=== PATIENT | male | born 1985 | race Caucasian/White ===

== ENCOUNTER 2023-04-04 14:48 | Outpatient (REF) | payer MEDICAID, SELFPAY ==
[2023-04-04 17:34] LABS: MANUAL DIFF FLAG NO
[2023-04-04 17:40] LABS: Basophils Percent Auto 0.6 % (0-2); Eosinophils Absolute Auto 0.1 X10*3/uL (0.0-0.4); Eosinophils Percent Auto 1.7 % (0-4); Hemoglobin 15.6 g/dl (14.0-18.0); Imm Gran Abs Auto 0.02 X10*3/uL (0.00-0.03); Imm Gran Pct Auto 0.4 % (0.0-0.4); Lymphocytes Absolute Auto 1.8 X10*3/uL (1.2-4.9); Lymphocytes Percent Auto 36.7 % (20-40); Mean Corpuscular HGB Conc 32.5 g/dl (31.0-36.0); Mean Corpuscular Hemoglobin 29.3 pg (27.0-33.0); Mean Corpuscular Volume 90.1 fL (80.0-98.0); Mean Platelet Volume 12.4 fL (9.4-12.4); Monocytes Absolute Auto 0.3 X10*3/uL (0.1-1.2); Neutrophils Absolute Auto 2.6 x10*3/uL (2.0-8.3); Neutrophils Percent Auto 54.6 % (45-73); Platelet Count 159 X10*3/uL (160-400); Red Blood Count 5.33 X10*6/uL (4.60-5.80); Red Cell Distribution Width 13.1 % (11.0-16.0); White Blood Count 4.8 X10*3/uL (4.8-10.8)
[2023-04-04 17:54] LABS: Estimated Average Glucose 111 mg/dL; Hemoglobin A1c % 5.5 % (<6.0)
[2023-04-04 18:09] LABS: Alanine Aminotransferase 18 U/L (0-40); Albumin Level 4.7 g/dL (3.5-5.0); Alkaline Phosphatase 51 U/L (39-117); Anion Gap 15 (12-20); Aspartate Amino Transferase 23 U/L (5-37); Bilirubin Total 0.6 mg/dL (0.0-1.0); Blood Urea Nitrogen 10 mg/dL (9-16); Calcium 10.1 mg/dL (8.4-10.2); Carbon Dioxide 26 mmol/L (22-29); Chloride 104 mmol/L (96-108); Cholesterol 281 mg/dL (<200); Estimated Glomerular Filt Rate > 60; Glucose Random 89 mg/dL (60-115); HDL Cholesterol 49 mg/dL (>40); LDL Cholesterol Calculated 173 mg/dL (<100); Potassium 4.3 mmol/L (3.3-5.1); Sodium 141 mmol/L (135-145); Total Protein 8.1 g/dL (6.5-8.0); Triglycerides 296 mg/dL (<150)
[2023-04-04 18:16] LABS: TSH reflex Free T4 75.42 uIU/mL (0.32-4.0)
[2023-04-04 18:39] LABS: Creatinine Urine 277.43 mg/dL; Microalbum/Creatinine Ratio Ur 34.2 ug/mg cr (<30)
[2023-04-04 19:03] LABS: Free T4 (Free Thyroxine) < 0.42 ng/dL (0.71-1.85)
[2023-04-05 03:33] LABS: CT PCR NOT DETECTED (Not Detect.); NG PCR NOT DETECTED (Not Detect.)
[2023-04-05 03:46] LABS: HIV AB/AG Nonreactive (Nonreactive); HIV Num 1 0.05 S/CO (0.00-0.99)
[2023-04-08 14:03] LABS: RPR Rapid Plasma Reagin NON-REACTIVE (NON-REACTIVE)
[2023-04-09 17:43] LABS: HCV Log PCR <1.18 NOT DETECTED Log IU/mL (NOT DETECTED); HepC Viral Load <15 NOT DETECTED IU/mL (NOT DETECTED)
== END 2023-04-04 14:49 | disposition home or self-care (01) ==
LOC: HO.CHCLDS 14:48
PROVIDERS: Visit Provider Registered Nurse
DX: Z00.00 Encounter for general adult medical examination without abnormal findings (principal); Z11.4 Encounter for screening for human immunodeficiency virus [HIV]; Z11.3 Encounter for screening for infections with a predominantly sexual mode of transmission
CPT/HCPCS: 0353U; 80053; 80061; 82043; 82570; 83036; 84439; 84443; 85025; 86592; 87389; 87522

== ENCOUNTER 2023-06-06 15:14 | Outpatient (AMB) | payer MEDICAID, SELFPAY ==
--- NOTE | 2023-06-06 15:22 | A.OFFVIS_ITS ---
Intake Intake Visit Reasons: kidney stones Intake Note: NEW Patient presents today to established treatment for KIDNEY STONES: Meds- None Allergies to Antibiotic- No Known Allergies Blood Thinner- None Fleet Coordinator Required: No Accompanied by: Self / Same As Patient Allergies No Known Allergies Allergy (Verified 06/06/23 15:23) HPI HPI Comments History of Present Illness Details Dewey is a 38-year-old male who presents today to the office to establish as a new patient for an evaluation of kidney stones. 06/06/2023-- He presents today for an evaluation of kidney stones. He was seen in ED for abdominal pain. He has had CAT scan done on 05/08/2023 revealed bilateral nephrolithiasis with 6 mm mid right ureteral calculus. His PCP has been prescribing pain medication He requests refills of oxycodone at this time. 06/06/2023: Plan: I will send Vitamin B6 to the Pharmacy. Renewed oxycodone 5 mg #8 for the pain. Consent obtained for uretrescopy with laser litihotripsy on the right wtih stent insertion. Risks discussed included but not limited to, possible need to repeat procedure if stone is not completely fragmented, Irritative voiding symptoms, bladder spasms, urgency, blood in urine. [facility] Medical History (Updated 06/08/23 @ 12:10 by Danny Johnson MD) Vitamin D deficiency Hypothyroid Allergic rhinitis Anxiety GERD (gastroesophageal reflux disease) Diabetes Elevated cholesterol HTN (hypertension) Surgical History (Updated 04/26/23 @ 06:57 by Kenya Mills RN) History of esophagogastroduodenoscopy (EGD) Hx of appendectomy Family History (Updated 04/06/20 @ 11:47 by JUVENTINO Browning) Father Diabetes Past heart attack HTN (hypertension) CVD (cardiovascular disease) Mother Diabetes HTN (hypertension) Daughter Asthma Maternal Grandmother Thyroid disease Cancer Paternal Uncle Prostate CA Colon cancer Liver cancer Brother No problems noted. Review of Systems Const All systems reviewed & are unremarkable except as noted in HPI and below Reports no additional complaints Eyes Reports no additional complaints ENT Reports no additional complaints Card Denies dyspnea Resp Denies cough and Denies dyspnea GI Reports no additional complaints Musc Reports no additional complaints Skin/Breast Denies rash and Denies unusual bruising Neuro Reports no additional complaints Psych Reports no additional complaints Endo Reports no additional complaints Bryn/Lymph Reports no additional complaints Aller/Immun Reports no additional complaints Physical Exam Const General: healthy appearing, no acute distress and well developed Orientation/consciousness: patient oriented x3 HEENT Head: Yes normocephalic and Yes atraumatic Eyes Conjunctivae: conjunctivae normal Neck Neck: Yes normal visual inspection Chest Chest palpation & inspection: normal inspection of the chest Resp Effort & Inspection: normal respiratory effort Cardio Rate: regular rate GI Inspection: Yes normal to inspection Skin General skin exam: no rashes or lesions noted Neuro General: patient oriented x3 Extrem General: No pedal edema Psych Appearance: grossly normal Affect: normal affect Assessment & Plan Assessment & Plan (1) Bilateral kidney stones: Code(s): N20.0 - Calculus of kidney (2) Ureteral stone: Code(s): N20.1 - Calculus of ureter Plan I will send Vitamin B6 to the Pharmacy. Renewed oxycodone 5 mg #8 for the pain. Consent obtained for uretrescopy with laser litihotripsy on the right wtih stent insertion. Risks discussed included but not limited to, possible need to repeat procedure if stone is not completely fragmented, Irritative voiding symptoms, bladder spasms, urgency, blood in urine. Medications: New oxycodone Partial Fill upon patient request. 5 mg PO Q8-12H PRN 8 caps 0RF pain acetaminophen 500 - 1,000 mg (1 - 2 x 500 mg) PO Q6-8H PRN 20 tabs 0RF Pain pyridoxine (vitamin B6) 100 mg PO DAILY 90 tabs 3RF Patient Instructions: The patient had an opportunity to ask questions regarding treatment plan. All questions were answered. Imaging, Laboratory studies and physical exam results were discussed and reviewed in detail. No major barriers to understanding were identified. The patient expressed understanding and agreement with the above treatment plan. The patient is aware they should contact our office by phone for worsening of their current condition or the appearance of new symptoms. Compliance is encouraged with any medications and followup testing that is ordered. It is a privilege to be allowed the opportunity to participate in the urologic care of your patient. If you have any questions or concerns regarding treatment for the above conditions please do not hesitate to contact me. The office telephone contact is [phone]. This note is constructed in part using voice recognition software. While every effort has been made to ensure accuracy court specialist errors may have been included. Yours sincerely, Danny Johnson MD Coding Level of Care Code Tele New Pt Level 4 (56685) Diagnoses Bilateral kidney stones N20.0 Ureteral stone N20.1
== END 2023-06-06 16:09 | disposition home or self-care (01) ==
PROVIDERS: PCP Registered Nurse; Visit Provider Urology
DX: N20.0 Calculus of kidney (principal); N20.1 Calculus of ureter
CPT/HCPCS: 99204

== ENCOUNTER → 2023-06-06 15:14 | Outpatient (BNVA) | payer MEDICAID, SELFPAY | PROVIDERS: PCP Registered Nurse; Visit Provider Urology | DX: N20.2 Calculus of kidney with calculus of ureter (principal) | CPT/HCPCS: 99202 ==

== ENCOUNTER 2023-06-18 06:06 | Day surgery (SDC) | payer MEDICAID, SELFPAY ==
[2023-06-14 13:07] VITALS: BMI 29.3
--- NOTE | 2023-06-17 10:38 | HO.ANESPROP2 ---
Documented by User: Gunjan Horta NP 06/17/23 10:38 HPI - Anesthesia Eval Consult details Narrative: 38yo M for Cystoscopy, Ureteroroscopy, Retro, Laser,with poss stent PMFSH Active Problems Active Problems: All Active Problems (Updated 06/08/23 @ 12:10 by Danny Johnson MD) Ureteral stone (Acute) Bilateral kidney stones (Acute) Past Medical History Medical History Vitamin D deficiency Hypothyroid Allergic rhinitis Anxiety GERD (gastroesophageal reflux disease) Diabetes Elevated cholesterol HTN (hypertension) Family History Family History (Updated 04/06/20 @ 11:47 by JUVENTINO Browning) Father Diabetes Past heart attack HTN (hypertension) CVD (cardiovascular disease) Mother Diabetes HTN (hypertension) Daughter Asthma Maternal Grandmother Thyroid disease Cancer Paternal Uncle Prostate CA Colon cancer Liver cancer Brother No problems noted. Surgical History Surgical History History of esophagogastroduodenoscopy (EGD) Hx of appendectomy Social History Social History Patient Tobacco Use Status: Former Tobacco user Quit Date: 1 YR AGO Have you been hit, kicked, punched, or otherwise hurt by someone within the past year? If so, by whom?: No Are you DNR?: No Advance Directives: No Advance Directives Information Provided: Yes Recently lost weight without trying: No Nutrition Risks: No Nutritional Risk Poor oral hygiene: No Meds Allergies Allergy/AdvReac Type Severity Reaction Status Date / Time No Known Allergies Allergy Verified 06/06/23 15:23 Home Medications Medication Instructions Recorded Confirmed Last Taken Type lisinopril 10 mg tablet 10 mg PO DAILY 04/06/20 06/18/23 History omeprazole 20 mg capsule,delayed 20 mg PO BID 04/06/20 06/18/23 History release prazosin 2 mg capsule 2 mg PO BEDTIME 04/06/20 Unknown History atorvastatin 20 mg tablet 20 mg PO QPM CHOLESTEROL 04/26/23 04/26/23 06/18/23 History cholecalciferol (vitamin D3) 25 25 mcg PO DAILY 04/26/23 04/26/23 Unknown History mcg (1,000 unit) capsule (Vitamin D3) levothyroxine 100 mcg tablet 100 mcg PO QAM 04/26/23 04/26/23 06/18/23 History quetiapine 400 mg tablet 400 mg PO BEDTIME 04/26/23 04/26/23 Unknown History risperidone 1 mg tablet 1 mg PO QAM 04/26/23 04/26/23 Unknown History loratadine 10 mg tablet 10 mg PO DAILY PRN allergic 06/06/23 Unknown History symptoms venlafaxine 150 mg 150 mg PO DAILY PRN 06/06/23 Unknown History capsule,extended release 24 hr clonazepam 0.5 mg tablet 0.5 mg PO BID PRN anxiety 06/14/23 06/14/23 Unknown History metformin 1,000 mg tablet 1,000 mg PO QPM 06/17/23 06/17/23 Unknown History Exam Height,Weight and Vital Signs: Height 5 ft 5.12 in Weight 80.286 kg Assessment and Plan Assessment Anesthesia Assessment: Chart Reviewed Documented by User: Kwesi Gonzalez MD 06/18/23 07:58 [facility] Past Medical History Medical History Vitamin D deficiency Hypothyroid Allergic rhinitis Anxiety GERD (gastroesophageal reflux disease) Diabetes Elevated cholesterol HTN (hypertension) Family History Family History (Updated 04/06/20 @ 11:47 by JUVENTINO Browning) Father Diabetes Past heart attack HTN (hypertension) CVD (cardiovascular disease) Mother Diabetes HTN (hypertension) Daughter Asthma Maternal Grandmother Thyroid disease Cancer Paternal Uncle Prostate CA Colon cancer Liver cancer Brother No problems noted. Family history of problems with anesthesia: No Surgical History Surgical History History of esophagogastroduodenoscopy (EGD) Hx of appendectomy History of Problems with Anesthesia: No Social History Social History Patient Tobacco Use Status: Former Tobacco user Quit Date: 1 YR AGO Have you been hit, kicked, punched, or otherwise hurt by someone within the past year? If so, by whom?: No Are you DNR?: No Advance Directives: No Advance Directives Information Provided: Yes Recently lost weight without trying: No Nutrition Risks: No Nutritional Risk Poor oral hygiene: No Meds Allergies Allergy/AdvReac Type Severity Reaction Status Date / Time No Known Allergies Allergy Verified 06/06/23 15:23 Home Medications Medication Instructions Recorded Confirmed Last Taken Type lisinopril 10 mg tablet 10 mg PO DAILY 04/06/20 06/18/23 History omeprazole 20 mg capsule,delayed 20 mg PO BID 04/06/20 06/18/23 History release prazosin 2 mg capsule 2 mg PO BEDTIME 04/06/20 Unknown History atorvastatin 20 mg tablet 20 mg PO QPM CHOLESTEROL 04/26/23 04/26/23 06/18/23 History cholecalciferol (vitamin D3) 25 25 mcg PO DAILY 04/26/23 04/26/23 Unknown History mcg (1,000 unit) capsule (Vitamin D3) levothyroxine 100 mcg tablet 100 mcg PO QAM 04/26/23 04/26/23 06/18/23 History quetiapine 400 mg tablet 400 mg PO BEDTIME 04/26/23 04/26/23 Unknown History risperidone 1 mg tablet 1 mg PO QAM 04/26/23 04/26/23 Unknown History loratadine 10 mg tablet 10 mg PO DAILY PRN allergic 06/06/23 Unknown History symptoms venlafaxine 150 mg 150 mg PO DAILY PRN 06/06/23 Unknown History capsule,extended release 24 hr clonazepam 0.5 mg tablet 0.5 mg PO BID PRN anxiety 06/14/23 06/14/23 Unknown History metformin 1,000 mg tablet 1,000 mg PO QPM 06/17/23 06/17/23 Unknown History Exam Airway Mallampati Class: I TM Dist: >3cm Neck ROM: Full Heart: ok Lungs: ok Assessment and Plan Assessment Anesthesia Assessment: Anesthesia Plan Discussed Final Anesthetic Review Family History of Problems with Anesthesia: No History of Problems with Anesthesia: No NPO: Yes ASA Class: II Final Preanesthetic Review: No Changes in Pt Med Stat, Meds/Allgs Chart Reviewed, Consent Obtained/Reviewed and Anes Risks/Benef Reviewed Patient Risk: Low Procedure Risk: Low Anesthetic Plan Anesthetic Plan: GA and Agree w/ Assess. and Plan Disposition: Standard PACU
[2023-06-18] VITALS (11 sets, daily range): BP systolic 101–143; BP diastolic 55–94; PULSE 47–80; RESP 16–19; TEMP 36.2–36.7; O2SAT 95–98; BMI 29.3
--- NOTE | ~2023-06-18 | FL_ITS ---
EXAMINATION: XR FLUOROSCOPY WITH IMAGES CLINICAL INFORMATION: Right stone. COMPARISON: None available. TECHNIQUE: Fluoroscopy Supervised By: Dr. Johnson. Fluoroscopy Time: 4.9 seconds. Cumulative Dose: 1.32 mGy. DAP: None available. Images: 3. FINDINGS: Image demonstrates wire projecting over the right renal collecting system and proximal ureter. FL/FL guidance in OR IMPRESSION: Fluoroscopy guidance for right retrograde exam.
[2023-06-18 06:42] LABS: Glucose, Whole Blood 96 mg/dL (60-115)
--- NOTE | 2023-06-18 07:30 | MHC.SHP ---
Pre-Procedural Eval Section A Date of Service: 06/18/23 The patient is an INPATIENT: No The History & Physical has been completed within 30 days and I have reviewed it.: Yes Section B Chief Complaint: Calculus of kidney Allergies: Allergies Allergy/AdvReac Type Severity Reaction Status Date / Time No Known Allergies Allergy Verified 06/06/23 15:23 Plan Diagnosis/Plan: Unchanged I have reviewed the history and physical and performed a pertinent physical examination on my patient. No changes have occurred unless specified. Plan for Cystoscopy, Right ureteroscopy, possible laser lithotripsy, possible ureteral stent. Risks discussed included but not limited to, possible need to repeat procedure if stone is not completely fragmented, Irritative voiding symptoms, bladder spasms, urgency, blood in urine. Time Spent With Patient Time: Total time managing care of this patient today ____ minutes.
--- NOTE | 2023-06-18 08:34 | P.OP_ITS ---
Operative Note Operative Note Date of Service: 06/18/23 Narrative: PreOperative Diagnosis:?? Right ureteral stone Post Operative Diagnosis:?? Right ureteral stone Procedure: - cystoscopy, right ureteroscopy, laser lithotripsy, stone extraction Surgeon:?Dr Danny Johnson Anesthesia:? General Procedure: After informed consent was verified the patient was brought to the operating room placed on the OR table in supine position.? General Anesthesia was administered per protocol.? The patient was placed in lithotomy position, prepped and draped in the usual sterile fashion.? Safety pause time-out and side of surgery confirmed.? Antibiotics confirmed. 2% lidocaine jelly 10 mL was passed transurethrally. Attempts to place a 22 [place] cystoscope met with resistance at the meatus, the Tricia sounds were used in the urethral meatus was dilated from a 16 [place] to a 26 [place]. A 22 [place] cystoscope was inserted transurethrally, the bulbous urethra was within normal limits. The prostatic urethra was nonobstructive. The bladder was visualized.? The right ureteral stone was noted extruding out of the urethral meatus. The 365 laser was passed through an open-ended ureteral catheter and the visible stone was fragmented. The cystoscope was removed and a semi-rigid ureteroscope was then passed transurethrally into the right ureteral orifice a guidewire was passed into the kidney. The laser fiber was then used to fragment the remaining distal ureteral stone. A basket was then used to remove the fragments. The cystoscope was passed into the bladder and there was good efflux of urine noted from the right ureteral orifice. A ureteral stent was not placed. The bladder was emptied.? The rigid cystoscope was removed. ? 2% lidocaine jelly was passed transurethrally. The patient tolerated the procedure well and was brought to the recovery room in stable condition. Complications: None Drains: None
[2023-06-18] MEDS: fentaNYL citrate/PF 100 MCG/2 ML VIAL 50 MCG IVPUSH ×2 (08:43→08:54)
[2023-06-18] MEDS: ondansetron HCL 4 MG/2 ML VIAL IVPUSH (08:55)
[2023-06-18] MEDS: Phenazopyridine HCL 200 MG TABLET PO (08:57)
[2023-06-18] MEDS: oxyCODONE HCl Immed Release 5 MG TABLET 10 MG PO (09:15)
[2023-06-18] MEDS: Acetaminophen 325 MG TABLET 650 MG PO (09:15)
[2023-06-25 19:30] LABS: Stone Source KIDNEY STONE
== END 2023-06-18 10:18 | disposition home or self-care (01) ==
PROVIDERS: PCP Registered Nurse; Visit Provider Urology
PROC: (CPT 52353; principal; 2023-06-18 07:30)
DX: N20.2 Calculus of kidney with calculus of ureter (principal); E11.9 Type 2 diabetes mellitus without complications; I10 Essential (primary) hypertension; E78.5 Hyperlipidemia, unspecified; K21.9 Gastro-esophageal reflux disease without esophagitis; E03.9 Hypothyroidism, unspecified; E55.9 Vitamin D deficiency, unspecified; Z79.84 Long term (current) use of oral hypoglycemic drugs; Z79.02 Long term (current) use of antithrombotics/antiplatelets; Z79.899 Other long term (current) drug therapy
CPT/HCPCS: 52353; 82365; 82947; 88300; C1769; J0690; J2250; J2405; J2704; J3010; Q9967

== ENCOUNTER → 2023-06-18 06:06 | Outpatient (BNV) | payer MEDICAID, SELFPAY | PROVIDERS: PCP Registered Nurse; Visit Provider Urology | DX: N20.1 Calculus of ureter (principal) | CPT/HCPCS: 52353 ==

== ENCOUNTER 2023-06-26 12:24 | Outpatient (REF) | payer MEDICAID, SELFPAY ==
--- NOTE | ~2023-06-26 | XR_ITS ---
EXAMINATION: XR ABDOMEN KUB CLINICAL INDICATION: Ureteral calculus COMPARISON: KUB 12/25/2018 TECHNIQUE: AP view of the abdomen. FINDINGS: 3 small ossification are seen overlying the left renal fossa measuring from 1.5 to 3 mm in size. No calcifications are seen overlying the course of the ureters. The bowel gas pattern is normal with no evidence of ileus or obstruction. No additional unusual soft tissue calcifications are noted. The bones are unremarkable. A metallic presumed foreign body overlies the region inferior to the pubic symphysis. Please correlate with physical exam. XR/XR KUB IMPRESSION: 3 small calcification are seen overlying the left renal fossa.
== END 2023-06-26 12:25 | disposition home or self-care (01) ==
LOC: HO.XRAY 12:24
PROVIDERS: PCP Registered Nurse; Visit Provider Nurse Practitioner Family
DX: N20.1 Calculus of ureter (principal); N20.0 Calculus of kidney
CPT/HCPCS: 74018

== ENCOUNTER 2023-06-27 14:13 | Outpatient (AMB) | payer MEDICAID, SELFPAY ==
--- NOTE | 2023-06-27 14:16 | MHC.OFFVIS ---
Intake Intake Visit Reasons: S/P Cysto special Post-op- Stent removal Intake Note: Patient presents today to follow up Kidney Stone Treatment/KUB Urology Medications: None Allergies to Antibiotic: No Known Allergies Blood Thinner: None Meat Stock Clerk Required: No Accompanied by: Self / Same As Patient Allergies No Known Allergies Allergy (Verified 06/27/23 15:11) Medication List - Last Reconciled 06/27/23 by FUAD Munoz-JOSE D acetaminophen 500 - 1,000 mg (1 - 2 x 500 mg) PO Q6-8H PRN atorvastatin 20 mg PO QPM cholecalciferol (vitamin D3) (Vitamin D3) 25 mcg PO DAILY clonazepam 0.5 mg PO BID PRN levothyroxine 100 mcg PO QAM lisinopril 10 mg PO DAILY loratadine 10 mg PO DAILY PRN metformin 1,000 mg PO QPM omeprazole 20 mg PO BID oxycodone-acetaminophen 5-325 mg (Percocet) 1 tab PO Q8-12H PRN prazosin 2 mg PO BEDTIME pyridoxine (vitamin B6) 100 mg PO DAILY quetiapine 400 mg PO BEDTIME risperidone 1 mg PO QAM venlafaxine ER 150 mg PO DAILY PRN HPI HPI Comments History of Present Illness Details Dewey is a 38-year-old male patient of Dr. Reagan who presents to the office today for follow-up of his nephrolithiasis. He has a past medical history of vitamin-D deficiency, hypothyroidism, allergic rhinitis, anxiety, diabetes, hypercholesteremia, and hypertension. Of note, patient underwent right-sided ureteroscopy with Dr. Tello on 06/18 for right ureteral stone. He presents to the office today for cystoscopy right-sided ureteral stent removal however no stent was placed during surgical procedure. Therefore procedure was not performed. KUB results were reviewed with the patient today. 3 small ossification are seen overlying the left renal fossa measuring from 1.5 to 3 mm in size. No calcifications are seen overlying the course of the ureters. The bowel gas pattern is normal with no evidence of ileus or obstruction. No additional unusual soft tissue calcifications are noted. The bones are unremarkable. A metallic presumed foreign body overlies the region inferior to the pubic symphysis. Please correlate with physical exam. In discussion with the patient today he continues to report bilateral flank pain radiating to lower abdominal area. Discussed obtaining CT KUB for further assessment evaluation. He otherwise denies any bothersome urinary issues. He denies urinary urgency, urinary frequency, incontinence, nocturia, hematuria, dysuria, foul smelling urine, changes to urinary stream, flank pain, fever, and or chills. He is happy with his current voiding parameters. In office urinalysis results reviewed with the patient today. [facility] Medical History Vitamin D deficiency Hypothyroid Allergic rhinitis Anxiety GERD (gastroesophageal reflux disease) Diabetes Elevated cholesterol HTN (hypertension) Surgical History History of esophagogastroduodenoscopy (EGD) Hx of appendectomy Family History Father Diabetes Past heart attack HTN (hypertension) CVD (cardiovascular disease) Mother Diabetes HTN (hypertension) Daughter Asthma Maternal Grandmother Thyroid disease Cancer Paternal Uncle Prostate CA Colon cancer Liver cancer Brother No problems noted. Social History Patient Tobacco Use Status: Former Tobacco user Quit Date: 1 YR AGO Review of Systems Eyes Reports no additional complaints ENT Reports no additional complaints Card Reports as per HPI Resp Reports no additional complaints GI Reports as per HPI Reports as per HPI Neuro Reports no additional complaints Psych Reports as per HPI Endo Reports as per HPI Physical Exam Const General: cooperative, healthy appearing, comfortable, no acute distress, well developed, alert and awake Orientation/consciousness: patient oriented x3 Limitations: no limitations HEENT Head: Yes normal to inspection, Yes normocephalic and Yes atraumatic Ears: hearing grossly normal bilaterally Eyes General: appearance normal, both eyes and all related structures Neck Neck: Yes normal visual inspection and Yes trachea midline Chest Chest palpation & inspection: normal inspection of the chest Resp Effort & Inspection: normal respiratory effort and able to speak in complete sentences Cardio Rate: regular rate GI Inspection: Yes normal to inspection General: Yes no CVA tenderness Back/Spine/Pelvis Back: no CVA tenderness Skin General skin exam: no rashes or lesions noted Neuro General: patient oriented x3 Extrem General: Yes normal to inspection Psych Appearance: grossly normal and well kempt Mental Status: mental status grossly normal Speech and movement: Normal speech and movement present and Clear speech present Affect: normal affect Attitude: cooperative Thought process: Normal thought process present Thought content: Normal thought content present Insight: Fair insight present (Psych) Judgement: Fair judgement present (Psych) Results AMB Urinalysis, Automated UA Leukoctes 0 Tracey/uL Last Edit by [employer] on 06/27/23 14:46 UA Nitrite Negative Last Edit by [employer] on 06/27/23 14:46 UA Urobilinogen 0.2 mg/dL Last Edit by [employer] on 06/27/23 14:46 UA Protein 15 mg/dL Last Edit by [employer] on 06/27/23 14:46 UA pH 6.0 Last Edit by [employer] on 06/27/23 14:46 UA Blood 25 Pedro/uL Last Edit by [employer] on 06/27/23 14:46 UA Specific Echo 1.020 Last Edit by [employer] on 06/27/23 14:46 UA Ketone Negative Last Edit by [employer] on 06/27/23 14:46 UA Bilirubin 0 mg/dL Last Edit by [employer] on 06/27/23 14:46 UA Glucose 0 mg/dL Last Edit by [employer] on 06/27/23 14:46 Results Reviewed Results Reviewed: Laboratory Last Values Urine pH (Auto) 6.0 06/27/23 14:19 Specific Echo (Auto) 1.020 06/27/23 14:19 Urine Protein (Auto) 15 mg/dL 06/27/23 14:19 Glucose (UA)(Auto) 0 mg/dL 06/27/23 14:19 Urine Ketones (Auto) Negative 06/27/23 14:19 Urine Blood (Auto) 25 Pedro/uL 06/27/23 14:19 Urine Nitrite (Auto) Negative 06/27/23 14:19 Urine Bilirubin (Auto) 0 mg/dL 06/27/23 14:19 Urine Urobilinogen (Auto) 0.2 mg/dL 06/27/23 14:19 Leukocyte Esterase (Auto) 0 Tracey/uL 06/27/23 14:19 Date of Service: 06/26/23 EXAMINATION: XR ABDOMEN KUB FINDINGS: 3 small ossification are seen overlying the left renal fossa measuring from 1.5 to 3 mm in size. No calcifications are seen overlying the course of the ureters. The bowel gas pattern is normal with no evidence of ileus or obstruction. No additional unusual soft tissue calcifications are noted. The bones are unremarkable. A metallic presumed foreign body overlies the region inferior to the pubic symphysis. Please correlate with physical exam. IMPRESSION: 3 small calcification are seen overlying the left renal fossa. Assessment & Plan Assessment & Plan (1) Microscopic hematuria: Code(s): R31.29 - Other microscopic hematuria (2) Flank pain: Code(s): R10.9 - Unspecified abdominal pain (3) Nephrolithiasis: Code(s): N20.0 - Calculus of kidney Plan In office urinalysis results reviewed with the patient today; as noted above. Recent KUB results reviewed with the patient today; as noted above. Discussed obtaining CT urogram for further assessment evaluation as patient reporting ongoing bilateral flank pain. Discussed, educated, encouraged on the importance of drinking plenty of water daily. Discussed seeking emergency room care for worsening symptoms Discussed adding 1 oz of lemon juice to water daily. Discussed near future metabolic workup with 24 hour urine and labs. Follow-up in 1 month with imaging to be completed prior; or sooner with any issues, concerns, and or questions Orders: Orders XR KUB 06/26/23 N20.0 - Calculus of kidney, N20.1 - Calculus of ureter AMB Urinalysis Automated Today Z13.9 - Encounter for screening, unspecified CT kidney stone Today R10.9 - Unspecified abdominal pain, R31.29 - Other microscopic hematuria Patient Instructions: The patient had an opportunity to ask questions regarding the treatment plan. All questions were answered. Physical exam, labs, and imaging were discussed and reviewed in detail. As well as risks, benefits, and discussion of treatment choices. No major barriers to understanding were identified. The patient expressed understanding and agreement with the above treatment plan. The patient was made aware they should contact our office by phone for worsening of their current condition, the appearance of new symptoms, or with any questions or concerns. Compliance is encouraged with any medications and follow up testing that is ordered. It is a privilege to be allowed the opportunity to participate in? your urological care.? Again, if you have any questions or concerns If you have any questions or concerns please do not hesitate to contact me. The office is [phone]. This note is constructed using voice recognition software. While every effort has been made to ensure accuracy excel specialist errors may have been included. Yours sincerely, FUAD Munoz-JOSE D Coding Level of Care Code Est Pt Level 3 (14551) Diagnoses Microscopic hematuria R31.29 Flank pain R10.9 Nephrolithiasis N20.0
== END 2023-06-27 15:11 | disposition home or self-care (01) ==
PROVIDERS: PCP Registered Nurse; Visit Provider Nurse Practitioner Family
DX: R31.29 Other microscopic hematuria (principal); R10.9 Unspecified abdominal pain; N20.0 Calculus of kidney; Z13.9 Encounter for screening, unspecified
CPT/HCPCS: 99213

== ENCOUNTER → 2023-06-27 14:13 | Outpatient (BNVA) | payer MEDICAID, SELFPAY | PROVIDERS: PCP Registered Nurse; Visit Provider Nurse Practitioner Family | DX: N20.0 Calculus of kidney (principal); R31.29 Other microscopic hematuria | CPT/HCPCS: 81003; 99212 ==

== ENCOUNTER 2024-02-21 15:01 | Outpatient (REF) | payer MEDICAID, SELFPAY ==
--- NOTE | ~2024-02-21 | XR_ITS ---
EXAMINATION: XR CHEST CLINICAL INFORMATION: Abnormal chest radiograph. Vaping. COMPARISON: Chest radiograph dated 08/02/2014. TECHNIQUE: 2 views of the chest were obtained. FINDINGS: The lungs are clear. The cardiomediastinal silhouette is normal in size. There is no pleural effusion or pneumothorax. No acute osseous abnormality. XR/XR chest 2V IMPRESSION: No acute cardiopulmonary findings. Electronically signed by: Steve Calderon MD 03/18/2024 09:22 PM EDT
[2024-02-21 15:24] LABS: MANUAL DIFF FLAG NO
[2024-02-21 16:16] LABS: Basophils Percent Auto 0.7 % (0-2); Eosinophils Absolute Auto 0.1 X10*3/uL (0.0-0.4); Eosinophils Percent Auto 0.9 % (0-4); Hematocrit 47.3 % (42.0-52.0); Hemoglobin 15.8 g/dl (14.0-18.0); Imm Gran Abs Auto 0.02 X10*3/uL (0.00-0.03); Imm Gran Pct Auto 0.4 % (0.0-0.4); Lymphocytes Absolute Auto 1.9 X10*3/uL (1.2-4.9); Lymphocytes Percent Auto 34.7 % (20-40); Mean Corpuscular HGB Conc 33.4 g/dl (31.0-36.0); Mean Corpuscular Hemoglobin 29.2 pg (27.0-33.0); Mean Corpuscular Volume 87.4 fL (80.0-98.0); Mean Platelet Volume 12.2 fL (9.4-12.4); Monocytes Absolute Auto 0.5 X10*3/uL (0.1-1.2); Monocytes Percent Auto 8.2 % (2-11); Neutrophils Percent Auto 55.1 % (45-73); Platelet Count 170 X10*3/uL (160-400); Red Blood Count 5.41 X10*6/uL (4.60-5.80); Red Cell Distribution Width 13.1 % (11.0-16.0); White Blood Count 5.5 X10*3/uL (4.8-10.8)
[2024-02-21 16:53] LABS: Alanine Aminotransferase 31 U/L (0-40); Albumin Level 4.5 g/dL (3.5-5.0); Alkaline Phosphatase 56 U/L (39-117); Anion Gap 14 (12-20); Aspartate Amino Transferase 26 U/L (5-37); Bilirubin Total 0.8 mg/dL (0.0-1.0); Blood Urea Nitrogen 16 mg/dL (9-16); Calcium 9.3 mg/dL (8.4-10.2); Carbon Dioxide 25 mmol/L (22-29); Chloride 105 mmol/L (96-108); Estimated Glomerular Filt Rate > 60; Glucose Random 91 mg/dL (60-115); Potassium 4.1 mmol/L (3.3-5.1); Sodium 140 mmol/L (135-145); Total Protein 7.8 g/dL (6.5-8.0)
[2024-02-21 17:02] LABS: TSH reflex Free T4 43.11 uIU/mL (0.32-4.0)
[2024-02-21 17:32] LABS: Free T4 (Free Thyroxine) 0.48 ng/dL (0.71-1.85)
[2024-02-22 04:15] LABS: HIV AB/AG Nonreactive (Nonreactive); HIV Num 1 0.05 S/CO (0.00-0.99)
[2024-02-22 13:29] LABS: HCV Log PCR <1.18 NOT DETECTED Log IU/mL (NOT DETECTED); HepC Viral Load <15 NOT DETECTED IU/mL (NOT DETECTED)
[2024-02-24 09:23] LABS: RPR Rapid Plasma Reagin NON-REACTIVE (NON-REACTIVE)
== END 2024-02-21 15:02 | disposition home or self-care (01) ==
LOC: HO.LAB 15:01
PROVIDERS: PCP Registered Nurse; Visit Provider Registered Nurse
DX: Z00.00 Encounter for general adult medical examination without abnormal findings (principal); E03.9 Hypothyroidism, unspecified; E11.9 Type 2 diabetes mellitus without complications; R93.89 Abnormal findings on diagnostic imaging of other specified body structures
CPT/HCPCS: 36415; 71046; 80053; 84439; 84443; 85025; 86592; 87389; 87522

== ENCOUNTER 2024-05-25 17:22 | Outpatient (REF) | payer MEDICAID, SELFPAY ==
[2024-05-25 17:29] LABS: Appearance Urine Clear; Color Urine Yellow; Glucose Urine UA Negative (Negative); Leukocyte Esterase Urine Negative (Negative); Nitrite Urine Negative (Negative); Specific Gravity - Urine 1.015 (1.005-1.025); Urine Blood Negative (Negative); Urine Ketones Negative (Negative); Urine Protein Negative (Neg-Trace)
[2024-05-25 17:31] LABS: Bacteria Urine None Seen (None Seen); Hyaline Casts Urine 0-2 /LPF (0-2); RBC Urine 0-2 /HPF (0-2); Squamous Epithelial Cell Urine 0-2 /HPF (0-2); WBC Urine 0-5 /HPF (0-5)
== END 2024-05-25 17:23 | disposition home or self-care (01) ==
LOC: HO.LNP 17:22
PROVIDERS: Visit Provider Registered Nurse
DX: N20.0 Calculus of kidney (principal)
CPT/HCPCS: 81001

== ENCOUNTER 2024-06-24 10:06 | Outpatient (REF) | payer MEDICAID, SELFPAY ==
[2024-06-24 14:30] LABS: Alanine Aminotransferase 46 U/L (0-40); Albumin Level 4.2 g/dL (3.5-5.0); Alkaline Phosphatase 59 U/L (39-117); Anion Gap 10 (12-20); Aspartate Amino Transferase 36 U/L (5-37); Bilirubin Total 0.6 mg/dL (0.0-1.0); Blood Urea Nitrogen 12 mg/dL (9-16); Calcium 8.6 mg/dL (8.4-10.2); Carbon Dioxide 29 mmol/L (22-29); Chloride 104 mmol/L (96-108); Cholesterol 182 mg/dL (<200); Estimated Glomerular Filt Rate > 60; Glucose Random 104 mg/dL (60-115); HDL Cholesterol 43 mg/dL (>40); LDL Cholesterol Calculated 104 mg/dL (<100); Potassium 3.9 mmol/L (3.3-5.1); Sodium 139 mmol/L (135-145); Total Protein 7.6 g/dL (6.5-8.0); Triglycerides 179 mg/dL (<150)
[2024-06-24 14:44] LABS: Creatinine Urine 146.41 mg/dL; Microalbum/Creatinine Ratio Ur 4.7 ug/mg cr (<30)
[2024-06-24 14:49] LABS: TSH reflex Free T4 19.68 uIU/mL (0.32-4.0)
[2024-06-24 15:32] LABS: Free T4 (Free Thyroxine) 0.86 ng/dL (0.71-1.85)
== END 2024-06-24 10:07 | disposition home or self-care (01) ==
LOC: HO.CHCLDS 10:06
PROVIDERS: Visit Provider Registered Nurse
DX: I10 Essential (primary) hypertension (principal); E03.9 Hypothyroidism, unspecified; E11.9 Type 2 diabetes mellitus without complications
CPT/HCPCS: 36415; 80053; 80061; 82043; 82570; 84439; 84443

== ENCOUNTER 2024-07-28 10:44 | Outpatient (REF) | payer MEDICAID, SELFPAY ==
--- OUTSIDE RECORDS SUMMARY | 2024-07-28 12:14 | XMS_ITS | Clinical Summary ---
Author Organization [facility] Address [address] [place] [address] Care Team Providers Care Electrical Foreman Name Role Phone Provider, Unknown Primary Care Provider [phone] Allergies No known active allergies Social History Tobacco Use Types Packs/Day Years Used Date Smoking Tobacco: Never Assessed Sex and Gender Information Value Date Recorded Sex Assigned at Not on file Gender Identity Not on file Sexual Orientation Not on file Last Filed Vital Signs Vital Sign Reading Time Taken Comments Blood Pressure 121/78 03/14/2016 10:57 AM EDT Pulse 56 03/14/2016 10:57 AM EDT Temperature 36.6 ??C (97.9 ??F) 03/14/2016 10:57 AM E DT Respiratory Rate 16 03/14/2016 10:57 AM EDT Oxygen Saturation 100% 03/14/2016 10:57 AM EDT Inhaled Oxygen Concentration - - Weight 95.3 kg (210 lb) 03/14/2016 8:27 AM EDT Height 167.6 cm (5' 6 ) 03/14/2016 8:27 AM EDT Body Mass Index 33.89 03/14/2016 8:27 AM EDT Plan of Treatment Health Maintenance Due Date Last Done Comments Hepatitis C Virus Screening 1983 HIV Screening 02/08/1996 DTaP/Tdap/Td Vaccines (1 - Tdap) 2002 Hepatitis B Vaccines (1 of 3 - 19+ 3-dose series) 2002 Influenza Vaccine 02/06/2024 COVID-19 Vaccine ( - 2023-2 5 season) 2024 HPV Vaccines Aged Out No longer eligi ble based on patient's age to complete this topic Pneumococcal Vaccine: Pediat monet (0-5 Years) and At-Risk Patients (6 to 49 Years) Aged Out No longer eligible b ased on patient's age to complete this topic Care Teams Electrical Foreman Relationship Specialty Start Date End Date Provider, Unknown 1 DO NOT USE THIS RECORD PCP - General 03/14/16
--- OUTSIDE RECORDS SUMMARY | 2024-07-28 12:14 | XMS_ITS ---
Author Organization [facility] Address [address] [place] [address] Care Team Providers Care Log Raft Worker Name Role Phone CARMELO BABB MD Primary Care Provider Berto Rojas [phone] REASON FOR VISIT Colon N/S--needs to R/S letter mailed Encounters Encounter Location Date Provider Diagnosis [facility] [address] [place] [address] 08/25/2023 Berto Muñoz PLAN OF TREATMENT No Information
--- OUTSIDE RECORDS SUMMARY | 2024-07-28 12:14 | XMS_ITS ---
Author Organization [facility] Address [address] [place] [address] Care Team Providers Care Certified Indoor Environmentalist Name Role Phone CARMELO BABB MD Primary Care Provider Berto Rojas [phone] REASON FOR VISIT CX PROCEDURE ON 04-29-23 Encounters Encounter Location Date Provider Diagnosis [facility] [address] [place] [address] 05/06/2023 Berto Muñoz PLAN OF TREATMENT No Information
--- OUTSIDE RECORDS SUMMARY | 2024-07-28 12:14 | XMS_ITS | Encounter Summary ---
Author Organization [facility] Address [address] [place] [address] Care Team Providers Care Senior Manufacturing Test Engineer Name Role Phone Provider, Unknown Primary Care Provider [phone] Encounter Details Date Type Department Care Team (Late st Contact Info) Description 07/16/2017 Scanned Document [facility] Emergency Department [address] [place] [address] Provider, Generic Social History Tobacco Use Types Packs/Day Years Used Date Smoking Tobacco: Never Assessed Sex and Gender Information Value Date Recorded Sex Assigned at Not on file Gender Identity Not on file Sexual Orientation Not on file documented as of this encounter Plan of Treatment Not on file documented as of this encounter Visit Diagnoses Not on filedocumented in this encounter Care Teams Senior Manufacturing Test Engineer Relationship Specialty Start Date End Date Provider, Unknown 1 DO NOT USE THIS RECORD PCP - General 03/14/16 documented as of this encounter
--- OUTSIDE RECORDS SUMMARY | 2024-07-28 12:14 | XMS_ITS ---
Author Organization [facility] Address [address] [place] [address] Care Team Providers Care Furnace Repairer Name Role Phone CARMELO BABB MD Primary Care Provider Berto Rojas [phone] REASON FOR VISIT screening,gerd Encounters Encounter Location Date Provider Diagnosis [facility] [address] [place], [place] [id number] 07/29/2023 Berto Muñoz PLAN OF TREATMENT No Information
--- OUTSIDE RECORDS SUMMARY | 2024-07-28 12:14 | XMS_ITS | Patient Health Record ---
Author Organization [facility] Address [address] [place] [address] Care Team Providers Care Backpackers Manager Name Role Phone CARMELO BABB MD Primary Care Provider Berto Rojas [phone] ALLERGIES No Known Allergies REASON FOR REFERRAL No Information MEDICATIONS Medication SIG (Take, Route, Frequency, Duration) Notes Start Date End Date Status D3-1000 25 MCG (1000 UT) TAKE 1 CAPSULE BY MOUTH EVERY DAY Oral for 90 Active Prazosin HCl 2 MG TAKE 1 TO 2 CAPSULES BY MOUTH EVERY DAY AT BEDTIME Oral for 90 Active Venlafaxine HCl ER 150 MG TAKE 1 CAPSULE BY MOUTH EVERY DAY Oral for 90 Active QUEtiapine Fumarate 400 MG TAKE 1 TABLET BY MOUTH EVERYDAY AT BEDTIME Oral for 30 Active clonazePAM 0.5 MG TAKE 1 TABLET (0.5 M G) BY MOUTH IN THE MORNING & AT NOON & AT BEDTIME NEEDED FOR ANXIETY Oral for 30 Active Atorvastatin Calcium 20 MG TAKE 1 TABLET BY MOUTH EVERY DAY IN THE EVENING Oral for 90 Active Omeprazole 20 MG TAKE 1 CAPSULE BY MO UTH TWICE A DAY BEFORE MEALS (BREAKFAST AND DINNER) Oral Active Lisinopril 10 MG TAKE 1 TABLET BY JUANA TH EVERY DAY Oral for 90 Active Levothyroxine Sodium 100 MCG TAKE 1 TABL ET (100 MCG) BY MOUTH IN THE MORNING Oral for 90 Active metFORMIN HCl 1000 MG TAKE 1 TABLET BY M OUTH EVERY EVENING WITH DINNER Oral for 90 Active Acetaminophen Extra Strength 500 MG TAKE 1-2 TABLETS BY MOUTH EVERY 6 TO 8 HOURS NEEDED NO MORE THAN 6 TABS/24 HOURS Oral for 20 Active Loratadine 10 MG TAKE 1 TABLET BY JUANA TH EVERY DAY NEEDED FOR ALLERGIES Oral for 90 Active risperiDONE 1 MG TAKE 1 TABLET BY JUANA TH IN THE MORNING Oral for 90 Active IMMUNIZATIONS Vaccine Route Administration Date Status Comme nts Influenza Unknown 01/30/2023 Refused SOCIAL HISTORY Tobacco Use: Social History Observation Description Date Details (start date - stop date) Never Smoker NA - NA Sex Assigned At : Social History Observation Description Sex Assigned At Unknown Tobacco Use/Smoking Question Answer Notes Patient is a nonsmoker Alcohol Screen Question Answer Notes Did you have a drink containing alcohol in the p ast year? No Points 0 Interpretation Negative PROBLEMS Problem Type ICD Code Onset Dates Problem Status W/U Status Risk SNOMED Code Notes Problem Family history of colon cancer (Z80.0) Active confirmed 648754402 Problem Colon cancer screening (Z12.11) Active confirmed 936406654 Problem Gastroesophageal reflux disease, unspecified whether esophagitis present (K21.9) Active confirmed [id number] Encounters Encounter Location Date Provider Diagnosis [facility] Outpatient [address] [place], [place] [id number] 07/29/2023 Berto Muñoz [facility] [address] [facility] [address] [place] [address] 08/25/2023 Berto Muñoz PLAN OF TREATMENT Future Test Test Name Order Date UPPER GI ENDOSCOPY 01/30/2023 COLONOSCOPY 01/30/2023 Insurance Providers Payer Name Payer Address Payer Phone Subscriber Number Group Number Insured Name Patient Relationship to Insured Coverage Start Date Coverage End Date MEDICA[employer] OF [employer] [address] [place] [address] [id number] ALIX FRANCIS Self - patient is the insured MEDICAL (GENERAL) HISTORY Medical History History ICD Code Anxiety GERD Hypertension Allergic rhinitis Hypothyroidism NIDDM Elevated cholesterol Vitamin D deficiency Denies NC,CVA,Lung disease,renal disease Surgical History Surgery Date(Month/Year)
--- OUTSIDE RECORDS SUMMARY | 2024-07-28 12:15 | XMS_ITS | Encounter Summary ---
Author Organization [employer] Address [address] [place] [address] [address] [place] [address] Care Team Providers Care Wincher Name Role Phone Trudi Reagan Primary Care Provider [phone] Joshua Anderson Unavailable Unavailable Reason for Visit * Reason Comments Med Refill Encounter Details Date Type Department Care Team (Late st Contact Info) Description 02/21/2023 Refill [facility] MEDICINE [address] [place] [address] Joshua Anderson FNP Social History Tobacco Use Types Packs/Day Years Used Date Smoking Tobacco: Never Assessed Sex and Gender Information Value Date Recorded Sex Assigned at Male 05/07/2022 10:15 AM EDT Legal Sex Male 10:15 AM EDT Gender Identity Male 05/07/2022 10:15 AM EDT Sexual Orientation Straight 05/07/2022 10 :15 AM EDT documented as of this encounter Plan of Treatment Upcoming Encounters Date Type Department Care Team (Late st Contact Info) Description 08/06/2024 2:00 PM EST Clinical Support [facility] CHC MED & PEDS [address] [place] [address] Antonella Moon, AARON [address] [place] [address] documented as of this encounter Visit Diagnoses Not on filedocumented in this encounter Additional Health Concerns Assessment Noted Time PHQ-9 Depression Total Score: 13 023 2:50 PM EDT documented as of this encounter Care Teams Wincher Relationship Specialty Start Date End Date Trudi Reagan FNP [address] [place] [address] PCP - General Family Medicine 03/04/22 Joshua Anderson FNP [address] [place] [address] Nurse Practitioner Family Medicine 06/03/23 documented as of this encounter
--- OUTSIDE RECORDS SUMMARY | 2024-07-28 12:15 | XMS_ITS | Encounter Summary ---
Author Organization [employer] [facility] Address [address] [place] [address] Care Team Providers Care Teasel Gig Operator Name Role Phone Trudi Reagan Primary Care Provider [phone] Joshua Anderson Unavailable Unavailable Encounter Details Date Type Department Care Team ([facility] Contact Info) Description 07/07/2024 Orders Only [facility] CHC MED & PEDS [address] [place], [place] [phone] Trudi Reagan FNP [address] [place], [place] [phone] Acquired hypothyroidism (Primary Dx) Social History Tobacco Use Types Packs/Day Years Used Date Smoking Tobacco: Former Cigarettes Q uit: 03/30/2021 Smokeless Tobacco: Never Depression Answer Date Recorded Patient Health Questionnaire-9 Score 8 01/21/2024 Patient Health Questionnaire-9 Score 8 01/21/2024 Last PHQ-9: Questionnaire Data Not on file 0 01/21/2024 Housing Stability Answer Date Recorded What is your housing situation today? I have johan jo 06/28/[address] you li ve. Do you have problems with any of the following? None of the above 06/28/2023 Food Insecurity Answer Date Recorded Within the past 12 months, y ou worried that your food would run out before you got money to buy more: Never True 06/28/2023 Within the past 12 months,th e food you bought just didn't last and you didn't have enough money to get more: Never True Transportation Answer Date Recorded In the past 12 months, has l ack of transportation kept you from medical appts, meetings, work or from getting things needed for daily living? No 06/28/2023 Utilities Answer Date Recorded In the past 12 months, has t he electric, gas, oil or water company threatened to shut off services in your home? Yes 06/28/2023 Depression Answer Date Recorded Patient Health Questionnaire-2 Score 3 01/21/2024 Sex and Gender Information Value Date Recorded Sex Assigned at Male 05/07/2022 10:15 AM EDT Legal Sex Male 10:15 AM EDT Gender Identity Male 05/07/2022 10:15 AM EDT Sexual Orientation Straight 05/07/2022 10 :15 AM EDT documented as of this encounter Plan of Treatment Upcoming Encounters Date Type Department Care Team (Late st Contact Info) Description 08/06/2024 2:00 PM EST Clinical Support [facility] MED & PEDS [address] [place] [address] Antonella Moon RN [address] [place] [address] Scheduled Orders Name Type Priority Associated Diagnoses Orde r Schedule TSH W/Reflex to FT4 Lab Routine Acquired hypothyroidism Expected: 07/07/2024 (Approximate), Expires: 07/07/2025 documented as of this encounter Visit Diagnoses Diagnosis Acquired hypothyroidism- Primary Unspecified hypothyroidism documented in this encounter Additional Health Concerns Assessment Noted Time PHQ-9 Depression Total Score: 8 01/21/20 24 11:16 AM EDT documented as of this encounter Care Teams Teasel Gig Operator Relationship Specialty Start Date End Date Trudi Reagan FNP [address] [place] [address] PCP - General Family Medicine 03/04/22 Joshua Anderson FNP [address] [place] [address] Nurse Practitioner Family Medicine 06/03/23 documented as of this encounter
--- OUTSIDE RECORDS SUMMARY | 2024-07-28 12:15 | XMS_ITS | Encounter Summary ---
Author Organization [facility] Address [address] [place] [address] 7t [place] [address] Care Team Providers Care Lip Of Shank Cutter Name Role Phone Trudi Reagan Primary Care Provider [phone] Joshua Anderson Unavailable Unavailable Reason for Visit * Reason Comments Med Refill Encounter Details Date Type Department Care Team (Late st Contact Info) Description 01/18/2023 Refill [facility] MED & PEDS [address] [place] [address] Joshua Anderson FNP Social History Tobacco Use [...] Encounters Date Type Department Care Team (Late Contact Info) Description 08/06/2024 2:00 PM EST Clinical Support [facility] MED & PEDS [address] [place] [address] Antonella Moon, RN [address] [place] [address] documented as of this encounter Visit Diagnoses Not on filedocumented in this encounter Additional Health Concerns Assessment Noted Time PHQ-9 Depression Total Score: 11 023 2:18 PM EDT documented as of this encounter Care Teams Lip Of Shank Cutter Relationship Specialty Start Date End Date Trudi Reagan FNP [address] [place] [address] PCP - General Family Medicine 03/04/22 Joshua Anderson FNP [address] [place] [address] Nurse Practitioner Family Medicine 06/03/23 documented as of this encounter
--- OUTSIDE RECORDS SUMMARY | 2024-07-28 12:15 | XMS_ITS | Encounter Summary ---
Author Organization [employer] [facility] Address [address] [facility] 7t [place] [address] Care Team Providers Care Stencil Inspector Name Role Phone Trudi Reagan Primary Care Provider [phone] Joshua Anderson Unavailable Unavailable Reason for Visit * Reason Onset Date Comments ER Follow-up 07/28/2024 Encounter Details Date Type Department Care Team ([facility] Contact Info) Description 07/28/2024 Telephone [facility] MED & PEDS [address] [place] [address] Trudi Reagan FNP [address] [place] [address] ER Follow-up Social History Tobacco Use Types Packs/Day Years [...] AM EDT documented as of this encounter Miscellaneous Notes * Telephone Encounter - Sharyn Solis RN - 07/28/2024 10:44 AM EST Pt presented to the front desk administrator at [facility] with a request for a refill on the prescribed Clonazepam prescription. Pt is followed by Antonella for [employer] nurse visits but was unable to attend the scheduled appton 07/02/24. The appt was moved a month back to 08/06/2024. Pt states that he was recently treated at a health center in [facility] for anxiety. Pt current affect was normal and pt was agreeable to scheduling an appt with nurse practitioner Darrin Melendez for continued management of his behavioralhealth. An appt was scheduled today for September 02 at 2 pm over the phone with the provider. Pt also advised that a urine sample will need to be done and processed one to two week prior to this telehealth appt. Pt informed that PCP Trudi Reagan sent in a refill of the requested Clonazepam to holdthe pt over until speaking with this new phychiatric provider. * Telephone Encounter - FUAD Hobson - 07/28/2024 10:25 AM EST Spoke with AARON Coles and Karla. Clonazepam refill sent to preferred pharmacy-[facility] on [address] Mr. Francisco is pending establishing with psych nurse practitioner-Xavier Melendez for continued evaluation and management. Encouraged to schedule initial consult if possible while in the office today. * Telephone Encounter - Mark Park - 07/28/2024 9:41 AM EST Pt walked in requesting a ed f/[place] [address] for anxiety. Pt states he has no meds and would like to speak with director or nurse. Pt mentions he will not leave until he is seen by someone. documented in this encounter Plan of Treatment Upcoming Encounters Date Type Department Care Team ([facility] st Contact Info) Description 08/06/2024 2:00 PM EST Clinical Support [facility] MED & PEDS [address] [place] [address] Antonella Mono, RN [address] [place] [address] documented as of this encounter Visit Diagnoses Diagnosis Major depressive disorder with psychotic features (CMS/HCC) documented in this encounter Additional Health Concerns Assessment Noted Time PHQ-9 Depression Total Score: 8 01/21/20 24 11:16 AM EDT documented as of this encounter Care Teams Stencil Inspector Relationship Specialty Start Date End Date Trudi Reagan FNP [address] [place] [address] PCP - General Family Medicine 03/04/22 Joshua Anderson FNP [address] [place] [address] Nurse Practitioner Family Medicine 06/03/23 documented as of this encounter
--- OUTSIDE RECORDS SUMMARY | 2024-07-28 12:15 | XMS_ITS | Encounter Summary ---
Author Organization [employer] Address [address] [place] [address], [place] [address] Care Team Providers Care 3Rd Grade Reading Teacher Name Role Phone Trudi Reagan Primary Care Provider [phone] Joshua Anderson Unavailable Unavailable Encounter Details Date Type Department Care Team (Late st Contact Info) Description 03/29/2023 [facility] Information Management [address] [place], [place] [phone] Trudi Reagan FNP [address] [place] [address] Social History Tobacco Use Types Packs/Day Years Used Date Smoking Tobacco: Former Cigarettes Q uit: 03/30/2021 Smokeless Tobacco: Never Depression Answer Date Recorded Patient Health Questionnaire-9 Score 16 04/02/2023 Depression Answer Date Recorded Patient Health Questionnaire-2 Score 6 04/02/2023 Sex and Gender Information Value Date Recorded Sex Assigned at Male 05/07/2022 10:15 AM EDT Legal Sex Male 10:15 AM EDT Gender Identity Male 05/07/2022 10:15 AM EDT Sexual Orientation Straight 05/07/2022 10 :15 AM EDT documented as of this encounter Plan of Treatment Upcoming Encounters Date Type Department Care Team (Late st Contact Info) Description 08/06/2024 2:00 PM EST Clinical Support [facility] MED & PEDS [address] [place], [place] [address] Antonella Moon, RN [address] [place], [place] [phone] documented as of this encounter Visit Diagnoses Not on filedocumented in this encounter Additional Health Concerns Assessment Noted Time PHQ-9 Depression Total Score: 13 023 2:50 PM EDT documented as of this encounter Care Teams 3Rd Grade Reading Teacher Relationship Specialty Start Date End Date Trudi Reagan FNP [address] [place] [address] PCP - General Family Medicine 03/04/22 Joshua Anderson FNP [address] [place] [address] Nurse Practitioner Family Medicine 06/03/23 documented as of this encounter
--- OUTSIDE RECORDS SUMMARY | 2024-07-28 12:15 | XMS_ITS | Encounter Summary ---
Author Organization [employer] Address [address] [facility] [address]t [place] [address] Care Team Providers Care Manager Utility Name Role Phone Trudi Reagan Primary Care Provider [phone] Joshua Anderson Unavailable Unavailable Reason for Visit * Reason Comments Med Refill Encounter Details Date Type Department Care Team ([facility] st Contact Info) Description 07/28/2024 Refill [facility] CHC MED & PEDS [address] [place], [place] [phone] Trudi Reagan FNP [address] [place] [address] Major depressive disorder with psychotic features (CMS/HCC) Social History Tobacco Use Types Packs/Day Years [...] Upcoming Encounters Date Type Department Care Team ([facility] st Contact Info) Description 08/06/2024 2:00 PM EST Clinical Support [facility] MED & PEDS [address] [place] [address] Antonella Moon, RN [address] [place] [address] documented as of this encounter Visit Diagnoses Diagnosis Major depressive disorder with psychotic features (CMS/HCC) documented in this encounter Additional Health Concerns Assessment Noted Time PHQ-9 Depression Total Score: 8 01/21/20 24 11:16 AM EDT documented as of this encounter Care Teams Manager Utility Relationship Specialty Start Date End Date Trudi Reagan FNP [address] [place] [address] PCP - General Family Medicine 03/04/22 Joshua Anderson FNP [address] [place] [address] Nurse Practitioner Family Medicine 06/03/23 documented as of this encounter
--- OUTSIDE RECORDS SUMMARY | 2024-07-28 12:15 | XMS_ITS | Encounter Summary ---
Author Organization [employer] Address [address] [place] [address] Care Team Providers Care Sql Report Developer Name Role Phone Trudi Reagan Primary Care Provider [phone] Joshua Anderson Unavailable Unavailable Reason for Visit * Reason Onset Date Comments Referral 04/05/2023 Encounter Details Date Type Department Care Team ([facility] st Contact Info) Description 04/05/2023 Telephone [facility] MEDICINE [address] [place] [address] Trudi Reagan FNP [address] [place] [address] Referral Social History Tobacco Use Types Packs/Day Years [...] encounter Miscellaneous Notes * Telephone Encounter - Sara Gilliam - 04/19/2023 3:37 PM EDT All required information was faxed to office. Office will contact patient when appointment is available. * Telephone Encounter - Flaquita Mantilla - 04/18/2023 4:25 PM EDT Tc from pt requesting a call in regards to message above. * Telephone Encounter - Flaquita Mantilla - 04/05/2023 3:18 PM EDT Tc from pt requesting for a nurse to contact office of urology referral to set up an appointment. States he has been trying to get in contact with them since 04/04. documented in this encounter Plan of Treatment Upcoming Encounters Date Type Department Care Team (Late st Contact Info) Description 08/06/2024 2:00 PM EST Clinical Support [facility] MED & PEDS [address] [place] [address] Antonella Moon, RN [address] [place] [address] documented as of this encounter Visit Diagnoses Not on filedocumented in this encounter Additional Health Concerns Assessment Noted Time PHQ-9 Depression Total Score: 16 023 2:37 PM EDT documented as of this encounter Care Teams Sql Report Developer Relationship Specialty Start Date End Date Trudi Reagan FNP [address] [place] [address] PCP - General Family Medicine 03/04/22 Joshua Anderson FNP [address] [place] [address] Nurse Practitioner Family Medicine 06/03/23 documented as of this encounter
--- OUTSIDE RECORDS SUMMARY | 2024-07-28 12:15 | XMS_ITS | Encounter Summary ---
Author Organization [employer] Address [address] [place] [address] Care Team Providers Care Enamel Dipper Name Role Phone Trudi Reagan Primary Care Provider [phone] Joshua Anderson Unavailable Unavailable Reason for Visit * Reason Comments Med Refill Encounter Details Date Type Department Care Team ([facility] st Contact Info) Description 12/07/2023 Refill [facility] [address] [place] [address] Joshua Andreson FNP Major depressive disorder with psychotic features (CMS/HCC) Social History Tobacco Use Types Packs/Day Years Used Date Smoking Tobacco: Former Cigarettes Q uit: 03/30/2021 Smokeless Tobacco: Never Depression Answer Date Recorded Patient Health Questionnaire-9 Score 12 10/31/2023 Patient Health Questionnaire-9 Score 12 10/31/2023 Last PHQ-9: Questionnaire Data Not on file 0 10/31/2023 Housing Stability Answer Date Recorded What is [...] Date Recorded Patient Health Questionnaire-2 Score 6 10/31/2023 Sex and Gender Information Value Date Recorded Sex Assigned at Male 05/07/2022 10:15 AM EDT Legal Sex Male 10:15 AM EDT Gender Identity Male 05/07/2022 10:15 AM EDT Sexual Orientation Straight 05/07/2022 10 :15 AM EDT documented as of this encounter Miscellaneous Notes * Telephone Encounter - Antonella Moon RN - 12/09/2023 3:30 PM EDT TC to pt. RN TELEPHONIC initial NV scheduled for 12/10/23 @ 11am. * Telephone Encounter - Flaquita Mantilla - 12/09/2023 3:22 PM EDT Tc from pt requesting a call to schedule RN TELEPHONIC appointment. Please contact pt at [phone] documented in this encounter Plan of Treatment Upcoming Encounters Date Type Department Care Team ([facility] st Contact Info) Description 08/06/2024 2:00 PM EST Clinical Support [facility]ED[facility] [address] [place] [address] Antonella Moon RN [address] [place] [address] documented as of this encounter Visit Diagnoses Diagnosis Major depressive disorder with psychotic features (CMS/HCC) documented in this encounter Additional Health Concerns Assessment Noted Time PHQ-9 Depression Total Score: 12 024 2:28 PM EDT documented as of this encounter Care Teams Enamel Dipper Relationship Specialty Start Date End Date Trudi Reagan FNP [address] [place] [address] PCP - General Family Medicine 03/04/22 Joshua Anderson FNP [address] [place] [address] Nurse Practitioner Family Medicine 06/03/23 documented as of this encounter
--- OUTSIDE RECORDS SUMMARY | 2024-07-28 12:15 | XMS_ITS | Encounter Summary ---
Author Organization [employer] Address [address] [facility] [address] [place] [address] Care Team Providers Care Coal Hauler Operator Name Role Phone Trudi Reagan Primary Care Provider [phone] Joshua Anderson Unavailable Unavailable Encounter Details Date Type Department Care Team (Late st Contact Info) Description 03/22/2023 Abstract [facility] [address] [place] [address] Trudi Reagan FNP [address] [place] [address] Social History Tobacco Use Types Packs/Day Years [...] Description 08/06/2024 2:00 PM EST Clinical Support [facility] [address] [place] [address] Antonella Moon, RN [address] [place], [place] [phone] documented as of this encounter Visit Diagnoses Not on filedocumented in this encounter Additional Health Concerns Assessment Noted Time PHQ-9 Depression Total Score: 13 023 2:50 PM EDT documented as of this encounter Care Teams Coal Hauler Operator Relationship Specialty Start Date End Date Trudi Reagan FNP [address] [place] [address] PCP - General Family Medicine 03/04/22 Joshua Anderson FNP [address] [place] [address] Nurse Practitioner Family Medicine 06/03/23 documented as of this encounter
--- OUTSIDE RECORDS SUMMARY | 2024-07-28 12:15 | XMS_ITS | Encounter Summary ---
Author Organization [employer] Address [address] [facility] [address] [place] [address] Care Team Providers Care Auricular Therapist Name Role Phone Trudi Reagan Primary Care Provider [phone] Joshua Anderson Unavailable Unavailable Reason for Visit * Reason Onset Date Comments Results 07/09/2024 Med Refill 07/09/2024 Encounter Details Date Type Department Care Team ([facility] st Contact Info) Description 07/09/2024 Refill [facility] MED [facility] PED[facility] [address] [place] [address] Trudi Reagan FNP [address] [place] [address] Acquired hypothyroidism Social History Tobacco Use Types Packs/Day Years Used Date Smoking Tobacco: Former Cigarettes Q uit: 03/30/2021 Smokeless Tobacco: Never Depression Answer Date Recorded Patient Health Questionnaire-9 Score 8 01/21/2024 Patient Health Questionnaire-9 Score 8 01/21/2024 Last PHQ-9: Questionnaire Data Not on file 0 01/21/2024 Housing Stability Answer Date Recorded What is your housing situation today? I have johanjessica jo 06/28/[address] you [...] encounter Miscellaneous Notes * Telephone Encounter - Kassandra Kumar RN - 07/09/2024 2:13 PM EST ----- Message from Trudi Reagan sent at 07/07/2024 8:32 AM EST ----- Please call Mr. Francisco to review lab results: - cholesterol levels have improved compared to when checked last year. Recommend continue with current therapy - Thyroid testing shows us that he is in need of slightly higher levels of thyroid hormone in the body. Please ask if he has been consistent with levo 112 mcg daily. If he has been taking 6-7 days per week, then please queue increased dose 125mcg daily. If has not been taking consistently, then I advise med adherence and repeating labs in 6 weeks. Thank you! TC to pt and advised above message. Pt advised on healthy foods to incorporate in his diet. Pt states he takes his current 112mcg levo daily in the am before breakfast. New 125mcg dose queued to provider as requested. documented in this encounter Plan of Treatment Upcoming Encounters Date Type Department Care Team (Late st Contact Info) Description 08/06/2024 2:00 PM EST Clinical Support [facility] [address] [place] [address] Antonella Moon, AARON [address] [place] [address] documented as of this encounter Visit Diagnoses Diagnosis Acquired hypothyroidism Unspecified hypothyroidism documented in this encounter Additional Health Concerns Assessment Noted Time PHQ-9 Depression Total Score: 8 01/21/20 24 11:16 AM EDT documented as of this encounter Care Teams Auricular Therapist Relationship Specialty Start Date End Date Trudi Reagan FNP [address] [place] [id number] PCP - General Family Medicine 03/04/22 Joshua Anderson FNP [address] [place] [address] Nurse Practitioner Family Medicine 06/03/23 documented as of this encounter
--- OUTSIDE RECORDS SUMMARY | 2024-07-28 12:15 | XMS_ITS | Clinical Summary ---
Author Organization [employer] Address [address] [facility] [facility] [address] [place] [address] Care Team Providers Care Help Desk Agent Name Role Phone Trudi Reagan Primary Care Provider [phone] Joshua Anderson Unavailable Unavailable Allergies No known active allergies Medications * This document contains information received from the source organization and may not represent a complete record from that organization. clotrimazole (Lotrimin) 1 % cream apply by topical route 2 times every day to the affected and surrounding areas of skin in the morning and evening x 4 weeks 022 Active glucose blood (FREESTYLE LITE) test strip CHeck BS BID 020 Active Acetaminophen Extra Strength 500 MG tabletIndications: Pain TAKE 1-2 TABLET BY ORAL ROUTE EVERY6 -8 HOURS NEEDED NOT TO EXCEED 6 TABLETS PER 24HRS 120 tablet 023 Active ondansetron ODT (Zofran-ODT) 4 MG disintegrating tablet Take 1 tablet (4 mg) by mouth every 8 (eight) hours if needed for nausea or vomiting. 21 tablet 023 Active senna (Senokot) 8.6 MG tablet Take 1-2 tablets by mouth daily if needed for constipation 180 tablet 1 023 Active fluticasone (Flonase) 50 MCG/ACT nasal sprayIndications:E nvironmental allergies SPRAY 1 - 2 SPRAY BY INTRANASAL ROUTE EVERY DAY IN EACH NOSTRIL NEEDED 48 mL 1 023 Active pyridoxine (Vitamin B-6) 100 MG tablet Take 1 tablet (100 mg) by mouth in the morning. 90 tablet 1 023 Active hydrOXYzine HCl (Atarax) 25 MG tabletIndications: Major depressive disorder with psychotic features (CMS/HCC) Take 1 tablet (25 mg) by mouth every 6 (six) hours if needed for anxiety. Take at first sign of panic attack. 50 tablet 5 024 Active prazosin (Minipress) 2 MG capsuleIndications :Major depressive disorder with psychotic features (CMS/HCC) Take 2 capsules (4 mg) by mouth at bedtime. Take every night without skipping doses 180 capsule 2 024 Active risperiDONE (RisperDAL) 1 MG tablet Take 1 tablet (1 mg) by mouth at bedtime. 90 tablet 2 024 Active venlafaxine XR (Effexor XR) 150 MG 24 hr capsuleIndications :Major depressive disorder with psychotic features (CMS/HCC) Take 1 capsule (150 mg) by mouth Once daily. Do not crush or chew. 90 capsule 2 024 Active loratadine (Claritin) 10 MG tabletIndications: Allergic rhinitis, unspecified seasonality, unspecified trigger Take 1 tablet (10 mg) by mouth Once per day. 90 tablet 3 024 Active atorvastatin (Lipitor) 20 MG tabletIndications: Hypercholesterolem ia Take 1 Tablet by Oral route every evening (cholesterol) 90 tablet 3 024 Active cholecalciferol (D3-1000) 25 MCG (1000 UT) capsule Take 1 capsule (25 mcg) by mouth Once per day. 90 capsule 3 024 Active lisinopril 10 MG tabletIndications: Essential hypertension Take 1 tablet (10 mg) by mouth Once per day. 90 tablet 3 024 Active omeprazole (PriLOSEC) [address] capsule TAKE 1 TABLET BY ORAL ROUTE 2 TIMES EVERY DAY BEFORE MEALS (BREAKFAST & DINNER) 180 capsule 1 024 Active tamsulosin (Flomax) 0.4 MG 24 hr capsuleIndications :Bilateral nephrolithiasis Take 1 capsule (0.4 mg) by mouth Once per day. (Use to help pass kidney stones) 30 capsule 024 Active levothyroxine (Synthroid) 125 MCG tabletIndications: Acquired hypothyroidism Take 1 tablet (125 mcg) by mouth before breakfast. 90 tablet 1 025 2025 Active clonazePAM (KlonoPIN) 0.5 MG tabletIndications: Major depressive disorder with psychotic features (CMS/HCC) Take 1 tablet (0.5 mg) by mouth every 12 (twelve) hours if needed for anxiety. 60 tablet 025 Active levothyroxine (Synthroid) 112 MCG tabletIndications: Acquired hypothyroidism Take 1 tablet (112 mcg) by mouth before breakfast. Please recheck labs in 6 weeks after starting new dose of medication. 90 tablet 1 024 2024 Discontinued(D ose adjustment) clonazePAM (KlonoPIN) 0.5 MG tabletIndications: Major depressive disorder with psychotic features (CMS/HCC) Take 1 tablet (0.5 mg) by mouth every 12 (twelve) hours if needed for anxiety. Do not start before June 26, 2024. 60 tablet 024 2024 Discontinued(R eorder (will not trigger notification to Pharmacy)) Active Problems Problem Noted Date Diagnosed Date Bilateral nephrolithiasis 04/01/2023 Overview (05/31/2024): Diagnosed 03/19/23, CT revealed bilateral nephrolithiasis with 5-6 mm mid right ureteral calculus resulting in mild right sided hydroureteronephrosis Following with [facility] 06/18/23: ureteroscopy with laser lithotripsy on the right 06/26/23: KUB demonstrated 3 small calcifications overlying left renal fossa May 2024: reports ED eval [id number] identified bilat kidney stones Assessment & Plan (05/31/2024 9:10 PM EST): - Discussed ED eval NOW vs outpatient management. Pt declines ED eval, will proceed with OP eval at this time with strict ED precautions - Plan: CT abd/pelvis w/o contrast ordered STAT Dewey to call [facility] for appt Hydration Flomax x 30 days Strict ED precautions Assessment & Plan (06/29/2023 10:33 AM EST): -Cont pyridoxine 100mg daily through Urology -Pain management through [facility] PRN -Repeat KUB ordered for further eval possible metalic foreign body -Reviewed ED precautions Assessment & Plan (04/01/2023 8:57 AM EDT): -Diagnosed 03/19/23, CT revealed bilateral nephrolithiasis with 5-6 mm mid right ureteral calculus resulting in mild right sided hydroureteronephrosis -Has been presenting in and out of ED for pain control -Discussed ED precautions, and importance of further urology eval Plan: -Urology STAT. Referral was placed on 03/22/23. Provider called office with pt in office, their office reports did not receive referral. Will be refaxed for STAT scheduling and eval. -Re-start Flomax -Switch from morphine to Percocet for pain control, safer SE profile. -Start miralax and senna PRN for opioid-induced constipation Major depressive disorder with psychotic feature s 06/18/2022 Assessment & Plan (01/21/2024 1:43 PM EDT): Presented with tearfulness, auditory hallucinations, flashbacks and intrusive thoughts. Consider alternate diagnosis of PTSD. Despite careful review of his medications at last appointment, it appears he is still not taking as directed. Once again reviewed that he should not take Quetiapine. Has med bottles with incorrect instructions, and was apparently told erroneously by his [facility] pharmacy that he had no refills available on Clonazepam. Again urged to switch pharmacy, but he does not want to consider that now. He will continue Risperidone 1 mg at bedtime, Venlafaxine XR 150 mg once daily, Prazosin 2 mg 2 at bedtime, Clonazepam 0.5 mg every 12 hours, and Hydroxyzine 25 mg every 6 hours if needed for anxiety. Since this provider will be retiring, patient is now referred back to PCP for further medication management. Any issues or concerns contact the health center. All his questions were answered and I have wished him well. He agrees with the plan. Assessment & Plan (10/31/2023 3:25 PM EDT): Presented with tearfulness, auditory hallucinations, flashbacks and intrusive thoughts. Consider alternate diagnosis of PTSD. After multiple attempts, we were finally able today to review the medications he had on hand and clarify which ones he was supposed to be taking and instructions. He will now take Risperidone 1 mg at bedtime, Venlafaxine XR 150 mg once daily, Prazosin 2 mg 2 at bedtime, Clonazepam 0.5 mg every 12 hours, and Hydroxyzine 25 mg every 6 hours if needed for anxiety. He also has numerous other pill bottles for his other diagnoses which we did not review today. Once again I encouraged him to switch to [facility] pharmacy where his medications could be packaged for him in Medboxes, but he is not interested. On 06/17/2023 provider informed pt that I would be retiring, so it would be extremely important to stabilize his treatment before that time. F/U with me in 6 weeks. He agrees with the plan. Assessment & Plan (08/15/2023 4:02 PM EST): Presented with tearfulness, auditory hallucinations, flashbacks and intrusive thoughts. Consider alternate diagnosis of PTSD. It is concerning that he does not seem to retain information, consider cognitive impairment vs. Intentional misdirection vs. ADAIR or other factors. Once again today we are unable to review his medications. Pt claims he did not know he needed to have them with him for the appointment. Therefore did not discuss his psychiatric symptoms, medications, or revise regimen. At his last appointment, we again reviewed that if he did not adhere to the treatment plan, we would not continue prescribing Clonazepam alone, and dosing was decreased from Clonazepam 0.5 mg TID to Clonazepam 0.5 mg BID. New Rx's were also sent to [facility] pharmacy for medboxes, for Risperidone 1 mg daily, Venlafaxine 150 mg daily, Prazosin 2 mg 2 at bedtime, and Hydroxyzine 25 mg q 6 h prn. Patient evidently has not yet started Medboxes, but says he has an appointment to bring in all his pills. He missed [employer] visit as well, but that has also been rescheduled and provider reminded pt of the date for that. On 06/17/2023 provider informed pt that I would be retiring, so it would be extremely important to stabilize his treatment before that time. Meanwhile, F/u with me in approx 1 month at a time when he can have his medications with him. For other concerns, including pain and kidney stones, he will F/U with PCP and specialist.. He agrees with the plan. Assessment & Plan (06/17/2023 4:29 PM EST): Presented with tearfulness, auditory hallucinations, flashbacks and intrusive thoughts. Consider alternate diagnosis of PTSD. It is concerning that he does not seem to retain information, consider cognitive impairment vs. Intentional misdirection vs. ADAIR or other factors. Once again today we are unable to review his medications, and it is evident that he is not taking as directed. Provider had previously explained that if he did not adhere to the treatment plan, we would not continue prescribing Clonazepam alone. At this time will decrease from Clonazepam 0.5 mg TID, and will now have Clonazepam 0.5 mg BID. New Rx's also sent to [facility] pharmacy for medboxes, for Risperidone 1 mg daily, Venlafaxine 150 mg daily, Prazosin 2 mg 2 at bedtime, and Hydroxyzine 25 mg q 6 h prn. Today 06/17/2023 provider informed pt that I would be retiring in approx 6 months, so it would be extremely important to stabilize his treatment before that time. F/u with me in approx 1 month. He agrees with the plan. Assessment & Plan (04/02/2023 3:36 PM EDT): Presented with tearfulness, auditory hallucinations, flashbacks and intrusive thoughts. Consider alternate diagnosis of PTSD. It is concerning that he does not seem to retain information, consider cognitive impairment vs. Other factors. Once again today we are unable to review his medications, and it is evident that he is not taking as directed. We will set up a F/U first available at a time when he will be sure to have access to his medications. Meanwhile, he will go personally to the pharmacy and request intake for medboxes. He should have refills available on all except the Clonazepam, and I did send new Rx for 1 month supply with no refills. If we are unable to monitor his medication adherence will need to discuss tapering down and discontinuing. Reminded to not take Clonazepam while also taking opioid pain medications r/t risk of overdose and stopping breathing. Assessment & Plan (04/01/2023 8:49 AM EDT): -Established with [facility] Psychopharm clinic - Joshua Anderson APRN. -Continue with med management through psych team Assessment & Plan (02/19/2023 3:54 PM EDT): Presented with tearfulness, auditory hallucinations, flashbacks and intrusive thoughts. Consider alternate diagnosis of PTSD. It is concerning that he does not seem to retain information, consider cognitive impairment vs. Other factors. Once again today it is unclear which medications he is actually taking, unable to review since he Left the bag in the car yesterday after picking up refills at [facility]. Later in the conversation asks me if [facility] will know which medications are available for refill. Rather than belaboring his symptom report and medication instructions again, we will defer that until next appointment, when I have explained that he will need to have the medication bottles available for review. Again suggested switching to [facility] or [facility] pharmacy for Medboxes and home delivery, but again he says he will consider it. F/U with me in 6 weeks. He agrees with the plan. Assessment & Plan (12/18/2022 3:12 PM EDT): Presented with tearfulness, auditory hallucinations, flashbacks and intrusive thoughts. Consider alternate diagnosis of PTSD. It is concerning that he does not seem to retain information, consider cognitive impairment vs. Other factors. Despite reviewing med instructions at every visit, he persists in taking all his medications as needed. Again explained that the only meds to take prn are the Clonazepam and Hydroxyzine for anxiety. Others need to be taken daily in order to be effective, and will prevent many of his symptoms if taken as directed. Strongly urged to utilize the [facility] Pharmacy with Medboxes and home delivery to better manage his psychiatric medications as well as meds for other chronic conditions. He says he will consider this. No changes at this time: Continue Risperidone 1 mg at bedtime, Prazosin 2 mg 2 capsules every night for nightmares, Venlafaxine XR 150 mg daily, Hydroxyzine 25 mg q 6 h prn anxiety, and Clonazepam 0.5 mg TID prn anxiety. Did not discuss counseling today. 6-8 weeks. He agrees with the plan. Assessment & Plan (11/06/2022 3:51 PM EDT): Presented with tearfulness, auditory hallucinations, flashbacks and intrusive thoughts. Consider alternate diagnosis of PTSD. Has gained weight, increased appetite at night. Likely r/t Quetiapine 400 mg. Will stop the Quetiapine, will instead start Risperidone 1 mg at bedtime. Continue Prazosin 2 mg 2 capsules every night for nightmares, Venlafaxine XR 150 mg daily, Hydroxyzine 25 mg q 6 h prn anxiety, and Clonazepam 0.5 mg TID prn anxiety. He will F/U with [facility] in [place] for counseling intake. F/U 4-6 weeks. He agrees with the plan. Assessment & Plan (09/25/2022 3:52 PM EDT): Presented with tearfulness, auditory hallucinations, flashbacks and intrusive thoughts. Consider alternate diagnosis of PTSD. Seems to be doing a little better. Continue medicaitons without skipping doses. Recommend going in person to [facility] in [place]. F/U 4-6 weeks. He agrees with the plan. Assessment & Plan (08/28/2022 4:27 PM EST): Presented with tearfulness, auditory hallucinations, flashbacks and intrusive thoughts. Consider alternate diagnosis of PTSD. Still not doing well with panic attacks despite reportedly taking medications consistently as directed. Will add Hydroxyzine 25 mg to take at first sign of beginning panic attack. Continue other medicaitons without skipping doses. Given information about [facility] in [place] and urged to go in person or call to connect with counseling. F/U 3-4 weeks. He agrees with the plan. Assessment & Plan (07/31/2022 3:35 PM EST): Presented with tearfulness, auditory hallucinations, flashbacks and intrusive thoughts. Consider alternate diagnosis of PTSD. Again not doing well. Not taking medications consistently, and has been out of his Clonazepam. Once again reviewed the importance of taking medicaitons without skipping doses and not as needed. F/U 3-4 weeks. He agrees with the plan. Assessment & Plan (06/18/2022 3:37 PM EST): Presented with tearfulness, auditory hallucinations, flashbacks and intrusive thoughts. Consider alternate diagnosis of PTSD. Doing a little better, hallucinations controlled. Improved sleep. Pt would benefit from counseling and will refer again. Continue current medications. F/U 6 weeks. He agrees with the plan. Hypercholesterolemia 06/08/2022 Assessment & Plan (04/01/2023 8:50 AM EDT): -Check fasting lipids -Refill of atorvastatin sent to pharmacy Type 2 diabetes mellitus without complication Overview (02/17/2024): Lab Results Component Value Date HGBA1C 5.8 02/17/2024 Education provided re: therapeutic lifestyle changes. Encouraged patient to exercise/walk as much as possible, avoid soda/sugary beverages, drink water, eat high fiber/whole grains, fresh or frozen fruits and veg, try to avoid greasy and/or sugary foods. A1c: well controlled Microalbumin/Cr:Alb: 34.2 Mar 2023 Lipids: LDL 173, HDL 49, TG 296, TC 281 Mar 2023 Eye exam: referral to [facility] Dental: encouraged to establish dental home Foot exam/peripheral pulses: f/u [facility]: yes Statin: yes (unclear med adherence) Assessment & Plan (05/31/2024 9:08 PM EST): -No longer on medications -Venous A1c ordered Assessment & Plan (06/29/2023 10:29 AM EST): -No longer on medications -Venous A1c ordered Assessment & Plan (05/05/2023 4:42 PM EDT): -Plan to DC metformin as diabetes well controlled and pt believes med contributing to GI upset -Cont lifestyle interventions -Unclear med adherence, pt interested in starting med boxes with [facility] pharmacy - referral sent. Vitamin D deficiency 06/08/2022 Acquired hypothyroidism 05/26/2015 Assessment & Plan (05/31/2024 8:52 PM EST): - Inconsistent med adherence - Currently prescribed levothyroxine 112 mcg daily - Re-check TSH Lab Results Component Value Date TSH 43.11 (H) 02/21/2024 Assessment & Plan (02/17/2024 8:59 PM EDT): - Unclear med adherence at home - Currently prescribed levothyroxine 100 mcg daily - Re-check TSH Lab Results Component Value Date TSH 75.42 (H) 04/04/2023 Assessment & Plan (06/28/2023 6:49 AM EST): - Has been out of medication x 1 month. Discussed signs/symptoms of myxedema coma - Restart levothyroxine 100 mcg daily - Check TSH Lab Results Component Value Date TSH 75.42 (H) 04/04/2023 Assessment & Plan (04/01/2023 8:53 AM EDT): - Has been out of medication x 1 month. Discussed signs/symptoms of myxedema coma - Restart levothyroxine 100 mcg daily - Check TSH Allergic rhinitis 05/26/2015 Essential hypertension 05/26/2015 Overview (04/01/2023): ?? Medication: lisinopril 10mg daily ?? Encourage lifestyle interventions including low salt diet, routine physical activity, low fat diet rich in fruits and vegetables Assessment & Plan (05/31/2024 9:11 PM EST): - Well controlled Assessment & Plan (02/17/2024 12:06 PM EDT): - Well controlled Assessment & Plan (04/01/2023 8:45 AM EDT): - Refill of lisinopril sent to pharmacy - Suspect elevation in office r/t acute pain/stress, as well as lack of med availability over the past month. - Reviewed med safety and SE. - Check CMP, will plan to repeat 2-4 weeks after med initiation - ED precautions reviewed Gastroesophageal reflux disease without esophagi tis 05/26/2015 Assessment & Plan (05/31/2024 8:54 PM EST): - History of GERD and gastric ulcer - Referred to GI for further eval (NS to EGD Jul 2023) - Continues with PPI BID Assessment & Plan (04/01/2023 8:51 AM EDT): - History of GERD and gastric ulcer - Referred to GI for further eval, reports he has upcoming appt - Continues with PPI BID Obesity 05/26/2015 Resolved Problems Problem Noted Date Diagnosed Date Resolved Date Mixed anxiety and depressive disorder 10/01/2021 04/01/2023 Anxiety 05/26/2015 04/01/2023 Encounters * This document contains information received from the source organization and may not represent a complete record from that organization. Date Type Department Care Team Description 07/28/2024 Telephone [facility] [address] [place] [address] Trudi Reagan FNP ER Follow-up 07/28/2024 Refill [facility] [address] [place] [address] Trudi Reagan FNP Major depressive disorder with psychotic features (CMS/HCC) 07/09/2024 Refill [facility] [address] [place] [address] Trudi Reagan FNP Acquired hypothyroidism 07/07/2024 Orders Only [facility] [address] [place] [address] Trudi Reagan FNP Acquired hypothyroidism (Primary Dx) 06/24/2024 Orders Only [facility] [address] [place] [address] Trudi Reagan FNP Major depressive disorder with psychotic features (CMS/HCC) (Primary Dx) 06/24/2024 Orders Only [facility] [address] [place] [address] Trudi Reagan FNP 06/24/2024 Refill [facility] [address] [place] [address] Antonella Moon, RN Major depressive disorder with psychotic features (CMS/HCC) 06/24/2024 Travel 05/31/2024 Refill [facility] [address] [place] [address] Trudi Reagan, SERVICE DESK DIRECTOR Bilateral nephrolithiasis 05/25/2024 3:30 PM EST Office Visit [facility] [address] [place] [address] Trudi Reagan, FUAD Bilateral nephrolithiasis (Primary Dx); Essential hypertension; Acquired hypothyroidism; Type 2 diabetes mellitus without complication, without long-term current use of insulin ([facility]); Encounter for immunization; Skin tag; Gastroesophageal reflux disease without esophagitis; Alopecia 05/25/2024 Travel 05/21/2024 Telephone [facility] [address] [place] [address] Jeison Hall [place] Chart Prep from Last 3 Months Immunizations Name Administration Dates Next Due DTaP 03/14/1988, 6,1983,1983,1983 Hep B, Adolescent or Pediatric 11/12/2002,2000,03/23/1998 IPV 10/07/1985, 4,1983,1982 Influenza injectable quadriv alent IIV4 with preservative 05/26/2015 Influenza injectable quadriv alent preservative free 03/29/2023,04/24/2022,04/11/2021,2018 Influenza, IIV3, injectable 04/05/2014, 0 Influenza, Split (incl. damon fied surface antigen) 03/24/2013,05/14/2012 Influenza, seasonal, injecta ble, preservative free 05/25/2024 MMR 03/21/1995,05/14/1984 Pfizer Covid-19 Vaccine 12+ 05/25/2024,,04/11/2021 Pfizer Covid-19 Vaccine 12+ Bivalent 04/24/2022 Pneumococcal Conjugate PCV 20 06/28/2023 TD (adult), 2 Lf tetanus tox oid, preservative free, adsorbed 02/05/2008,03/23/1998 Tdap 06/28/2023,05/14/2012 Social History Tobacco Use Types Packs/Day Years Used Date Smoking Tobacco: Former Cigarettes Q uit: 03/30/2021 Smokeless Tobacco: Never Tobacco Cessation:Counseling Given: Not Answered Depression Answer Date Recorded Patient Health Questionnaire-9 [...] Orientation Straight 05/07/2022 10 :15 AM EDT Last Filed Vital Signs Vital Sign Reading Time Taken Comments Blood Pressure 119/86 05/25/2024 3:12 PM EST Pulse 69 05/25/2024 3:12 PM EST Temperature 36.3 ??C (97.3 ??F) 05/25/2024 3:12 PM ES T Respiratory Rate 14 05/25/2024 3:12 PM EST Oxygen Saturation 98% 05/25/2024 3:12 PM EST Inhaled Oxygen Concentration - - Weight 84.8 kg (187 lb) 05/25/2024 3:12 PM EST Height 165.1 cm (5' 5 ) 05/25/2024 3:12 PM EST Body Mass Index 31.12 05/25/2024 3:12 PM EST Plan of Treatment Upcoming Encounters Date Type Department Care Team (Late st Contact Info) Description 08/06/2024 2:00 PM EST Clinical Support [facility] [address] [place] [address] Antonella Moon, RN [address] [place] [address] Health Maintenance Due Date Last Done Comments Diabetes: Foot Exam 1993 Eye Exam 1993 Alcohol/Substance Use Screening 1995 Family Planning (PISQ) 1998 SDOH Screening 06/28/2024 06/28/2023 Diabetes: Hemoglobin A1C 11/22/2024 024, 02/17/2024, 04/04/2023, Additional history exists Depression Screening 01/20/2025 01/21/2024, 01/21/20 24 Tobacco Screening 02/16/2025 02/17/2024 Diabetes: Urine Protein Screening 06/24/2025 06/24/2024, 04/04/2023, 11/28/2020 Lipid Panel 06/24/2025 06/24/2024, 04/04/2023 Zoster Vaccines (1 of 2) 2033 DTaP/Tdap/Td Vaccines (8 - Td or Tdap) 06/28/2033 06/28/2023, 05/14/2012, 02/05/2008, Additional history exists RSV Patients and Patients Aged 60 years or older (1 - 1-dose 75+ series) 2058 IPV Vaccines Completed 10/07/1985, 11/06, 1983, Additional history exists Hepatitis B Vaccines Completed 11/12/2002, 10/17/2000, 03/23/1998 Pneumococcal Vaccine: Pediatrics (0 to 5 Years) and At-Risk Patients (6 to 64 Years) Completed 06/28/2023 HIV Screening Completed 02/21/2024, 03/09, 11/28/2020 Hepatitis C Screening Completed 02/21/2024 , 04/04/2023, 11/28/2020 COVID-19 Vaccine Completed 05/25/2024, , 05/02/2021, Additional history exists Influenza Vaccine Completed 05/25/2024, , 04/24/2022, Additional history exists HIB Vaccines Aged Out No longer eligi ble based on patient's age to complete this topic HPV Vaccines Aged Out No longer eligi ble based on patient's age to complete this topic Hepatitis A Vaccines Aged Out No long er eligible based on patient's age to complete this topic Meningococcal Vaccine Aged Out No herminia jonathan eligible based on patient's age to complete this topic RSV under 20 months Aged Out No longe r eligible based on patient's age to complete this topic Rotavirus Vaccines Aged Out No longer eligible based on patient's age to complete this topic Procedures Procedure Name Priority Date/Time Associated Diagnosis Comments ALBUMIN, RANDOM URINE W/CREATININE Routine 06/24/2024 10:09 AM EST Essential hypertension Type 2 diabetes mellitus without complication, without long-term current use of insulin (CMS/HCC) T4, FREE Routine 06/24/2024 10:07 AM EST COMPREHENSIVE METABOLIC PANEL Routine 06/24/2024 10:07 AM EST Essential hypertension Type 2 diabetes mellitus without complication, without long-term current use of insulin (CMS/HCC) TSH W/REFLEX TO FT4 Routine 06/24/2024 1 0:07 AM EST Acquired hypothyroidism LIPID PANEL, STANDARD Routine 06/24/2024 10:07 AM EST Essential hypertension Type 2 diabetes mellitus without complication, without long-term current use of insulin (CMS/HCC) POCT URINALYSIS DIPSTICK Routine 05/25/2024 4:38 PM EST Bilateral nephrolithiasis URINALYSIS, COMPLETE, WITH REFLEX TO CULTURE Routine 05/25/2024 4:32 PM EST Bilateral nephrolithiasis POCT GLUCOSE Routine 05/25/2024 3:17 PM EST Type 2 diabetes mellitus without complication, without long-term current use of insulin (CMS/HCC) POCT GLYCATED HEMOGLOBIN, TOTAL Routine 05/25/2024 3:17 PM EST Type 2 diabetes mellitus without complication, without long-term current use of insulin (CMS/HCC) HEPATITIS C VIRAL RNA, QUANTITATIVE, REAL-TIME PCR Routine 02/21/2024 3:21 PM EDT Healthcare maintenance HIV 1/2 ANTIGEN/ANTIBODY, FOURTH GENERATION W/RFL Routine 02/21/2024 3:21 PM EDT Healthcare maintenance from Last 3 Months or Most Recently Relevant to Health Maintenance Results * Albumin, Random Urine W/Creatinine (06/24/2024 10:09 AM EST) Creatinine, Urine 146.41 mg/dL [facility] Microalbumin Urine 7.0 mg/L [facility] Microalbum Creatinine Ratio Ur 4.7 <30 ug/mg cr [facility] Comment:Albumin/Creatinine R atio Reference Ranges: Normal: < 30 ug/mg creatinine Microalbuminuria: 30 - 300 ug/mg creatinineClinical Albuminuria: > 300 ug/mg creatinine Urine 06/24/2024 10:0 9 AM EST 06/24/2024 2:06 PM EST us Trudi Reagan [facility] URINE ORDERABLES Final Res ult Performing Organization Address [facility]/ZIP Co de Phone Number [facility] [address] [place] [address] [phone] * (ABNORMAL) TSH with Reflex to Free T4 (06/24/2024 10:07 AM EST) TSH reflex Free T4 19.68(H) 0.32 - 4.0 uIU/mL [facility] Blood 06/24/2024 10:0 7 AM EST 06/24/2024 2:06 PM EST Trudi Reagan SERVICE DESK DIRECTOR LAB BLOOD ORDERABLES Final Res ult [facility] [address] [place] [address] [phone] * T4, Free (06/24/2024 10:07 AM EST) Free T4 (Free Thyroxine) 0.86 0.71 - 1.85 ng/dL [facility] 06/24/2024 10:0 7 AM EST 06/24/2024 2:06 PM EST Trudi Reagan SERVICE DESK DIRECTOR LAB BLOOD ORDERABLES Final Res ult [facility] [address] [place] [phone] * (ABNORMAL) Lipid Panel, Standard (06/24/2024 10:07 AM EST) Triglycerides 179(H) <150 mg/dL [facility] Comment:Desirable Triglyceri de: less than 150 mg/dLBorderline High Triglyceride 150-199 mg/dLHigh Triglyceride: 200-499 mg/dLVery High Triglyceride: greater than or equal to 5OO mg/dL Cholesterol 182 <200 mg/dL [facility] Comment:Desirable Cholestero l: less than 200 mg/dLBorderline High Cholesterol: 200-239 mg/dLHigh Cholesterol: greater than 239 mg/dL LDL Cholesterol Calculated 104(H) <100 mg/dL [facility] Comment:Desirable LDL: less than 100 mg/dLNear Optimal/Above Optimal LDL: 110- 129 mg/dLBorderline High LDL: 130-159 mg/dLHigh LDL: 160-189 mg/dLVery High LDL: greater than or equal to 190 mg/dL HDL Cholesterol 43 >40 mg/dL [facility] Comment:Desirable HDL: great er than 40 mg/dL Note: This HDL assay may give artificially low results in patients with liver disease. Blood Venous blood specimen / Unknown 06/24/2024 10:07 AM EST 06/24/2024 2:06 PM EST Trudi Phalen SERVICE DESK DIRECTOR LAB BLOOD ORDERABLES Final Res ult [facility] [address] [place] [address] [phone] * (ABNORMAL) Comprehensive Metabolic Panel (06/24/2024 10:07 AM EST) Sodium 139 135 - 145 mmol/L [facility] Potassium 3.9 3.3 - 5.1 mmol/L [facility] Chloride 104 96 - 108 mmol/L [facility] Carbon Dioxide 29 22 - 29 mmol/L [facility] Anion Gap 10(L) 12 - 20 [facility] Urea Nitrogen (BUN) 12 9 - 16 mg/dL [facility] Creatinine, Serum 0.93 0.5 - 1.4 mg/dL [facility] Estimated Glomerular Filt Rate >60 [facility] Comment:Chronic Kidney Disea se: Estimated GFR < 60 mL/min/1.01t5Sdmxcj Kidney Disease: Estimated GFR < 15 mL/min/1.73m2 Glucose 104 60 - 115 mg/dL [facility] Calcium 8.6 8.4 - 10.2 mg/dL [facility] Bilirubin, Total 0.6 0.0 - 1.0 mg/dL [facility] Aspartate Amino Transferase 36 5 - 37 U/L [facility] Alanine Aminotransferase 46(H) 0 - 40 U/L [facility] Total Protein 7.6 6.5 - 8.0 g/dL [facility] Albumin Level 4.2 3.5 - 5.0 g/dL [facility] Alkaline Phosphatase 59 39 - 117 U/L [facility] Blood Venous blood specimen / Unknown 06/24/2024 10:07 AM EST 06/24/2024 2:06 PM EST Trudi Reagan SERVICE DESK DIRECTOR LAB BLOOD ORDERABLES Final Res ult Performing Organization Address City/[facility]/ZIP Co de Phone Number [facility] [address] [place] [address] [phone] * (ABNORMAL) POCT Urinalysis (05/25/2024 4:38 PM EST) Color, UA Yellow Clarity, UA Clear Glucose, UA Negative Bilirubin, UA Negative Ketones, UA Negative Spec Grav, UA 1.025 Blood, UA Positive(A) Negative, None Detected Comment:Trace-intact pH, UA 7.5 Protein, UA Negative Urobilinogen, UA 1.0 Leukocytes, UA Negative Negative, Rare, Trace Nitrite, UA Negative Negative, None Detected Appearance, UA clear QC Media Lot # [id number] Lot# Expiration Date Urine 05/25/2024 4:38 PM EST Trudi Reagan [facility] POINT OF CARE TEST ENTER/EDIT ORDERABLES Final Result * Urinalysis, Complete, with Reflex to Culture (05/25/2024 4:32 PM EST) Color Urine Yellow [facility] Appearance Urine Clear [facility] PH 8.0 5.0 - 9.0 [facility] Glucose Urine UA Negative Negative mg/dL [facility] Urine Blood Negative Negative [facility] Specific [place] - Urine 1.015 1.005 - 1.025 [facility] Urine Protein Negative Neg-Trace mg/dL [facility] Urine Ketones Negative Negative mg/dL [facility] Nitrite Urine Negative Negative [facility] Leukocyte Esterase Urine Negative Negative [facility] RBC Urine 0-2 0 - 2 /HPF [facility] Urine WBC 0-5 0 - 5 /HPF [facility] Urine Squamous Epithelial Cell 0-2 0 - 2 /HPF [facility] Urine Bacteria None Seen None Seen [facility] Hyaline Casts, Urine 0-2 0 - 2 /LPF [facility] Urine 05/25/2024 4:32 PM EST 05/25/2024 5:25 PM EST Narrative [facility] - 05/25/2024 5:35 PM EST Urine, Clean Catch us Trudi Reagan [facility] URINE ORDERABLES Final Res ult [facility] [address] [place] [phone] [phone] * POCT A1C (05/25/2024 3:17 PM EST) Hemoglobin A1C 5.9 4.0 - 6.0 % QC Media Lot # Comment:[id number] Lot# Expiration Date Comment:02/05/2026 Blood 05/25/2024 3:17 PM EST us Trudi Reagan SERVICE DESK DIRECTOR POINT OF CARE TEST ENTER/EDIT ORDERABLES Final Result * POCT glucose manually resulted (05/25/2024 3:17 PM EST) Glucose Blood, POC 98 60 - 200 mg/dL QC Media Lot # Comment:[id number] Lot# Expiration Date Comment:10/13/2024 Blood Capillary blood specimen / Unknown 05/25/2024 3:17 PM EST us Trudi Reagan SERVICE DESK DIRECTOR POINT OF CARE TEST ENTER/EDIT ORDERABLES Final Result * Hepatitis C Viral RNA, Quantitative, Real-Time PCR (02/21/2024 3:21 PM EDT) Hepatitis C Viral Load <15 NOT DETECTED NOT DETECTED IU/mL [facility] HCV Log PCR <1.18 NOT DETECTED NOT DETECTED Log IU/mL [facility] Comment:For additional infor matliz, please refer [email or web address].[email or web address]/faq/MLD10t8(This link is being provided for informational/educational purposes only.)THIS TEST WAS PERFORMED AT:[employer] [place] [phone] GARZON MD Blood 02/21/2024 3:21 PM EDT 02/21/2024 3:21 PM EDT us Trudi Reagan SERVICE DESK DIRECTOR LAB BLOOD ORDERABLES Final Res ult Performing Organization Address [facility] Co de Phone Number [facility] [address] [place] [address] [phone] * HIV-1/2 Antigen and Antibodies, Fourth Generation, with Reflexes (02/21/2024 3:21 PM EDT) HIV AB/AG Nonreactive Nonreactive [facility] Comment:HIV-1 p24 Ag and/or HIV-1/HIV-2 Ab not detected.A test result that is nonreactive does not exclude thepossibility of exposure to or infection with HIV-1 and/orHIV-2. Nonreactive results in this assay for individualswith prior exposure to HIV-1 and/or HIV-2 may be due toantigen and antibody levels that are below the limit ofdetection of this assay.The 140Fire HIV Ag/Ab Combo assay result andsupplemental assay results should be interpreted inconjunction with the patient's clinical presentation,history and other laboratory results. If the results areinconsistent with clinical evidence, additional testing issuggested to confirm the result. Blood Venous blood specimen / Unknown 02/21/2024 3:21 PM EDT 02/21/2024 3:21 PM EDT Trudi Reagan SERVICE DESK DIRECTOR LAB BLOOD ORDERABLES Final Res ult Performing Organization Address [facility]/ZIP Co de Phone Number [facility] [address] [place] [address] [phone] from Last 3 Months or Most Recently Relevant to Health Maintenance [facility] * Guarantor: Dewey Francisco Account Type Relation to Patient Date of Phone Billing Address Personal/Family Self [place], [place] Care Teams Help Desk Agent Relationship Specialty Start Date End Date Trudi Reagan FNP [address] [place] [address] PCP - General Family Medicine 03/04/22 Joshua Anderson FNP [address] [place] [address] Nurse Practitioner Family Medicine 06/03/23
--- OUTSIDE RECORDS SUMMARY | 2024-07-28 12:15 | XMS_ITS | Encounter Summary ---
Author Organization [employer] Address [address] [place] [address] Care Team Providers Care Truck Service Manager Name Role Phone Trudi Reagan Primary Care Provider [phone] Joshua Anderson Unavailable Unavailable Reason for Visit * Reason Comments Med Change Request Encounter Details Date Type Department Care Team (Late st Contact Info) Description 04/01/2023 Refill [facility]S [address] [place] [address] Trudi Reagan FNP [address] [place] [address] Social History Tobacco Use Types Packs/Day Years [...] Description 08/06/2024 2:00 PM EST Clinical Support [facility] [address] [place] [address] Antonella Moon, RN [address] [place], [place] [phone] documented as of this encounter Visit Diagnoses Not on filedocumented in this encounter Additional Health Concerns Assessment Noted Time PHQ-9 Depression Total Score: 13 023 2:50 PM EDT documented as of this encounter Care Teams Truck Service Manager Relationship Specialty Start Date End Date Trudi Reagan FNP [address] [place] [address] PCP - General Family Medicine 03/04/22 Joshua Anderson FNP [address] [place] [address] Nurse Practitioner Family Medicine 06/03/23 documented as of this encounter
--- OUTSIDE RECORDS SUMMARY | 2024-07-28 12:15 | XMS_ITS | Encounter Summary ---
Author Organization [employer] Address [address] [place] [address] Care Team Providers Care Web Services Developer Name Role Phone Trudi Reagan Primary Care Provider [phone] Joshua Anderson Unavailable Unavailable Encounter Details Date Type Department Care Team ([facility] st Contact Info) Description 04/26/2023 Orders Only [facility] [address] [place], [place] [phone] Trudi Irvin FNP Social History Tobacco Use Types Packs/Day Years Used Date Smoking Tobacco: Former Cigarettes Q uit: 03/30/2021 Smokeless Tobacco: Never Depression Answer Date Recorded Patient Health Questionnaire-9 Score 16 04/02/2023 Housing Stability Answer Date Recorded What is your housing situation today? I have johan jo 04/22/[address] you li ve. Do you have problems with any of the following? None of the above 04/22/2023 Food Insecurity Answer Date Recorded Within the past 12 months, y ou worried that your food would run out before you got money to buy more: Never True 04/22/2023 Within the past 12 months,th e food you bought just didn't last and you didn't have enough money to get more: Never True Transportation Answer Date Recorded In the past 12 months, has l ack of transportation kept you from medical appts, meetings, work or from getting things needed for daily living? No 04/22/2023 Utilities Answer Date Recorded In the past 12 months, has t he electric, gas, oil or water company threatened to shut off services in your home? No 04/22/2023 Depression Answer Date Recorded Patient Health Questionnaire-2 [...] 2:00 PM EST Clinical Support [facility] MED & PEDS [address] [place] [address] Antonella Moon, RN [address] [place] [address] documented as of this encounter Visit Diagnoses Not on filedocumented in this encounter Additional Health Concerns Assessment Noted Time PHQ-9 Depression Total Score: 16 023 2:37 PM EDT documented as of this encounter Care Teams Web Services Developer Relationship Specialty Start Date End Date Trudi Reagan FNP [address] [place] [address] PCP - General Family Medicine 03/04/22 Joshua Anderson FNP [address] [place] [address] Nurse Practitioner Family Medicine 06/03/23 documented as of this encounter
--- OUTSIDE RECORDS SUMMARY | 2024-07-28 12:15 | XMS_ITS | Encounter Summary ---
Author Organization [employer] Address [address] [facility] [address] [place] [address] Care Team Providers Care Tuck Pointer Name Role Phone Trudi Reagan Primary Care Provider [phone] Joshua Anderson Unavailable Unavailable Reason for Visit * Reason Comments Med Refill Encounter Details Date Type Department Care Team ([facility] st Contact Info) Description 07/15/[address] [facility] MEDICINE [address] [place], [place] [phone] Joshua Anderson FNP Major depressive disorder with psychotic features (CMS/HCC) Social History Tobacco Use Types Packs/Day Years Used Date Smoking Tobacco: Former Cigarettes Q uit: 03/30/2021 Smokeless Tobacco: Never Depression Answer Date Recorded Patient Health Questionnaire-9 Score 16 06/17/2023 Patient Health Questionnaire-9 Score 16 06/17/2023 Last PHQ-9: Questionnaire Data Not on file 1 08/18/2022 Housing Stability Answer Date Recorded What is your housing situation today? I have johan oj 06/28/[address] you li [...] Date Recorded Patient Health Questionnaire-2 Score 6 06/17/2023 Sex and Gender Information Value Date Recorded Sex Assigned at Male 05/07/2022 10:15 AM EDT Legal Sex Male 10:15 AM EDT Gender Identity Male 05/07/2022 10:15 AM EDT Sexual Orientation Straight 05/07/2022 10 :15 AM EDT documented as of this encounter Plan of Treatment Upcoming Encounters Date Type Department Care Team (Late st Contact Info) Description 08/06/2024 2:00 PM EST Clinical Support [facility] MED [facility] PEDS [address] [place] [address] Antonella Moon, AARON [address] [place] [address] documented as of this encounter Visit Diagnoses Diagnosis Major depressive disorder with psychotic features (CMS/HCC) documented in this encounter Additional Health Concerns Assessment Noted Time PHQ-9 Depression Total Score: 16 023 3:17 PM EST documented as of this encounter Care Teams Tuck Pointer Relationship Specialty Start Date End Date Trudi Reagan FNP [address] [place] [phone] PCP - General Family Medicine 03/04/22 Joshua Anderson FNP [address] [place] [address] Nurse Practitioner Family Medicine 06/03/23 documented as of this encounter
--- OUTSIDE RECORDS SUMMARY | 2024-07-28 12:15 | XMS_ITS | Encounter Summary ---
Author Organization [employer] Address [address] [facility] [address] [place] [address] Care Team Providers Care Lace Paper Machine Operator Name Role Phone Trudi Reagan Primary Care Provider [phone] Joshua Anderson Unavailable Unavailable Reason for Visit * Reason Onset Date Comments Med Refill 05/29/2023 Encounter Details Date Type Department Care Team ([facility] st Contact Info) Description 05/29/2023 Telephone [facility] MED[facility]INE [address] [place] [address] Trudi Reagan FNP [address] [place] [address] Med Refill Social History Tobacco Use Types Packs/Day Years [...] encounter Miscellaneous Notes * Telephone Encounter - Betsy Polo - 05/29/2023 3:24 PM EST Tc from pt requesting med refill on; oxyCODONE-acetaminophen (Percocet) 5-325 MG tablet documented in this encounter Plan of Treatment Upcoming Encounters Date Type Department Care Team (Late st Contact Info) Description 08/06/2024 2:00 PM EST Clinical Support [facility] MED & PEDS [address] [place] [address] Antonella Moon, RN [address] [place] [address] documented as of this encounter Visit Diagnoses Not on filedocumented in this encounter Additional Health Concerns Assessment Noted Time PHQ-9 Depression Total Score: 16 023 2:37 PM EDT documented as of this encounter Care Teams Lace Paper Machine Operator Relationship Specialty Start Date End Date Trudi Reagan FNP [address] [place] [address] PCP - General Family Medicine 03/04/22 Joshua Anderson FNP [address] [place] [address] Nurse Practitioner Family Medicine 06/03/23 documented as of this encounter
[2024-07-28 15:46] LABS: TSH reflex Free T4 23.79 uIU/mL (0.32-4.0)
[2024-07-28 16:26] LABS: Free T4 (Free Thyroxine) 0.82 ng/dL (0.71-1.85)
== END 2024-07-28 10:45 | disposition home or self-care (01) ==
LOC: HO.CHCLDS 10:44
PROVIDERS: Visit Provider Registered Nurse
DX: E03.9 Hypothyroidism, unspecified (principal)
CPT/HCPCS: 36415; 84439; 84443

== ENCOUNTER 2024-10-05 16:16 | Outpatient (REF) | payer MEDICAID, SELFPAY ==
--- OUTSIDE RECORDS SUMMARY | 2024-10-05 17:57 | XMS_ITS | Encounter Summary ---
Author Organization [employer] Address [address] [place] [address] 7 [place] [address] Care Team Providers Care Street Light Repairer Helper Name Role Phone Trudi Reagan Primary Care Provider [phone] Joshua Anderson Unavailable Unavailable Reason for Referral * Consultation (STAT) - Pending Review Specialty Diagnoses / Procedures Referred By Alina t Referred To Contact Urology Diagnoses Bilateral nephrolithiasis Balwinder Guajardo CNP [address] [place] [address] Phone: tel: fax: Referral ID Status Reason Start Date Expiration Date Visits Requested Visits Authorized [id number] Pending Review Specialty Services Required 10/05/2024 10/05/2025 1 1 * Consultation (Routine) - Pending Review Specialty Diagnoses / Procedures Referred By Alina t Referred To Contact Nephrology Diagnoses Bilateral nephrolithiasis Balwinder Guajardo CNP [address] [place] [address] Phone: tel: fax: Referral ID Status Reason Start Date Expiration Date Visits Requested Visits Authorized [id number] Pending Review Specialty Services Required 10/05/2024 10/05/2025 1 1 * Imaging (STAT) - Authorized Specialty Diagnoses / Procedures Referred By Contac t Referred To Contact Radiology Diagnoses Bilateral nephrolithiasis Procedures CT abdomen w/o Contrast Balwinder Guajardo CNP [address] [place] [address] Phone: tel: fax: [address] Phone: tel: fax: Referral ID Status Reason Start Date Expiration Date V isits Requested Visits Authorized [id number] Authorized 10/05/2024 10/05/2025 1 1 Reason for Visit * Reason Comments Follow-up Encounter Details Date Type Department Care Team (Latest Contact Info) Description 10/05/2024 11:15 AM EDT Office Visit [facility] [address] [place], [place] [phone] Trudi Reagan FNP [address] [place] [address] Bilateral nephrolithiasis (Primary Dx); Dysuria; Healthcare maintenance; Encounter for screening examination for sexually transmitted disease; Acquired hypothyroidism; Gastroesophageal reflux disease without esophagitis Social History Tobacco Use Types Packs/Day Years [...] AM EDT documented as of this encounter Last Filed Vital Signs Vital Sign Reading Time Taken Comments Blood Pressure 131/83 10/05/2024 11:15 AM EDT Pulse 65 10/05/2024 11:15 AM EDT Temperature 36.3 ??C (97.3 ??F) 10/05/2024 11:15 AM E DT Respiratory Rate 18 10/05/2024 11:15 AM EDT Oxygen Saturation 98% 10/05/2024 11:15 AM EDT Inhaled Oxygen Concentration - - Weight 86.8 kg (191 lb 4 oz) 10/05/2024 11:15 AM EDT Height 165.1 cm (5' 5 ) 10/05/2024 11:15 AM EDT Body Mass Index 31.83 10/05/2024 11:15 AM EDT documented in this encounter Progress Notes * Trudi Reagan, FUAD - 10/05/2024 11:15 AM EDT Subjective: Dewey Francisco is a 39 y.o. male w/ PMH hypertension, GERD, nephrolithiasis, hypothyroidism, and MDD, who presents to the office for a follow up visit. Interim history: Last PCP visit: 02/17/24 Levothyroxine increased to 112mcg daily, due to repeat dose CXR was normal Current concerns: Hair injections - reports that he received injections that helped stimulate hair growth approx 5-10years ago in [place]. Interested in returning for further treatment. Believes name of location was: [facility]. Aware that he needs to call to verify insurance coverage and anticipated cost. Kidney stones: reports that he was recently hospitalized [id number] and was diagnosed with bilateral kidney stones. (No records available at time of appt). Believes that he passed one of them, but was informed that remaining ones may be too big to pass. Has been experiencing left flank pain, intermittent gross hematuria. Denies any urinary frequency or urgency. Social History Mental health: denies SI/HI/thoughts of self harm Living: lives with his sibling No Known Allergies Review of Systems Constitutional: Negative for chills and fever. Respiratory: Negative for shortness of breath and wheezing. Cardiovascular: Negative for chest pain. Gastrointestinal: Negative for diarrhea, nausea and vomiting. Genitourinary: Positive for flank pain and hematuria. Negative for decreased urine volume, frequency, penile discharge, penile pain, penile swelling and scrotal swelling. Visit Vitals BP 131/83 (BP Location: Left arm, Patient Position: Sitting, BP Cuff Size: Large adult) Pulse 65 Temp 97.3 ??F (36.3 ??C) (Oral) Resp 18 Ht 5' 5 (1.651 m) Wt 191 lb 4 oz (86.8 kg) SpO2 98% BMI 31.83 kg/m?? Smoking Status Former BSA 2 m?? Physical Exam Vitals reviewed. Constitutional: Appearance: Normal appearance. HENT: Head: Atraumatic. Right Ear: External ear normal. Left Ear: External ear normal. Pulmonary: Effort: Pulmonary effort is normal. Abdominal: Tenderness: There is left CVA tenderness. There is no right CVA tenderness. Neurological: Mental Status: He is alert and oriented to person, place, and time. Psychiatric: Mood and Affect: Mood normal. Behavior: Behavior normal. Problem List Items Addressed This Visit Circulatory Essential hypertension Overview Medication: lisinopril 10mg daily Encourage lifestyle interventions including low salt diet, routine physical activity, low fat diet rich in fruits and vegetables Current Assessment & Plan - Well controlled Relevant Orders Albumin, Random Urine W/Creatinine Lipid Panel, Standard Comprehensive Metabolic Panel Digestive Gastroesophageal reflux disease without esophagitis Current Assessment & Plan - History of GERD and gastric ulcer - Referred to GI for further eval (NS to EGD Jul 2023) - Continues with PPI BID Relevant Orders Referral to Gastroenterology Genitourinary Bilateral nephrolithiasis - Primary Overview Diagnosed 03/19/23, CT revealed bilateral nephrolithiasis with 5-6 mm mid right ureteral calculus resulting in mild right sided hydroureteronephrosis Following with [facility] Urology 06/18/23: ureteroscopy with laser lithotripsy on the right 06/26/23: KUB demonstrated 3 small calcifications overlying left renal fossa May 2024: reports ED eval [id number] identified bilat kidney stones Current Assessment & Plan - Discussed ED eval NOW vs outpatient management. Pt declines ED eval, will proceed with OP eval atthis time with strict ED precautions - Plan: CT abd/pelvis w/o contrast ordered STAT Dewey to call [facility] Urology for appt Hydration Flomax x 30 days Strict ED precautions Relevant Medications tamsulosin (Flomax) 0.4 MG 24 hr capsule Other Relevant Orders CT Abdomen Pelvis w/o Contrast Urinalysis, Complete, with Reflex to Culture (Completed) POCT Urinalysis (Completed) Endocrine/Metabolic Acquired hypothyroidism Current Assessment & Plan - Inconsistent med adherence - Currently prescribed levothyroxine 112 mcg daily - Re-check TSH Lab Results Component Value Date TSH 43.11 (H) 02/21/2024 Relevant Orders TSH with Reflex to Free T4 Type 2 diabetes mellitus without complication ([facility]) Overview Lab Results Component Value Date HGBA1C 5.8 [...] 281 Mar 2023 Eye exam: referral to [facility] Eye Care Dental: encouraged to establish dental home Foot exam/peripheral pulses: f/u [facility]: yes Statin: yes (unclear med adherence) Current Assessment & Plan -No longer on medications -Venous A1c ordered Relevant Orders Albumin, Random Urine W/Creatinine Lipid Panel, Standard Comprehensive Metabolic Panel POCT A1C (Completed) POCT glucose manually resulted (Completed) Other Visit Diagnoses Encounter for immunization Relevant Orders COVID-19 VACCINE (Pfizer) [id number] 12 yrs + (Completed) FLU VACCINE TRIVALENT (Fluarix) 6 mo + (Completed) Skin tag Referral to [facility] Derm team for further eval and consideration of removal Relevant Orders Referral to [facility] Derm Skin Alopecia -Pt requesting referral to Derm in [place] that helps with hair regrowth. Requested referral to [facility]. Encouraged to contact clinic and insurance regarding coverage of servicesand if his insurance will be accepted by their practice. Relevant Orders Referral to Dermatology Follow up: 3 months extended, sooner as needed Current Outpatient Medications Medication Sig Dispense Refill Acetaminophen Extra Strength 500 MG tablet TAKE 1-2 TABLET BY ORAL ROUTE EVERY6 -8 HOURS NEEDED NOT TO EXCEED 6 TABLETS PER 24HRS 120 tablet 0 atorvastatin (Lipitor) 20 MG tablet Take 1 Tablet by Oral route every evening (cholesterol) 90 tablet 3 cholecalciferol (D3-1000) 25 MCG (1000 UT) capsule Take 1 capsule (25 mcg) by mouth Once per day. 90 capsule 3 clonazePAM (KlonoPIN) 0.5 MG tablet Take 1 tablet (0.5 mg) by mouth if needed in the morning and atbedtime for anxiety. 60 tablet 0 clotrimazole (Lotrimin) 1 % cream apply by topical route 2 times every day to the affected and surrounding areas of skin in the morning and evening x 4 weeks fluticasone (Flonase) 50 MCG/ACT nasal spray SPRAY 1 - 2 SPRAY BY INTRANASAL ROUTE EVERY DAY IN EACH NOSTRIL NEEDED 48 mL 1 glucose blood (FREESTYLE LITE) test strip CHeck BS BID hydrOXYzine HCl (Atarax) 25 MG tablet Take 1 tablet (25 mg) by mouth if needed in the morning, at noon, and at bedtime for anxiety. Take at first sign of panic attack. 90 tablet 1 levothyroxine (Synthroid) 125 MCG tablet Take 1 tablet (125 mcg) by mouth before breakfast. 90 tablet 1 lisinopril 10 MG tablet Take 1 tablet (10 mg) by mouth Once per day. 90 tablet 3 loratadine (Claritin) 10 MG tablet Take 1 tablet (10 mg) by mouth Once per day. 90 tablet 3 omeprazole (PriLOSEC) [address] capsule TAKE 1 TABLET BY ORAL ROUTE 2 TIMES EVERY DAY BEFORE MEALS (BREAKFAST & DINNER) 180 capsule 1 ondansetron ODT (Zofran-ODT) 4 MG disintegrating tablet Take 1 tablet (4 mg) by mouth every 8 (eight) hours if needed for nausea or vomiting. 21 tablet 0 prazosin (Minipress) 2 MG capsule TAKE 1 CAPSULE (2 MG) BY MOUTH AT BEDTIME. TAKE EVERY NIGHT WITHOUT SKIPPING DOSES 30 capsule 0 pyridoxine (Vitamin B-6) 100 MG tablet Take 1 tablet (100 mg) by mouth in the morning. 90 tablet 1 senna (Senokot) 8.6 MG tablet Take 1-2 tablets by mouth daily if needed for constipation 180 tablet1 tamsulosin (Flomax) 0.4 MG 24 hr capsule Take 1 capsule (0.4 mg) by mouth Once per day. (Use to help pass kidney stones) 30 capsule 0 venlafaxine XR (Effexor XR) 75 MG 24 hr capsule Take 2 capsules (150 mg) by mouth Once daily. Do not crush or chew. 60 capsule 1 No current facility-administered medications for this visit. Immunization History Administered Date(s) Administered DTaP 1983, 1983, 1983, 10/07/1985, 03/14/1988 Hep B, Adolescent or Pediatric 03/23/1998, 10/17/2000, 11/12/2002 IPV 1983, 1983, 1983, 10/07/1985 Influenza injectable quadrivalent IIV4 with preservative 05/26/2015 Influenza injectable quadrivalent preservative free 07/10/2018, 04/11/2021, 04/24/2022, 03/29/2023 Influenza, IIV3, injectable 04/18/2010, 04/05/2014 Influenza, Split (incl. purified surface antigen) 05/14/2012, 03/24/2013 Influenza, seasonal, injectable, preservative free 05/25/2024 MMR 05/14/1984, 03/21/1995 Pfizer Covid-19 Vaccine 12+ 04/11/2021, 05/02/2021, 05/25/2024 Pfizer Covid-19 Vaccine 12+ Bivalent 04/24/2022 Pneumococcal Conjugate PCV 20 06/28/2023 TD (adult), 2 Lf tetanus toxoid, preservative free, adsorbed 03/23/1998, 02/05/2008 Tdap 05/14/2012, 06/28/2023 * Balwinder Guajardo CNP - 10/05/2024 11:15 AM EDT Subjective Patient ID: Dewey Francisco is a 39 y.o. male w/ PMH hypertension, GERD, nephrolithiasis, hypothyroidism, and MDD, who presents to the office for a follow up visit. Interim history: Last PCP visit: 05/25/24 Levothyroxine increased to 125mcg daily Lab Results Component Value Date TSH 23.79 (H) 07/28/2024 Pt Followed by derm clinic, was seen on 09/22/24 for skin tag removal. Pt was supposed to have appt with GI in 09/2024 for GERD, at this time they were also recommending an endoscopy and colonoscopy, but he was unable to make this appt. Pt has been exercising more and eating more fruits/vegetables for weight loss, he is down two pounds today. Current concerns: Kidney stones: reports that he has been having right flank pain and intermittent hematuria and dysuria. He reports that he had imaging out of state awhile back which revealed multiple kidney stones bilaterally. He reports the pain as being unbearable and that it causes him to feel nauseous. Health maintenance: reports that he would like to obtain routine bloodwork including STI screening today. Denies recent UPI, would just like to complete routine screening. Review of Systems Constitutional: Negative for chills and fever. HENT: Negative. Eyes: Negative. Respiratory: Negative for cough and shortness of breath. Cardiovascular: Negative for chest pain and palpitations. Gastrointestinal: Positive for nausea. Negative for abdominal distention, abdominal pain, blood in stool, constipation, diarrhea and vomiting. Genitourinary: Positive for dysuria, flank pain, hematuria and urgency. Negative for decreased urine volume and frequency. Neurological: Negative. Psychiatric/Behavioral: Negative. Objective Vitals: 10/05/24 1115 BP: 131/83 Pulse: 65 Resp: 18 Temp: 97.3 ??F (36.3 ??C) SpO2: 98% Physical Exam Constitutional: General: He is not in acute distress. Appearance: Normal appearance. He is not ill-appearing or toxic-appearing. HENT: Head: Normocephalic and atraumatic. Cardiovascular: Rate and Rhythm: Normal rate and regular rhythm. Pulses: Normal pulses. Heart sounds: Normal heart sounds. Pulmonary: Effort: Pulmonary effort is normal. No respiratory distress. Breath sounds: Normal breath sounds. No stridor. No wheezing, rhonchi or rales. Abdominal: Tenderness: There is right CVA tenderness and left CVA tenderness. Skin: General: Skin is warm and dry. Coloration: Skin is not jaundiced. Neurological: General: No focal deficit present. Mental Status: He is alert and oriented to person, place, and time. Mental status is at baseline. Psychiatric: Mood and Affect: Mood normal. Behavior: Behavior normal. Assessment/Plan Problem List Items Addressed This Visit Acquired hypothyroidism Relevant Orders TSH W/Reflex to FT4 Plan to continue on current dose of levothyroxine Will recheck TSH levels today Bilateral nephrolithiasis - Primary Relevant Medications oxyCODONE-acetaminophen (Percocet) 5-325 MG tablet Other Relevant Orders CT abdomen w/o Contrast Referral to Nephrology Referral to Urology On physical exam, CVA tenderness noted, no fever, chills, s/sx of infection U/A neg today will send for culture based on pt's current urinary sx. Called [facility] urology to schedule an appointment for evaluation/surgical intervention, per [facility] team a new referral will need to be placed. Placed new STAT referral to urology today. Also referred pt to nephrology d/t intermittent hematuria Ordered STAT CT abdomen to evaluate/confirm presence of neprholithiasis Pt to continue on flomax 5 day course percocet provided for pain control as this has been a beneficial tx in the past and pain not controlled on ibuprofen/tylenol. Advised pt not to take with clonazepam. Other Visit Diagnoses Dysuria Relevant Orders Urinalysis, Complete, with Reflex to Culture POCT Urinalysis (Completed) U/a neg today, will send for culture to r/o UTI Healthcare maintenance Relevant Orders Hemoglobin A1c Lipid Panel, Standard Comprehensive Metabolic Panel CBC auto differential Pt plans to come tomorrow to complete fasting bloodwork Did provide education regarding pt's last A1c of 5.9 which is at goal of <7 Pt would like to have A1c checked anyway Encounter for screening examination for sexually transmitted disease Relevant Orders Chlamydia/N. Gonorrhoeae RNA, TMA, Urogenitial HIV-1/2 Antigen and Antibodies, Fourth Generation, with Reflexes Hepatitis C Antibody with Reflex to HCV, RNA, Quantitative, Real-Time PCR RPR (Monitor) with Reflex to Titer Gastroesophageal Reflux Disease w/o esophagitis Dewey plans to call GI office to reschedule missed appointment Plan to f/u in 3 months for chronic conditions. [facility] SOAP SLABBER Attestation SOAP SLABBER Resident Attestation: Patient was seen and evaluated by Balwinder Guajardo CNP, in collaboration with FUAD Hobsonwho has reviewed my assessment and plan. I, FUAD Hobson, have reviewed the resident's note and agree with the assessment & plan ofcare as documented above. documented in this encounter Plan of Treatment Scheduled Orders Name Type Priority Associated Diagnoses Orde r Schedule CT abdomen w/o Contrast Imaging STAT Bilateral nephrolithiasis Expected: 10/05/2024, Expires: 10/05/2025 Urinalysis, Complete, with Reflex to Culture Lab Routine Dysuria Expected: 10/05/2024 (Approximate), Expires: 10/05/2025 TSH W/Reflex to FT4 Lab Routine Acquired hypothyroidism Expected: 10/05/2024 (Approximate), Expires: 10/05/2025 Hemoglobin A1c Lab Routine Healthcare maintenance Expected: 10/05/2024 (Approximate), Expires: 10/05/2025 Lipid Panel, Standard Lab Routine Healthcare maintenance Expected: 10/05/2024 (Approximate), Expires: 10/05/2025 Comprehensive Metabolic Panel Lab Routine Healthcare maintenance Expected: 10/05/2024 (Approximate), Expires: 10/05/2025 CBC auto differential Lab Routine Healthcare maintenance Expected: 10/05/2024 (Approximate), Expires: 10/05/2025 Chlamydia/N. Gonorrhoeae RNA, TMA, Urogenitial Microbiology Routine Encounter for screening examination for sexually transmitted disease Ordered: 10/05/2024 HIV-1/2 Antigen and Antibodies, Fourth Generation, with Reflexes Lab Routine Encounter for screening examination for sexually transmitted disease Expected: 10/05/2024 (Approximate), Expires: 10/05/2025 Hepatitis C Antibody with Reflex to HCV, RNA, Quantitative, Real-Time PCR Lab Routine Encounter for screening examination for sexually transmitted disease Expected: 10/05/2024, Expires: 10/05/2025 RPR (Monitor) with Reflex to??Titer Lab Routine Encounter for screening examination for sexually transmitted disease Expected: 10/05/2024, Expires: 10/05/2025 Scheduled Referrals Name Type Priority Associated Diagnoses Orde r Schedule Referral to Nephrology Outpatient Referral Routine Bilateral nephrolithiasis Expected: 10/05/2024 (Approximate), Expires: 10/05/2025 Referral to Urology Outpatient Referral STAT Bilateral nephrolithiasis Expected: 10/05/2024 (Approximate), Expires: 10/05/2025 documented as of this encounter Procedures Procedure Name Priority Date/Time Associated Diagnosis Comments POCT URINALYSIS DIPSTICK Routine 10/05/2024 12:33 PM EDT Dysuria documented in this encounter Results * POCT Urinalysis (10/05/2024 12:33 PM EDT) Color, UA Yellow Clarity, UA Clear Glucose, UA Negative Bilirubin, UA Negative Ketones, UA Negative Spec Grav, UA 1.020 Blood, UA Negative Negative, None Detected pH, UA 7.0 Protein, UA Negative Urobilinogen, UA 1.0 Leukocytes, UA Negative Negative, Rare, Trace Nitrite, UA Negative Negative, None Detected Appearance, UA clear QC Media Lot # [id number] Lot# Expiration Date Urine 10/05/2024 12:3 3 PM EDT Trudi [facility] POINT OF CARE TEST ENTER/EDIT ORDERABLES Final Result documented in this encounter Visit Diagnoses Diagnosis Bilateral nephrolithiasis- Primary Dysuria Healthcare maintenance Encounter for screening examination for sexually transmitted disease Acquired hypothyroidism Unspecified hypothyroidism Gastroesophageal reflux disease without esophagitis Esophageal reflux documented in this encounter Additional Health Concerns Assessment Noted Time PHQ-9 Depression Total Score: 8 01/21/20 24 11:16 AM EDT documented as of this encounter Care Teams Street Light Repairer Helper Relationship Specialty Start Date End Date Trudi Reagan FNP [address] [place] [address] PCP - General Family Medicine 03/04/22 Joshua Anderson FNP [address] [place] [address] Nurse Practitioner Family Medicine 06/03/23 documented as of this encounter
--- OUTSIDE RECORDS SUMMARY | 2024-10-05 17:57 | XMS_ITS | Encounter Summary ---
Author Organization [employer] Address [address] [place] [address] Care Team Providers Care Drum Builder Name Role Phone Trudi Reagan Primary Care Provider [phone] Joshua Anderson Unavailable Unavailable Reason for Visit * Reason Onset Date Comments Chart Prep 10/01/2024 Encounter Details Date Type Department Care Team ([facility] Contact Info) Description 10/01/2024 Telephone [facility] [address] [place] [address] Trudi Reagan FNP [address] [place] [address] Chart Prep Social History Tobacco Use Types Packs/Day Years [...] encounter Miscellaneous Notes * Telephone Encounter - Jeison Hunt [place] - 10/01/2024 2:35 PM EDT Chart Prep Labs: not done Images: not applicable Vaccines due: yes Referrals: complete Screenings: eye exam , Foot Exam Overdue care gaps: A1C, Glucose, SDOH, Disability, PISQ documented in this encounter Plan of Treatment Not on file documented as of this encounter Visit Diagnoses Not on filedocumented in this encounter Additional Health Concerns Assessment Noted Time PHQ-9 Depression Total Score: 8 01/21/20 24 11:16 AM EDT documented as of this encounter Care Teams Drum Builder Relationship Specialty Start Date End Date Trudi Reagan FNP [address] [place] [address] PCP - General Family Medicine 03/04/22 Joshua Anderson FNP [address] [place] [address] Nurse Practitioner Family Medicine 06/03/23 documented as of this encounter
--- OUTSIDE RECORDS SUMMARY | 2024-10-05 17:57 | XMS_ITS | Patient Health Record ---
Author Organization [facility] Address [address] [place] [id number] Care Team Providers Care Survey Research Manager Name Role Phone CARMELO BABB MD Primary Care Provider Berto Rojas [phone] Allergies No Known Allergies Reason For Referral No Information Medications Medication SIG (Take, Route, Frequency, Duration) Notes [...] IN THE MORNING Oral for 90 Active Immunizations Vaccine Route Administration Date Status Comme nts Influenza Unknown 01/30/2023 Refused Social History Tobacco Use: Social History Observation Description Date Details (start date - stop date) Never Smoker NA - NA Tobacco Use/Smoking Question Answer Notes Patient is a nonsmoker Alcohol Screen Question Answer Notes Did you have a drink containing alcohol in the p ast year? No Points 0 Interpretation Negative Section Notes: Nonsmoker since 04/2022; no alcohol Problems Problem Type SNOMED Code ICD Code Onset Dates Problem Status W/U Status Risk Notes Problem 533727733 Colon cancer screening (Z12.11) Active confirmed Problem 161984362 Family history o f colon cancer (Z80.0) Active confirmed Problem 384852680 Gastroesophageal reflux disease, unspecified whether esophagitis present (K21.9) Active confirmed Plan Of Treatment Future Test Test Name Order Date UPPER GI ENDOSCOPY 01/30/2023 COLONOSCOPY 01/30/2023 Insurance Providers Payer Name Payer Address Payer Phone Subscriber Number Group Number Insured Name Patient Relationship to Insured Coverage Start Date Coverage End Date MEDICA[employer] OF [employer] [address] [place] [phone] [id number] ALIX FRANCIS Self - patient is the insured Medical (General) History Medical History History ICD Code Anxiety GERD Hypertension Allergic rhinitis Hypothyroidism NIDDM Elevated cholesterol Vitamin D deficiency Denies [place],CVA,Lung disease,renal disease Surgical History Surgery Date(Month/Year)
--- OUTSIDE RECORDS SUMMARY | 2024-10-05 17:57 | XMS_ITS | Encounter Summary ---
Author Organization [employer] Address [address] [place] [address] Care Team Providers Care Asset Specialist Name Role Phone Merary Trudi SANCHEZP Primary Care Provider [phone] Joshua Anderson Unavailable Unavailable Encounter Details Date Type Department Care Team (Latest Contact Info) Description 10/05/2024 Travel Social History Tobacco Use Types Packs/Day Years [...] documented as of this encounter Care Teams Asset Specialist Relationship Specialty Start Date End Date Trudi Reagan FNP [address] [place] [address] PCP - General Family Medicine 03/04/22 Joshua Anderson FNP [address] [place] [address] Nurse Practitioner Family Medicine 06/03/23 documented as of this encounter
--- OUTSIDE RECORDS SUMMARY | 2024-10-05 17:57 | XMS_ITS | Encounter Summary ---
Author Organization [employer] Address [address] [place] [address] 7t [place] [address] Care Team Providers Care Business Systems Manager Name Role Phone Trudi Reagan Primary Care Provider Joshua Anderson Unavailable Unavailable Reason for Visit * Reason Comments Med Refill Encounter Details Date Type Department Care Team (Late st Contact Info) Description 01/18/2023 Refill [facility] [address] [place] [address] Joshua Anderson FNP Social History Tobacco Use [...] documented as of this encounter Care Teams Business Systems Manager Relationship Specialty Start Date End Date Trudi Reagan FNP [address] [place] [address] PCP - General Family Medicine 03/04/22 Joshua Anderson FNP [address] [place] [address] Nurse Practitioner Family Medicine 06/03/23 documented as of this encounter
--- OUTSIDE RECORDS SUMMARY | 2024-10-05 17:57 | XMS_ITS ---
Author Organization [facility] Address [address] [place] [phone] Care Team Providers Care Polytechnic Registrar Name Role Phone SKINNY CRAMER, CARMELO Primary Care Provider Berto Rojas [phone] REASON FOR VISIT Colon N/S--needs to R/S letter mailed Encounters Encounter Location Date Provider Diagnosis [facility] [address] [place] [phone] 08/25/2023 Berto Muñoz Plan Of Treatment No Information Progress Notes * ANDREWALIXDOB: [birth year] (38 yo M)Acc No.[id number]:08/25/2023 Patient:?ALIX MORALES :1985???Age:38 Y???Sex:Male Address:[address] [place] [address] [address], [place], [address] * true * Date:? Generated for Claudiai ladonna/Remi/eTransmitting on:?10/05/2024 11:04 AM EDT
--- OUTSIDE RECORDS SUMMARY | 2024-10-05 17:58 | XMS_ITS | Encounter Summary ---
Author Organization [employer] Address [address] 7[address] [place] [address] Care Team Providers Care [employer] Name Role Phone Trudi Reagan Primary Care Provider [phone] Joshua Anderson Unavailable Unavailable Encounter Details Date Type Department Care Team ([facility] st Contact Info) Description 04/26/2023 Orders Only [facility] [address] [place], [place] [phone] Trudi Irvin FNP Social History Tobacco Use [...] documented as of this encounter Care Teams [employer] Relationship Specialty Start Date End Date Trudi Reagan FNP [address] [place] [address] PCP - General Family Medicine 03/04/22 Joshua Anderson FNP [address] [place] [address] Nurse Practitioner Family Medicine 06/03/23 documented as of this encounter
--- OUTSIDE RECORDS SUMMARY | 2024-10-05 17:58 | XMS_ITS | Encounter Summary ---
Author Organization [employer] Address [address] 7t [place] [address] Care Team Providers Care Ibm Websphere Commerce Consultant Name Role Phone Trudi Reagan Primary Care Provider [phone] Joshua Anderson Unavailable Unavailable Reason for Visit * Reason Comments Med Change Request Encounter Details Date Type Department Care Team ([facility] Contact Info) Description 04/01/2023 Refill [facility] [address] [place], [place] [phone] Trudi Reagan FNP [address] [place] [address] Social History Tobacco Use Types Packs/Day Years [...] documented as of this encounter Care Teams Ibm Websphere Commerce Consultant Relationship Specialty Start Date End Date Trudi Reagan FNP [address] [place] [address] PCP - General Family Medicine 03/04/22 Joshua Anderson FNP [address] [place] [address] Nurse Practitioner Family Medicine 06/03/23 documented as of this encounter
--- OUTSIDE RECORDS SUMMARY | 2024-10-05 17:58 | XMS_ITS | Clinical Summary ---
Author Organization [employer] Address [address] 7t [place] [address] Care Team Providers Care Customer Engineer Name Role Phone Trudi Reagan Primary Care Provider [phone] Joshua Anderson Unavailable Unavailable Allergies No known [...] the morning. 90 tablet 1 023 Active loratadine (Claritin) 10 MG tabletIndications: Allergic [...] breakfast. 90 tablet 1 025 2025 Active prazosin (Minipress) 2 MG capsuleIndications :Major depressive disorder with psychotic features (CMS/HCC) TAKE 1 CAPSULE (2 MG) BY MOUTH AT BEDTIME. TAKE EVERY NIGHT WITHOUT SKIPPING DOSES 30 capsule 025 Active venlafaxine XR (Effexor XR) 75 MG 24 hr capsuleIndications :Major depressive disorder with psychotic features (CMS/HCC) Take 2 capsules (150 mg) by mouth Once daily. Do not crush or chew. 60 capsule 1 025 2024 Active hydrOXYzine HCl (Atarax) 25 MG tabletIndications: Major depressive disorder with psychotic features (CMS/HCC) Take 1 tablet (25 mg) by mouth if needed in the morning, at noon, and at bedtime for anxiety. Take at first sign of panic attack. 90 tablet 1 025 2024 Active clonazePAM (KlonoPIN) 0.5 MG tabletIndications: Major depressive disorder with psychotic features (CMS/HCC) Take 1 tablet (0.5 mg) by mouth if needed in the morning and at bedtime for anxiety. 60 tablet 025 2024 Active oxyCODONE-acetamin ophen (Percocet) 5-325 MG tabletIndications: Bilateral nephrolithiasis Take 1 tablet by mouth every 12 (twelve) hours for 5 days. For severe pain. 10 tablet 025 2024 Active hydrOXYzine HCl (Atarax) 25 MG tabletIndications: Major depressive disorder with psychotic features (CMS/HCC) Take 1 tablet (25 mg) by mouth every 6 (six) hours if needed for anxiety. Take at first sign of panic attack. 50 tablet 5 024 2024 Discontinued(R eorder (will not trigger notification to Pharmacy)) venlafaxine XR (Effexor XR) 75 MG 24 hr capsuleIndications :Major depressive disorder with psychotic features (CMS/HCC) Take 1 capsule (75 mg) by mouth Once daily. Do not crush or chew. 30 capsule 025 2024 Discontinued(R eorder (will not trigger notification to Pharmacy)) risperiDONE (RisperDAL) 0.5 MG tabletIndications: Major Depressive Disorder Take 1 tablet (0.5 mg) by mouth at bedtime. 30 tablet 025 2024 Discontinued(I neffective) clonazePAM (KlonoPIN) 0.5 MG tabletIndications: Major depressive disorder with psychotic features (CMS/HCC) Take 1 tablet (0.5 mg) by mouth if needed in the morning and at bedtime for anxiety. 30 tablet 025 2024 Discontinued(R eorder (will not trigger notification to Pharmacy)) clonazePAM (KlonoPIN) 0.5 MG tabletIndications: Major depressive disorder with psychotic features (CMS/HCC) Take 1 tablet (0.5 mg) by mouth if needed in the morning and at bedtime for anxiety. 30 tablet 025 2024 Discontinued(R eorder (will not trigger notification to Pharmacy)) Active Problems Problem Noted Date Diagnosed Date Panic disorder 09/02/2024 Bilateral nephrolithiasis 04/01/2023 Overview (05/31/2024): Diagnosed 03/19/23, CT revealed bilateral nephrolithiasis with 5-6 mm mid right ureteral calculus resulting in mild right sided hydroureteronephrosis Following with [facility] [place] [place] [facility] 06/18/23: ureteroscopy with laser lithotripsy on the right 06/26/23: KUB demonstrated 3 small calcifications overlying left renal fossa May 2024: reports ED eval [id number] identified bilat kidney stones Assessment & Plan (05/31/2024 9:10 PM EST): - Discussed ED eval NOW vs outpatient management. Pt declines ED eval, will proceed with OP eval at this time with strict ED precautions - Plan: CT abd/pelvis w/o contrast ordered STAT Dewey to call [facility] [place] [place] [facility] for appt Hydration Flomax x 30 days Strict ED precautions Assessment & Plan (06/29/2023 10:33 AM EST): -Cont pyridoxine 100mg daily through Urology -Pain management through [facility] [place] [place] [facility] PRN -Repeat KUB ordered for further [...] and was apparently told erroneously by his [facility] pharmacy that he had no refills available [...] again I encouraged him to switch to [facility] pharmacy where his medications could be packaged [...] BID. New Rx's were also sent to [facility] pharmacy for medboxes, for Risperidone 1 mg daily, Venlafaxine 150 mg daily, Prazosin 2 mg 2 at bedtime, and Hydroxyzine 25 mg q 6 h prn. Patient evidently has not yet started Medboxes, but says he has an appointment to bring in all his pills. He missed M[facility]INE CHOCOLATE [employer]OLDER visit as well, but that has also [...] mg BID. New Rx's also sent to [facility] pharmacy for medboxes, for Risperidone 1 mg [...] Plan (04/01/2023 8:49 AM EDT): -Established with [facility] Psychopharm clinic - Joshua Anderson APRN. -Continue [...] car yesterday after picking up refills at [facility]. Later in the conversation asks me if [facility] will know which medications are available for refill. Rather than belaboring his symptom report and medication instructions again, we will defer that until next appointment, when I have explained that he will need to have the medication bottles available for review. Again suggested switching to [facility] or [facility] pharmacy for Medboxes and home delivery, [...] as directed. Strongly urged to utilize the [facility] Pharmacy with Medboxes and home delivery to [...] TID prn anxiety. He will F/U with [facility] in [place] for counseling intake. F/U 4-6 weeks. He agrees with the plan. Assessment & Plan (09/25/2022 3:52 PM EDT): Presented with tearfulness, auditory hallucinations, flashbacks and intrusive thoughts. Consider alternate diagnosis of PTSD. Seems to be doing a little better. Continue medicaitons without skipping doses. Recommend going in person to [facility] in [place]. F/U 4-6 weeks. He agrees with the [...] medicaitons without skipping doses. Given information about [facility] in [place] and urged to go in person or [...] 281 Mar 2023 Eye exam: referral to [facility] Eye Care Dental: encouraged to establish dental [...] pt interested in starting med boxes with [facility] pharmacy - referral sent. Vitamin D [...] organization. Date Type Department Care Team Description 10/05/2024 11:15 AM EDT Office Visit [facility] [address] [place] [address] MitzyenTrudi, HOME SECURITY PROFESSIONAL Bilateral nephrolithiasis (Primary Dx); Dysuria; Healthcare maintenance; Encounter for screening examination for sexually transmitted disease; Acquired hypothyroidism; Gastroesophageal reflux disease without esophagitis 10/05/2024 Travel 10/01/2024 Telephone [facility] [address] [place] [address] Trudi Reagan FNP Chart Prep 09/22/2024 11:00 AM EDT Office Visit [facility] [address] [place] [address] Graeme Love MD Skin tag (Primary Dx) 09/22/2024 Travel 09/18/2024 Population Health Risk Score [facility] ([facility]) Department [address] [place] [phone] Provider, Population Health Generic 09/16/2024 3:15 PM EDT Clinical Support [facility] [address] [place] [address] Antonella Moon RN Anxiety 09/16/2024 Telephone [facility] [address] [place] [address] Antonella Moon RN 09/16/2024 Travel 08/27/2024 Telephone [facility] [address] [place] [address] Trudi Reagan FNP August recal 08/19/2024 Telephone [facility] [address] [place] [address] Antonella Moon RN 08/18/2024 Telephone [facility] [address] [place] [address] Trudi Reagan FNP Med Refill 08/17/2024 Refill [facility] [address] [place] [address] Trudi Reagan FNP Major depressive disorder with psychotic features (CMS/HCC) 08/10/2024 Refill [facility] [address] [place] [address] Trudi Reagan FNP Bilateral nephrolithiasis 08/06/2024 2:00 PM EST Clinical Support [facility] [address] [place] [address] Antonella Moon, RN Anxiety 08/06/2024 Travel 08/06/2024 Telephone [facility] [address] [place] [address] Antonella Moon RN 07/29/2024 Telephone [facility] [address] [place] [address] Sharyn Solis RN Results 07/28/2024 Orders Only [facility] [address] [place] [address] Trudi Reagan FNP Acquired hypothyroidism (Primary Dx) 07/28/2024 Orders Only [facility] [address] [place] [address] Trudi Reagan FNP 07/28/2024 Telephone [facility] [address] [place] [address] Trudi Reagan FNP ER Follow-up 07/28/2024 Refill [facility] [address] [place] [address] Trudi Reagan FNP Major depressive disorder with psychotic features (CMS/HCC) 07/09/2024 Refill [facility] [address] [place] [address] Trudi Reagan FNP Acquired hypothyroidism 07/07/2024 Orders Only [facility] [address] [place] [address] Trudi Reagan FNP Acquired hypothyroidism (Primary Dx) from Last 3 Months Immunizations Name Administration [...] your housing situation today? I have johan deysi 06/28/[address] you li [...] Mass Index 31.83 10/05/2024 11:15 AM EDT Plan of Treatment Health Maintenance Due Date Last Done Comments Diabetes: Foot Exam 1993 Eye Exam 1993 Alcohol/Substance Use Screening 1995 Family Planning (PISQ) 1998 SDOH Screening 06/28/2024 06/28/2023 Diabetes: Hemoglobin A1C 11/22/2024 024, 02/17/2024, 04/04/2023, Additional history exists Depression Screening 01/20/2025 01/21/2024, 01/21/20 24 Diabetes: Urine Protein Screening 06/24/2025 06/24/2024, 04/04/2023, 11/28/2020 Lipid Panel 06/24/2025 06/24/2024, 04/04/2023 Tobacco Screening 10/05/2025 10/05/2024 Zoster Vaccines (1 of 2) 2033 DTaP/Tdap/Td Vaccines (8 - Td or Tdap) 06/28/2033 06/28/2023, 05/14/2012, 02/05/2008, Additional history exists RSV Patients and Patients Aged 60 years or older (1 - 1-dose 75+ series) 2058 IPV Vaccines Completed 10/07/1985, 2 11/1983, 1983, Additional history exists Hepatitis B Vaccines Completed 11/12/2002, 10/17/2000, 03/23/1998 Pneumococcal Vaccine: Pediatrics (0 to 5 Years) and At-Risk Patients (6 to 49) Years) Completed 06/28/2023 HIV Screening Completed 02/21/2024, [...] DIPSTICK Routine 10/05/2024 12:33 PM EDT Dysuria DESTRUCTION OF LESION Routine 09/22/2024 12:30 PM EDT Skin tag POCT TAMAR-14 URINE DRUG SCREEN Routine 09/16/2024 3:08 PM EDT Anxiety POCT TAMAR-14 URINE DRUG SCREEN Routine 08/06/2024 1:56 PM EST Anxiety T4, FREE Routine 07/28/2024 10:45 AM EST TSH W/REFLEX TO FT4 Routine 07/28/2024 1 0:45 AM EST Acquired hypothyroidism ALBUMIN, RANDOM URINE W/CREATININE Routine 06/24/2024 10:09 AM EST Essential hypertension Type 2 diabetes mellitus without complication, without long-term current use of insulin (CMS/HCC) LIPID PANEL, STANDARD Routine 06/24/2024 10:07 AM [...] Recently Relevant to Health Maintenance Results * POCT Urinalysis (10/05/2024 12:33 PM [...] Urine 10/05/2024 12:3 3 PM EDT Trudi Reagan HOME SECURITY PROFESSIONAL POINT OF CARE TEST ENTER/EDIT ORDERABLES Final Result * Destruction of lesion (09/22/2024 12:30 PM EDT) Narrative Graeme Love MD - 09/22/2024 12:30 PM EDT Graeme Love MD ? 09/22/2024 12:34 PM Destruction of lesion Date/Time: 09/22/2024 12:30 PM Performed by: Graeme Love MD Authorized by: Graeme Love MD ?? Consent: ??Consent obtained: ??Written ??Consent given by: ??Patient ??Risks discussed: ??Pain, poor cosmetic result and bleeding ??Alternatives discussed: ??Observation [place] protocol: ??Procedure explained and questions answered to patient or proxy's satisfaction: yes ?Relevant documents present and verified: no ?Test results available: no ?Imaging studies available: no ?Required blood products, implants, devices, and special equipment available: no ?Site/side marked: no ?Immediately prior to procedure, a time out was called: yes ?Patient identity confirmed: ??Verbally with patient Number of Lesions: 2 Lesion 1: ??Body area: lower extremity ??Lower extremity location: Right thigh. ??Initial size (mm): 2 ??Final defect size (mm): 2 ??Malignancy: benign lesion ?Destruction method: scissors used for extraction ?? Lesion 2: ??Body area: upper extremity ??Upper extremity location: Right axilla. ??Initial size (mm): 10 ??Final defect size (mm): 10 ??Malignancy: benign lesion ?Destruction method: scissors used for extraction ?? Comments: Scissor extraction followed by electrodesiccation. ??Procedure well-tolerated. ??Band-Aid applied after. ??To cleanse the area with hydrogen peroxide us Graeme Love MD DERM PROCEDURE ORDERABLES F inal Result * POCT TAMAR-14 Urine Drug Screen (09/16/2024 3:08 PM EDT) Only the most recent of2 resultswithin the time period is included. Urine Urine specimen obtained by clean catch procedure / Unknown 09/16/2024 3:08 PM EDT Narrative Antonella Moon RN - 09/16/2024 3:08 PM EDT . negative AMP, BAR, BUP, BZO, CARLOS, FTY, MDMA, MET, MOP, MTD, OXY, PCP, TCA, THC. Lot# [id number] Exp: 02-24-26 us Trudi Reagan HOME SECURITY PROFESSIONAL POINT OF CARE TEST ENTER/EDIT ORDERABLES Final Result * (ABNORMAL) TSH W/Reflex to FT4 (07/28/2024 10:45 AM EST) TSH reflex Free T4 23.79(H) 0.32 - 4.0 uIU/mL [facility] Blood Venous blood specimen / Unknown 07/28/2024 10:45 AM EST 07/28/2024 2:45 PM EST Trudi Reagan [facility] BLOOD ORDERABLES Final Res ult Performing Organization Address [facility] Co de Phone Number [facility] [address] [place] [phone] * T4, Free (07/28/2024 10:45 AM EST) Free T4 (Free Thyroxine) 0.82 0.71 - 1.85 ng/dL [facility] 07/28/2024 10:4 5 AM EST 07/28/2024 2:45 PM EST Trudi Reagan [facility] BLOOD ORDERABLES Final Res ult Performing Organization Address [facility] de Phone Number [facility] [address] [place] [phone] * Albumin, Random Urine W/Creatinine (06/24/2024 10:09 AM EST) Creatinine, Urine 146.41 mg/dL [facility] Microalbumin Urine 7.0 mg/L [facility] Microalbum Creatinine Ratio Ur 4.7 <30 ug/mg cr [facility] Comment:Albumin/Creatinine R atio Reference Ranges: Normal: < 30 ug/mg creatinine Microalbuminuria: 30 - 300 ug/mg creatinineClinical Albuminuria: > 300 ug/mg creatinine Urine 06/24/2024 10:0 9 AM EST 06/24/2024 2:06 PM EST us Trudi Reagan [facility] URINE ORDERABLES Final Res ult Performing Organization Address [facility] Co de Phone Number [facility] [address] [place] [address] [phone] * (ABNORMAL) Lipid Panel, Standard (06/24/2024 10:07 AM EST) Triglycerides 179(H) <150 mg/dL [facility] Comment:Desirable Triglyceri de: less than 150 mg/dLBorderline High Triglyceride 150-199 mg/dLHigh Triglyceride: 200-499 mg/dLVery High Triglyceride: greater than or equal to 5OO mg/dL Cholesterol 182 <200 mg/dL [facility] Comment:Desirable Cholestero l: less than 200 mg/dLBorderline High Cholesterol: 200-239 mg/dLHigh Cholesterol: greater than 239 mg/dL LDL Cholesterol Calculated 104(H) <100 mg/dL [facility] Comment:Desirable LDL: less than 100 mg/dLNear Optimal/Above Optimal LDL: 110- 129 mg/dLBorderline High LDL: 130-159 mg/dLHigh LDL: 160-189 mg/dLVery High LDL: greater than or equal to 190 mg/dL HDL Cholesterol 43 >40 mg/dL [facility] Comment:Desirable HDL: great er than 40 mg/dL Note: This HDL assay may give artificially low results in patients with liver disease. Blood Venous blood specimen / Unknown 06/24/2024 10:07 AM EST 06/24/2024 2:06 PM EST Trudi Merary [facility] BLOOD ORDERABLES Final Res ult Performing Organization Address City/[facility]/ZIP Co de Phone Number [facility] [address] [place] [phone] * POCT A1C (05/25/2024 3:17 PM EST) Hemoglobin A1C 5.9 4.0 - 6.0 % QC Media Lot # Comment:[id number] Lot# Expiration Date Comment:02/05/2026 Blood 05/25/2024 3:17 PM EST us Trudi Reagan HOME SECURITY PROFESSIONAL POINT OF CARE TEST ENTER/EDIT ORDERABLES Final Result * Hepatitis C Viral RNA, Quantitative, Real-Time PCR (02/21/2024 3:21 PM EDT) Hepatitis C Viral Load <15 NOT DETECTED NOT DETECTED IU/mL [facility] HCV Log PCR <1.18 NOT DETECTED NOT DETECTED Log IU/mL [facility] Comment:For additional infor mation, please refer tohttp://education.Mines.io/faq/QGQ57c2(This link is being provided for informational/educational purposes only.)THIS TEST WAS PERFORMED AT:[email or web address] [place] [id number] GARZON MD Blood 02/21/2024 3:21 PM EDT 02/21/2024 3:21 PM EDT Trudi Reagan HOME SECURITY PROFESSIONAL LAB BLOOD ORDERABLES Final Res ult [facility] [address] [place] [phone] * HIV-1/2 Antigen and Antibodies, Fourth Generation, with Reflexes (02/21/2024 3:21 PM EDT) HIV AB/AG Nonreactive Nonreactive [facility] Comment:HIV-1 p24 Ag and/or HIV-1/HIV-2 Ab not detected.A test result that is nonreactive does not exclude thepossibility of exposure to or infection with HIV-1 and/orHIV-2. Nonreactive results in this assay for individualswith prior exposure to HIV-1 and/or HIV-2 may be due toantigen and antibody levels that are below the limit ofdetection of this assay.The [employer] HIV Ag/Ab Combo assay result andsupplemental assay results should be interpreted inconjunction with the patient's clinical presentation,history and other laboratory results. If the results areinconsistent with clinical evidence, additional testing issuggested to confirm the result. Blood Venous blood specimen / Unknown 02/21/2024 3:21 PM EDT 02/21/2024 3:21 PM EDT us Trudi [facility] BLOOD ORDERABLES Final Res ult [facility] [address] [place] [phone] from Last 3 Months or Most Recently Relevant to Health Maintenance Insurance [place], [place] [employer] Care Teams Customer Engineer Relationship Specialty Start Date End Date Trudi Reagan FNP [address] [place] [phone] PCP - General Family Medicine 03/04/22 Joshua Anderson FNP [address] [place] [address] Nurse Practitioner Family Medicine 06/03/23
--- OUTSIDE RECORDS SUMMARY | 2024-10-05 17:58 | XMS_ITS | Encounter Summary ---
Author Organization [facility] Address [address] [place] [address] 7t [place] [address] Care Team Providers Care Nutrition Technician Name Role Phone Trudi Reagan Primary Care Provider [phone] Joshua Anderson Unavailable Unavailable Reason for Visit * Reason Comments Med Refill Encounter Details Date Type Department Care Team (Late st Contact Info) Description 02/21/2023 Refill [facility] MEDICINE [address] [place] [address] Joshua Anderson FNP Social History Tobacco Use [...] documented as of this encounter Care Teams Nutrition Technician Relationship Specialty Start Date End Date Trudi Reagan FNP [address] [place] [address] PCP - General Family Medicine 03/04/22 Joshua Anderson FNP [address] [place] [address] Nurse Practitioner Family Medicine 06/03/23 documented as of this encounter
--- OUTSIDE RECORDS SUMMARY | 2024-10-05 17:58 | XMS_ITS | Encounter Summary ---
Author Organization [employer] Address [address] 7t [place] [address] Care Team Providers Care Senior Cytotechnologist Name Role Phone Trudi Reagan Primary Care Provider [phone] Joshua Anderson Unavailable Unavailable Reason for Visit * Reason Comments Med Refill Encounter Details Date Type Department Care Team ([facility] st Contact Info) Description 07/15/2023 Refill [facility] MEDICINE [address] [place], [place] [phone] Joshua Anderson FNP Major depressive disorder with [...] documented as of this encounter Care Teams Senior Cytotechnologist Relationship Specialty Start Date End Date Trudi Reagan FNP [address] [place] [address] PCP - General Family Medicine 03/04/22 Joshua Anderson FNP [address] [place] [address] Nurse Practitioner Family Medicine 06/03/23 documented as of this encounter
--- OUTSIDE RECORDS SUMMARY | 2024-10-05 17:58 | XMS_ITS | Encounter Summary ---
Author Organization [employer] Address [address] [facility] 7t [place] [address] Care Team Providers Care Metal Grader Name Role Phone Trudi Reagan Primary Care Provider [phone] Joshua Anderson Unavailable Unavailable Reason for Visit * Reason Onset Date Comments Med Refill 05/29/2023 Encounter Details Date Type Department Care Team ([facility] st Contact Info) Description 05/29/2023 Telephone [facility] MEDICINE [address] [place] [address] Trudi Reagan FNP [address] [place] [address] Med Refill Social History Tobacco Use Types [...] documented as of this encounter Care Teams Metal Grader Relationship Specialty Start Date End Date Trudi Reagan FNP [address] [place] [address] PCP - General Family Medicine 03/04/22 Joshua Anderson FNP [address] [place] [address] Nurse Practitioner Family Medicine 06/03/23 documented as of this encounter
--- OUTSIDE RECORDS SUMMARY | 2024-10-05 17:58 | XMS_ITS | Encounter Summary ---
Author Organization [employer] Address [address] [facility] 7t [place] [address] Care Team Providers Care Recreational Vehicle Resort Manager Name Role Phone Trudi Reagan Primary Care Provider [phone] Joshua Anderson Unavailable Unavailable Encounter Details Date Type Department Care Team ([facility] st Contact Info) Description 03/22/2023 Abstract [facility] MEDICINE [address] [place], [place] [phone] Trudi Reagan FNP [address] [place] [address] Social History Tobacco Use Types Packs/Day Years [...] documented as of this encounter Care Teams Recreational Vehicle Resort Manager Relationship Specialty Start Date End Date Trudi Reagan FNP [address] [place] [address] PCP - General Family Medicine 03/04/22 Joshua Anderson FNP [address] [place] [address] Nurse Practitioner Family Medicine 06/03/23 documented as of this encounter
--- OUTSIDE RECORDS SUMMARY | 2024-10-05 17:58 | XMS_ITS | Encounter Summary ---
Author Organization [employer] Address [address] 7t [place] [address] Care Team Providers Care Automation Machine Operator Name Role Phone Trudi Reagan Primary Care Provider [phone] Joshua Anderson Unavailable Unavailable Reason for Visit * Reason Comments Med Refill Encounter Details Date Type Department Care Team ([facility] st Contact Info) Description 12/07/2023 Refill [facility] CHC MED & PEDS [address] [place] [address] Joshua Anderson FNP Major depressive disorder with [...] 12/09/2023 3:30 PM EDT TC to pt. INFORMATION SYSTEMS ARCHITECT initial NV scheduled for 12/10/23 @ 11am. * Telephone Encounter - Flaquita Mantilla - 12/09/2023 3:22 PM EDT Tc from pt requesting a call to schedule INFORMATION SYSTEMS ARCHITECT appointment. Please contact pt at [phone] documented in this encounter Plan of Treatment Not on file documented as of this encounter Visit Diagnoses Diagnosis Major depressive disorder with psychotic features (CMS/HCC) documented in this encounter Additional Health Concerns Assessment Noted Time PHQ-9 Depression Total Score: 12 024 2:28 PM EDT documented as of this encounter Care Teams Automation Machine Operator Relationship Specialty Start Date End Date Trudi Reagan FNP [address] [place] [address] PCP - General Family Medicine 03/04/22 Joshua Anderson FNP [address] [place] [address] Nurse Practitioner Family Medicine 06/03/23 documented as of this encounter
--- OUTSIDE RECORDS SUMMARY | 2024-10-05 17:58 | XMS_ITS ---
Author Organization [facility] Address [address] [place] [address] Care Team Providers Care Counsellors Name Role Phone SKINNY CRAMER, CARMELO Primary Care Provider Berto Rojas [phone] REASON FOR VISIT screening,gerd Encounters Encounter Location Date Provider Diagnosis [facility] Outpatient [address] [place] [phone] 07/29/2023 Berto Muñoz Plan Of Treatment No Information Progress Notes * ALIX MORALESDOB: [birth year] (39 yo M)Acc No.[id number]:07/29/2023 EGD and COL/MAC Patient:?ALIX MORALES Provider:?Berto Muñoz MD :1985???Age:38 Y???Sex:Male Todd e:07/29/2023 Address:[address], [facility] Pcp:CARMELO BABB MD Subjective: * Chief Complaints: * ???1. Screening,gerd. * Medical History:? Objective: * Vitals:? Assessment: Plan: * Treatment: * * The named appointment provid er may or may not be the originator of this progress note, and it is not deemed complete until electronically signed by the appointment provider. Sign off status: Pending * Provider:?Berto Muñoz MD Date:? 024 Generated for Printi ng/Faxing/eTransmitting on:?10/05/2024 05:58 PM EDT
--- OUTSIDE RECORDS SUMMARY | 2024-10-05 17:58 | XMS_ITS | Encounter Summary ---
Author Organization [employer] Address [address] 7t [place] [address] Care Team Providers Care Healthcare Architect Name Role Phone Trudi Reagan Primary Care Provider [phone] Joshua Anderson Unavailable Unavailable Reason for Visit * Reason Onset Date Comments Referral 04/05/2023 Encounter Details Date Type Department Care Team ([facility] st Contact Info) Description 04/05/2023 Telephone [facility] MEDICINE [address] [place] [address] Trudi Reagan FNP [address] [place] [address] Referral Social History Tobacco Use Types Packs/Day [...] documented as of this encounter Care Teams Healthcare Architect Relationship Specialty Start Date End Date Trudi Reagan FNP [address] [place] [address] PCP - General Family Medicine 03/04/22 Joshua Anderson FNP [address] [place] [address] Nurse Practitioner Family Medicine 06/03/23 documented as of this encounter
--- OUTSIDE RECORDS SUMMARY | 2024-10-05 17:58 | XMS_ITS | Encounter Summary ---
Author Organization [facility] Address [address] [place] [address] Care Team Providers Care Gizzard Skin Remover Name Role Phone Provider, Unknown Primary Care Provider [phone] Encounter Details Date Type Department Care Team (Late st Contact Info) Description 07/16/2017 Scanned Document [facility] Emergency Department [address] [place] [address] Provider, Generic Social History Tobacco Use Types [...] on filedocumented in this encounter Care Teams Gizzard Skin Remover Relationship Specialty Start Date End Date Provider, Unknown 1 DO NOT USE THIS RECORD PCP - General 03/14/16 documented as of this encounter
--- OUTSIDE RECORDS SUMMARY | 2024-10-05 17:58 | XMS_ITS ---
Author Organization [facility] Address [address] [place] [address] Care Team Providers Care Leach Cell Operator Name Role Phone CARMELO BABB MD Primary Care Provider Berto Rojas [phone] REASON FOR VISIT CX PROCEDURE ON 04-29-23 Encounters Encounter Location Date Provider Diagnosis [facility] [address] [place] [address] 05/06/2023 Berto Muñoz Plan Of Treatment No Information Progress Notes * ANDREW ALIXDOB: [birth year] (38 yo M)Acc No.[id number]:05/06/2023 Patient:?ALIX MORALES :1985???Age:38 Y???Sex:Male Address:[address], [place], [address] * true * Date:? Generated for Claudiai ladonna/Remi/eTransmitting on:?10/05/2024 05:57 PM EDT
--- OUTSIDE RECORDS SUMMARY | 2024-10-05 17:58 | XMS_ITS | Encounter Summary ---
Author Organization [employer] Address [address] [place] [address] 7t [place] [address] Care Team Providers Care Zipper Repairer Name Role Phone Trudi Reagan Primary Care Provider [phone] Joshua Anderson Unavailable Unavailable Encounter Details Date Type Department Care Team ([facility] Contact Info) Description 03/29/2023 [facility] Information Management [address] [place], [place] [phone] Trudi Reagan FNP [address] [place], [place] [phone] Social History Tobacco Use Types Packs/Day Years [...] documented as of this encounter Care Teams Zipper Repairer Relationship Specialty Start Date End Date Trudi Reagan FNP [address] [place], [place] [phone] PCP - General Family Medicine 03/04/22 Joshua Anderson FNP [address] [place] [address] Nurse Practitioner Family Medicine 06/03/23 documented as of this encounter
--- OUTSIDE RECORDS SUMMARY | 2024-10-05 17:58 | XMS_ITS | Encounter Summary ---
Author Organization [employer] Address [address] 7t [place] [address] Care Team Providers Care Mountain Guide Name Role Phone Trudi Reagan Primary Care Provider [phone] Joshua Anderson Unavailable Unavailable Reason for Visit * Reason Onset Date Comments Med Refill 08/17/2024 Encounter Details Date Type Department Care Team (Late st Contact Info) Description 08/17/2024 Refill [facility] MEDICINE [address] [place] [address] Trudi Reagan FNP [address] [place] [address] Major depressive disorder with psychotic features (CMS/HCC) [...] encounter Miscellaneous Notes * Telephone Encounter - FUAD Hobson - 08/17/2024 1:33 PM EST Reviewed PDMP: last picked up on 07/28/24 for a 30 day supply. He should have sufficient until 08/27/24 and then has initial appt on 08/02/24 with tobacco checkout clerk. Will send in 1 week supply from 08/26/24 - 09/02/24 to get him to appt. Then PCP bridge will be complete and Dewey needs to follow up with psych prescriber. Thank you. * Telephone Encounter - Macho Miner - 08/17/2024 10:28 AM EST TC from pt requesting medication refill. Medications needing refill : clonazePAM (KlonoPIN) 0.5 MG tablet To be sent to: [facility]/pharmacy #[id number] documented in this encounter Plan of Treatment Not on file documented as of this encounter Visit Diagnoses Diagnosis Major depressive disorder with psychotic features (CMS/HCC) documented in this encounter Additional Health Concerns Assessment Noted Time PHQ-9 Depression Total Score: 8 01/21/20 24 11:16 AM EDT documented as of this encounter Care Teams Mountain Guide Relationship Specialty Start Date End Date Trudi Reagan FNP [address] [place] [address] PCP - General Family Medicine 03/04/22 Joshua Anderson FNP [address] [place] [address] Nurse Practitioner Family Medicine 06/03/23 documented as of this encounter
--- OUTSIDE RECORDS SUMMARY | 2024-10-05 17:58 | XMS_ITS | Clinical Summary ---
Author Organization [facility] Address [address] [place] [address] Care Team Providers Care Vertical Lathe Operator Name Role Phone Provider, Unknown Primary Care [...] age to complete this topic Care Teams Vertical Lathe Operator Relationship Specialty Start Date End Date Provider, Unknown 1 DO NOT USE THIS RECORD PCP - General 03/14/16
[2024-10-05 18:21] LABS: Appearance Urine Clear; Color Urine Yellow; Glucose Urine UA Negative (Negative); Leukocyte Esterase Urine Negative (Negative); Nitrite Urine Negative (Negative); Urine Blood Negative (Negative); Urine Ketones Negative (Negative); Urine Protein Negative (Neg-Trace)
[2024-10-05 18:29] LABS: Bacteria Urine None Seen (None Seen); Hyaline Casts Urine 0-2 /LPF (0-2); RBC Urine 0-2 /HPF (0-2); Squamous Epithelial Cell Urine 0-2 /HPF (0-2); WBC Urine 0-5 /HPF (0-5)
[2024-10-06 11:33] LABS: CT PCR NOT DETECTED (Not Detect.); NG PCR NOT DETECTED (Not Detect.)
== END 2024-10-05 16:17 | disposition home or self-care (01) ==
LOC: HO.CHCLNP 16:16
DX: R30.0 Dysuria (principal); Z11.3 Encounter for screening for infections with a predominantly sexual mode of transmission
CPT/HCPCS: 81001; 87491; 87591

== ENCOUNTER 2024-10-06 14:31 | Outpatient (REF) | payer MEDICAID, SELFPAY ==
--- NOTE | ~2024-10-06 | CT_ITS ---
EXAMINATION: CT ABDOMEN WITHOUT CONTRAST CLINICAL INFORMATION: Nephrolithiasis. Asymptomatic. COMPARISON: None available. TECHNIQUE: Contiguous axial thin section helical images of the abdomen were performed without contrast. The data set was reformatted in the coronal and sagittal planes and reviewed on an independent workstation. This CT examination was performed using dose optimization techniques as appropriate, variously including the following: *Automated exposure control *Adjustment of mA and/or kV according to patient size (this includes techniques or standardized protocols for targeted exams where dose is matched to indication/reason for exam; i.e. extremities or head) *Use of iterative reconstruction technique DLP: 323 mGy centimeter. FINDINGS: Limited examination of the intra-abdominal organs and vascular structures due to lack of IV contrast. LUNG BASES: No acute airspace disease. LIVER, GALLBLADDER, BILIARY TREE: Liver measures 13 cm. No pericholecystic fluid collection or gallbladder wall thickening. No intrahepatic or extrahepatic biliary ductal dilatation.. PANCREAS: No peripancreatic fluid collections. No main pancreatic ductal dilatation. SPLEEN: 8 cm. ADRENAL GLANDS AND KIDNEYS: No nodular lesions, adrenal glands. Right kidney: There is a cluster of less than 2 mm calculi in the lower pole and a 1 mm calculus in the midportion. No hydronephrosis. Left kidney: There is a cluster of less than 2 mm calculi in the lower pole. There is a group of less than 2 mm calculi in the upper pole/midportion. No hydronephrosis. BOWEL LOOPS: Abundant stool. No intestinal obstruction pattern. No ascites. No pneumatosis intestinalis. No pneumoperitoneum. LYMPH NODES: No lymphadenopathy, mesenteric or retroperitoneal. VASCULAR: No aneurysm, abdominal aorta. BONES: Spondylosis at L4-5 with a broad-based left subarticular and foraminal disc herniation. CT/CT abdomen wo IV con IMPRESSION: Nonobstructing nephrolithiasis, bilaterally. Spondylosis at L4-5 and likely a left subarticular foraminal broad-based disc herniation. Fleischner guidelines were followed. Electronically signed by: Tim Cruz MD 10/06/2024 03:18 PM EDT
--- OUTSIDE RECORDS SUMMARY | 2024-10-06 17:22 | XMS_ITS | Encounter Summary ---
Author Organization [employer] Address [address] 7t [place] [address] Care Team Providers Care Residential Property Consultant Name Role Phone Merary Trudi SANCHEZP Primary Care Provider [phone] Joshua Anderson Unavailable Unavailable Encounter Details Date [...] documented as of this encounter Care Teams Residential Property Consultant Relationship Specialty Start Date End Date Trudi Reagan FNP [address] [place] [address] PCP - General Family Medicine 03/04/22 Joshua Anderson FNP [address] [place] [address] Nurse Practitioner Family Medicine 06/03/23 documented as of this encounter
--- OUTSIDE RECORDS SUMMARY | 2024-10-06 17:23 | XMS_ITS | Encounter Summary ---
Author Organization [employer] Address [address] [facility] 7t [place] [address] Care Team Providers Care Monotype Mechanic Name Role Phone Trudi Reagan Primary Care Provider [phone] Joshua Anderson Unavailable Unavailable Reason for Visit * Reason Comments Med Change Request Encounter Details Date Type Department Care Team ([facility] Contact Info) Description 04/01/2023 Refill [facility] CHC MED & PEDS [address] [place], [place] [phone] Trudi Reagan FNP [address] [place] [address] Social History Tobacco Use Types Packs/Day Years [...] documented as of this encounter Care Teams Monotype Mechanic Relationship Specialty Start Date End Date Trudi Reagan FNP [address] [place] [address] PCP - General Family Medicine 03/04/22 Joshua Anderson FNP [address] [place] [address] Nurse Practitioner Family Medicine 06/03/23 documented as of this encounter
--- OUTSIDE RECORDS SUMMARY | 2024-10-06 17:23 | XMS_ITS | Encounter Summary ---
Author Organization [employer] Address [address] [place] [address] 7t [place] [address] Care Team Providers Care Ultimate Hoops Trainer Name Role Phone Trudi Reagan Primary Care Provider [phone] Joshua Anderson Unavailable Unavailable Reason for Visit * Reason Comments Med Refill Encounter Details Date Type Department Care Team (Late st Contact Info) Description 01/18/2023 Refill [facility] CHC MED & PEDS [address] [place] [address] Joshua Anderson FNP Social History Tobacco Use [...] documented as of this encounter Care Teams Ultimate Hoops Trainer Relationship Specialty Start Date End Date Trudi Reagan FNP [address] [place] [address] PCP - General Family Medicine 03/04/22 Joshua Anderson FNP [address] [place] [address] Nurse Practitioner Family Medicine 06/03/23 documented as of this encounter
--- OUTSIDE RECORDS SUMMARY | 2024-10-06 17:23 | XMS_ITS ---
Author Organization [facility] Address [address] [place] [address] Care Team Providers Care Pipe Line Maintenance Supervisor Name Role Phone SKINNY CRAMER, CARMELO Primary Care Provider Berto Rojas [phone] REASON FOR VISIT Colon N/S--needs to R/S letter mailed Encounters Encounter Location Date Provider Diagnosis [facility] [address] [place] [address] 08/25/2023 Berto Muñoz Plan Of Treatment No Information Progress Notes * ANDREW JOHANNYAbhiDOB: [birth year] (38 yo M)Acc No.[id number]:08/25/2023 Patient:?ALIX MORALES :1985???Age:38 Y???Sex:Male Address:[address] [place] [address] [address], [place], [address] * true * Date:? Generated for Yo dougherty/Remi/eTransmitting on:?10/06/2024 05:23 PM EDT
--- OUTSIDE RECORDS SUMMARY | 2024-10-06 17:23 | XMS_ITS | Encounter Summary ---
Author Organization [employer] Address [address] 7t [place] [address] Care Team Providers Care Lead Cashier Name Role Phone Trudi Reagan Primary Care Provider [phone] Joshua Anderson Unavailable Unavailable Reason for Visit * Reason Onset Date Comments Med Refill 08/17/2024 Encounter Details Date Type Department Care Team (Late st Contact Info) Description 08/17/2024 Refill [facility] MEDICINE [address] [place] [address] Trudi Reagan FNP [address] [place] [address] Major depressive disorder with psychotic features (CMS/HCC) [...] then has initial appt on 08/02/24 with foley artist. Will send in 1 week supply from 08/26/24 - 09/02/24 to get him to appt. Then PCP bridge will be complete and Dewey needs to follow up with psych prescriber. Thank you. * Telephone Encounter - Macho Miner - 08/17/2024 10:28 AM EST TC from pt requesting medication refill. Medications needing refill : clonazePAM (KlonoPIN) 0.5 MG tablet To be sent to: [facility]/pharmacy #[id number] documented in this encounter Plan of Treatment Not on file documented as of this encounter Visit Diagnoses Diagnosis Major depressive disorder with psychotic features (CMS/HCC) documented in this encounter Additional Health Concerns Assessment Noted Time PHQ-9 Depression Total Score: 8 01/21/20 24 11:16 AM EDT documented as of this encounter Care Teams Lead Cashier Relationship Specialty Start Date End Date Trudi Reagan FNP [address] [place] [address] PCP - General Family Medicine 03/04/22 Joshua Anderson FNP [address] [place] [address] Nurse Practitioner Family Medicine 06/03/23 documented as of this encounter
--- OUTSIDE RECORDS SUMMARY | 2024-10-06 17:23 | XMS_ITS | Encounter Summary ---
Author Organization [email or web address] Address [address] [facility] 7t [place] [address] Care Team Providers Care Court Reporter Name Role Phone Trudi Reagan Primary Care Provider Joshua Anderson Unavailable Unavailable Encounter Details Date Type Department Care Team ([facility] st Contact Info) Description 03/22/2023 Abstract [facility] MEDICINE [address] [place], [place] [phone] Trudi Reagan FNP [address] [place] [address] Social History Tobacco Use Types Packs/Day Years [...] documented as of this encounter Care Teams Court Reporter Relationship Specialty Start Date End Date Trudi Reagan FNP [address] [place] [address] PCP - General Family Medicine 03/04/22 Joshua Anderson FNP [address] [place] [address] Nurse Practitioner Family Medicine 06/03/23 documented as of this encounter
--- OUTSIDE RECORDS SUMMARY | 2024-10-06 17:23 | XMS_ITS | Encounter Summary ---
Author Organization [employer] Address [address] [place] [address] 7[address] [place] [address] Care Team Providers Care Transportation Aide Name Role Phone Trudi Reagan Primary Care Provider [phone] Joshua Anderson Unavailable Unavailable Reason for Referral * Consultation (STAT) - Authorized Specialty Diagnoses / Procedures Referred By Alina t Referred To Contact Urology Diagnoses Bilateral nephrolithiasis Balwinder Guajardo CNP [address] [place] [address] Phone: tel: fax: [facility] [address] [place], [place] Phone: tel: fax: Referral ID Status Reason Start Date Expiration Date Visits Requested Visits Authorized [id number] Authorized Specialty Services Required 10/05/2024 10/05/2025 6 6 * Consultation (Routine) - Authorized Specialty Diagnoses / Procedures Referred By Contac t Referred To Contact Nephrology Diagnoses Bilateral nephrolithiasis Balwinder Guajardo CNP [address] [place] [address] Phone: tel: fax: [facility] [address], [address] [place] [address] Phone: tel: fax: Referral ID Status Reason Start Date Expiration Date Visits Requested Visits Authorized [id number] Authorized Specialty Services Required 10/05/2024 10/05/2025 6 6 * Imaging (STAT) - Authorized Specialty Diagnoses / Procedures Referred By Alina cesar Referred To Contact Radiology Diagnoses Bilateral nephrolithiasis Procedures CT abdomen w/o Contrast Balwinder Guajardo CNP [address] [place] [address] Phone: tel: fax: [address] Phone: tel: fax: Referral ID Status Reason Start Date Expiration Date V isits Requested Visits Authorized [id number] Authorized 10/05/2024 10/05/2025 1 1 Reason for Visit * Reason Comments Follow-up Encounter Details Date Type Department Care Team (Latest Contact Info) Description 10/05/2024 11:15 AM EDT Office Visit [facility] [address] [place] [address] Trudi Reagan FNP [address] [place] [address] Bilateral nephrolithiasis (Primary Dx); Dysuria; Healthcare maintenance; [...] documented in this encounter Progress Notes * Balwinder Guajardo CNP - 10/05/2024 11:15 [...] [facility] bilaterally. [...] based on pt's current urinary sx. Called [facility] urology to schedule an appointment for evaluation/surgical intervention, per [facility] team a new referral will need to [...] f/u in 3 months for chronic conditions. [facility] DIRECTOR OF THERAPY SERVICES Attestation DIRECTOR OF THERAPY SERVICES Resident Attestation: Patient was seen and evaluated by Balwinder Guajardo CNP, in collaboration with FUAD Hobsonwho has reviewed my assessment and plan. I, FUAD Hobson, have reviewed the resident's note and agree with the assessment & plan ofcare as documented above. Cosigned by FUAD Hobson at 10/06/2024 4:05 PM EDT Associated attestation - Trudi Reagan FNP - 10/06/2024 4:05 PM EDT I was present with the resident and participated during the history and physical exam of the patient. I agree with the resident's assessment and plan of care. FUAD Hobson documented in this encounter Plan of Treatment [...] Healthcare maintenance Expected: 10/05/2024 (Approximate), Expires: 10/05/2025 HIV-1/2 Antigen and Antibodies, Fourth Generation, with [...] Procedure Name Priority Date/Time Associated Diagnosis Comments CT ABDOMEN WO CONTRAST STAT 10/06/2024 2:33 PM EDT Bilateral nephrolithiasis POCT URINALYSIS DIPSTICK Routine 10/05/2024 12:33 PM EDT Dysuria CHLAMYDIA/N. GONORRHOEAE RNA, TMA, UROGENITAL Routine 10/05/2024 12:27 PM EDT Encounter for screening examination for sexually transmitted disease URINALYSIS, COMPLETE, WITH REFLEX TO CULTURE Routine 10/05/2024 11:30 AM EDT Dysuria documented in this encounter Results * CT abdomen w/o Contrast (10/06/2024 2:33 PM EDT) Anatomical Region Laterality Modality Body, Abdomen Computed Tomogra phy 10/06/2024 2:33 PM EDT Narrative 10/06/2024 3:21 PM EDT ? [facility] ?[address] ?[place] [address] ? CT Scan Report ? Signed ? Patient: Dewey Francisco ?MR#: [id number] ?? [id number] ? : 1985 ?Acct:[id number] ? Age/Sex: 39 / M ?ADM Date: 10/06/24 ? Loc: HO.CT ? Attending Dr: Balwinder Guajardo DIRECTOR OF THERAPY SERVICES ? Ordering Physician: Balwinder Guajardo ?? Date of Service: 10/06/24 ?? Procedure(s): CT abdomen wo IV con ?? Accession Number(s): [id number] ? cc: Trudi Reagan CHANNELING MACHINE OPERATOR; Balwinder Guajardo ? Report Number: ?? [id number]: Total DLP = ??323.00 mGy-cm ?? EXAMINATION: ?? CT ABDOMEN WITHOUT CONTRAST ? CLINICAL INFORMATION: ?? Nephrolithiasis. Asymptomatic. ? COMPARISON: ?? None available. ? TECHNIQUE: ?? Contiguous axial thin section helical images of the abdomen were ?? performed without contrast. The data set was reformatted in the coronal ?? and sagittal planes and reviewed on an independent workstation. ? This CT examination was performed using dose optimization techniques as ?? appropriate, variously including the following: ?? *Automated exposure control ?? *Adjustment of mA and/or kV according to patient size (this includes ?? techniques or standardized protocols for targeted exams where dose is ?? matched to indication/reason for exam; i.e. extremities or head) ?? *Use of iterative reconstruction technique ?? DLP: 323 mGy centimeter. ? FINDINGS: ? Limited examination of the intra-abdominal organs and vascular ?? structures due to lack of IV contrast. ? LUNG BASES: No acute airspace disease. ? LIVER, GALLBLADDER, BILIARY TREE: Liver measures 13 cm. No ?? pericholecystic fluid collection or gallbladder wall thickening. ?? No intrahepatic or extrahepatic biliary ductal dilatation.. ? PANCREAS: No peripancreatic fluid collections. No main pancreatic ?? ductal dilatation. ? SPLEEN: 8 cm. ? ADRENAL GLANDS AND KIDNEYS: ?? No nodular lesions, adrenal glands. ? Right kidney: ? There is a cluster of less than 2 mm calculi in the lower pole and a 1 ?? mm calculus in the midportion. ?? No hydronephrosis. ? Left kidney: ? There is a cluster of less than 2 mm calculi in the lower pole. There ?? is a group of less than 2 mm calculi in the upper pole/midportion. ?? No hydronephrosis. ? BOWEL LOOPS: Abundant stool. No intestinal obstruction pattern. ?? No ascites. ?? No pneumatosis intestinalis. ?? No pneumoperitoneum. ? LYMPH NODES: No lymphadenopathy, mesenteric or retroperitoneal. ? VASCULAR: No aneurysm, abdominal aorta. ? BONES: Spondylosis at L4-5 with a broad-based left subarticular and ?? foraminal disc herniation. ? CT/CT abdomen wo IV con ?? IMPRESSION: ?? Nonobstructing nephrolithiasis, bilaterally. ?? Spondylosis at L4-5 and likely a left subarticular foraminal ?? broad-based disc herniation. ? Fleischner guidelines were followed. ? Electronically signed by: ??Tim Cruz MD ??10/06/2024 03:18 PM ?? EDT RP ? Dictated By: ?Tim Lamar MD ? Signed By: ?<Electronically signed by Tim Rivera MD in OV> ? 10/06/24 1518 ? DD/ 1433 ? TD/TT: 10/06/24 1505 ? Floor Care Specialist: ? Procedure Note Donothelleninterpreter, Image - 10/06/[address] [address] [address] Scan Report Signed Patient: Rhonda Francisco#: [id number] : 1985Acct:[id number] Age/Sex: 39 / MADM Date: 10/06/24 Loc: HO.CT Attending Dr: Balwinder Guajardo DIRECTOR OF THERAPY SERVICES Ordering Physician: Balwinder Guajardo Date of Service: 10/06/24 Procedure(s): CT abdomen wo IV con Accession Number(s): [id number] cc: Trudi Reagan; Balwinder Guajardo Report Number: [id number]: Total DLP = 323.00 mGy-cm EXAMINATION: CT ABDOMEN WITHOUT CONTRAST CLINICAL INFORMATION: Nephrolithiasis. Asymptomatic. COMPARISON: None available. TECHNIQUE: Contiguous axial thin section helical images of the abdomen were performed without contrast. The data set was reformatted in the coronal and sagittal planes and reviewed on an independent workstation. This CT examination was performed using dose optimization techniques as appropriate, variously including the following: *Automated exposure control *Adjustment of mA and/or kV according to patient size (this includes techniques or standardized protocols for targeted exams where dose is matched to indication/reason for exam; i.e. extremities or head) *Use of iterative reconstruction technique DLP: 323 mGy centimeter. FINDINGS: Limited examination of the intra-abdominal organs and vascular structures due to lack of IV contrast. LUNG BASES: No acute airspace disease. LIVER, GALLBLADDER, BILIARY TREE: Liver measures 13 cm. No pericholecystic fluid collection or gallbladder wall thickening. No intrahepatic or extrahepatic biliary ductal dilatation.. PANCREAS: No peripancreatic fluid collections. No main pancreatic ductal dilatation. SPLEEN: 8 cm. ADRENAL GLANDS AND KIDNEYS: No nodular lesions, adrenal glands. Right kidney: There is a cluster of less than 2 mm calculi in the lower pole and a 1 mm calculus in the midportion. No hydronephrosis. Left kidney: There is a cluster of less than 2 mm calculi in the lower pole. There is a group of less than 2 mm calculi in the upper pole/midportion. No hydronephrosis. BOWEL LOOPS: Abundant stool. No intestinal obstruction pattern. No ascites. No pneumatosis intestinalis. No pneumoperitoneum. LYMPH NODES: No lymphadenopathy, mesenteric or retroperitoneal. VASCULAR: No aneurysm, abdominal aorta. BONES: Spondylosis at L4-5 with a broad-based left subarticular and foraminal disc herniation. CT/CT abdomen wo IV con IMPRESSION: Nonobstructing nephrolithiasis, bilaterally. Spondylosis at L4-5 and likely a left subarticular foraminal broad-based disc herniation. Fleischner guidelines were followed. Electronically signed by: Tim Cruz MD 10/06/2024 03:18 PM EDT Dictated By: Tim Lamar MD Signed By: <Electronically signed by Tim Rivera MDin OV> 10/06/24 1518 DD/ 1433 TD/TT: 10/06/24 1505 Floor Care Specialist: [facility] CT PROCEDURES Final R esult * POCT Urinalysis (10/05/2024 12:33 PM EDT) [...] 10/05/2024 12:3 3 PM EDT Trudi Reagan CHANNELING MACHINE OPERATOR POINT OF CARE TEST ENTER/EDIT ORDERABLES Final Result * Chlamydia/N. Gonorrhoeae RNA, TMA, Urogenitial (10/05/2024 12:27 PM EDT) CT PCR NOT DETECTED Not Detect. [facility] Comment:A not detected test result does not exclude the possibilityof infection because test results can be affected byimproper specimen collection, concurrent antibiotic therapy,or the number of organisms in the specimen which may bebelow the sensitivity of the test. As with many diagnostictests, results from the Xpert CT/NG assay should beinterpreted in conjunction with other laboratory andclinical data available to the clinician.Xpert CT/NG performance has not been evaluated in patientsless than 14 years of age. The assay should not be used forthe evaluationof suspected sexual abuse or for other medico-legalindications. Additional testing is recommended in anycircumstance when false positive or false negative resultscould lead to adverse medical, social or psychologicalconsequences. NG PCR NOT DETECTED Not Detect. [facility] Comment:A not detected test result does not exclude the possibilityof infection because test results can be affected byimproper specimen collection, concurrent antibiotic therapy,or the number of organisms in the specimen which may bebelow the sensitivity of the test. As with many diagnostictests, results from the Xpert CT/NG assay should beinterpreted in conjunction with other laboratory andclinical data available to the clinician.Xpert CT/NG performance has not been evaluated in patientsless than 14 years of age. The assay should not be used forthe evaluationof suspected sexual abuse or for other medico-legalindications. Additional testing is recommended in anycircumstance when false positive or false negative resultscould lead to adverse medical, social or psychologicalconsequences. Urine (Urine, Random) 10/05/2024 12:27 PM EDT 10/05/2024 6:02 PM EDT Narrative [facility] - 10/06/2024 11:33 AM EDT Urine [facility] MICROBIOLOGY - GENERA L ORDERABLES Final Result Performing Organization Address [facility]/ZIP Co de Phone Number [facility] [address] [place] [address] [phone] * Urinalysis, Complete, with Reflex to Culture (10/05/2024 11:30 AM EDT) Color Urine Yellow [facility] Appearance Urine Clear [facility] PH 7.0 5.0 - 9.0 [facility] Glucose Urine UA Negative Negative mg/dL [facility] Urine Blood Negative Negative [facility] Specific [place] - Urine 1.010 1.005 - 1.025 [facility] Urine Protein Negative Neg-Trace mg/dL [facility] Urine Ketones Negative Negative mg/dL [facility] Nitrite Urine Negative Negative [facility] Leukocyte Esterase Urine Negative Negative [facility] RBC Urine 0-2 0 - 2 /HPF [facility] Urine WBC 0-5 0 - 5 /HPF [facility] Urine Squamous Epithelial Cell 0-2 0 - 2 /HPF [facility] Urine Bacteria None Seen None Seen [facility] Hyaline Casts, Urine 0-2 0 - 2 /LPF [facility] Urine 10/05/2024 11:3 0 AM EDT 10/05/2024 5:59 PM EDT Narrative [facility] - 10/05/2024 6:50 PM EDT [id number], [employer] URINE ORDERABLES Manuela l Result Performing Organization Address [facility]/ZIP Co de Phone Number [facility] [address] [place] [address] [phone] documented in this encounter Visit Diagnoses Diagnosis Bilateral nephrolithiasis- Primary Dysuria Healthcare maintenance Encounter for screening examination for sexually transmitted disease Acquired hypothyroidism Unspecified hypothyroidism Gastroesophageal reflux disease without esophagitis Esophageal reflux documented in this encounter Additional Health Concerns Assessment Noted Time PHQ-9 Depression Total Score: 8 01/21/20 24 11:16 AM EDT documented as of this encounter Care Teams Transportation Aide Relationship Specialty Start Date End Date Trudi Reagan FNP [address] [place] [address] PCP - General Family Medicine 03/04/22 Joshua Anderson FNP [address] [place] [address] Nurse Practitioner Family Medicine 06/03/23 documented as of this encounter
--- OUTSIDE RECORDS SUMMARY | 2024-10-06 17:23 | XMS_ITS ---
Author Organization [facility] Address [address] [place] [id number] Care Team Providers Care Brickmason Apprentice Name Role Phone SKINNY CRAMER, CARMELO Primary Care Provider Berto Rojas [phone] REASON FOR VISIT screening,gerd Encounters Encounter Location Date Provider Diagnosis [facility] [address] [place] [address] [phone] 07/29/2023 Berto Muñoz Plan Of Treatment No Information Progress Notes * ALIX MORALESDOB: [birth year] (39 yo M)Acc No.[id number]:07/29/2023 EGD and COL/MAC Patient:?ALIX MORALES Provider:?Berto Muñoz MD :1985???Age:38 Y???Sex:Male Todd e:07/29/2023 Address[address], [facility] Pcp:CARMELO BABB MD Subjective: * Chief Complaints: [...] MD Date:? 024 Generated for Printi ng/Faxing/eTransmitting on:?10/06/2024 05:23 PM EDT
--- OUTSIDE RECORDS SUMMARY | 2024-10-06 17:23 | XMS_ITS | Patient Health Record ---
Author Organization [facility] Address [address] [place] [address] Care Team Providers Care Accountant Systems Name Role Phone CARMELO BABB MD Primary Care Provider Berto Rojas [phone] Allergies No Known Allergies Reason For Referral [...] Problem Status W/U Status Risk Notes Problem 925058395 Colon cancer screening (Z12.11) Active confirmed Problem [id number] Family history o f colon cancer (Z80.0) Active confirmed Problem [id number] Gastroesophageal reflux disease, unspecified whether esophagitis present (K21.9) Active confirmed Plan Of Treatment Future Test Test Name Order Date UPPER GI ENDOSCOPY 01/30/2023 COLONOSCOPY 01/30/2023 Insurance Providers Payer Name Payer Address Payer Phone Subscriber Number Group Number Insured Name Patient Relationship to Insured Coverage Start Date Coverage End Date [employer] OF [employer] [address] [place] [phone] [id number] ALIX FRANCIS Self - patient is the insured Medical (General) History Medical History History ICD Code Anxiety GERD Hypertension Allergic rhinitis Hypothyroidism NIDDM Elevated cholesterol Vitamin D deficiency Denies AL,CVA,Lung disease,renal disease Surgical History Surgery Date(Month/Year)
--- OUTSIDE RECORDS SUMMARY | 2024-10-06 17:23 | XMS_ITS | Clinical Summary ---
Author Organization [employer] Address [address] [facility] 7t [place] [address] Care Team Providers Care Microfilm Clerk Name Role Phone Trudi Reagan Primary Care Provider [phone] Joshua Anderson Unavailable Unavailable Allergies No known [...] in mild right sided hydroureteronephrosis Following with [facility] Urology 06/18/23: ureteroscopy with laser lithotripsy on the right 06/26/23: KUB demonstrated 3 small calcifications overlying left renal fossa May 2024: reports ED eval [id number] identified bilat kidney stones Assessment & Plan (05/31/2024 9:10 PM EST): - Discussed ED eval NOW vs outpatient management. Pt declines ED eval, will proceed with OP eval at this time with strict ED precautions - Plan: CT abd/pelvis w/o contrast ordered STAT Dewey to call [facility] Urology for appt Hydration Flomax x 30 days Strict ED precautions Assessment & Plan (06/29/2023 10:33 AM EST): -Cont pyridoxine 100mg daily through Urology -Pain management through [facility] U[facility] PRN -Repeat KUB ordered for further [...] and was apparently told erroneously by his [facility] pharmacy that he had no refills available [...] again I encouraged him to switch to [facility] pharmacy where his medications could be [...] BID. New Rx's were also sent to [facility] pharmacy for medboxes, for Risperidone 1 mg daily, Venlafaxine 150 mg daily, Prazosin 2 mg 2 at bedtime, and Hydroxyzine 25 mg q 6 h prn. Patient evidently has not yet started Medboxes, but says he has an appointment to bring in all his pills. He missed [facility] visit as well, but that has also [...] mg BID. New Rx's also sent to [facility] pharmacy for medboxes, for Risperidone 1 [...] Plan (04/01/2023 8:49 AM EDT): -Established with [facility] Psychopharm clinic - Joshua Anderson APRN. [...] car yesterday after picking up refills at [facility]. Later in the conversation asks me if [facility] will know which medications are available for refill. Rather than belaboring his symptom report and medication instructions again, we will defer that until next appointment, when I have explained that he will need to have the medication bottles available for review. Again suggested switching to [facility] or [facility] pharmacy for Medboxes and home delivery, [...] as directed. Strongly urged to utilize the [facility] Pharmacy with Medboxes and home delivery [...] TID prn anxiety. He will F/U with [facility] in [place] for counseling intake. F/U 4-6 weeks. He agrees with the plan. Assessment & Plan (09/25/2022 3:52 PM EDT): Presented with tearfulness, auditory hallucinations, flashbacks and intrusive thoughts. Consider alternate diagnosis of PTSD. Seems to be doing a little better. Continue medicaitons without skipping doses. Recommend going in person to [facility] in [place]. F/U 4-6 weeks. He agrees with the [...] doses. Given information about [facility] in [place] and urged to go in person or [...] 281 Mar 2023 Eye exam: referral to [facility] Eye Care Dental: encouraged to establish [...] pt interested in starting med boxes with [facility] pharmacy - referral sent. Vitamin D [...] 11:15 AM EDT Office Visit [facility] [address] [place] [address] MitzyenTrudi, CARTOON ARTIST Bilateral nephrolithiasis (Primary Dx); Dysuria; Healthcare maintenance; Encounter for screening examination for sexually transmitted disease; Acquired hypothyroidism; Gastroesophageal reflux disease without esophagitis 10/05/2024 Travel 10/01/2024 Telephone [facility] [address] [place] [address] Trudi Reagan FNP Chart Prep 09/22/2024 11:00 AM EDT Office Visit [facility] [address] [place] [address] Graeme Love MD Skin tag (Primary Dx) 09/22/2024 Travel 09/18/2024 Population Health Risk Score [facility] (C[facility]) Department [address] [place] [phone] Provider, Population Health Generic 09/16/2024 3:15 PM EDT Clinical Support [facility] [address] [place] [address] Antonella Moon RN Anxiety 09/16/2024 Telephone [facility] [address] [place] [address] Antonella Moon RN 09/16/2024 Travel 08/27/2024 Telephone [facility] [address] [place] [address] Trudi Reagan FNP August recal 08/19/2024 Telephone [facility] [address] [place] [address] Antonella Moon RN 08/18/2024 Telephone [facility] [address] [place] [address] Trudi Reagan FNP Med Refill 08/17/2024 Refill [facility] [address] [place] [address] Trudi Reagan FNP Major depressive disorder with psychotic features (CMS/HCC) 08/10/2024 Refill [facility] [address] [place] [address] Trudi Reagan FNP Bilateral nephrolithiasis 08/06/2024 2:00 PM EST Clinical Support [facility] [address] [place] [address] Antonella Moon RN Anxiety 08/06/2024 Travel 08/06/2024 Telephone [facility] [address] [place] [address] Antonella Moon RN 07/29/2024 Telephone [facility] [address] [place] [address] Sharyn Solis RN Results 07/28/2024 Orders Only [facility] [address] [place] [address] Trudi Reagan FNP Acquired hypothyroidism (Primary Dx) 07/28/2024 Orders Only [facility] [address] [place] [address] Trudi Reagan FNP 07/28/2024 Telephone [facility] [address] [place] [address] Trudi Reagan FNP ER Follow-up 07/28/2024 Refill [facility] [address] [place] [address] Trudi Reagan FNP Major depressive disorder with psychotic features (CMS/HCC) 07/09/2024 Refill [facility] [address] [place] [address] Trudi Reagan FNP Acquired hypothyroidism from Last 3 Months Immunizations Name Administration [...] history exists Depression Screening 01/20/2025 01/21/2024, 01/21/20 Diabetes: Urine Protein Screening 06/24/2025 06/24/2024, 04/04/2023, [...] CULTURE Routine 10/05/2024 11:30 AM EDT Dysuria DESTRUCTION OF LESION Routine 09/22/2024 [...] Recently Relevant to Health Maintenance Results * CT abdomen w/o Contrast (10/06/2024 2:33 PM EDT) Anatomical Region Laterality Modality Body, Abdomen Computed Tomogra phy 10/06/2024 2:33 PM EDT Narrative 10/06/2024 3:21 PM EDT ? [facility] ?[address] ?[place] [address] ? CT Scan Report ? Signed ? Patient: Francisco,Dewey ?MR#: [id number] ?? [id number] ? : 1985 ?Acct:[id number] ? Age/Sex: 39 / M ?ADM Date: 04/01/25 ? Loc: HO.CT ? Attending Dr: Balwinder Guajardo ACTUARIAL ANALYST ? Ordering Physician: Balwinder Guajardo ?? Date of Service: 10/06/24 ?? Procedure(s): CT abdomen wo IV con ?? Accession Number(s): [id number] ? cc: Trudi Reagan CARTOON ARTIST; Balwinder Guajardo ? Report Number: ?? [id number]: Total DLP = ??323.00 mGy-cm ?? EXAMINATION: [...] by Tim Rivera MD in OV> ? 10/06/241517 ? DD/ 1433 ? TD/TT: 10/06/24 1505 ? Cafe Or Restaurant Manager: ? Procedure Note Inocencio, Monserrat - 10/06/[address] [place] [address] [address] Scan Report Signed Patient: Ayana FranciscoR#: [id number] : 1985Acct:[id number] Age/Sex: 39 / MADM Date: 10/06/24 Loc: HO.CT Attending Dr: Balwinder Guajardo ACTUARIAL ANALYST Ordering Physician: Balwinder Guajardo Date of Service: 10/06/24 Procedure(s): CT abdomen wo IV con Accession Number(s): [id number] cc: Trudi Reagan CARTOON ARTIST; Balwinder Guajardo Report Number: [id number]: Total DLP = 323.00 mGy-cm EXAMINATION: CT [...] 10/06/24 1518 DD/ 1433 TD/TT: 10/06/24 1505 Cafe Or Restaurant Manager: [facility] CT PROCEDURES Final R esult * POCT [...] Media Lot # [id number] Lot# Expiration Date 870 Urine 10/05/2024 12:3 3 PM EDT Trudi Reagan CARTOON ARTIST POINT OF CARE TEST ENTER/EDIT ORDERABLES Final Result * Chlamydia/N. Gonorrhoeae RNA, TMA, Urogenitial (10/05/2024 12:27 PM EDT) CT PCR NOT DETECTED Not Detect. [facility] Comment:A not detected test result does [...] psychologicalconsequences. NG PCR NOT DETECTED Not Detect. [facility] Comment:A not detected test result does [...] 12:27 PM EDT 10/05/2024 6:02 PM EDT [facility] - 10/06/2024 11:33 AM EDT Urine [facility] MICROBIOLOGY - GENERA L ORDERABLES Final Result Performing Organization Address [facility]/ZIP Co de Phone Number [facility] [address] [place] [phone] * Urinalysis, Complete, with Reflex to Culture (10/05/2024 11:30 AM EDT) Color Urine Yellow [facility] Appearance Urine Clear [facility] PH 7.0 5.0 - 9.0 [facility] Glucose Urine UA Negative Negative mg/dL [facility] Urine Blood Negative Negative [facility] Specific [place] - Urine 1.010 1.005 - 1.025 [facility] Urine Protein Negative Neg-Trace mg/dL [facility] Urine Ketones Negative Negative mg/dL [facility] Nitrite Urine Negative Negative [facility] Leukocyte Esterase Urine Negative Negative [facility] RBC Urine 0-2 0 - 2 /HPF [facility] Urine WBC 0-5 0 - 5 /HPF [facility] Urine Squamous Epithelial Cell 0-2 0 - 2 /HPF [facility] Urine Bacteria None Seen None Seen [facility] Hyaline Casts, Urine 0-2 0 - 2 /LPF [facility] Urine 10/05/2024 11:3 0 AM EDT 10/05/2024 5:59 PM EDT Narrative [facility] - 10/05/2024 6:50 PM EDT [id number], Clean Catch [facility] URINE ORDERABLES Manuela l Result Performing Organization Address City/[facility]/ZIP Co de Phone Number [facility] [address] [place] [phone] * Destruction of lesion (09/22/2024 12:30 PM EDT) Graeme Thompson MD - 09/22/2024 12:30 PM EDT Graeme Love MD ? 09/22/2024 12:34 PM Destruction of lesion Date/Time: 09/22/2024 12:30 PM Performed by: Graeme Love MD Authorized by: Graeme Love MD ?? Consent: ??Consent obtained: ??Written ??Consent given by: ??Patient ??Risks discussed: ??Pain, poor cosmetic result and bleeding ??Alternatives discussed: ??Observation [place] protocol: ??Procedure explained and questions answered to [...] MOP, MTD, OXY, PCP, TCA, THC. Lot# [id number] Exp: 02-24-26 [facility]ly [facility], [facility]–1983 POINT OF CARE TEST ENTER/EDIT ORDERABLES Final Result * (ABNORMAL) TSH W/Reflex to FT4 (07/28/2024 10:45 AM EST) TSH reflex Free T4 23.79(H) 0.32 - 4.0 uIU/mL [facility] Blood Venous blood specimen / Unknown 07/28/2024 10:45 AM EST 07/28/2024 2:45 PM EST [facility], [facility] LAB BLOOD ORDERABLES Final Res ult Performing Organization Address [facility]/ZIP Co de Phone Number [facility] [address] [place] [phone] * T4, Free (07/28/2024 10:45 AM EST) Free T4 (Free Thyroxine) 0.82 0.71 - 1.85 ng/dL [facility] 07/28/2024 10:4 5 AM EST 07/28/2024 2:45 PM EST [facility], [facility] LAB BLOOD ORDERABLES Final Res ult Performing Organization Address City/[facility]/ZIP Co de Phone Number [facility] [address] [place] [phone] * Albumin, Random Urine W/Creatinine (06/24/2024 10:09 AM EST) Creatinine, Urine 146.41 mg/dL [facility] Microalbumin Urine 7.0 mg/L [facility] Microalbum Creatinine Ratio Ur 4.7 <30 ug/mg cr [facility] Comment:Albumin/Creatinine R at Reference Ranges: Normal: < 30 ug/mg creatinine Microalbuminuria: 30 - 300 ug/mg creatinineClinical Albuminuria: > 300 ug/mg creatinine Urine 06/24/2024 10:0 9 AM EST 06/24/2024 2:06 PM EST Trudi Reagan [facility] URINE ORDERABLES Final Res ult [facility] [address] [place] [phone] * (ABNORMAL) Lipid Panel, Standard (06/24/2024 10:07 AM EST) Triglycerides 179(H) <150 mg/dL [facility] Comment:Desirable Triglyceri de: less than 150 mg/dLBorderline High Triglyceride 150-199 mg/dLHigh Triglyceride: 200-499 mg/dLVery High Triglyceride: greater than or equal to 5OO mg/dL Cholesterol 182 <200 mg/dL [facility] Comment:Desirable Cholestero l: less than 200 mg/dLBorderline High Cholesterol: 200-239 mg/dLHigh Cholesterol: greater than 239 mg/dL LDL Cholesterol Calculated 104(H) <100 mg/dL [facility] Comment:Desirable LDL: less than 100 mg/dLNear Optimal/Above Optimal LDL: 110- 129 mg/dLBorderline High LDL: 130-159 mg/dLHigh LDL: 160-189 mg/dLVery High LDL: greater than or equal to 190 mg/dL HDL Cholesterol 43 >40 mg/dL [facility] Comment:Desirable HDL: great er than 40 mg/dL Note: This HDL assay may give artificially low results in patients with liver disease. Blood Venous blood specimen / Unknown 06/24/2024 10:07 AM EST 06/24/2024 2:06 PM EST Trudi Reagan [facility] BLOOD ORDERABLES Final Res ult [facility] [address] [place] [phone] [phone] * POCT A1C (05/25/2024 3:17 PM EST) [facility] Hemoglobin A1C 5.9 4.0 - 6.0 % QC Media Lot # Comment:[id number] Lot# Expiration Date Comment:02/05/2026 Blood 05/25/2024 3:17 PM EST Trudi Reagan [facility] POINT OF CARE TEST ENTER/EDIT ORDERABLES Final Result * Hepatitis C Viral RNA, Quantitative, Real-Time PCR (02/21/2024 3:21 PM EDT) [facility] Hepatitis C Viral Load <15 NOT DETECTED NOT DETECTED IU/mL [facility] HCV Log PCR <1.18 NOT DETECTED NOT DETECTED Log IU/mL [facility] Comment:For additional infor mation, please refer tohttp://education.dineout/faq/[email or web address](This link is being provided for informational/educational purposes only.)THIS TEST WAS PERFORMED AT:[id number] [place] [id number] GARZON MD Blood 02/21/2024 3:21 PM EDT 02/21/2024 3:21 PM EDT Trudi Reagan [facility] BLOOD ORDERABLES Final Res ult Performing Organization Address [facility]/ZIP Co de Phone Number [facility] [address] [place] [phone] * HIV-1/2 Antigen and Antibodies, Fourth Generation, with Reflexes (02/21/2024 3:21 PM EDT) [facility] HIV AB/AG Nonreactive Nonreactive [facility] Comment:HIV-1 p24 Ag and/or HIV-1/HIV-2 Ab not detected.A test result that is nonreactive does not exclude thepossibility of exposure to or infection with HIV-1 and/orHIV-2. Nonreactive results in this assay for individualswith prior exposure to HIV-1 and/or HIV-2 may be due toantigen and antibody levels that are below the limit ofdetection of this assay.The [employer] Alinity HIV Ag/Ab Combo assay result andsupplemental assay results should be interpreted inconjunction with the patient's clinical presentation,history and other laboratory results. If the results areinconsistent with clinical evidence, additional testing issuggested to confirm the result. Blood Venous blood specimen / Unknown 02/21/2024 3:21 PM EDT 02/21/2024 3:21 PM EDT us Trudi Reagan CARTOON ARTIST LAB BLOOD ORDERABLES Final Res ult [facility] [address] [place] [phone] from Last 3 Months or Most Recently Relevant to Health Maintenance Insurance [employer] * Guarantor: Dewey Francisco Account Type Relation to Patient Date of Phone Billing Address Personal/Family Self [place], [place] Care Teams Microfilm Clerk Relationship Specialty Start Date End Date Trudi Reagan FNP [address] [place] [address] PCP - General Family Medicine 03/04/22 Joshua Anderson FNP [address] [place] [address] Nurse Practitioner Family Medicine 06/03/23
--- OUTSIDE RECORDS SUMMARY | 2024-10-06 17:23 | XMS_ITS | Encounter Summary ---
Author Organization [employer] Address [address] [place] [address] 7t [place] [address] Care Team Providers Care Medical Artist Name Role Phone Trudi Reagan Primary Care Provider [phone] Joshua Anderson Unavailable Unavailable Encounter Details Date Type Department Care Team ([facility] Contact Info) Description 03/29/2023 [facility] [employer] [address] [place], [place] [phone] Trudi Reagan FNP [address] [place], [place] [phone] Social History Tobacco Use Types Packs/Day Years [...] documented as of this encounter Care Teams Medical Artist Relationship Specialty Start Date End Date Trudi Reagan FNP [address] [place], [place] [phone] PCP - General Family Medicine 03/04/22 Joshua Anderson FNP [address] [place] [address] Nurse Practitioner Family Medicine 06/03/23 documented as of this encounter
--- OUTSIDE RECORDS SUMMARY | 2024-10-06 17:23 | XMS_ITS | Encounter Summary ---
Author Organization [facility] Address [address] [place] [address] Care Team Providers Care Soda Jerker Name Role Phone Provider, Unknown Primary Care Provider [phone] Encounter Details Date Type Department Care Team (Late st Contact Info) Description 07/16/2017 Scanned Document [facility] Emergency Department [address] [place] [phone] Provider, Generic Social History Tobacco Use Types [...] on filedocumented in this encounter Care Teams Soda Jerker Relationship Specialty Start Date End Date Provider, Unknown 1 DO NOT USE THIS RECORD PCP - General 03/14/16 documented as of this encounter
--- OUTSIDE RECORDS SUMMARY | 2024-10-06 17:23 | XMS_ITS | Encounter Summary ---
Author Organization [employer] Address [address] [place] [address] Care Team Providers Care Acute Care Physical Therapist Name Role Phone Trudi Reagan Primary Care Provider [phone] Joshua Anderson Unavailable Unavailable Reason for Visit * Reason Onset Date Comments Referral 04/05/2023 Encounter Details Date Type Department Care Team ([facility] st Contact Info) Description 04/05/2023 Telephone [facility] [address] [place] [address] Trudi Reagan FNP [address] [place] [address] Referral Social History Tobacco Use Types Packs/Day [...] documented as of this encounter Care Teams Acute Care Physical Therapist Relationship Specialty Start Date End Date Trudi Reagan FNP [address] [place] [address] PCP - General Family Medicine 03/04/22 Joshua Anderson FNP [address] [place] [address] Nurse Practitioner Family Medicine 06/03/23 documented as of this encounter
--- OUTSIDE RECORDS SUMMARY | 2024-10-06 17:23 | XMS_ITS | Clinical Summary ---
Author Organization [facility] Address [address] [place] [address] Care Team Providers Care Outside Sales Manager Name Role Phone Provider, Unknown Primary Care [...] age to complete this topic Care Teams Outside Sales Manager Relationship Specialty Start Date End Date Provider, Unknown 1 DO NOT USE THIS RECORD PCP - General 03/14/16
--- OUTSIDE RECORDS SUMMARY | 2024-10-06 17:23 | XMS_ITS ---
Author Organization [facility] Address [address] [place] [address] Care Team Providers Care Career Placement Specialist Name Role Phone CARMELO BABB MD Primary Care Provider Berto Rojas [phone] REASON FOR VISIT CX PROCEDURE ON 04-29-23 Encounters Encounter Location Date Provider Diagnosis [facility] [address] [place] [address] 05/06/2023 Berto Muñoz Plan Of Treatment No Information Progress Notes * ANDREW ALIXDOB: [birth year] (38 yo M)Acc No.[id number]:05/06/2023 Patient:?ALIX MORALES :1985???Age:38 Y???Sex:Male Address:[address], [place], [address] * true * Date:? Generated for Claudiai ladonna/Remi/eTransmitting on:?10/06/2024 05:23 PM EDT
--- OUTSIDE RECORDS SUMMARY | 2024-10-06 17:23 | XMS_ITS | Encounter Summary ---
Author Organization [facility] Address [address] [place] [address] [address]t [place] [address] Care Team Providers Care Meat Processing Center Manager Name Role Phone Trudi Reagan Primary Care Provider [phone] Joshua Anderson Unavailable Unavailable Reason for Visit * Reason Comments Med Refill Encounter Details Date Type Department Care Team (Late st Contact Info) Description 02/21/2023 Refill [facility] [address] [place] [address] Joshua Anderson FNP Social History Tobacco Use [...] documented as of this encounter Care Teams Meat Processing Center Manager Relationship Specialty Start Date End Date Trudi Reagan FNP [address] [place] [address] PCP - General Family Medicine 03/04/22 Joshua Anderson FNP [address] [place] [address] Nurse Practitioner Family Medicine 06/03/23 documented as of this encounter
--- OUTSIDE RECORDS SUMMARY | 2024-10-06 17:23 | XMS_ITS | Encounter Summary ---
Author Organization [employer] Address [address] [place] [address] Care Team Providers Care Tram Operator Name Role Phone Trudi Reagan Primary Care Provider [phone] Joshua Anderson Unavailable Unavailable Reason for Visit * Reason Comments Med Refill Encounter Details Date Type Department Care Team ([facility] st Contact Info) Description 12/07/2023 Refill [facility] [address] [place] [address] Joshua Anderson FNP Major depressive disorder with [...] 12/09/2023 3:30 PM EDT TC to pt. TELEPHONE ORDER CLERK ROOM SERVICE initial NV scheduled for 12/10/23 @ 11am. * Telephone Encounter - Flaquita Mantilla - 12/09/2023 3:22 PM EDT Tc from pt requesting a call to schedule TELEPHONE ORDER CLERK ROOM SERVICE appointment. Please contact pt at [phone] documented in this encounter Plan of Treatment Not on file documented as of this encounter Visit Diagnoses Diagnosis Major depressive disorder with psychotic features (CMS/HCC) documented in this encounter Additional Health Concerns Assessment Noted Time PHQ-9 Depression Total Score: 12 024 2:28 PM EDT documented as of this encounter Care Teams Tram Operator Relationship Specialty Start Date End Date Trudi Reagan FNP [address] [place] [address] PCP - General Family Medicine 03/04/22 Joshua Anderson FNP [address] [place] [address] Nurse Practitioner Family Medicine 06/03/23 documented as of this encounter
--- OUTSIDE RECORDS SUMMARY | 2024-10-06 17:23 | XMS_ITS | Encounter Summary ---
Author Organization [employer] Address [address] [facility] [address] 7t [place] [address] Care Team Providers Care Access Clinician Name Role Phone Trudi Reagan Primary Care Provider [phone] Joshua Andesron Unavailable Unavailable Reason for Visit * Reason Onset Date Comments Chart Prep 10/01/2024 Encounter Details Date Type Department Care Team ([facility] Contact Info) Description 10/01/2024 Telephone [facility] MED & PEDS [address] [place] [address] Trudi Reagan FNP 505 [place] [address] Chart Prep Social History Tobacco Use Types [...] documented as of this encounter Care Teams Access Clinician Relationship Specialty Start Date End Date Trudi Reagan FNP [address] [place] [address] PCP - General Family Medicine 03/04/22 Joshua Anderson FNP [address] [place] [address] Nurse Practitioner Family Medicine 06/03/23 documented as of this encounter
--- OUTSIDE RECORDS SUMMARY | 2024-10-06 17:23 | XMS_ITS | Encounter Summary ---
Author Organization [employer] Address [address] [facility] [address] 7[address] [place] [address] Care Team Providers Care Manager Field Investigations Name Role Phone Trudi Reagan Primary Care Provider [phone] Joshua Anderson Unavailable Unavailable Encounter Details Date Type Department Care Team ([facility] st Contact Info) Description 04/26/2023 Orders Only [facility] MEDICINE [address] [place], [place] [phone] Trudi Irvin FNP Social History Tobacco Use [...] as of this encounter Care Teams Manager Field Investigations Relationship Specialty Start Date End Date Trudi Reagan FNP [address] [place] [address] PCP - General Family Medicine 03/04/22 Joshua Anderson FNP [address] [place] [address] Nurse Practitioner Family Medicine 06/03/23 documented as of this encounter
--- OUTSIDE RECORDS SUMMARY | 2024-10-06 17:24 | XMS_ITS | Encounter Summary ---
Author Organization [employer] Address [address] [facility] 7t [place] [address] Care Team Providers Care Director Home Name Role Phone Trudi Reagan Primary Care Provider [phone] Joshua Anderson Unavailable Unavailable Reason for Visit * Reason Onset Date Comments Med Refill 05/29/2023 Encounter Details Date Type Department Care Team ([facility] st Contact Info) Description 05/29/2023 Telephone [facility] MEDICINE [address] [place] [address] Trudi Reagan FNP [address] [place] [address] Med Refill Social History Tobacco Use Types [...] documented as of this encounter Care Teams Director Home Relationship Specialty Start Date End Date Trudi Reagan FNP [address] [place] [address] PCP - General Family Medicine 03/04/22 Joshua Anderson FNP [address] [place] [address] Nurse Practitioner Family Medicine 06/03/23 documented as of this encounter
--- OUTSIDE RECORDS SUMMARY | 2024-10-06 17:24 | XMS_ITS | Encounter Summary ---
Author Organization [employer] Address [address] [facility] [address] 7t [place] [address] Care Team Providers Care Head Swamper Name Role Phone Trudi Reagan Primary Care Provider [phone] Joshua Anderson Unavailable Unavailable Reason for Visit * Reason Comments Med Refill Encounter Details Date Type Department Care Team ([facility] st Contact Info) Description 07/15/[address] [facility] MEDICINE [address] [place], [place] [phone] Joshua Anderson FNP Major depressive disorder with [...] documented as of this encounter Care Teams Head Swamper Relationship Specialty Start Date End Date Trudi Reagan FNP [address] [place] [address] PCP - General Family Medicine 03/04/22 Joshua Anderson FNP [address] [place] [address] Nurse Practitioner Family Medicine 06/03/23 documented as of this encounter
== END 2024-10-06 14:32 | disposition home or self-care (01) ==
LOC: HO.CT 14:31
PROVIDERS: PCP Registered Nurse
DX: N20.0 Calculus of kidney (principal)
CPT/HCPCS: 74150

== ENCOUNTER → 2024-10-06 14:33 | Outpatient (BNV) | payer MEDICAID, SELFPAY | PROVIDERS: PCP Registered Nurse; Visit Provider Radiology Diagnostic Radiology | DX: N20.0 Calculus of kidney (principal) | CPT/HCPCS: 74150 ==

== ENCOUNTER 2024-10-12 12:51 | Outpatient (REF) | payer MEDICAID, SELFPAY ==
[2024-10-12 13:59] LABS: MANUAL DIFF FLAG NO
[2024-10-12 14:08] LABS: Basophils Percent Auto 0.6 % (0-2); Eosinophils Absolute Auto 0.1 X10*3/uL (0.0-0.4); Hematocrit 47.4 % (42.0-52.0); Hemoglobin 15.8 g/dl (14.0-18.0); Imm Gran Abs Auto 0.01 X10*3/uL (0.00-0.03); Imm Gran Pct Auto 0.2 % (0.0-0.4); Lymphocytes Absolute Auto 1.8 X10*3/uL (1.2-4.9); Lymphocytes Percent Auto 35.9 % (20-40); Mean Corpuscular HGB Conc 33.3 g/dl (31.0-36.0); Mean Corpuscular Hemoglobin 28.3 pg (27.0-33.0); Mean Corpuscular Volume 84.8 fL (80.0-98.0); Mean Platelet Volume 12.1 fL (9.4-12.4); Monocytes Absolute Auto 0.4 X10*3/uL (0.1-1.2); Monocytes Percent Auto 8.6 % (2-11); Neutrophils Absolute Auto 2.7 x10*3/uL (2.0-8.3); Neutrophils Percent Auto 53.7 % (45-73); Platelet Count 152 X10*3/uL (160-400); Red Blood Count 5.59 X10*6/uL (4.60-5.80); Red Cell Distribution Width 13.1 % (11.0-16.0)
[2024-10-12 14:19] LABS: Estimated Average Glucose 126 mg/dL
[2024-10-12 14:41] LABS: TSH reflex Free T4 4.91 uIU/mL (0.32-4.0)
[2024-10-12 14:45] LABS: Anion Gap 10 (12-20)
[2024-10-12 14:50] LABS: Alanine Aminotransferase 39 U/L (0-40); Albumin Level 4.4 g/dL (3.5-5.0); Alkaline Phosphatase 55 U/L (39-117); Aspartate Amino Transferase 32 U/L (5-37); Bilirubin Total 0.6 mg/dL (0.0-1.0); Blood Urea Nitrogen 16 mg/dL (9-16); Calcium 9.4 mg/dL (8.4-10.2); Carbon Dioxide 28 mmol/L (22-29); Chloride 105 mmol/L (96-108); Cholesterol 175 mg/dL (<200); Estimated Glomerular Filt Rate > 60; Glucose Random 98 mg/dL (60-115); HDL Cholesterol 45 mg/dL (>40); LDL Cholesterol Calculated 105 mg/dL (<100); Potassium 4.3 mmol/L (3.3-5.1); Sodium 139 mmol/L (135-145); Total Protein 7.4 g/dL (6.5-8.0); Triglycerides 129 mg/dL (<150)
--- OUTSIDE RECORDS SUMMARY | 2024-10-12 15:12 | XMS_ITS | Encounter Summary ---
Author Organization [employer] Address [address] [facility] [address] 7t [place] [address] Care Team Providers Care Pocket Grinder Operator Name Role Phone Trudi Reagan Primary Care Provider [phone] Joshua Anderson Unavailable Unavailable Reason for Visit * Reason Comments Med Refill Encounter Details Date Type Department Care Team ([facility] st Contact Info) Description 12/07/2023 Refill [facility] MED & PEDS [address] [place] [address] Joshua Anderson FNP Major depressive disorder with [...] 12/09/2023 3:30 PM EDT TC to pt. TRAFFIC I MANAGER initial NV scheduled for 12/10/23 @ 11am. * Telephone Encounter - Flaquita Mantilla - 12/09/2023 3:22 PM EDT Tc from pt requesting a call to schedule TRAFFIC I MANAGER appointment. Please contact pt at [phone] documented in this encounter Plan of Treatment Upcoming Encounters Date Type Department Care Team ([facility] st Contact Info) Description 01/04/2025 3:15 PM EDT Office Visit [facility] MED & PEDS 505 [place] [address] Trudi Reagan FNP 505 [place] [address] documented as of this encounter Visit Diagnoses Diagnosis Major depressive disorder with psychotic features (CMS/HCC) documented in this encounter Additional Health Concerns Assessment Noted Time PHQ-9 Depression Total Score: 12 024 2:28 PM EDT documented as of this encounter Care Teams Pocket Grinder Operator Relationship Specialty Start Date End Date Trudi Reagan FNP [address] [place] [address] PCP - General Family Medicine 8/28/22 Joshua Anderson FNP [address] [place] [address] Nurse Practitioner Family Medicine 06/03/23 documented as of this encounter
--- OUTSIDE RECORDS SUMMARY | 2024-10-12 15:12 | XMS_ITS ---
Author Organization [facility] Address [address] [place] [address] Care Team Providers Care Antenna Specialist Name Role Phone CARMELO BABB MD Primary Care Provider Berto Rojas [phone] REASON FOR VISIT CX PROCEDURE ON 04-29-23 Encounters Encounter Location Date Provider Diagnosis [facility] [address] [place] [address] 05/06/2023 Berto Muñoz Plan Of Treatment No Information Progress Notes * ANRDEW ALIXDOB: [birth year] (38 yo M)Acc No.[id number]:05/06/2023 Patient:?ALIX MORALES :1985???Age:38 Y???Sex:Male Address:[address], [place], [address] * true * Date:? Generated for Claudiai ladonna/Remi/eTransmitting on:?10/12/2024 03:12 PM EDT
--- OUTSIDE RECORDS SUMMARY | 2024-10-12 15:12 | XMS_ITS ---
Author Organization [facility] Address [address] [place] [address] Care Team Providers Care Repairer Name Role Phone SKINNY CRAMER, CARMELO Primary Care Provider Berto Rojas [phone] REASON FOR VISIT screening,gerd Encounters Encounter Location Date Provider Diagnosis [facility] Outpatient [address] [place] [phone] 07/29/2023 Berto Muñoz Plan Of Treatment No Information Progress Notes * ALIX MORALESDOB: [birth year] (39 yo M)Acc No.[id number]:07/29/2023 EGD and COL/MAC Patient:?ALIX MORALES Provider:?Berto Muñoz MD :1985???Age:38 Y???Sex:Male Todd e:07/29/2023 Address:[address] [facility] [address], [facility] Pcp:CARMELO BABB MD Subjective: * Chief Complaints: [...] MD Date:? 024 Generated for Printi ng/Faxing/eTransmitting on:?10/12/2024 03:12 PM EDT
--- OUTSIDE RECORDS SUMMARY | 2024-10-12 15:12 | XMS_ITS | Encounter Summary ---
Author Organization [employer] Address [address] [facility] [address] 7t [place] [address] Care Team Providers Care Testboard Operator Name Role Phone Trudi Reagan Primary Care Provider [phone] Joshua Anderson Unavailable Unavailable Reason for Visit * Reason Onset Date Comments Med Refill 08/17/2024 Encounter Details Date Type Department Care Team (Late st Contact Info) Description 08/17/2024 Refill [facility] MEDICINE [address] [place] [address] Trudi Reagan FNP [address] [place] [address] Major depressive disorder with psychotic features (CMS/HCC) [...] then has initial appt on 08/02/24 with warehouse man. Will send in 1 week supply from 08/26/24 - 09/02/24 to get him to appt. Then PCP bridge will be complete and Dewey needs to follow up with psych prescriber. Thank you. * Telephone Encounter - Macho Miner - 08/17/2024 10:28 AM EST TC from pt requesting medication refill. Medications needing refill : clonazePAM (KlonoPIN) 0.5 MG tablet To be sent to: [facility]/pharmacy #[id number] [place] [address] - [address] [place] [address] documented in this encounter Plan of Treatment Upcoming Encounters Date Type Department Care Team (Late st Contact Info) Description 01/04/2025 3:15 PM EDT Office Visit [facility] MED & PEDS [address] [place], [place] [phone] Trudi Reagan FNP [address] [place], [place] [phone] documented as of this encounter Visit Diagnoses Diagnosis Major depressive disorder with psychotic features (CMS/HCC) documented in this encounter Additional Health Concerns Assessment Noted Time PHQ-9 Depression Total Score: 8 01/21/20 24 11:16 AM EDT documented as of this encounter Care Teams Testboard Operator Relationship Specialty Start Date End Date Trudi Reagan FNP [address] [place] [address] PCP - General Family Medicine 03/04/22 Joshua Anderson FNP [address] [place] [address] Nurse Practitioner Family Medicine 06/03/23 documented as of this encounter
--- OUTSIDE RECORDS SUMMARY | 2024-10-12 15:12 | XMS_ITS | Clinical Summary ---
Author Organization [facility] Address [address] [place] [address] Care Team Providers Care Farm Equipment Service Technician Name Role Phone Provider, Unknown Primary Care [...] age to complete this topic Care Teams Farm Equipment Service Technician Relationship Specialty Start Date End Date Provider, Unknown 1 DO NOT USE THIS RECORD PCP - General 03/14/16
--- OUTSIDE RECORDS SUMMARY | 2024-10-12 15:12 | XMS_ITS | Patient Health Record ---
Author Organization [facility] [facility] Address [address] [place] [address] Care Team Providers Care Boring Machine Operator Vertical Name Role Phone CARMELO BABB MD Primary Care Provider Berto Rojas [phone] Allergies No Known Allergies Reason For Referral [...] Problem Status W/U Status Risk Notes Problem 308134751 Colon cancer screening (Z12.11) Active confirmed Problem 148830916 Family history o f colon cancer (Z80.0) Active confirmed Problem [id number] Gastroesophageal reflux disease, unspecified whether esophagitis present (K21.9) Active confirmed Plan Of Treatment Future Test Test Name Order Date UPPER GI ENDOSCOPY 01/30/2023 COLONOSCOPY 01/30/2023 Insurance Providers Payer Name Payer Address Payer Phone Subscriber Number Group Number Insured Name Patient Relationship to Insured Coverage Start Date Coverage End Date MEDICA[employer] OF [employer] [address] [place] [phone] [id number] ALIX FRANCIS Self - patient is the insured Medical (General) History Medical History History ICD Code Anxiety GERD Hypertension Allergic rhinitis Hypothyroidism NIDDM Elevated cholesterol Vitamin D deficiency Denies CO,CVA,Lung disease,renal disease Surgical History Surgery Date(Month/Year)
--- OUTSIDE RECORDS SUMMARY | 2024-10-12 15:12 | XMS_ITS | Encounter Summary ---
Author Organization [employer] Address [address] [place] [address] 7 [place] [address] Care Team Providers Care Pulp Piler Name Role Phone Trudi Reagan Primary Care Provider [phone] Joshua Anderson Unavailable Unavailable Encounter Details Date Type Department Care Team (Late Contact Info) Description 03/29/2023 [facility] Information Management [address] [place] [address] Trudi Reagan FNP 505 [place], [place] [phone] Social History Tobacco Use Types Packs/Day Years [...] Description 01/04/2025 3:15 PM EDT Office Visit [facility] CHC MED & PEDS 505 [place], [place] [phone] Trudi Reagan FNP [address] [place], [place] [phone] documented as of this encounter Visit Diagnoses Not on filedocumented in this encounter Additional Health Concerns Assessment Noted Time PHQ-9 Depression Total Score: 13 023 2:50 PM EDT documented as of this encounter Care Teams Pulp Piler Relationship Specialty Start Date End Date Trudi Reagan FNP [address] [place] [address] PCP - General Family Medicine 03/04/22 Joshua Anderson FNP [address] [place] [address] Nurse Practitioner Family Medicine 06/03/23 documented as of this encounter
--- OUTSIDE RECORDS SUMMARY | 2024-10-12 15:12 | XMS_ITS | Encounter Summary ---
Author Organization [employer] [facility] Address [address] [facility] 7t [place] [address] Care Team Providers Care Press Clippings Cutter And Paster Name Role Phone Trudi Reagan Primary Care Provider [phone] Joshua Anderson Unavailable Unavailable Encounter Details Date Type Department Care Team (Late st Contact Info) Description 03/22/2023 Abstract [facility] MEDICINE [address] [place], [place] [phone] Trudi Reagan FNP 505 [place] [address] Social History Tobacco Use Types Packs/Day Years [...] Description 01/04/2025 3:15 PM EDT Office Visit [facility] CHC MED & PEDS 505 [place], [place] [phone] Trudi Reagan FNP [address] [place], [place] [phone] documented as of this encounter Visit Diagnoses Not on filedocumented in this encounter Additional Health Concerns Assessment Noted Time PHQ-9 Depression Total Score: 13 023 2:50 PM EDT documented as of this encounter Care Teams Press Clippings Cutter And Paster Relationship Specialty Start Date End Date Trudi Reagan FNP [address] [place] [address] PCP - General Family Medicine 03/04/22 Joshua Anderson FNP [address] [place] [address] Nurse Practitioner Family Medicine 06/03/23 documented as of this encounter
--- OUTSIDE RECORDS SUMMARY | 2024-10-12 15:12 | XMS_ITS | Encounter Summary ---
Author Organization [employer] Address [address] [facility] 7t [place] [address] Care Team Providers Care Biotechnician Name Role Phone Trudi Reagan Primary Care Provider [phone] Joshua Anderson Unavailable Unavailable Reason for Visit * Reason Comments Med Refill Encounter Details Date Type Department Care Team (Late st Contact Info) Description 02/21/2023 Refill [facility] MEDICINE [address] [place] [address] Joshua Anderson FNP Social History Tobacco Use [...] Department Care Team (Late Contact Info) Description 01/04/2025 3:15 PM EDT Office Visit [facility] CHC MED & PEDS [address] [place] [address] Trudi Reagan FNP 505 [place], [place] [phone] documented as of this encounter Visit Diagnoses Not on filedocumented in this encounter Additional Health Concerns Assessment Noted Time PHQ-9 Depression Total Score: 13 08/ 023 2:50 PM EDT documented as of this encounter Care Teams Biotechnician Relationship Specialty Start Date End Date Trudi Reagan FNP [address] [place] [address] PCP - General Family Medicine 03/04/22 Joshua Anderson FNP [address] [place] [address] Nurse Practitioner Family Medicine 06/03/23 documented as of this encounter
--- OUTSIDE RECORDS SUMMARY | 2024-10-12 15:12 | XMS_ITS | Encounter Summary ---
Author Organization [facility] Address [address] [place] [address] Care Team Providers Care Plate Stacker Name Role Phone Provider, Unknown Primary Care Provider [phone] Encounter Details Date Type Department Care Team (Late st Contact Info) Description 07/16/2017 Scanned Document [facility] Emergency Department [address] [place] [address] Provider, Generic Social History Tobacco Use Types [...] on filedocumented in this encounter Care Teams Plate Stacker Relationship Specialty Start Date End Date Provider, Unknown 1 DO NOT USE THIS RECORD PCP - General 03/14/16 documented as of this encounter
--- OUTSIDE RECORDS SUMMARY | 2024-10-12 15:12 | XMS_ITS | Encounter Summary ---
Author Organization [employer] Address [address] 7t [place] [address] Care Team Providers Care Hospital Administrator Name Role Phone Trudi Reagan Primary Care Provider [phone] Joshua Anderson Unavailable Unavailable Reason for Visit * Reason Onset Date Comments Referral 04/05/2023 Encounter Details Date Type Department Care Team ([facility] st Contact Info) Description 04/05/2023 Telephone [facility] MEDICINE [address] [place] [address] Trudi Reagan FNP [address] [place] [address] Referral Social History Tobacco Use Types Packs/Day [...] Description 01/04/2025 3:15 PM EDT Office [facility] MED & PEDS [address] [place] [address] Trudi Reagan FNP [address] [place] [address] documented as of this encounter Visit Diagnoses Not on filedocumented in this encounter Additional Health Concerns Assessment Noted Time PHQ-9 Depression Total Score: 16 023 2:37 PM EDT documented as of this encounter Care Teams Hospital Administrator Relationship Specialty Start Date End Date Trudi Reagan FNP [address] [place] [address] PCP - General Family Medicine 03/04/22 Joshua Anderson FNP [address] [place] [address] Nurse Practitioner Family Medicine 06/03/23 documented as of this encounter
--- OUTSIDE RECORDS SUMMARY | 2024-10-12 15:12 | XMS_ITS | Encounter Summary ---
Author Organization [employer] Address [address] [facility] [address]t [place] [address] Care Team Providers Care Personal Banking Assistant Name Role Phone Trudi Reagan Primary Care Provider [phone] Joshua Anderson Unavailable Unavailable Encounter Details Date Type Department Care Team ([facility] st Contact Info) Description 04/26/2023 Orders Only [facility] MEDICINE [address] [place], [place] [phone] Trudi Irvin FNP Social History Tobacco Use [...] Description 01/04/2025 3:15 PM EDT Office Visit [facility] MED & PEDS [address] [place] [address] Trudi Reagan FNP [address] [place] [address] documented as of this encounter Visit Diagnoses Not on filedocumented in this encounter Additional Health Concerns Assessment Noted Time PHQ-9 Depression Total Score: 16 023 2:37 PM EDT documented as of this encounter Care Teams Personal Banking Assistant Relationship Specialty Start Date End Date Trudi Reagan FNP [address] [place] [address] PCP - General Family Medicine 03/04/22 Joshua Anderson FNP [address] [place] [address] Nurse Practitioner Family Medicine 06/03/23 documented as of this encounter
--- OUTSIDE RECORDS SUMMARY | 2024-10-12 15:12 | XMS_ITS | Encounter Summary ---
Author Organization [employer] Address [address] [facility] 7t [place] [address] Care Team Providers Care Vehicle Safety Inspector Name Role Phone Trudi Reagan Primary Care Provider [phone] Joshua Anderson Unavailable Unavailable Reason for Visit * Reason Comments Med Refill Encounter Details Date Type Department Care Team ([facility] st Contact Info) Description 10/10/2024 Refill [facility] CH[facility] MED & PEDS [address] [place], [place] [phone] Trudi Reagan FNP [address] [place] [address] Social History Tobacco Use Types Packs/Day Years [...] [facility] MED & PEDS [address] [place] [address] Trudi Reagan FNP [address] [place] [address] documented as of this encounter Visit Diagnoses Not on filedocumented in this encounter Additional Health Concerns Assessment Noted Time PHQ-9 Depression Total Score: 8 01/21/20 24 11:16 AM EDT documented as of this encounter Care Teams Vehicle Safety Inspector Relationship Specialty Start Date End Date Trudi Reagan FNP [address] [place] [address] PCP - General Family Medicine 03/04/22 Joshua Anderson FNP [address] [place] [address] Nurse Practitioner Family Medicine 06/03/23 documented as of this encounter
--- OUTSIDE RECORDS SUMMARY | 2024-10-12 15:12 | XMS_ITS | Encounter Summary ---
Author Organization [employer] [facility] Address [address] [facility] 7t [place] [address] Care Team Providers Care Rn Procedures Name Role Phone Trudi Reagan Primary Care Provider [phone] Joshua Anderson Unavailable Unavailable Reason for Visit * Reason Comments Med Refill Encounter Details Date Type Department Care Team (Late st Contact Info) Description 01/18/2023 Refill [facility] MED & PEDS [address] [place] [address] Joshua Anderson FNP Social History Tobacco Use [...] Description 01/04/2025 3:15 PM EDT Office Visit [facility] CHC MED & PEDS [address] [place] [address] Trudi Reagan FNP [address] [place] [address] documented as of this encounter Visit Diagnoses Not on filedocumented in this encounter Additional Health Concerns Assessment Noted Time PHQ-9 Depression Total Score: 11 12/18/2 023 2:18 PM EDT documented as of this encounter Care Teams Rn Procedures Relationship Specialty Start Date End Date Trudi Reagan FNP [address] [place] [address] PCP - General Family Medicine 03/04/22 Joshua Anderson FNP [address] [place] [address] Nurse Practitioner Family Medicine 06/03/23 documented as of this encounter
--- OUTSIDE RECORDS SUMMARY | 2024-10-12 15:12 | XMS_ITS ---
Author Organization [facility] Address [address] [place] [phone] Care Team Providers Care Coin Machine Operator Name Role Phone SKINNY CRAMER, CARMELO Primary Care Provider Berto Rojas [phone] REASON FOR VISIT Colon N/S--needs to R/S letter mailed Encounters Encounter Location Date Provider Diagnosis [facility] [address] [place] [phone] 08/25/2023 Berto Muñoz Plan Of Treatment No Information Progress Notes * ANDREW JOHANNYAbhiDOB: [birth year] (38 yo M)Acc No.[id number]:08/25/2023 Patient:?ALIX MORALES :1985???Age:38 Y???Sex:Male Address:[address] [place] [address] [address], [place], [address] * true * Date:? Generated for Yo dougherty/Remi/eTransmitting on:?10/12/2024 03:11 PM EDT
--- OUTSIDE RECORDS SUMMARY | 2024-10-12 15:12 | XMS_ITS | Encounter Summary ---
Author Organization [employer] Address [address] [facility] 7[address] [place] [address] Care Team Providers Care Group Insurance Specialist Name Role Phone Trudi Reagan Primary Care Provider [phone] Joshua Anderson Unavailable Unavailable Reason for Visit * Reason Comments Med Change Request Encounter Details Date Type Department Care Team (Late st Contact Info) Description 04/01/2023 Refill [facility] [address] [place] [address] Trudi Reagan FNP [address] [place] [address] Social History Tobacco Use Types Packs/Day Years [...] 01/04/2025 3:15 PM EDT Office Visit [facility] [address] [place] [address] Trudi Reagan FNP [address] [place] [address] documented as of this encounter Visit Diagnoses Not on filedocumented in this encounter Additional Health Concerns Assessment Noted Time PHQ-9 Depression Total Score: 13 023 2:50 PM EDT documented as of this encounter Care Teams Group Insurance Specialist Relationship Specialty Start Date End Date Trudi Reagan FNP [address] [place] [address] PCP - General Family Medicine 03/04/22 Joshua Anderson FNP [address] [place] [address] Nurse Practitioner Family Medicine 06/03/23 documented as of this encounter
[2024-10-12 15:13] LABS: Free T4 (Free Thyroxine) 1.03 ng/dL (0.71-1.85)
--- OUTSIDE RECORDS SUMMARY | 2024-10-12 15:13 | XMS_ITS | Clinical Summary ---
Author Organization [employer] Address [address] [facility] 7t [place] [address] Care Team Providers Care Security Sme Name Role Phone Trudi Reagan Primary Care Provider [phone] Joshua Anderson Unavailable Unavailable Allergies No known [...] for anxiety. 60 tablet 025 2024 Active hydrOXYzine HCl (Atarax) [...] eorder (will not trigger notification to Pharmacy)) oxyCODONE-acetamin ophen (Percocet) 5-325 MG tabletIndications: Bilateral nephrolithiasis Take 1 tablet by mouth every 12 (twelve) hours for 5 days. For severe pain. 10 tablet 025 2024 Active Problems Problem Noted Date Diagnosed Date Panic disorder 09/02/2024 Bilateral nephrolithiasis 04/01/2023 Overview (05/31/2024): Diagnosed 03/19/23, CT revealed bilateral nephrolithiasis with 5-6 mm mid right ureteral calculus resulting in mild right sided hydroureteronephrosis Following with [facility] 06/18/23: ureteroscopy with laser lithotripsy on the right 06/26/23: KUB demonstrated 3 small calcifications overlying left renal fossa May 2024: reports ED eval [id number] identified bilat kidney stones Assessment & Plan (05/31/2024 9:10 PM EST): - Discussed ED eval NOW vs outpatient management. Pt declines ED eval, will proceed with OP eval at this time with strict ED precautions - Plan: CT abd/pelvis w/o contrast ordered STAT Dewey to call [facility] for appt Hydration Flomax x 30 days Strict ED precautions Assessment & Plan (06/29/2023 10:33 AM EST): -Cont pyridoxine 100mg daily through Urology -Pain management through [facility] PRN -Repeat KUB ordered for further [...] and was apparently told erroneously by his [facility] pharmacy that he had no refills available [...] again I encouraged him to switch to [facility] pharmacy where his medications could [...] BID. New Rx's were also sent to [facility] pharmacy for medboxes, for Risperidone 1 mg daily, Venlafaxine 150 mg daily, Prazosin 2 mg 2 at bedtime, and Hydroxyzine 25 mg q 6 h prn. Patient evidently has not yet started Medboxes, but says he has an appointment to bring in all his pills. He missed DIETARY CLERK visit as well, but that has also [...] mg BID. New Rx's also sent to [facility] pharmacy for medboxes, for Risperidone [...] Plan (04/01/2023 8:49 AM EDT): -Established with [facility] Psychopharm clinic - Joshua Anderson [...] car yesterday after picking up refills at [facility]. Later in the conversation asks me if [facility] will know which medications are available for refill. Rather than belaboring his symptom report and medication instructions again, we will defer that until next appointment, when I have explained that he will need to have the medication bottles available for review. Again suggested switching to [facility] or [facility] pharmacy for Medboxes and home delivery, [...] as directed. Strongly urged to utilize the [facility] Pharmacy with Medboxes and home [...] TID prn anxiety. He will F/U with [facility] in [place] for counseling intake. F/U 4-6 weeks. He agrees with the plan. Assessment & Plan (09/25/2022 3:52 PM EDT): Presented with tearfulness, auditory hallucinations, flashbacks and intrusive thoughts. Consider alternate diagnosis of PTSD. Seems to be doing a little better. Continue medicaitons without skipping doses. Recommend going in person to [facility] in [place]. F/U 4-6 weeks. He agrees with the [...] doses. Given information about [facility] in [place] and urged to go in person or [...] 281 Mar 2023 Eye exam: referral to [facility] Eye Care Dental: encouraged to [...] pt interested in starting med boxes with [facility] pharmacy - referral sent. Vitamin D [...] organization. Date Type Department Care Team Description 10/10/2024 Refill [facility] [address] [place] [address] Trudi Reagan FNP 10/05/2024 11:15 AM EDT Office Visit [facility] [address] [place] [address] Trudi Reagan FNP Bilateral nephrolithiasis (Primary Dx); Dysuria; Healthcare maintenance; Encounter for screening examination for sexually transmitted disease; Acquired hypothyroidism; Gastroesophageal reflux disease without esophagitis 10/05/2024 Travel 10/01/2024 Telephone [facility] [address] [place] [address] Trudi Reagan FNP Chart Prep 09/22/2024 11:00 AM EDT Office Visit [facility] [address] [place] [address] Graeme Love MD Skin tag (Primary Dx) 09/22/2024 Travel 09/18/2024 Population Health Risk Score [facility] () [address] [phone] Provider, Population Health Generic 09/16/2024 3:15 PM EDT Clinical Support [facility] [address] [place] [address] Antonella Moon RN Anxiety 09/16/2024 Telephone [facility] [address] [place] [address] Antonella Moon RN 09/16/2024 Travel 08/27/2024 Telephone [facility] [address] [place] [address] Trudi Reagan FNP February recal 08/19/2024 Telephone [facility] [address] [place] [address] Antonella Moon RN 08/18/2024 Telephone [facility] [address] [place] [address] Trudi Reagan FNP Med Refill 08/17/2024 Refill [facility] [address] [place] [address] Trudi Reagan FNP Major depressive disorder with psychotic features (CMS/HCC) 08/10/2024 Refill [facility] [address] [place] [address] Trudi Reagan FNP Bilateral nephrolithiasis 08/06/2024 2:00 PM EST Clinical Support [facility] [address] [place] [address] Antonella Moon, AARON Anxiety 08/06/2024 Travel 08/06/2024 Telephone [facility] [address] [place] [address] Antonella Moon RN 07/29/2024 Telephone [facility] [address] [place] [address] Sharyn Solis RN Results 07/28/2024 Orders Only [facility] [address] [place] [address] Trudi Reagan FNP Acquired hypothyroidism (Primary Dx) 07/28/2024 Orders Only [facility] [address] [place] [address] Trudi Reagan FNP 07/28/2024 Telephone [facility] [address] [place] [address] Trudi Reagan FNP ER Follow-up 07/28/2024 Refill [facility] [address] [place] [address] Trudi Reagan FNP Major depressive disorder with psychotic features (CMS/HCC) from Last 3 Months Immunizations Name Administration [...] 10/05/2024 11:15 AM EDT Plan of Treatment Upcoming Encounters Date Type Department Care Team (Late st Contact Info) Description 01/04/2025 3:15 PM EDT Office Visit [facility] [address] [place] [address] Trudi Reagan FNP [address] [place] [address] Health Maintenance Due Date Last Done Comments Diabetes: Foot Exam 1993 Eye Exam 1993 Alcohol/Substance Use Screening 1995 Family Planning (PISQ) 1998 SDOH Screening 06/28/2024 06/28/2023 Depression Screening 01/20/2025 01/21/2024, 01/21/20 24 Diabetes: Hemoglobin A1C 04/13/2025 025, 05/25/2024, 02/17/2024, Additional history exists Diabetes: Urine Protein Screening 06/24/2025 06/24/2024, 04/04/2023, 11/28/2020 Tobacco Screening 10/05/2025 10/05/2024 Lipid Panel 10/12/2025 10/12/2024, 06/07, 04/04/2023 Zoster Vaccines (1 of 2) 2033 [...] Procedure Name Priority Date/Time Associated Diagnosis Comments CBC WITH AUTO DIFFERENTIAL Routine 10/12/2024 12:54 PM EDT Healthcare maintenance COMPREHENSIVE METABOLIC PANEL Routine 10/12/2024 12:54 PM EDT Healthcare maintenance LIPID PANEL, STANDARD Routine 10/12/2024 12:54 PM EDT Healthcare maintenance HEMOGLOBIN A1C Routine 10/12/2024 12:54 PM EDT Healthcare maintenance TSH W/REFLEX TO FT4 Routine 10/12/2024 1 2:54 PM EDT Acquired hypothyroidism CT ABDOMEN WO CONTRAST STAT 10/06/2024 2:33 [...] complication, without long-term current use of insulin ([facility]) HEPATITIS C VIRAL RNA, QUANTITATIVE, REAL-TIME PCR Routine 02/21/2024 3:21 PM EDT Healthcare maintenance HIV 1/2 ANTIGEN/ANTIBODY, FOURTH GENERATION W/RFL Routine 02/21/2024 3:21 PM EDT Healthcare maintenance from Last 3 Months or Most Recently Relevant to Health Maintenance Results * (ABNORMAL) CBC auto differential (10/12/2024 12:54 PM EDT) White Blood Count 5.0 4.8 - 10.8 X10*3/uL [facility] Red Blood Count 5.59 4.60 - 5.80 X10*6/uL [facility] Hemoglobin 15.8 14.0 - 18.0 g/dl [facility] Hematocrit 47.4 42.0 - 52.0 % [facility] Mean Corpuscular Volume 84.8 80.0 - 98.0 fL [facility] Mean Corpuscular Hemoglobin 28.3 27.0 - 33.0 pg [facility] Mean Corpuscular HGB Conc 33.3 31.0 - 36.0 g/dl [facility] Red Cell Distribution Width 13.1 11.0 - 16.0 % [facility] Platelet Count 152(L) 160 - 400 X10*3/uL [facility] Mean Platelet Volume 12.1 9.4 - 12.4 fL [facility] Neutrophils Percent Auto 53.7 45 - 73 % [facility] Imm Gran Pct Auto 0.2 0.0 - 0.4 % [facility] Lymphocytes Percent Auto 35.9 20 - 40 % [facility] Monocytes Percent Auto 8.6 2 - 11 % [facility] Eosinophils Percent Auto 1.0 0 - 4 % [facility] Basophils Percent Auto 0.6 0 - 2 % [facility] NRBC Pct Auto 0.0 0.0 - 0.2 /100WBC [facility] Neutrophils Absolute Auto 2.7 2.0 - 8.3 x10*3/uL [facility] Imm Gran Abs Auto 0.01 0.00 - 0.03 X10*3/uL [facility] Lymphocytes Absolute Auto 1.8 1.2 - 4.9 X10*3/uL [facility] Monocytes Absolute Auto 0.4 0.1 - 1.2 X10*3/uL [facility] Eosinophils Absolute Auto 0.1 0.0 - 0.4 X10*3/uL [facility] Basophils Absolute Auto 0.0 0.0 - 0.2 X10*3/uL [facility] NRBC Abs Auto 0.000 0.0 - 0.012 X10*3/uL [facility] Blood Venous blood specimen / Unknown 10/12/2024 12:54 PM EDT 10/12/2024 1:56 PM EDT [facility] SOUND DESIGNER LAB BLOOD ORDERABLES Manuela l Result Performing Organization Address [facility] de Phone Number [facility] [address] [place] [address] [phone] * Hemoglobin A1c (10/12/2024 12:54 PM EDT) Hemoglobin A1c 6.0 <6.0 % [facility] Comment:Hemoglobin A1C Refer ence Range Adults: 4.8 - 6.0 % Non diabetic: < 6.0 % Goal: < 7.0 %Additional Action Suggested: > 8.0 %Note: Hemoglobin A1c results are invalid for patients with abnormal amounts of HbF. Blood transfusions may impact the HbA1c concentration in the patient sample. Estimated Average Glucose 126 mg/dL [facility] Comment:eAG = Estimated ave rage glucose which is %A1C expressed asaverage glucose, using the formula of the Q6S-GyqsdpkTihilaw Glucose study (ADAG), Diabetes Care, Vol.31,#8,Feb. 2007 Blood Venous blood specimen / Unknown 10/12/2024 12:54 PM EDT 10/12/2024 1:56 PM EDT [facility] LAB BLOOD ORDERABLES Manuela l Result Performing Organization Address [facility] de Phone Number [facility] [address] [place] [address] [phone] * CT abdomen w/o Contrast (10/06/2024 2:33 PM EDT) Anatomical Region Laterality Modality Body, Abdomen Computed Tomogra phy 10/06/2024 2:33 PM EDT Narrative 10/06/2024 3:21 PM EDT ? [facility] ?[address] ?[place] [address] ? CT Scan Report ? Signed ? Patient: Francisco,Dewey ?MR#: [id number] ?? [id number] ? : 1985 ?Acct:[id number] ? Age/Sex: 39 / M ?ADM Date: 10/06/25 ? Loc: HO.CT ? Attending Dr: Balwinder Guajardo RN FIELD CASE MANAGER ? Ordering Physician: Balwinder Guajardo ?? Date of Service: 10/06/24 ?? Procedure(s): CT abdomen wo IV con ?? Accession Number(s): [id number] ? cc: Trudi Reagan; Balwinder Guajardo ? Report Number: ?? [id number]: Total DLP = ??323.00 mGy-cm ?? EXAMINATION: [...] Cruz MD ??10/06/2024 03:18 PM ?? EDT ? Dictated By: ?Tim Lamar MD ? Signed By: ?<Electronically signed by Tim Rivera MD in OV> ? 10/06/24 1518 ? DD/ 1433 ? TD/TT: 10/06/24 1505 ? American Indian Policy Specialist: ? Procedure Note Monserrat Painter - 10/06/[address] [place] [id number] [address] Scan Report Signed Patient: Rhonda Francisco#: [id number] : 1985Acct:[id number] Age/Sex: 39 / MADM Date: 10/06/24 Loc: HO.CT Attending Dr: Balwinder Guajardo RN FIELD CASE MANAGER Ordering Physician: Balwinder Guajardo Date of Service: 10/06/24 Procedure(s): CT abdomen wo IV con Accession Number(s): [id number] cc: Trudi Reagan; Balwinder Guajardo Report Number: [id number]: Total DLP = 323.00 mGy-cm EXAMINATION: CT [...] 10/06/24 1518 DD/ 1433 TD/TT: 10/06/24 1505 American Indian Policy Specialist: us Alexxis Guajardo SOUND DESIGNER IMG CT PROCEDURES Final R esult * POCT [...] Media Lot # [id number] Lot# Expiration Date 501 Urine 10/05/2024 12:3 3 PM EDT Trudi Reagan [facility] POINT OF CARE TEST ENTER/EDIT ORDERABLES Final Result * Chlamydia/N. Gonorrhoeae RNA, TMA, Urogenitial (10/05/2024 12:27 PM EDT) Pathologist [facility] CT PCR NOT DETECTED Not Detect. [facility] Comment:A not detected test result does [...] psychologicalconsequences. NG PCR NOT DETECTED Not Detect. [facility] Comment:A not detected test result does [...] 12:27 PM EDT 10/05/2024 6:02 PM EDT [facility] - 10/06/2024 11:33 AM EDT Urine [facility] LAB MICROBIOLOGY - GENERA L ORDERABLES Final Result [facility] [address] [place] [address] [phone] * Urinalysis, Complete, with Reflex to Culture (10/05/2024 11:30 AM EDT) Color Urine Yellow [facility] Appearance Urine Clear [facility] PH 7.0 5.0 - 9.0 [facility] Glucose Urine UA Negative Negative mg/dL [facility] Urine Blood Negative Negative [facility] Specific [place] - Urine 1.010 1.005 - 1.025 [facility] Urine Protein Negative Neg-Trace mg/dL [facility] Urine Ketones Negative Negative mg/dL [facility] Nitrite Urine Negative Negative [facility] Leukocyte Esterase Urine Negative Negative [facility] RBC Urine 0-2 0 - 2 /HPF [facility] Urine WBC 0-5 0 - 5 /HPF [facility] Urine Squamous Epithelial Cell 0-2 0 - 2 /HPF [facility] Urine Bacteria None Seen None Seen [facility] Hyaline Casts, Urine 0-2 0 - 2 /LPF [facility] Urine 10/05/2024 11:3 0 AM EDT 10/05/2024 5:59 PM EDT [facility] - 10/05/2024 6:50 PM EDT [id number], Clean Catch Balwinder Guajardo [facility] URINE ORDERABLES Manuela valerio Result [facility] [address] [place] [address] [phone] * Destruction of lesion (09/22/2024 12:30 PM EDT) Graeme Thompson MD - 09/22/2024 12:30 PM EDT Graeme Love MD ? 09/22/2024 12:34 PM Destruction of lesion Date/Time: 09/22/2024 12:30 PM Performed by: Graeme Love MD Authorized by: Graeme Love MD ?? Consent: ??Consent obtained: ??Written ??Consent given by: ??Patient ??Risks discussed: ??Pain, poor cosmetic result and bleeding ??Alternatives discussed: ??Observation Bradford protocol: ??Procedure explained and questions answered to [...] MOP, MTD, OXY, PCP, TCA, THC. Lot# [id number] Exp: 02-24-26 Trudi MERIDA POINT OF CARE TEST ENTER/EDIT ORDERABLES Final Result * (ABNORMAL) TSH W/Reflex to FT4 (07/28/2024 10:45 AM EST) TSH reflex Free T4 23.79(H) 0.32 - 4.0 uIU/mL [facility] Blood Venous blood specimen / Unknown 07/28/2024 10:45 AM EST 07/28/2024 2:45 PM EST Trudi Reagan VENEER DEPARTMENT MANAGER LAB BLOOD ORDERABLES Final Res ult Performing Organization Address [facility]/ZIP Co de Phone Number [facility] [address] [place] [phone] * T4, Free (07/28/2024 10:45 AM EST) Free T4 (Free Thyroxine) 0.82 0.71 - 1.85 ng/dL [facility] 07/28/2024 10:4 5 AM EST 07/28/2024 2:45 PM EST Trudi Reagan VENEER DEPARTMENT MANAGER LAB BLOOD ORDERABLES Final Res ult Performing Organization Address City/[facility]/ZIP Co de Phone Number [facility] [address] [place] [phone] * Albumin, Random Urine W/Creatinine (06/24/2024 10:09 AM EST) Creatinine, Urine 146.41 mg/dL [facility] Microalbumin Urine 7.0 mg/L [facility] Microalbum Creatinine Ratio Ur 4.7 <30 ug/mg cr [facility] Comment:Albumin/Creatinine R atio Reference Ranges: Normal: < 30 ug/mg creatinine Microalbuminuria: 30 - 300 ug/mg creatinineClinical Albuminuria: > 300 ug/mg creatinine Urine 06/24/2024 10:0 9 AM EST 06/24/2024 2:06 PM EST us Trudi Reagan VENEER DEPARTMENT MANAGER LAB URINE ORDERABLES Final Res ult Performing Organization Address [facility] Co de Phone Number [facility] [address] [place] [phone] * Hepatitis C Viral RNA, Quantitative, Real-Time PCR (02/21/2024 3:21 PM EDT) Pathologist [facility] Hepatitis C Viral Load <15 NOT DETECTED NOT DETECTED IU/mL [facility] HCV Log PCR <1.18 NOT DETECTED NOT DETECTED Log IU/mL [facility] Comment:For additional infor jeannine, please refer [email or web address](This link is being provided for informational/educational purposes only.)THIS TEST WAS PERFORMED AT:[facility] [place] [phone] GARZON MD Blood 02/21/2024 3:21 PM EDT 02/21/2024 3:21 PM EDT us Trudi Phalen VENEER DEPARTMENT MANAGER LAB BLOOD ORDERABLES Final Res ult Performing Organization Address [facility]/ZIP Co de Phone Number [facility] [address] [place] [phone] * HIV-1/2 Antigen and Antibodies, Fourth Generation, with Reflexes (02/21/2024 3:21 PM EDT) HIV AB/AG Nonreactive Nonreactive [facility] Comment:HIV-1 p24 Ag and/or HIV-1/HIV-2 Ab not detected.A test result that is nonreactive does not exclude thepossibility of exposure to or infection with HIV-1 and/orHIV-2. Nonreactive results in this assay for individualswith prior exposure to HIV-1 and/or HIV-2 may be due toantigen and antibody levels that are below the limit ofdetection of this assay.The [employer] HIV Ag/Ab Combo assay result andsupplemental assay results should be interpreted inconjunction with the patient's clinical presentation,history and other laboratory results. If the results areinconsistent with clinical evidence, additional testing issuggested to confirm the result. Blood Venous blood specimen / Unknown 02/21/2024 3:21 PM EDT 02/21/2024 3:21 PM EDT us Trudi Reagan [facility] LAB BLOOD ORDERABLES Final Res ult [facility] [address] [place] [phone] from Last 3 Months or Most Recently Relevant to Health Maintenance Insurance [facility] Care Teams Security Sme Relationship Specialty Start Date End Date Trudi Reagan FNP [address] [place] [address] PCP - General Family Medicine 03/04/22 Joshua Anderson FNP [address] [place] [address] Nurse Practitioner Family Medicine 06/03/23
--- OUTSIDE RECORDS SUMMARY | 2024-10-12 15:13 | XMS_ITS | Encounter Summary ---
Author Organization [employer] Address [address] [facility] 7t [place] [address] Care Team Providers Care Choral Director Name Role Phone Trudi Reagan Primary Care Provider [phone] Joshua Anderson Unavailable Unavailable Reason for Visit * Reason Onset Date Comments Med Refill 05/29/2023 Encounter Details Date Type Department Care Team ([facility] st Contact Info) Description 05/29/2023 Telephone [facility] MEDICINE [address] [place] [address] Trudi Reagan FNP [address] [place] [address] Med Refill Social History Tobacco Use Types Packs/Day Years Used Date Smoking Tobacco: Former Cigarettes Q uit: 03/30/2021 Smokeless Tobacco: Never Depression Answer Date Recorded Patient Health Questionnaire-9 Score 16 04/02/2023 Housing Stability Answer Date Recorded What is your housing situation today? I have johan oj 04/22/[address] you li [...] Description 01/04/2025 3:15 PM EDT Office Visit [facility] MED & PEDS [address] [place] [address] Trudi Reagan FNP 505 [place] [address] documented as of this encounter Visit Diagnoses Not on filedocumented in this encounter Additional Health Concerns Assessment Noted Time PHQ-9 Depression Total Score: 16 023 2:37 PM EDT documented as of this encounter Care Teams Choral Director Relationship Specialty Start Date End Date Trudi Reagan FNP [address] [place] [address] PCP - General Family Medicine 03/04/22 Joshua Anderson FNP [address] [place] [address] Nurse Practitioner Family Medicine 06/03/23 documented as of this encounter
--- OUTSIDE RECORDS SUMMARY | 2024-10-12 15:13 | XMS_ITS | Encounter Summary ---
Author Organization [employer] Address [address] [facility] [address] 7t [place] [address] Care Team Providers Care Skydiving Instructor Name Role Phone Trudi Reagan Primary Care Provider [phone] Joshua Anderson Unavailable Unavailable Reason for Visit * Reason Comments Med Refill Encounter Details Date Type Department Care Team ([facility] st Contact Info) Description 07/15/2023 Refill [facility] MEDICINE [address] [place], [place] [phone] Joshua Anderson FNP Major depressive disorder with [...] Description 01/04/2025 3:15 PM EDT Office Visit [facility] MED & PEDS [address] [place] [address] Trudi Reagan FNP [address] [place] [address] documented as of this encounter Visit Diagnoses Diagnosis Major depressive disorder with psychotic features (CMS/HCC) documented in this encounter Additional Health Concerns Assessment Noted Time PHQ-9 Depression Total Score: 16 023 3:17 PM EST documented as of this encounter Care Teams Skydiving Instructor Relationship Specialty Start Date End Date Trudi Reagan FNP [address] [place] [address] PCP - General Family Medicine 03/04/22 Joshua Anderson FNP [address] [place] [address] Nurse Practitioner Family Medicine 06/03/23 documented as of this encounter
[2024-10-13 04:48] LABS: HIV AB/AG Nonreactive (Nonreactive); HIV Num 1 0.05 S/CO (0.00-0.99); ~HepC Num1 0.12 S/CO (0.00-0.79); ~Hepatitis C Antibody Nonreactive (Nonreactive)
[2024-10-14 09:34] LABS: RPR Rapid Plasma Reagin NON-REACTIVE (NON-REACTIVE)
== END 2024-10-12 12:52 | disposition home or self-care (01) ==
LOC: HO.CHCLDS 12:51
PROVIDERS: PCP Registered Nurse
DX: Z00.00 Encounter for general adult medical examination without abnormal findings (principal); Z11.3 Encounter for screening for infections with a predominantly sexual mode of transmission; E03.9 Hypothyroidism, unspecified
CPT/HCPCS: 36415; 80053; 80061; 83036; 84439; 84443; 85025; 86592; 86803; 87389

== ENCOUNTER 2024-10-23 13:28 | Outpatient (AMB) | payer MEDICAID, SELFPAY ==
--- NOTE | 2024-10-23 13:51 | HO.NEPHOV_ITS ---
Vital Signs 10/23/24 13:56 Height 5 ft 6 in Weight 194 lb 8 oz BMI 31.4 BP 108/74 Blood Pressure Location Lt brachial Position Sitting Pulse 77 Pulse Source Pulse Oximeter Pulse Oximetry (%) 96 Oxygen Delivery Method Room Air Intake Visit Reasons: ENP: Bilateral Nephrolithiasis-Conf Superintendent Plant Required: No Accompanied by: Self / Same As Patient Allergies No Known Allergies Allergy (Verified 10/23/24 13:53) HPI Comments Details: Thank you for referring Mr Francisco for evaluation of nephrolithiasis. He is 39 years of age and has been found to have renal calculi bilaterally. He said he had flank pain( mostly on the right)with radiation to groin associated with dys uria as well as hematuria. He has had ER visits for this issue. He was also seen by PCP. He wants pain medications.( he is not tachycardic or hypertensive). He recently had imaging studies which showed B/L non obstructing calculi. He claims to be maintaining good hydration. He is hypertensive and is on ACEI. His renal functions are normal. He has family H/O renal calculi. He does not have any rebecca k hematuria now. He does not know what kind of stones he forms. He does not keep up with low sodium diet. He denied having a 24 hour urine collection for stone work up. He recently had Percocet from PCP and wants a refill, if possible. [facility] Medical History (Updated 10/27/24 @ 21:42 by Oracio Cavazos MD) Vitamin D deficiency Hypothyroid Allergic rhinitis Anxiety GERD (gastroesophageal reflux disease) Diabetes Elevated cholesterol HTN (hypertension) Surgical History History of esophagogastroduodenoscopy (EGD) Hx of appendectomy Family History Father Diabetes Past heart attack HTN (hypertension) CVD (cardiovascular disease) Mother Diabetes HTN (hypertension) Daughter Asthma Maternal Grandmother Thyroid disease Cancer Paternal Uncle Prostate CA Colon cancer Liver cancer Brother No problems noted. Social History (Updated 10/23/24 @ 13:52 by Yodit Rivera MA) Patient Tobacco Use Status: Former Tobacco user Review of Systems Const All systems reviewed & are unremarkable except as noted in HPI and below Physical Exam Vital Signs: Last Vital Signs Pulse 77 04/18/25 13:56 BP 108/74 10/23/24 13:56 Pulse Ox 96 10/23/24 13:56 Oxygen Delivery Method Room Air 10/23/24 13:56 BMI result Body Mass Index 31.4 Const General: comfortable and no acute distress Orientation/consciousness: patient oriented x3 HEENT Head: Yes normocephalic Mouth: Normal oral and palatal mucosa present Eyes EOM: EOMs intact bilaterally Neck Neck: Yes supple Resp Auscultation: clear to auscultation bilaterally Cardio Jugular venous distension: no JVD Rate: regular rate GI Palpation (GI): Soft to palpation Auscultation: normal bowel sounds General: Yes CVA tenderness Back/Spine/Pelvis Back: CVA tenderness Skin General skin exam: no rashes or lesions noted Neuro General: patient oriented x3 and moves all extremities Extrem General: Yes no pedal edema Results Reviewed Nephrology Results: Hgb 15.8 g/dl (14.0-18.0) 10/12/24 WBC 5.0 X10*3/uL (4.8-10.8) 10/12/24 Plt Count 152 X10*3/uL (160-400) L 10/12/24 Sodium 139 mmol/L (135-145) 10/12/24 Potassium 4.3 mmol/L (3.3-5.1) 10/12/24 Chloride 105 mmol/L (96-108) 10/12/24 Carbon Dioxide 28 mmol/L (22-29) 10/12/24 BUN 16 mg/dL (9-16) 10/12/24 Creatinine 0.95 mg/dL (0.5-1.4) 10/12/24 Calcium 9.3 mg/dL (8.4-10.2) 10/27/24 PTH Intact 72.8 pg/mL (8.7-77.1) 10/27/24 Urine Protein Negative mg/dL (Neg-Trace) 10/05/24 Urine Creatinine 146.41 mg/dL 06/24/24 Assessment & Plan Assessment & Plan (1) Nephrolithiasis: Code(s): N20.0 - Calculus of kidney Category: Medical (2) HTN (hypertension): Code(s): I10 - Essential (primary) hypertension Category: Medical Qualifiers: Hypertension type: primary hypertension Qualified Code(s): I10 - Essential (primary) hypertension Plan 24 hour urine collection ordered Serum uric acid and calcium ordered Good hydration and low sodium diet encouraged Recent imaging studies reviewed-no obstruction Renal function normal; BP @ goal; Not tachycardic Likely a candidate for HCTZ and or K citrate Less meat and more fruits/vegetables & low oxalate diet Has a Urology referral and appointment Patient going to reach out to PCP re pain management Follow up given Orders: Orders Uric Acid Today N20.0 - Calculus of kidney Uric Acid, 24Hr Urine Group Today N20.0 - Calculus of kidney Parathyroid Hormone Intact Today N20.0 - Calculus of kidney Calcium Today N20.0 - Calculus of kidney Sodium, 24Hr Urine Group Today N20.0 - Calculus of kidney Calcium, 24 Hr Ur Today N20.0 - Calculus of kidney Oxalate, 24 Hr Today N20.0 - Calculus of kidney Citric Acid 24hr Urine Today N20.0 - Calculus of kidney Coding Level of Care Code New Pt Level 4 (92551) Diagnoses Nephrolithiasis N20.0 Primary hypertension I10 Hypertension type: primary hypertension
--- OUTSIDE RECORDS SUMMARY | 2024-10-23 13:53 | XMS_ITS ---
Author Organization [facility] Address [address] [place] [address] Care Team Providers Care Surgical Training Specialist Name Role Phone CARMELO BABB MD Primary Care Provider Berto Rojas [phone] REASON FOR VISIT CX PROCEDURE ON 04-29-23 Encounters Encounter Location Date Provider Diagnosis [facility] [address] [place] [address] 05/06/2023 Berto Muñoz Plan Of Treatment No Information Progress Notes * ANDREW ALIXDOB: [birth year] (38 yo M)Acc No.[id number]:05/06/2023 Patient:?ALIX MORALES :1985???Age:38 Y???Sex:Male Address:[address], [place], [address] * true * Date:? Generated for Claudiai ladonna/Remi/eTransmitting on:?10/23/2024 01:53 PM EDT
--- OUTSIDE RECORDS SUMMARY | 2024-10-23 13:53 | XMS_ITS | Encounter Summary ---
Author Organization [employer] Address [address] [place] [address] [address] [address] Care Team Providers Care Asset Recovery Specialist Name Role Phone Trudi Reagan Primary Care Provider [phone] Joshua Anderson Unavailable Unavailable Encounter Details Date Type Department Care Team (Late Contact Info) Description 03/29/2023 [facility] Information Management [address] [place] [address] Trudi Reagan FNP [address] [place], [place] [phone] Social History Tobacco Use Types Packs/Day Years [...] Description 01/04/2025 3:15 PM EDT Office Visit [facility] MED & PEDS [address] [place], [place] [phone] Trudi Reagan FNP [address] [place], [place] [phone] documented as of this encounter Visit Diagnoses Not on filedocumented in this encounter Additional Health Concerns Assessment Noted Time PHQ-9 Depression Total Score: 13 023 2:50 PM EDT documented as of this encounter Care Teams Asset Recovery Specialist Relationship Specialty Start Date End Date Trudi Reagan FNP [address] [place] [address] PCP - General Family Medicine 03/04/22 Joshua Anderson FNP [address] [place] [address] Nurse Practitioner Family Medicine 06/03/23 documented as of this encounter
--- OUTSIDE RECORDS SUMMARY | 2024-10-23 13:53 | XMS_ITS | Encounter Summary ---
Author Organization [employer] [facility] Address [address] [facility] 7t [place] [address] Care Team Providers Care Russian History Professor Name Role Phone Trudi Reagan Primary Care Provider [phone] Joshua Anderson Unavailable Unavailable Reason for Visit * Reason Comments Med Refill Encounter Details Date Type Department Care Team (Late st Contact Info) Description 01/18/2023 Refill [facility] MED & PEDS [address] [place] [address] Joshua Anderson FNP Social History Tobacco Use [...] 3:15 PM EDT Office Visit [facility] MED & PEDS [address] [place] [address] Trudi Reagan FNP [address] [place] [address] documented as of this encounter Visit Diagnoses Not on filedocumented in this encounter Additional Health Concerns Assessment Noted Time PHQ-9 Depression Total Score: 11 12/18/2 023 2:18 PM EDT documented as of this encounter Care Teams Russian History Professor Relationship Specialty Start Date End Date Trudi Reagan FNP [address] [place] [address] PCP - General Family Medicine 03/04/22 Joshua Anderson FNP [address] [place] [address] Nurse Practitioner Family Medicine 06/03/23 documented as of this encounter
--- OUTSIDE RECORDS SUMMARY | 2024-10-23 13:53 | XMS_ITS | Encounter Summary ---
Author Organization [employer] [facility] Address [address] [facility] 7t [place] [address] Care Team Providers Care Piano Accompanist Name Role Phone Trudi Reagan Primary Care Provider [phone] Joshua Anderson Unavailable Unavailable Encounter Details Date Type Department Care Team (Late st Contact Info) Description 03/22/2023 Abstract [facility] MEDICINE [address] [place], [place] [phone] Trudi Reagan FNP [address] [place] [address] Social History Tobacco Use Types Packs/Day Years [...] Description 01/04/2025 3:15 PM EDT Office Visit [facility] CH[facility] MED & PEDS [address] [place], [place] [phone] Trudi Reagan FNP [address] [place], [place] [phone] documented as of this encounter Visit Diagnoses Not on filedocumented in this encounter Additional Health Concerns Assessment Noted Time PHQ-9 Depression Total Score: 13 023 2:50 PM EDT documented as of this encounter Care Teams Piano Accompanist Relationship Specialty Start Date End Date Trudi Reagan FNP [address] [place] [address] PCP - General Family Medicine 03/04/22 Joshua Anderson FNP [address] [place] [address] Nurse Practitioner Family Medicine 06/03/23 documented as of this encounter
--- OUTSIDE RECORDS SUMMARY | 2024-10-23 13:53 | XMS_ITS | Clinical Summary ---
Author Organization [facility] Address [address] [place] [address] Care Team Providers Care Shuttlecock Assembler Name Role Phone Provider, Unknown Primary Care Provider [phone] Allergies No known active allergies Social History Tobacco Use Types Packs/Day Years Used Date Smoking Tobacco: Never Assessed Sex and Gender Information Value Date Recorded Sex Assigned at Not on file Legal Sex Male 8:04 AM EDT Gender Identity Not on file Sexual Orientation [...] on patient's age to complete this topic Insurance [employer] Care Teams Shuttlecock Assembler Relationship Specialty Start Date End Date Provider, Unknown 1 DO NOT USE THIS RECORD PCP - General 03/14/16
--- OUTSIDE RECORDS SUMMARY | 2024-10-23 13:53 | XMS_ITS | Encounter Summary ---
Author Organization [employer] Address [address] [facility] 7t [place] [address] Care Team Providers Care Authorization Manager Name Role Phone Trudi Reagan Primary Care Provider Joshua Anderson Unavailable Unavailable Reason for Visit * Reason Comments Med Change Request Encounter Details Date Type Department Care Team (Late st Contact Info) Description 04/01/2023 Refill [facility] MED & PEDS [address] [place] [address] Trudi Reagan FNP [address] [place] [address] Social History Tobacco Use Types Packs/Day Years [...] Description 01/04/2025 3:15 PM EDT Office Visit [facility] MED & PEDS [address] [place] [address] Trudi Reagan FNP [address] [place] [address] documented as of this encounter Visit Diagnoses Not on filedocumented in this encounter Additional Health Concerns Assessment Noted Time PHQ-9 Depression Total Score: 13 023 2:50 PM EDT documented as of this encounter Care Teams Authorization Manager Relationship Specialty Start Date End Date Trudi Reagan FNP [address] [place] [address] PCP - General Family Medicine 03/04/22 Joshua Anderson FNP [address] [place] [address] Nurse Practitioner Family Medicine 06/03/23 documented as of this encounter
--- OUTSIDE RECORDS SUMMARY | 2024-10-23 13:53 | XMS_ITS | Patient Health Record ---
Author Organization [facility] Address [address] [place] [address] Care Team Providers Care Mechanic Helper Name Role Phone CARMELO BABB MD Primary Care Provider Betro Rojas [phone] Allergies No Known Allergies Reason For Referral [...] Problem Status W/U Status Risk Notes Problem [id number] Colon cancer screening (Z12.11) Active confirmed Problem [id number] Family history o f colon cancer (Z80.0) Active confirmed Problem [id number] Gastroesophageal reflux disease, unspecified whether esophagitis present (K21.9) Active confirmed Plan Of Treatment Future Test Test Name Order Date UPPER GI ENDOSCOPY 01/30/2023 COLONOSCOPY 01/30/2023 Insurance Providers Payer Name Payer Address Payer Phone Subscriber Number Group Number Insured Name Patient Relationship to Insured Coverage Start Date Coverage End Date MEDICAID OF [employer] [address] [place] [id number] ALIX FRANCIS Self - patient is the insured Medical (General) History Medical History History ICD Code Anxiety GERD Hypertension Allergic rhinitis Hypothyroidism NIDDM Elevated cholesterol Vitamin D deficiency Denies SD,CVA,Lung disease,renal disease Surgical History Surgery Date(Month/Year)
--- OUTSIDE RECORDS SUMMARY | 2024-10-23 13:53 | XMS_ITS | Encounter Summary ---
Author Organization [employer] Address [address] [facility] [address] 7t [place] [address] Care Team Providers Care Revenue Coordinator Name Role Phone Trudi Reagan Primary Care Provider [phone] Joshua Anderson Unavailable Unavailable Reason for Visit * Reason Onset Date Comments Referral 04/05/2023 Encounter Details Date Type Department Care Team ([facility] st Contact Info) Description 04/05/2023 Telephone [facility] MEDICINE [address] [place] [address] Trudi Reagan FNP [address] [place] [address] Referral Social History Tobacco Use Types Packs/Day [...] Description 01/04/2025 3:15 PM EDT Office Visit [facility] MED & PEDS 505 [place] [address] Trudi Reagan FNP [address] [place] [address] documented as of this encounter Visit Diagnoses Not on filedocumented in this encounter Additional Health Concerns Assessment Noted Time PHQ-9 Depression Total Score: 16 023 2:37 PM EDT documented as of this encounter Care Teams Revenue Coordinator Relationship Specialty Start Date End Date Trudi Reagan FNP [address] [place] [address] PCP - General Family Medicine 03/04/22 Joshua Anderson FNP [address] [place] [address] Nurse Practitioner Family Medicine 06/03/23 documented as of this encounter
--- OUTSIDE RECORDS SUMMARY | 2024-10-23 13:53 | XMS_ITS | Encounter Summary ---
Author Organization [employer] Address [address] [facility] [address] 7[address] [place] [address] Care Team Providers Care Liaison Inspection Laboratory Assistant Name Role Phone Trudi Reagan Primary Care Provider [phone] Joshua Anderson Unavailable Unavailable Reason for Visit * Reason Comments Med Refill Encounter Details Date Type Department Care Team ([facility] st Contact Info) Description 12/07/2023 Refill [facility] CH[facility] MED & PEDS [address] [place] [address] Joshua Anderson FNP Major depressive disorder with [...] 12/09/2023 3:30 PM EDT TC to pt. ORAL PATHOLOGIST initial NV scheduled for 12/10/23 @ 11am. * Telephone Encounter - Flaquita Mantilla - 12/09/2023 3:22 PM EDT Tc from pt requesting a call to schedule ORAL PATHOLOGIST appointment. Please contact pt at [phone] documented in this encounter Plan of Treatment Upcoming Encounters Date Type Department Care Team ([facility] st Contact Info) Description 01/04/2025 3:15 PM EDT Office Visit [facility] MED & PEDS 505 [place] [address] Trudi Reagan FNP [address] [place] [address] documented as of this encounter Visit Diagnoses Diagnosis Major depressive disorder with psychotic features (CMS/HCC) documented in this encounter Additional Health Concerns Assessment Noted Time PHQ-9 Depression Total Score: 12 024 2:28 PM EDT documented as of this encounter Care Teams Liaison Inspection Laboratory Assistant Relationship Specialty Start Date End Date Trudi Reagan FNP [address] [place] [address] PCP - General Family Medicine 8/28/22 Joshua Anderson FNP [address] [place] [address] Nurse Practitioner Family Medicine 06/03/23 documented as of this encounter
--- OUTSIDE RECORDS SUMMARY | 2024-10-23 13:53 | XMS_ITS ---
Author Organization [facility] Address [address] [place] [address] Care Team Providers Care Lift Slab Operator Name Role Phone SKINNY CRAMER, CARMELO Primary Care Provider Berto Rojas [phone] REASON FOR VISIT screening,gerd Encounters Encounter Location Date Provider Diagnosis [facility] [address] [place] [phone] 07/29/2023 Berto Muñoz Plan Of Treatment No Information Progress Notes * ALIX MORALESDOB: [birth year] (39 yo M)Acc No.[id number]:07/29/2023 EGD and COL/MAC Patient:?ALIX MORALES Provider:?Berto Muñoz MD :1985???Age:38 Y???Sex:Male Todd e:07/29/2023 Address:[address], [facility] Pcp:CARMELO BABB MD Subjective: * Chief Complaints: [...] MD Date:? 024 Generated for Printi ng/Faxing/eTransmitting on:?10/23/2024 01:53 PM EDT
--- OUTSIDE RECORDS SUMMARY | 2024-10-23 13:53 | XMS_ITS | Encounter Summary ---
Author Organization [employer] Address [address] 7[address] [place] [address] Care Team Providers Care Ticket Writer Name Role Phone Trudi Reagan Primary Care Provider [phone] Joshua Anderson Unavailable Unavailable Reason for Visit * Reason Onset Date Comments Med Refill 08/17/2024 Encounter Details Date Type Department Care Team (Late st Contact Info) Description 08/17/2024 Refill [facility] MEDICINE [address] [place] [address] Trudi Reagan FNP [address] [place] [address] Major depressive disorder with psychotic features (CMS/HCC) [...] then has initial appt on 08/02/24 with web communications specialist. Will send in 1 week supply from 08/26/24 - 09/02/24 to get him to appt. Then PCP bridge will be complete and Dewey needs to follow up with psych prescriber. Thank you. * Telephone Encounter - Macho Miner - 08/17/2024 10:28 AM EST TC from pt requesting medication refill. Medications needing refill : clonazePAM (KlonoPIN) 0.5 MG tablet To be sent to: [facility]/pharmacy #[id number] [place] [address] - [address] [place] [address] documented in this encounter Plan of Treatment Upcoming Encounters Date Type Department Care Team (Late st Contact Info) Description 01/04/2025 3:15 PM EDT Office Visit [facility] MED & PEDS [address] [place], [place] [phone] Trudi Reagan FNP [address] [place], [place] [phone] documented as of this encounter Visit Diagnoses Diagnosis Major depressive disorder with psychotic features (CMS/HCC) documented in this encounter Additional Health Concerns Assessment Noted Time PHQ-9 Depression Total Score: 8 01/21/20 24 11:16 AM EDT documented as of this encounter Care Teams Ticket Writer Relationship Specialty Start Date End Date Trudi Reagan FNP [address] [place] [address] PCP - General Family Medicine 03/04/22 Joshua Anderson FNP [address] [place] [address] Nurse Practitioner Family Medicine 06/03/23 documented as of this encounter
--- OUTSIDE RECORDS SUMMARY | 2024-10-23 13:53 | XMS_ITS | Encounter Summary ---
Author Organization [employer] Address [address] [facility] 7t [place] [address] Care Team Providers Care Machine Inspector Name Role Phone Trudi Reagan Primary Care Provider Joshua Anderson Unavailable Unavailable Reason for Visit * Reason Comments Med Refill Encounter Details Date Type Department Care Team (Late st Contact Info) Description 02/21/[address] [facility] MEDICINE [address] [place] [address] Joshua Anderson FNP Social History Tobacco Use [...] PM EDT Office Visit [facility] MED & PEDS [address] [place], [place] [phone] Trudi Reagan FNP [address] [place], [place] [phone] documented as of this encounter Visit Diagnoses Not on filedocumented in this encounter Additional Health Concerns Assessment Noted Time PHQ-9 Depression Total Score: 13 08/ 023 2:50 PM EDT documented as of this encounter Care Teams Machine Inspector Relationship Specialty Start Date End Date Trudi Reagan FNP [address] [place] [address] PCP - General Family Medicine 03/04/22 Joshua Anderson FNP [address] [place] [address] Nurse Practitioner Family Medicine 06/03/23 documented as of this encounter
--- OUTSIDE RECORDS SUMMARY | 2024-10-23 13:53 | XMS_ITS ---
Author Organization [facility] Address [address] [place] [phone] Care Team Providers Care District Associate Judge Name Role Phone SKINNY CRAMER, CARMELO Primary Care Provider Berto Rojas [phone] REASON FOR VISIT Colon N/S--needs to R/S letter mailed Encounters Encounter Location Date Provider Diagnosis [facility] [address] [place] [phone] 08/25/2023 Berto Muñoz Plan Of Treatment No Information Progress Notes * ANDREW JOHANNYAbhiDOB: [birth year] (38 yo M)Acc No.[id number]:08/25/2023 Patient:?ALIX MORALES :1985???Age:38 Y???Sex:Male Address:[address] [place] [address] [address], [place], [address] * true * Date:? Generated for Claudiai ladonna/Remi/eTransmitting on:?10/23/2024 01:53 PM EDT
--- OUTSIDE RECORDS SUMMARY | 2024-10-23 13:54 | XMS_ITS | Encounter Summary ---
Author Organization [employer] Address [address] [place] [address] Care Team Providers Care Reel System Operator Name Role Phone Trudi Reagan Primary Care Provider [phone] Joshua Anderson Unavailable Unavailable Encounter Details Date Type Department Care Team ([facility] st Contact Info) Description 04/26/2023 Orders Only [facility] [address] [place], [place] [phone] Trudi Irvin FNP Social History Tobacco Use [...] 01/04/2025 3:15 PM EDT Office Visit [facility] [address] [place] [address] Trudi Reagan FNP [address] [place] [address] documented as of this encounter Visit Diagnoses Not on filedocumented in this encounter Additional Health Concerns Assessment Noted Time PHQ-9 Depression Total Score: 16 023 2:37 PM EDT documented as of this encounter Care Teams Reel System Operator Relationship Specialty Start Date End Date Trudi Reagan FNP [address] [place] [address] PCP - General Family Medicine 03/04/22 Joshua Anderson FNP [address] [place] [address] Nurse Practitioner Family Medicine 06/03/23 documented as of this encounter
--- OUTSIDE RECORDS SUMMARY | 2024-10-23 13:54 | XMS_ITS | Encounter Summary ---
Author Organization [employer] Address [address] [facility] [address] [place] [address] Care Team Providers Care Knitter Hand Name Role Phone Trudi Reagan Primary Care Provider [phone] Joshua Anderson Unavailable Unavailable Reason for Visit * Reason Onset Date Comments Med Refill 05/29/2023 Encounter Details Date Type Department Care Team ([facility] st Contact Info) Description 05/29/2023 Telephone [facility] [address] [place] [address] Trudi Reagan FNP [address] [place] [address] Med Refill Social History Tobacco Use Types [...] [facility] [address] [place] [address] Trudi Reagan FNP [address] [place] [address] documented as of this encounter Visit Diagnoses Not on filedocumented in this encounter Additional Health Concerns Assessment Noted Time PHQ-9 Depression Total Score: 16 023 2:37 PM EDT documented as of this encounter Care Teams Knitter Hand Relationship Specialty Start Date End Date Trudi Reagan FNP [address] [place] [address] PCP - General Family Medicine 03/04/22 Joshua Anderson FNP [address] [place] [address] Nurse Practitioner Family Medicine 06/03/23 documented as of this encounter
--- OUTSIDE RECORDS SUMMARY | 2024-10-23 13:54 | XMS_ITS | Clinical Summary ---
Author Organization [employer] Address [address] [place] [address] Care Team Providers Care Water Team Leader Name Role Phone Trudi Reagan Primary Care Provider [phone] Joshua Anderson Unavailable Unavailable Allergies No known [...] per day. 90 tablet 3 024 Active tamsulosin (Flomax) 0.4 MG 24 [...] for anxiety. 60 tablet 025 2024 Active omeprazole (PriLOSEC) [address] capsule TAKE 1 TABLET BY ORAL ROUTE 2 TIMES EVERY DAY BEFORE MEALS (BREAKFAST & DINNER) 180 capsule 1 025 Active hydrOXYzine HCl (Atarax) 25 MG tabletIndications: Major depressive disorder with psychotic features (CMS/HCC) Take 1 tablet (25 mg) by mouth every 6 (six) hours if needed for anxiety. Take at first sign of panic attack. 50 tablet 5 024 2024 Discontinued(R eorder (will not trigger notification to Pharmacy)) omeprazole (PriLOSEC) [address] capsule TAKE 1 TABLET BY ORAL ROUTE 2 TIMES EVERY DAY BEFORE MEALS (BREAKFAST & DINNER) 180 capsule 1 024 2024 Discontinued venlafaxine XR (Effexor XR) 75 MG 24 [...] in mild right sided hydroureteronephrosis Following with [facility] 06/18/23: ureteroscopy with laser lithotripsy on the right 06/26/23: KUB demonstrated 3 small calcifications overlying left renal fossa May 2024: reports ED eval [id number] identified bilat kidney stones Assessment & Plan (05/31/2024 9:10 PM EST): - Discussed ED eval NOW vs outpatient management. Pt declines ED eval, will proceed with OP eval at this time with strict ED precautions - Plan: CT abd/pelvis w/o contrast ordered STAT Dewey to call [facility] for appt Hydration Flomax x 30 days Strict ED precautions Assessment & Plan (06/29/2023 10:33 AM EST): -Cont pyridoxine 100mg daily through Urology -Pain management through [facility] PRN -Repeat KUB ordered for further [...] and was apparently told erroneously by his [facility] pharmacy that he had no refills [...] again I encouraged him to switch to [facility] pharmacy where his medications could be [...] BID. New Rx's were also sent to [facility] pharmacy for medboxes, for Risperidone 1 mg daily, Venlafaxine 150 mg daily, Prazosin 2 mg 2 at bedtime, and Hydroxyzine 25 mg q 6 h prn. Patient evidently has not yet started Medboxes, but says he has an appointment to bring in all his pills. 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 New Rx's also sent to [facility] pharmacy for medboxes, for Risperidone 1 [...] Plan (04/01/2023 8:49 AM EDT): -Established with [facility] Psychopharm clinic - Joshua Anderson APRN. [...] car yesterday after picking up refills at [facility]. Later in the conversation asks me if [facility] will know which medications are available for refill. Rather than belaboring his symptom report and medication instructions again, we will defer that until next appointment, when I have explained that he will need to have the medication bottles available for review. Again suggested switching to [facility] or [facility] pharmacy for Medboxes and home delivery, [...] as directed. Strongly urged to utilize the [facility] Pharmacy with Medboxes and home delivery [...] TID prn anxiety. He will F/U with [facility] in [place] for counseling intake. F/U 4-6 weeks. He agrees with the plan. Assessment & Plan (09/25/2022 3:52 PM EDT): Presented with tearfulness, auditory hallucinations, flashbacks and intrusive thoughts. Consider alternate diagnosis of PTSD. Seems to be doing a little better. Continue medicaitons without skipping doses. Recommend going in person to [facility] in [place]. F/U 4-6 weeks. He agrees with the [...] without skipping doses. Given information about [facility] in [place] and urged to go in person or [...] 281 Mar 2023 Eye exam: referral to [facility] Eye Care Dental: encouraged to establish [...] pt interested in starting med boxes with [facility] pharmacy - referral sent. Vitamin D [...] organization. Date Type Department Care Team Description 10/12/2024 Orders Only [facility] MEDICINE [address] [place] [address] Balwinder Guajardo CNP 10/10/2024 Refill [facility] [address] [place] [address] Trudi Reagan FNP 10/05/2024 11:15 AM EDT Office Visit [facility] [address] [place] [address] Trudi Reagan FNP Bilateral nephrolithiasis (Primary Dx); Dysuria; Healthcare maintenance; Encounter for screening examination for sexually transmitted disease; Acquired hypothyroidism; Gastroesophageal reflux disease without esophagitis 10/05/2024 Travel 10/01/2024 Telephone [facility] [address] [place] [address] Trudi Reagan FNP Chart Prep 09/22/2024 11:00 AM EDT Office Visit [facility] [address] [place] [address] Graeme Love MD Skin tag (Primary Dx) 09/22/2024 Travel 09/18/2024 Population Health Risk Score [facility] Department [address] [place] [phone] Provider, Population Health Generic 09/16/2024 3:15 PM EDT Clinical Support [facility] [address] [place] [address] Antonella Moon, AARON Anxiety 09/16/2024 Telephone [facility] [address] [place] [address] Antonella Moon, RN 09/16/2024 Travel 08/27/2024 Telephone [facility] [address] [place] [address] Trudi Reagan FNP August recal 08/19/2024 Telephone [facility] [address] [place] [address] Antonella Moon, RN 08/18/2024 Telephone [facility] [address] [place] [address] Trudi Reagan FNP Med Refill 08/17/2024 Refill [facility] MEDICINE [address] [place] [address] Trudi Reagan FNP Major depressive disorder with psychotic features (CMS/HCC) 08/10/2024 Refill [facility] [address] [place] [address] Trudi Reagan FNP Bilateral nephrolithiasis 08/06/2024 2:00 PM EST Clinical Support [facility] [address] [place] [address] Antonella Moon RN Anxiety 08/06/2024 Travel 08/06/2024 Telephone [facility] [address] [place] [address] Antonella Moon RN 07/29/2024 Telephone [facility] [address] [place] [address] Sharyn Solis, RN Results 07/28/2024 Orders Only [facility] [address] [place] [address] Trudi Reagan FNP Acquired hypothyroidism (Primary Dx) 07/28/2024 Orders Only [facility] [address] [place] [address] Trudi Reagan FNP 07/28/2024 Telephone [facility] [address] [place] [address] Trudi Reagan FNP ER Follow-up 07/28/2024 Refill [facility] [address] [place] [address] Trudi Reagan FNP Major depressive disorder with [...] 01/04/2025 3:15 PM EDT Office Visit [facility] [address] [place] [address] Trudi Reagan, FUAD [address] [place] [address] Health Maintenance Due Date Last Done Comments [...] Patients (6 to 49) Years) Completed 06/28/2023 COVID-19 Vaccine Completed 05/25/2024, , 05/02/2021, Additional history exists Influenza Vaccine Completed 05/25/2024, , 04/24/2022, Additional history exists HIV Screening Completed 10/12/2024, 02/05, 04/04/2023, Additional history exists Hepatitis C Screening Completed 10/12/2024 , 02/21/2024, 04/04/2023, Additional history exists HIB Vaccines Aged Out [...] Procedure Name Priority Date/Time Associated Diagnosis Comments T4, FREE Routine 10/12/2024 12:54 PM EDT RPR (MONITOR) W/REFL TITER Routine 10/12/2024 12:54 PM EDT Encounter for screening examination for sexually transmitted disease HEPATITIS C AB W/REFL TO HCV RNA, QN, PCR Routine 10/12/2024 12:54 PM EDT Encounter for screening examination for sexually transmitted disease HIV 1/2 ANTIGEN/ANTIBODY, FOURTH GENERATION W/RFL Routine 10/12/2024 12:54 PM EDT Encounter for screening examination for sexually transmitted disease CBC WITH AUTO DIFFERENTIAL Routine 10/12/2024 12:54 [...] complication, without long-term current use of insulin ([facility]) from Last 3 Months or Most Recently Relevant to Health Maintenance Results * (ABNORMAL) TSH W/Reflex to FT4 (10/12/2024 12:54 PM EDT) Only the most recent of2 resultswithin the time period is included. TSH reflex Free T4 4.91(H) 0.32 - 4.0 uIU/mL [facility] Blood Venous blood specimen / Unknown 10/12/2024 12:54 PM EDT 10/12/2024 1:56 PM EDT [facility] LAB BLOOD ORDERABLES Manuela l Result [facility] [address] [place] [address] [phone] * (ABNORMAL) CBC auto differential (10/12/2024 12:54 PM EDT) White Blood Count 5.0 4.8 - 10.8 X10*3/uL [facility] Red Blood Count 5.59 4.60 - 5.80 X10*6/uL [facility] Hemoglobin 15.8 14.0 - 18.0 g/dl [facility] Hematocrit 47.4 42.0 - 52.0 % [facility] Mean Corpuscular Volume 84.8 80.0 - 98.0 fL [facility] Mean Corpuscular Hemoglobin 28.3 27.0 - 33.0 pg [facility] Mean Corpuscular HGB Conc 33.3 31.0 - 36.0 g/dl [facility] Red Cell Distribution Width 13.1 11.0 - 16.0 % [facility] Platelet Count 152(L) 160 - 400 X10*3/uL [facility] Mean Platelet Volume 12.1 9.4 - 12.4 fL [facility] Neutrophils Percent Auto 53.7 45 - 73 % [facility] Imm Gran Pct Auto 0.2 0.0 - 0.4 % [facility] Lymphocytes Percent Auto 35.9 20 - 40 % [facility] Monocytes Percent Auto 8.6 2 - 11 % [facility] Eosinophils Percent Auto 1.0 0 - 4 % [facility] Basophils Percent Auto 0.6 0 - 2 % [facility] NRBC Pct Auto 0.0 0.0 - 0.2 /100WBC [facility] Neutrophils Absolute Auto 2.7 2.0 - 8.3 x10*3/uL [facility] Imm Gran Abs Auto 0.01 0.00 - 0.03 X10*3/uL [facility] Lymphocytes Absolute Auto 1.8 1.2 - 4.9 X10*3/uL [facility] Monocytes Absolute Auto 0.4 0.1 - 1.2 X10*3/uL [facility] Eosinophils Absolute Auto 0.1 0.0 - 0.4 X10*3/uL [facility] Basophils Absolute Auto 0.0 0.0 - 0.2 X10*3/uL [facility] NRBC Abs Auto 0.000 0.0 - 0.012 X10*3/uL [facility] Blood Venous blood specimen / Unknown 10/12/2024 12:54 PM EDT 10/12/2024 1:56 PM EDT Balwinder Guajardo [employer] LAB BLOOD ORDERABLES Manuela l Result [facility] [address] [place] [address] [phone] * Hepatitis C Antibody with Reflex to HCV, RNA, Quantitative, Real-Time PCR (10/12/2024 12:54 PM EDT) Pathologist [facility] Hepatitis C Antibody Nonreactive Nonreactive [facility] Comment:Antibodies to HCV no t detected; does not exclude early acuteHCV infection. Blood Venous blood specimen / Unknown 10/12/2024 12:54 PM EDT 10/12/2024 1:56 PM EDT [facility] LAB BLOOD ORDERABLES Manuela l Result Performing Organization Address [facility] [[email or web address]] de Phone Number [facility] [address] [place] [phone] * RPR (Monitor) with Reflex to??Titer (10/12/2024 12:54 PM EDT) [facility] RPR (Monitor) w/Refl Titer NON-REACTI VE NON-REACT [facility] Comment:THIS TEST WAS PERFOR MED AT:[facility] [place] [phone] GARZNO MD Rapid Plasma Reagin Ab Titer TNP [facility] Blood Venous blood specimen / Unknown 10/12/2024 12:54 PM EDT 10/12/2024 1:56 PM EDT [facility] LAB BLOOD ORDERABLES Manuela l Result Performing Organization Address [facility] [[email or web address]] de Phone Number [facility] [address] [place] [phone] * HIV-1/2 Antigen and Antibodies, Fourth Generation, with Reflexes (10/12/2024 12:54 PM EDT) [facility] HIV AB/AG Nonreactive Nonreactive [facility] Comment:HIV-1 p24 Ag and/or HIV-1/HIV-2 Ab not detected.A test result that is nonreactive does not exclude thepossibility of exposure to or infection with HIV-1 and/orHIV-2. Nonreactive results in this assay for individualswith prior exposure to HIV-1 and/or HIV-2 may be due toantigen and antibody levels that are below the limit ofdetection of this assay.The [employer] HIV Ag/Ab Combo assay result andsupplemental assay results should be interpreted inconjunction with the patient's clinical presentation,history and other laboratory results. If the results areinconsistent with clinical evidence, additional testing issuggested to confirm the result. Blood Venous blood specimen / Unknown 10/12/2024 12:54 PM EDT 10/12/2024 1:56 PM EDT [facility] LAB BLOOD ORDERABLES Manuela l Result Performing Organization Address [facility] Co de Phone Number [facility] [address] [place] [phone] * T4, Free (10/12/2024 12:54 PM EDT) Only the most recent of2 resultswithin the time period is included. Free T4 (Free Thyroxine) 1.03 0.71 - 1.85 ng/dL [facility] 10/12/2024 12:5 4 PM EDT 10/12/2024 1:56 PM EDT [facility] LAB BLOOD ORDERABLES Manuela l Result Performing Organization Address [facility] Co de Phone Number [facility] [address] [place] [phone] * Hemoglobin A1c (10/12/2024 12:54 PM EDT) Hemoglobin A1c 6.0 <6.0 % [facility] Comment:Hemoglobin A1C Refer ence Range Adults: 4.8 - 6.0 % Non diabetic: < 6.0 % Goal: < 7.0 %Additional Action Suggested: > 8.0 %Note: Hemoglobin A1c results are invalid for patients with abnormal amounts of HbF. Blood transfusions may impact the HbA1c concentration in the patient sample. Estimated Average Glucose 126 mg/dL [facility] Comment:eAG = Estimated ave rage glucose which is %A1C expressed asaverage glucose, using the formula of the D5C-HskevklIdwmttq Glucose study (ADAG), Diabetes Care, Vol.31,#8,Feb. 2007 Blood Venous blood specimen / Unknown 10/12/2024 12:54 PM EDT 10/12/2024 1:56 PM EDT [facility] LAB BLOOD ORDERABLES Manuela l Result Performing Organization Address [facility] Co de Phone Number [facility] [address] [place] [phone] * (ABNORMAL) Lipid Panel, Standard (10/12/2024 12:54 PM EDT) Triglycerides 129 <150 mg/dL [facility] Comment:Desirable Triglyceri de: less than 150 mg/dLBorderline High Triglyceride 150-199 mg/dLHigh Triglyceride: 200-499 mg/dLVery High Triglyceride: greater than or equal to 5OO mg/dL Cholesterol 175 <200 mg/dL [facility] Comment:Desirable Cholestero l: less than 200 mg/dLBorderline High Cholesterol: 200-239 mg/dLHigh Cholesterol: greater than 239 mg/dL LDL Cholesterol Calculated 105(H) <100 mg/dL [facility] Comment:Desirable LDL: less than 100 mg/dLNear Optimal/Above Optimal LDL: 110- 129 mg/dLBorderline High LDL: 130-159 mg/dLHigh LDL: 160-189 mg/dLVery High LDL: greater than or equal to 190 mg/dL HDL Cholesterol 45 >40 mg/dL [facility] Comment:Desirable HDL: great er than 40 mg/dL Note: This HDL assay may give artificially low results in patients with liver disease. Blood Venous blood specimen / Unknown 10/12/2024 12:54 PM EDT 10/12/2024 1:56 PM EDT [facility] LAB BLOOD ORDERABLES Manuela l Result Performing Organization Address [facility]/ZIP Co de Phone Number [facility] [address] [place] [phone] * (ABNORMAL) Comprehensive Metabolic Panel (10/12/2024 12:54 PM EDT) Sodium 139 135 - 145 mmol/L [facility] Potassium 4.3 3.3 - 5.1 mmol/L [facility] Chloride 105 96 - 108 mmol/L [facility] Carbon Dioxide 28 22 - 29 mmol/L [facility] Anion Gap 10(L) 12 - 20 [facility] Urea Nitrogen (BUN) 16 9 - 16 mg/dL [facility] Creatinine, Serum 0.95 0.5 - 1.4 mg/dL [facility] Estimated Glomerular Filt Rate >60 [facility] Comment:Chronic Kidney Disea se: Estimated GFR < 60 mL/min/1.09d0Pyyhyw Kidney Disease: Estimated GFR < 15 mL/min/1.73m2 Glucose 98 60 - 115 mg/dL [facility] Calcium 9.4 8.4 - 10.2 mg/dL [facility] Bilirubin, Total 0.6 0.0 - 1.0 mg/dL [facility] Aspartate Amino Transferase 32 5 - 37 U/L [facility] Alanine Aminotransferase 39 0 - 40 U/L [facility] Total Protein 7.4 6.5 - 8.0 g/dL [facility] Albumin Level 4.4 3.5 - 5.0 g/dL [facility] Alkaline Phosphatase 55 39 - 117 U/L [facility] Blood Venous blood specimen / Unknown 10/12/2024 12:54 PM EDT 10/12/2024 1:56 PM EDT Balwinder Guajardo [facility] LAB BLOOD ORDERABLES Manuela l Result [facility] [address] [place] [phone] * CT abdomen w/o Contrast (10/06/2024 2:33 PM EDT) Anatomical Region Laterality Modality Body, Abdomen Computed Tomogra phy 10/06/2024 2:33 PM EDT Narrative 10/06/2024 3:21 PM EDT ? [facility] ?[address] ?[place], [place] [address] ? CT Scan Report ? Signed ? Patient: Francisco,Dewey ?MR#: [id number] ?? [id number] ? : 1985 ?Acct:[id number] ? Age/Sex: 39 / M ?ADM Date: 10/06/24 ? Loc: HO.CT ? Attending Dr: Balwinder Guajardo IPHONE DEVELOPER ? Ordering Physician: Balwinder Guajardo ?? Date of Service: 10/06/24 ?? Procedure(s): CT abdomen wo IV con ?? Accession Number(s): [id number] ? cc: Trudi Reagan; Balwinder Guajardo ? Report Number: ?? [id number]: Total DLP = ??323.00 mGy-cm ?? EXAMINATION: [...] DD/ 1433 ? TD/TT: 10/06/24 1505 ? Federal Aid Coordinator: ? Procedure Note Monserrat Painter - 10/06/[address] [address] [address] Scan Report Signed Patient: Rhonda Francisco#: [id number] : 1985Acct:[id number] Age/Sex: 39 / MADM Date: 10/06/24 Loc: HO.CT Attending Dr: Balwinder Guajardo IPHONE DEVELOPER Ordering Physician: Balwinder Guajardo Date of Service: 10/06/24 Procedure(s): CT abdomen wo IV con Accession Number(s): [id number] cc: Trudi Reagan; Balwinder Guajardo Report Number: [id number]: Total DLP = 323.00 mGy-cm EXAMINATION: CT [...] Tim Cruz MD 10/06/2024 03:18 PM EDT RP Dictated By: Tim Lamar MD Signed By: <Electronically signed by Tim Rivera MDin OV> 10/06/24 1518 DD/ 1433 TD/TT: 10/06/24 1505 Federal Aid Coordinator: [facility] IMG CT PROCEDURES Final R esult * [...] 10/05/2024 12:3 3 PM EDT Trudi Reagan OPERATIONS AND MAINTENANCE TECHNICAN POINT OF CARE TEST ENTER/EDIT ORDERABLES Final Result * Chlamydia/N. Gonorrhoeae RNA, TMA, Urogenitial (10/05/2024 12:27 PM EDT) CT PCR NOT DETECTED Not Detect. [facility] Comment:A not detected test result [...] psychologicalconsequences. NG PCR NOT DETECTED Not Detect. [facility] Comment:A not detected test result [...] PM EDT 10/05/2024 6:02 PM EDT Narrative [facility] - 10/06/2024 11:33 AM EDT Urine [facility] LAB MICROBIOLOGY - GENERA L ORDERABLES Final Result [facility] [address] [place] [phone] * Urinalysis, Complete, with Reflex to Culture (10/05/2024 11:30 AM EDT) Color Urine Yellow [facility] Appearance Urine Clear [facility] PH 7.0 5.0 - 9.0 [facility] Glucose Urine UA Negative Negative mg/dL [facility] Urine Blood Negative Negative [facility] Specific [place] - Urine 1.010 1.005 - 1.025 [facility] Urine Protein Negative Neg-Trace mg/dL [facility] Urine Ketones Negative Negative mg/dL [facility] Nitrite Urine Negative Negative [facility] Leukocyte Esterase Urine Negative Negative [facility] RBC Urine 0-2 0 - 2 /HPF [facility] Urine WBC 0-5 0 - 5 /HPF [facility] Urine Squamous Epithelial Cell 0-2 0 - 2 /HPF [facility] Urine Bacteria None Seen None Seen [facility] Hyaline Casts, Urine 0-2 0 - 2 /LPF [facility] Urine 10/05/2024 11:3 0 AM EDT 10/05/2024 5:59 PM EDT Narrative [facility] - 10/05/2024 6:50 PM EDT [id number], Clean Catch [facility] LAB URINE ORDERABLES Manuela l Result [facility] [address] [place] [phone] [phone] * Destruction of lesion (09/22/2024 12:30 PM EDT) Narrative Graeme Love MD - 09/22/2024 12:30 PM EDT Graeme Love MD ? 09/22/2024 12:34 PM Destruction of lesion Date/Time: 09/22/2024 12:30 PM Performed by: Graeme Love MD Authorized by: Graeme Love MD ?? Consent: ??Consent obtained: ??Written ??Consent given by: ??Patient ??Risks discussed: ??Pain, poor cosmetic result and bleeding ??Alternatives discussed: ??Observation [place] protocol: ??Procedure explained and questions answered to [...] MOP, MTD, OXY, PCP, TCA, THC. Lot# [id number] Exp: 02-24-26 Trudi MERIDA POINT OF CARE TEST ENTER/EDIT ORDERABLES Final Result * Albumin, Random Urine W/Creatinine (06/24/2024 10:09 AM EST) Creatinine, Urine 146.41 mg/dL [facility] Microalbumin Urine 7.0 mg/L [facility] Microalbum Creatinine Ratio Ur 4.7 <30 ug/mg cr [facility] Comment:Albumin/Creatinine R atio Reference Ranges: Normal: < 30 ug/mg creatinine Microalbuminuria: 30 - 300 ug/mg creatinineClinical Albuminuria: > 300 ug/mg creatinine Urine 06/24/2024 10:0 9 AM EST 06/24/2024 2:06 PM EST Trudi [facility] LAB URINE ORDERABLES Final Res ult [facility] [address] [place] [address] [phone] from Last 3 Months or Most Recently Relevant to Health Maintenance Insurance [place] [facility] C3 * Guarantor: Dewey Francisco Account Type Relation to Patient Date of Phone Billing Address Personal/Family Self [place], [place] Care Teams Water Team Leader Relationship Specialty Start Date End Date Trudi Reagan FNP [address] [place] [address] PCP - General Family Medicine 03/04/22 Joshua Anderson FNP [address], [place] Nurse Practitioner Family Medicine 06/03/23
--- OUTSIDE RECORDS SUMMARY | 2024-10-23 13:54 | XMS_ITS | Encounter Summary ---
Author Organization [facility] Address [address] [place] [address] Care Team Providers Care Airport Operations Manager Name Role Phone Provider, Unknown Primary Care Provider [id number] Encounter Details Date Type Department Care Team (Late st Contact Info) Description 07/16/2017 Scanned Document [facility] Emergency Department [address] [place] [phone] Provider, Generic Social History Tobacco Use Types [...] on filedocumented in this encounter Care Teams Airport Operations Manager Relationship Specialty Start Date End Date Provider, Unknown 1 DO NOT USE THIS RECORD PCP - General 03/14/16 documented as of this encounter
--- OUTSIDE RECORDS SUMMARY | 2024-10-23 13:54 | XMS_ITS | Encounter Summary ---
Author Organization [employer] Address [address] [place] [address] Care Team Providers Care Leather Toggler Name Role Phone Trudi Reagan Primary Care Provider Joshua Anderson Unavailable Unavailable Reason for Visit * Reason Comments Med Refill Encounter Details Date Type Department Care Team ([facility] st Contact Info) Description 07/15/2023 Refill [facility] MEDICINE [address] [place], [place] [phone] Joshua Anderson FNP Major depressive disorder with [...] 3:15 PM EDT Office Visit [facility] MED & PEDS [address] [place] [address] Trudi Reagan FNP [address] [place] [address] documented as of this encounter Visit Diagnoses Diagnosis Major depressive disorder with psychotic features (CMS/HCC) documented in this encounter Additional Health Concerns Assessment Noted Time PHQ-9 Depression Total Score: 16 023 3:17 PM EST documented as of this encounter Care Teams Leather Toggler Relationship Specialty Start Date End Date Trudi Reagan FNP [address] [place] [address] PCP - General Family Medicine 03/04/22 Joshua Anderson FNP [address] [place] [address] Nurse Practitioner Family Medicine 06/03/23 documented as of this encounter
[2024-10-23 13:56] VITALS: BP 108/74; PULSE 77; O2SAT 96; BMI 31.4
== END 2024-10-23 14:40 | disposition home or self-care (01) ==
LOC: HO.HKA 13:29
PROVIDERS: PCP Registered Nurse; Visit Provider Internal Medicine Nephrology
DX: N20.0 Calculus of kidney (principal); I10 Essential (primary) hypertension
CPT/HCPCS: 99204

== ENCOUNTER → 2024-10-23 13:28 | Outpatient (BNVA) | payer MEDICAID, SELFPAY | PROVIDERS: PCP Registered Nurse; Visit Provider Internal Medicine Nephrology | DX: N20.0 Calculus of kidney (principal); I10 Essential (primary) hypertension | CPT/HCPCS: 99202 ==

== ENCOUNTER 2024-10-27 13:51 | Outpatient (REF) | payer MEDICAID, SELFPAY ==
[2024-10-27 14:52] LABS: Amphetamine Screen Urine Not Detected (Not Detect); Barbiturates, Urine Not Detected (Not Detect); Benzodiazepines Screen Urine Not Detected (Not Detect); Buprenorphine Scr Not Detected (Not Detect); Cannabinoid Screen Urine Not Detected (Not Detect); Cocaine Screen Urine Not Detected (Not Detect); Fentanyl, urine Not Detected (Not Detect); Methadone Screen, Urine Not Detected (Not Detect); Opiate Screen Urine Not Detected (Not Detect); Oxycodone Screen Urine Not Detected (Not Detect); Phencyclidine Screen Urine Not Detected (Not Detect)
[2024-10-27 15:04] LABS: Calcium 9.3 mg/dL (8.4-10.2)
[2024-10-27 15:05] LABS: Parathyroid Hormone Intact 72.8 pg/mL (8.7-77.1)
[2024-10-27 15:41] LABS: Uric Acid, mg/dL 42.4 mg/dL
[2024-10-27 16:03] LABS: TSH reflex Free T4 1.72 uIU/mL (0.32-4.0)
--- OUTSIDE RECORDS SUMMARY | 2024-10-27 16:33 | XMS_ITS | Encounter Summary ---
Author Organization [employer] Address [address] [place] [address] Care Team Providers Care Communications Associate Name Role Phone MeraryTrudi SNOWBLOWER MECHANIC Primary Care Provider [phone] Joshua Anderson Unavailable Unavailable Encounter Details Date Type Department Care Team (Late st Contact Info) Description 10/27/2024 Orders Only GENERIC EXTERNAL DATA DEPARTMENT Provider, Generic External Data Social History Tobacco Use Types Packs/Day Years [...] Description 01/04/2025 3:15 PM EDT Office Visit [facility] MED & PEDS [address] [place] [address] Trudi Reagan FNP [address] [place] [address] Pending Results Name Type Priority Associated Diagnoses Date /Time Sodium, 24-Hour Urine with Creatinine Lab Routine 10/27/2024 12:33 PM EDT Uric acid, urine, 24 hour Lab Routine 10/27/2024 12:33 PM EDT documented as of this encounter Procedures Procedure Name Priority Date/Time Associated Diagnosis Comments TSH W/REFLEX TO FT4 Routine 10/27/2024 2 :04 PM EDT URIC ACID Routine 10/27/2024 2:04 PM EDT PTH, INTACT WITHOUT CALCIUM Routine 10/27/2024 2:04 PM EDT CALCIUM Routine 10/27/2024 2:04 PM EDT SODIUM, 24-HOUR URINE WITH CREATININE Routine 10/27/2024 12:33 PM EDT URIC ACID, URINE, 24 HOUR Routine 10/27/2024 12:33 PM EDT documented in this encounter Results * TSH with Reflex to Free T4 (10/27/2024 2:04 PM EDT) TSH reflex Free T4 1.72 0.32 - 4.0 uIU/mL [facility] 10/27/2024 2:04 PM EDT 10/27/2024 2:04 PM EDT us Generic External Data Provider LAB BLOOD ORDERAB LES Final Result Performing Organization Address [facility] Co de Phone Number [facility] [address] [place] [phone] * PTH, Intact Without Calcium (10/27/2024 2:04 PM EDT) Parathyroid Hormone, Intact 72.8 8.7 - 77.1 pg/mL [facility] 10/27/2024 2:04 PM EDT 10/27/2024 2:04 PM EDT us Generic External Data Provider LAB BLOOD ORDERAB LES Final Result Performing Organization Address [facility] Co de Phone Number [facility] [address] [place] [phone] * Calcium (10/27/2024 2:04 PM EDT) Calcium 9.3 8.4 - 10.2 mg/dL [facility] 10/27/2024 2:04 PM EDT 10/27/2024 2:04 PM EDT us Generic External Data Provider LAB BLOOD ORDERAB LES Final Result Performing Organization Address [facility] Co de Phone Number [facility] [address] [place] [phone] * Uric acid (10/27/2024 2:04 PM EDT) Uric Acid 7.0 3.4 - 7.0 mg/dL [facility] 10/27/2024 2:04 PM EDT 10/27/2024 2:04 PM EDT us Generic External Data Provider LAB BLOOD ORDERAB LES Final Result Performing Organization Address [facility] Co de Phone Number [facility] [address] [place] [phone] documented in this encounter Visit Diagnoses Not on filedocumented in this encounter Additional Health Concerns Assessment Noted Time PHQ-9 Depression Total Score: 8 01/21/20 24 11:16 AM EDT documented as of this encounter Care Teams Communications Associate Relationship Specialty Start Date End Date Trudi Reagan FNP [address] [place] [address] PCP - General Family Medicine 03/04/22 Joshua Anderson FNP [address] [place] [address] Nurse Practitioner Family Medicine 06/03/23 documented as of this encounter
--- OUTSIDE RECORDS SUMMARY | 2024-10-27 16:33 | XMS_ITS | Encounter Summary ---
Author Organization [employer] Address [address] [place] [address] Care Team Providers Care Case Maker Name Role Phone Trudi Reagan Primary Care Provider [phone] Joshua Anderson Unavailable Unavailable Reason for Visit * Reason Onset Date Comments Med Refill 08/17/2024 Encounter Details Date Type Department Care Team (Late st Contact Info) Description 08/17/2024 Refill [facility] MEDICINE [address] [place] [address] Trudi Reagan FNP [address] [place] [address] Major depressive disorder with psychotic features (CMS/HCC) [...] then has initial appt on 08/02/24 with clinical lab assistant. Will send in 1 week supply from 08/26/24 - 09/02/24 to get him to appt. Then PCP bridge will be complete and Dewey needs to follow up with psych prescriber. Thank you. * Telephone Encounter - Macho Miner - 08/17/2024 10:28 AM EST TC from pt requesting medication refill. Medications needing refill : clonazePAM (KlonoPIN) 0.5 MG tablet To be sent to: [facility]/pharmacy #[id number] [place] [address] - [address] [place] [address] documented in this encounter Plan of Treatment Upcoming Encounters Date Type Department Care Team (Late st Contact Info) Description 01/04/2025 3:15 PM EDT Office Visit [facility] MED & PEDS [address] [place], [place] [phone] Trudi Reagan FNP [address] [place], [place] [phone] documented as of this encounter Visit Diagnoses Diagnosis Major depressive disorder with psychotic features (CMS/HCC) documented in this encounter Additional Health Concerns Assessment Noted Time PHQ-9 Depression Total Score: 8 01/21/20 24 11:16 AM EDT documented as of this encounter Care Teams Case Maker Relationship Specialty Start Date End Date Trudi Reagan FNP [address] [place] [address] PCP - General Family Medicine 03/04/22 Joshua Anderson FNP [address] [place] [address] Nurse Practitioner Family Medicine 06/03/23 documented as of this encounter
--- OUTSIDE RECORDS SUMMARY | 2024-10-27 16:33 | XMS_ITS | Encounter Summary ---
Author Organization [employer] [facility] Address [address] [facility] 7t [place] [address] Care Team Providers Care Curriculum And Instruction Specialist Name Role Phone Trudi Reagan Primary Care Provider [phone] Joshua Anderson Unavailable Unavailable Reason for Visit * Reason Comments Med Refill Encounter Details Date Type Department Care Team (Late st Contact Info) Description 01/18/2023 Refill [facility] MED & PEDS [address] [place] [address] Joshua Anderson FNP Social History Tobacco Use [...] Description 01/04/2025 3:15 PM EDT Office Visit [facility]S [address] [place] [address] Trudi Reagan FNP [address] [place] [address] documented as of this encounter Visit Diagnoses Not on filedocumented in this encounter Additional Health Concerns Assessment Noted Time PHQ-9 Depression Total Score: 11 12/18/2 023 2:18 PM EDT documented as of this encounter Care Teams Curriculum And Instruction Specialist Relationship Specialty Start Date End Date Trudi Reagan FNP [address] [place] [address] PCP - General Family Medicine 03/04/22 Joshua Anderson FNP [address] [place] [address] Nurse Practitioner Family Medicine 06/03/23 documented as of this encounter
--- OUTSIDE RECORDS SUMMARY | 2024-10-27 16:33 | XMS_ITS ---
Author Organization [facility] Address [address] [place] [phone] Care Team Providers Care Occupational Therapy Teacher Name Role Phone SKINNY CRAMER, CARMELO Primary Care Provider Berto Rojas [phone] REASON FOR VISIT Colon N/S--needs to R/S letter mailed Encounters Encounter Location Date Provider Diagnosis [facility] [address] [place] [phone] 08/25/2023 Berto Muñoz Plan Of Treatment No Information Progress Notes * ANDREW JOHANNYAbhiDOB: [birth year] (38 yo M)Acc No.[id number]:08/25/2023 Patient:?ALIX MORALES :1985???Age:38 Y???Sex:Male Address:[address] [place] [address] [address], [place], [address] * true * Date:? Generated for Claudiai ladonna/Remi/eTransmitting on:?10/27/2024 04:33 PM EDT
--- OUTSIDE RECORDS SUMMARY | 2024-10-27 16:33 | XMS_ITS | Encounter Summary ---
Author Organization [employer] Address [address] [place] [address] Care Team Providers Care Dry Lumber Grader Name Role Phone Trudi Reagan Primary Care Provider [phone] Joshua Anderson Unavailable Unavailable Reason for Visit * Reason Onset Date Comments Med Refill 10/23/2024 Encounter Details Date Type Department Care Team ([facility] st Contact Info) Description 10/23/2024 Telephone [facility] MEDICINE [address] [place] [address] Trudi Reagan FNP [address] [place] [address] Med Refill Social History Tobacco Use Types [...] encounter Miscellaneous Notes * Telephone Encounter - Bisi Bey - 10/23/2024 3:06 PM EDT TC from pt requesting medication refill. Medications needing refill : oxyCODONE-acetaminophen (Percocet) 5-325 MG tablet To be sent to: [id number] documented in this encounter Plan of Treatment Upcoming Encounters Date Type Department Care Team ([facility] st Contact Info) Description 01/04/2025 3:15 PM EDT Office Visit [facility] MED & PEDS [address] [place] [address] Trudi Reagan FNP [address] [place] [address] documented as of this encounter Visit Diagnoses Not on filedocumented in this encounter Additional Health Concerns Assessment Noted Time PHQ-9 Depression Total Score: 8 01/21/20 24 11:16 AM EDT documented as of this encounter Care Teams Dry Lumber Grader Relationship Specialty Start Date End Date Trudi Reagan FNP [address] [place] [address] PCP - General Family Medicine 03/04/22 Joshua Anderson FNP [address] [place] [address] Nurse Practitioner Family Medicine 06/03/23 documented as of this encounter
--- OUTSIDE RECORDS SUMMARY | 2024-10-27 16:33 | XMS_ITS | Patient Health Record ---
Author Organization [facility] Address [address] [place] [phone] Care Team Providers Care Packer Denture Name Role Phone CARMELO BABB MD Primary Care Provider Berto Rojas [phone] Allergies No Known Allergies Reason For Referral [...] Problem Status W/U Status Risk Notes Problem [id number] Colon cancer screening (Z12.11) Active confirmed Problem 125962134 Family history o f colon cancer (Z80.0) Active confirmed Problem [id number] Gastroesophageal reflux disease, unspecified whether esophagitis present (K21.9) Active confirmed Plan Of Treatment Future Test Test Name Order Date UPPER GI ENDOSCOPY 01/30/2023 COLONOSCOPY 01/30/2023 Insurance Providers Payer Name Payer Address Payer Phone Subscriber Number Group Number Insured Name Patient Relationship to Insured Coverage Start Date Coverage End Date [facility] [facility] [address] [place] [phone] [id number] ALIX FRANCIS Self - patient is the insured Medical (General) History Medical History History ICD Code Anxiety GERD Hypertension Allergic rhinitis Hypothyroidism NIDDM Elevated cholesterol Vitamin D deficiency Denies OR,CVA,Lung disease,renal disease Surgical History Surgery Date(Month/Year)
--- OUTSIDE RECORDS SUMMARY | 2024-10-27 16:34 | XMS_ITS | Encounter Summary ---
Author Organization [facility] Address [address] [place] [address] Care Team Providers Care Sales Exhibitor Name Role Phone Provider, Unknown Primary Care Provider [phone] Encounter Details Date Type Department Care Team (Late st Contact Info) Description 07/16/2017 Scanned Document [facility] Emergency Department [address] [place] [address] Provider, Generic Social History Tobacco Use Types [...] on filedocumented in this encounter Care Teams Sales Exhibitor Relationship Specialty Start Date End Date Provider, Unknown 1 DO NOT USE THIS RECORD PCP - General 03/14/16 documented as of this encounter
--- OUTSIDE RECORDS SUMMARY | 2024-10-27 16:34 | XMS_ITS | Encounter Summary ---
Author Organization [employer] Address [address] [place] [address] [address], [place] [address] Care Team Providers Care Head Cleaning Porter Name Role Phone Trudi Reagan Primary Care Provider [phone] Joshua Anderson Unavailable Unavailable Encounter Details Date Type Department Care Team (Late Contact Info) Description 03/29/2023 [facility] Information Management [address] [place] [address] Trudi Reagan FNP [address] [place], [place] [phone] Social History Tobacco Use Types Packs/Day Years [...] Description 01/04/2025 3:15 PM EDT Office Visit [facility] & PEDS [address] [place], [place] [phone] Trudi Reagan FNP [address] [place], [place] [phone] documented as of this encounter Visit Diagnoses Not on filedocumented in this encounter Additional Health Concerns Assessment Noted Time PHQ-9 Depression Total Score: 13 023 2:50 PM EDT documented as of this encounter Care Teams Head Cleaning Porter Relationship Specialty Start Date End Date Trudi Reagan FNP [address] [place] [address] PCP - General Family Medicine 03/04/22 Joshua Anderson FNP [address] [place] [address] Nurse Practitioner Family Medicine 06/03/23 documented as of this encounter
--- OUTSIDE RECORDS SUMMARY | 2024-10-27 16:34 | XMS_ITS | Encounter Summary ---
Author Organization [employer] Address [address] [address]t [place] [address] Care Team Providers Care Clerk Analyst Name Role Phone Trudi Reagan Primary Care Provider [phone] Joshua Anderson Unavailable Unavailable Reason for Visit * Reason Comments Med Refill Encounter Details Date Type Department Care Team (Late st Contact Info) Description 02/21/2023 Refill [facility] MEDICINE [address] [place] [address] Joshua Anderson FNP Social History Tobacco Use [...] Description 01/04/2025 3:15 PM EDT Office Visit [facility]EDS [address] [place] [address] Trudi Reagan FNP [address] [place], [place] [phone] documented as of this encounter Visit Diagnoses Not on filedocumented in this encounter Additional Health Concerns Assessment Noted Time PHQ-9 Depression Total Score: 13 08/ 023 2:50 PM EDT documented as of this encounter Care Teams Clerk Analyst Relationship Specialty Start Date End Date Trudi Reagan FNP [address] [place] [address] PCP - General Family Medicine 03/04/22 Joshua Anderson FNP [address] [place] [address] Nurse Practitioner Family Medicine 06/03/23 documented as of this encounter
--- OUTSIDE RECORDS SUMMARY | 2024-10-27 16:34 | XMS_ITS | Clinical Summary ---
Author Organization [employer] Address [address] [facility] [address] [place] [address] Care Team Providers Care Yard General Car Supervisor Name Role Phone Trudi Reagan Primary Care Provider [phone] Joshua Anderson Unavailable Unavailable Allergies No known [...] in mild right sided hydroureteronephrosis Following with [facility] 06/18/23: ureteroscopy with laser lithotripsy on the right 06/26/23: KUB demonstrated 3 small calcifications overlying left renal fossa May 2024: reports ED eval [id number] identified bilat kidney stones Assessment & Plan (05/31/2024 9:10 PM EST): - Discussed ED eval NOW vs outpatient management. Pt declines ED eval, will proceed with OP eval at this time with strict ED precautions - Plan: CT abd/pelvis w/o contrast ordered STAT Dewey to call [facility] for appt Hydration Flomax x 30 days Strict ED precautions Assessment & Plan (06/29/2023 10:33 AM EST): -Cont pyridoxine 100mg daily through Urology -Pain management through [facility] PRN -Repeat KUB ordered for further [...] and was apparently told erroneously by his [facility] pharmacy that he had no refills available [...] again I encouraged him to switch to [facility] pharmacy where his medications could be [...] BID. New Rx's were also sent to [facility] pharmacy for medboxes, for Risperidone 1 mg daily, Venlafaxine 150 mg daily, Prazosin 2 mg 2 at bedtime, and Hydroxyzine 25 mg q 6 h prn. Patient evidently has not yet started Medboxes, but says he has an appointment to bring in all his pills. He missed [employer] DES[employer] visit as well, but that has also [...] mg BID. New Rx's also sent to [facility] pharmacy for medboxes, for Risperidone 1 [...] Plan (04/01/2023 8:49 AM EDT): -Established with [facility] Psychopharm clinic - Joshua Anderson APRN. [...] car yesterday after picking up refills at [facility]. Later in the conversation asks me if [facility] will know which medications are available for refill. Rather than belaboring his symptom report and medication instructions again, we will defer that until next appointment, when I have explained that he will need to have the medication bottles available for review. Again suggested switching to [facility] or [facility] pharmacy for Medboxes and home delivery, but [...] as directed. Strongly urged to utilize the [facility] Pharmacy with Medboxes and home delivery [...] prn anxiety. He will F/U with [facility] in [place] for counseling intake. F/U 4-6 weeks. He agrees with the plan. Assessment & Plan (09/25/2022 3:52 PM EDT): Presented with tearfulness, auditory hallucinations, flashbacks and intrusive thoughts. Consider alternate diagnosis of PTSD. Seems to be doing a little better. Continue medicaitons without skipping doses. Recommend going in person to [facility] in [place]. F/U 4-6 weeks. He agrees with the [...] without skipping doses. Given information about [facility] in [place] and urged to go in person or [...] 281 Mar 2023 Eye exam: referral to [facility] Dental: encouraged to establish [...] pt interested in starting med boxes with [facility] pharmacy - referral sent. Vitamin D deficiency [...] organization. Date Type Department Care Team Description 10/27/2024 Orders Only GENERIC EXTERNAL DATA DEPARTMENT Provider, Generic External Data 10/23/2024 Telephone [facility] [address] [place] [address] Trudi Reagan FNP Med Refill 10/12/2024 Orders Only [facility] [address] [facility] [place] [address] Balwinder Guajardo CNP 10/10/2024 Refill [facility] [address] [place] [address] Trudi Reagan FNP 10/05/2024 11:15 AM EDT Office Visit [facility] [address] [place] [address] Trudi Reagan FNP Bilateral nephrolithiasis (Primary Dx); Dysuria; Healthcare maintenance; Encounter for screening examination for sexually transmitted disease; Acquired hypothyroidism; Gastroesophageal reflux disease without esophagitis 10/05/2024 Travel 10/01/2024 Telephone [facility] [address] [place] [address] Trudi Reagan FNP Chart Prep 09/22/2024 11:00 AM EDT Office Visit [facility] [address] [place] [address] Graeme Love MD Skin tag (Primary Dx) 09/22/2024 Travel 09/18/2024 Population Health Risk Score [facility] () Department [address] [place] [phone] Provider, Population Health Generic 09/16/2024 3:15 PM EDT Clinical Support [facility] [address] [place] [address] Antonella Moon, AARON Anxiety 09/16/2024 Telephone [facility] [address] [place] [address] Antonella Moon, AARON 09/16/2024 Travel 08/27/2024 Telephone [facility] [address] [place] [address] Trudi Reagan FNP August recal 08/19/2024 Telephone [facility] [address] [place] [address] Antonella Moon RN 08/18/2024 Telephone [facility] [address] [place] [address] Trudi Reagan, WORLDWIDE CHIEF CREATIVE OFFICER Med Refill 08/17/2024 Refill [facility] [address] [place] [address] PhalenWestonle, WORLDWIDE CHIEF CREATIVE OFFICER Major depressive disorder with psychotic features (CMS/HCC) 08/10/2024 Refill [facility] [address], [place] [phone] Trudi Reagan, WORLDWIDE CHIEF CREATIVE OFFICER Bilateral nephrolithiasis 08/06/2024 2:00 PM EST Clinical Support [facility] [address] [place] [address] Antonella Moon RN Anxiety 08/06/2024 Travel 08/06/2024 Telephone [facility] [address] [place] [address] Antonella Moon RN 07/29/2024 Telephone [facility] [address], [place] [phone] Sharyn Solis, AARON Results from Last 3 Months Immunizations Name Administration [...] EDT Office Visit [facility] [address], [place] [phone] Trudi Reagan, WORLDWIDE CHIEF CREATIVE OFFICER [address] [place], [place] [phone] Health Maintenance Due Date Last Done Comments [...] FT4 Routine 10/27/2024 2 :04 PM EDT PTH, INTACT WITHOUT CALCIUM Routine 10/27/2024 2:04 PM EDT CALCIUM Routine 10/27/2024 2:04 PM EDT URIC ACID Routine 10/27/2024 2:04 PM EDT DRUG MONITOR, PANEL 1, SCREEN, URINE Routine 10/27/2024 2:03 PM EDT Major depressive disorder with psychotic features (CMS/HCC) URIC ACID, URINE, 24 HOUR Routine 10/27/2024 12:33 PM EDT SODIUM, 24-HOUR URINE WITH CREATININE Routine 10/27/2024 12:33 PM EDT T4, FREE Routine 10/12/2024 12:54 PM EDT [...] SCREEN Routine 08/06/2024 1:56 PM EST Anxiety ALBUMIN, RANDOM URINE W/CREATININE Routine 06/24/2024 10:09 AM EST Essential hypertension Type 2 diabetes mellitus without complication, without long-term current use of insulin ([facility]) from Last 3 Months or Most Recently Relevant to Health Maintenance Results * TSH with Reflex to Free T4 (10/27/2024 2:04 PM EDT) Only the most recent of2 resultswithin the time period is included. TSH reflex Free T4 1.72 0.32 - 4.0 uIU/mL [facility] 10/27/2024 2:04 PM EDT 10/27/2024 2:04 PM EDT us Generic External Data Provider LAB BLOOD ORDERAB LES Final Result Performing Organization Address City/[facility]/ZIP Co de Phone Number [facility] [address] [place] [phone] * Uric acid (10/27/2024 2:04 PM EDT) Uric Acid 7.0 3.4 - 7.0 mg/dL [facility] 10/27/2024 2:04 PM EDT 10/27/2024 2:04 PM EDT us Generic External Data Provider LAB BLOOD ORDERAB LES Final Result Performing Organization Address [facility]/ZIP Co de Phone Number [facility] [address] [place] [phone] * PTH, Intact Without Calcium (10/27/2024 2:04 PM EDT) Parathyroid Hormone, Intact 72.8 8.7 - 77.1 pg/mL [facility] 10/27/2024 2:04 PM EDT 10/27/2024 2:04 PM EDT Generic External Data Provider LAB BLOOD ORDERAB LES Final Result Performing Organization Address City/[facility]/ZIP Co de Phone Number [facility] [address] [place] [phone] * Calcium (10/27/2024 2:04 PM EDT) Calcium 9.3 8.4 - 10.2 mg/dL [facility] 10/27/2024 2:04 PM EDT 10/27/2024 2:04 PM EDT Generic External Data Provider LAB BLOOD ORDERAB LES Final Result Performing Organization Address [facility] de Phone Number [facility] [address] [place] [phone] * Drug Monitoring, Panel 1, Screen, Urine (10/27/2024 2:03 PM EDT) Pathologist [facility] Opiate Screen Urine Not Detected Not Detect [facility] Comment:Opiate cut-off is 30 0 ng/mL.Positive results are unconfirmed and should not be used fornon-medical purposes. Barbiturates, Urine Not Detected Not Detect [facility] Comment:Barbiturate cut-off is 200 ng/mL.Positive results are unconfirmed and should not be used fornon-medical purposes. Phencyclidine Screen Urine Not Detected Not Detect [facility] Comment:Phencyclidine cut-of f is 25 ng/mL.Positive results are unconfirmed and should not be used fornon-medical purposes. Amphetamine Screen Urine Not Detected Not Detect [facility] Comment:Amphetamine cut-off is 1000 ng/mL.Positive results are unconfirmed and should not be used fornon-medical purposes. Benzodiazepines Screen Urine Not Detected Not Detect [facility] Comment:Benzodiazepine cut-o ff is 200 ng/mL.Positive results are unconfirmed and should not be used fornon-medical purposes. Cocaine Screen Urine Not Detected Not Detect [facility] Comment:Cocaine cut-off is 3 00 ng/mL.Positive results are unconfirmed and should not be used fornon-medical purposes. Cannabinoid Screen Urine Not Detected Not Detect [facility] Comment:Cannabinoid cut-off is 50 ng/mL.Positive results are unconfirmed and should not be used fornon-medical purposes. Methadone Screen, Urine Not Detected Not Detect ng/mL [facility] Comment:Methadone cut-off is 300 ng/mL.Positive results are unconfirmed and should not be used fornon-medical purposes. FENTANYL URINE Not Detected Not Detect [facility] Comment:Fentanyl cut-off is 1 ng/mL.Positive results are unconfirmed and should not be used fornon-medical purposes. Oxycodone Urine Screen Not Detected Not Detect ng/mL [facility] Comment:Oxycodone cut-off is 100 ng/mL.Positive results are unconfirmed and should not be used fornon-medical purposes. Buprenorphine Screen Not Detected Not Detect ng/mL [facility] Comment:Buprenorphine cut-of f is 5 ng/mL.Positive results are unconfirmed and should not be used fornon-medical purposes. Urine (Urine, Random) 10/27/2024 2:03 PM EDT 10/27/2024 2:36 PM EDT Darrin Melendez PMHNP LAB URINE ORDERABLES Final Re sult [facility] [address] [place] [phone] * (ABNORMAL) CBC auto differential (10/12/2024 12:54 PM EDT) White Blood Count 5.0 4.8 - 10.8 X10*3/uL [facility] Red Blood Count 5.59 4.60 - 5.80 X10*6/uL [facility] Hemoglobin 15.8 14.0 - 18.0 g/dl [facility] Hematocrit 47.4 42.0 - 52.0 % [facility] Mean Corpuscular Volume 84.8 80.0 - 98.0 fL [facility] Mean Corpuscular Hemoglobin 28.3 27.0 - 33.0 pg [facility] Mean Corpuscular HGB Conc 33.3 31.0 - 36.0 g/dl [facility] Red Cell Distribution Width 13.1 11.0 - 16.0 % [facility] Platelet Count 152(L) 160 - 400 X10*3/uL [facility] Mean Platelet Volume 12.1 9.4 - 12.4 fL [facility] Neutrophils Percent Auto 53.7 45 - 73 % [facility] Imm Gran Pct Auto 0.2 0.0 - 0.4 % [facility] Lymphocytes Percent Auto 35.9 20 - 40 % [facility] Monocytes Percent Auto 8.6 2 - 11 % [facility] Eosinophils Percent Auto 1.0 0 - 4 % [facility] Basophils Percent Auto 0.6 0 - 2 % [facility] NRBC Pct Auto 0.0 0.0 - 0.2 /100WBC [facility] Neutrophils Absolute Auto 2.7 2.0 - 8.3 x10*3/uL [facility] Imm Gran Abs Auto 0.01 0.00 - 0.03 X10*3/uL [facility] Lymphocytes Absolute Auto 1.8 1.2 - 4.9 X10*3/uL [facility] Monocytes Absolute Auto 0.4 0.1 - 1.2 X10*3/uL [facility] Eosinophils Absolute Auto 0.1 0.0 - 0.4 X10*3/uL [facility] Basophils Absolute Auto 0.0 0.0 - 0.2 X10*3/uL [facility] NRBC Abs Auto 0.000 0.0 - 0.012 X10*3/uL [facility] Blood Venous blood specimen / Unknown 10/12/2024 12:54 PM EDT 10/12/2024 1:56 PM EDT [facility] LAB BLOOD ORDERABLES Manuela l Result Performing Organization Address [facility]/ZIP Co de Phone Number [facility] [address] [place] [phone] * Hepatitis C Antibody with Reflex to HCV, RNA, Quantitative, Real-Time PCR (10/12/2024 12:54 PM EDT) Hepatitis C Antibody Nonreactive Nonreactive [facility] Comment:Antibodies to HCV no t detected; does not exclude early acuteHCV infection. Blood Venous blood specimen / Unknown 10/12/2024 12:54 PM EDT 10/12/2024 1:56 PM EDT [facility] LAB BLOOD ORDERABLES Manuela l Result Performing Organization Address [facility] Co de Phone Number [facility] [address] [place] [phone] * RPR (Monitor) with Reflex to??Titer (10/12/2024 12:54 PM EDT) Pathologist [facility] RPR (Monitor) w/Refl Titer NON-REACTI VE NON-REACT [facility] Comment:THIS TEST WAS PERFOR MED AT:[employer] [place] [phone] GARZON MD Rapid Plasma Reagin Ab Titer TNP [facility] Blood Venous blood specimen / Unknown 10/12/2024 12:54 PM EDT 10/12/2024 1:56 PM EDT [facility] LAB BLOOD ORDERABLES Manuela l Result Performing Organization Address [facility] Co de Phone Number [facility] [address] [place] [phone] * HIV-1/2 Antigen and Antibodies, Fourth Generation, with Reflexes (10/12/2024 12:54 PM EDT) HIV AB/AG Nonreactive Nonreactive [facility] Comment:HIV-1 p24 Ag and/or HIV-1/HIV-2 Ab not detected.A test result that is nonreactive does not exclude thepossibility of exposure to or infection with HIV-1 and/orHIV-2. Nonreactive results in this assay for individualswith prior exposure to HIV-1 and/or HIV-2 may be due toantigen and antibody levels that are below the limit ofdetection of this assay.The [employer] HIV Ag/Ab Combo assay result andsupplemental assay results should be interpreted inconjunction with the patient's clinical presentation,history and other laboratory results. If the results areinconsistent with clinical evidence, additional testing issuggested to confirm the result. Blood Venous blood specimen / Unknown 10/12/2024 12:54 PM EDT 10/12/2024 1:56 PM EDT [facility] LAB BLOOD ORDERABLES Manuela l Result Performing Organization Address City/[facility]/ZIP Co de Phone Number [facility] [address] [place] [phone] * T4, Free (10/12/2024 12:54 PM EDT) Pathologist [facility] Free T4 (Free Thyroxine) 1.03 0.71 - 1.85 ng/dL [facility] 10/12/2024 12:5 4 PM EDT 10/12/2024 1:56 PM EDT [facility] LAB BLOOD ORDERABLES Manuela l Result Performing Organization Address City/[facility]/ZIP Co de Phone Number [facility] [address] [place] [phone] * Hemoglobin A1c (10/12/2024 12:54 PM EDT) Hemoglobin A1c 6.0 <6.0 % [facility] Comment:Hemoglobin A1C Refer ence Range Adults: 4.8 - 6.0 % Non diabetic: < 6.0 % Goal: < 7.0 %Additional Action Suggested: > 8.0 %Note: Hemoglobin A1c results are invalid for patients with abnormal amounts of HbF. Blood transfusions may impact the HbA1c concentration in the patient sample. Estimated Average Glucose 126 mg/dL [facility] Comment:eAG = Estimated ave rage glucose which is %A1C expressed asaverage glucose, using the formula of the I4M-JtnbsuxZqiyxzm Glucose study (ADAG), Diabetes Care, Vol.31,#8,Feb. 2007 Blood Venous blood specimen / Unknown 10/12/2024 12:54 PM EDT 10/12/2024 1:56 PM EDT [facility] LAB BLOOD ORDERABLES Manuela l Result [facility] [address] [place] [phone] * (ABNORMAL) Lipid Panel, Standard (10/12/2024 12:54 PM EDT) Triglycerides 129 <150 mg/dL [facility] Comment:Desirable Triglyceri de: less than 150 mg/dLBorderline High Triglyceride 150-199 mg/dLHigh Triglyceride: 200-499 mg/dLVery High Triglyceride: greater than or equal to 5OO mg/dL Cholesterol 175 <200 mg/dL [facility] Comment:Desirable Cholestero l: less than 200 mg/dLBorderline High Cholesterol: 200-239 mg/dLHigh Cholesterol: greater than 239 mg/dL LDL Cholesterol Calculated 105(H) <100 mg/dL [facility] Comment:Desirable LDL: less than 100 mg/dLNear Optimal/Above Optimal LDL: 110- 129 mg/dLBorderline High LDL: 130-159 mg/dLHigh LDL: 160-189 mg/dLVery High LDL: greater than or equal to 190 mg/dL HDL Cholesterol 45 >40 mg/dL [facility] Comment:Desirable HDL: great er than 40 mg/dL Note: This HDL assay may give artificially low results in patients with liver disease. Blood Venous blood specimen / Unknown 10/12/2024 12:54 PM EDT 10/12/2024 1:56 PM EDT [facility] LAB BLOOD ORDERABLES Manuela l Result Performing Organization Address City/[facility]/ZIP Co de Phone Number [facility] [address] [place] [phone] * (ABNORMAL) Comprehensive Metabolic Panel (10/12/2024 12:54 PM EDT) Sodium 139 135 - 145 mmol/L [facility] Potassium 4.3 3.3 - 5.1 mmol/L [facility] Chloride 105 96 - 108 mmol/L [facility] Carbon Dioxide 28 22 - 29 mmol/L [facility] Anion Gap 10(L) 12 - 20 [facility] Urea Nitrogen (BUN) 16 9 - 16 mg/dL [facility] Creatinine, Serum 0.95 0.5 - 1.4 mg/dL [facility] Estimated Glomerular Filt Rate >60 [facility] Comment:Chronic Kidney Disea se: Estimated GFR < 60 mL/min/1.58x1[place] Kidney Disease: Estimated GFR < 15 mL/min/1.73m2 Glucose 98 60 - 115 mg/dL [facility] Calcium 9.4 8.4 - 10.2 mg/dL [facility] Bilirubin, Total 0.6 0.0 - 1.0 mg/dL [facility] Aspartate Amino Transferase 32 5 - 37 U/L [facility] Alanine Aminotransferase 39 0 - 40 U/L [facility] Total Protein 7.4 6.5 - 8.0 g/dL [facility] Albumin Level 4.4 3.5 - 5.0 g/dL [facility] Alkaline Phosphatase 55 39 - 117 U/L [facility] Blood Venous blood specimen / Unknown 10/12/2024 12:54 PM EDT 10/12/2024 1:56 PM EDT [facility] LAB BLOOD ORDERABLES Manuela l Result [facility] [address] [place] [phone] * CT abdomen w/o Contrast (10/06/2024 2:33 PM EDT) Anatomical Region Laterality Modality Body, Abdomen Computed Tomogra phy 10/06/2024 2:33 PM EDT Narrative 10/06/2024 3:21 PM EDT ? [facility] ?[address] ?[place] [phone] ? CT Scan Report ? Signed ? Patient: Dewey Francisco ?MR#: [id number] ?? [id number] ? : 1985 ?Acct:[id number] ? Age/Sex: 39 / M ?ADM Date: 10/06/24 ? Loc: HO.CT ? Attending Dr: Balwinder Guajardo OPERATOR VACUUM ? Ordering Physician: Balwinder Guajardo ?? Date of Service: 10/06/24 ?? Procedure(s): CT abdomen wo IV con ?? Accession Number(s): [id number] ? cc: Trudi Reagan WORLDWIDE CHIEF CREATIVE OFFICER; Balwinder Guajardo ? Report Number: ?? [id number]: Total DLP = ??323.00 mGy-cm ?? EXAMINATION: [...] DD/ 1433 ? TD/TT: 10/06/24 1505 ? Drilling And Production Superintendent: ? Procedure Note Monserrat Painter - 10/06/[address] [address] [address] Scan Report Signed Patient: Ayana FranciscoR#: [id number] : 1985Acct:[id number] Age/Sex: 39 / MADM Date: 10/06/24 Loc: HO.CT Attending Dr: Balwinder Guajardo OPERATOR [employer]ACUUM Ordering Physician: Balwinder Guajardo Date of Service: 10/06/24 Procedure(s): CT abdomen wo IV con Accession Number(s): [id number] cc: Trudi Reagan; Balwinder Guajardo Report Number: [id number]: Total DLP = 323.00 mGy-cm EXAMINATION: CT [...] 10/06/24 1518 DD/ 1433 TD/TT: 10/06/24 1505 Drilling And Production Superintendent[facility] PROCEDURES Final R esult * [...] Media Lot # [id number] Lot# Expiration Date [id number] Urine 10/05/2024 12:3 3 PM EDT Trudi Reagan WORLDWIDE CHIEF CREATIVE OFFICER POINT OF CARE TEST ENTER/EDIT ORDERABLES Final Result * Chlamydia/N. Gonorrhoeae RNA, TMA, Urogenitial (10/05/2024 12:27 PM EDT) CT PCR NOT DETECTED Not Detect. [facility] Comment:A not detected test result does [...] psychologicalconsequences. NG PCR NOT DETECTED Not Detect. [facility] Comment:A not detected test result does [...] PM EDT 10/05/2024 6:02 PM EDT Narrative [facility] - 10/06/2024 11:33 AM EDT Urine [facility] MICROBIOLOGY - GENERA L ORDERABLES Final Result [facility] [address] [place] [phone] * Urinalysis, Complete, with Reflex to Culture (10/05/2024 11:30 AM EDT) Color Urine Yellow [facility] Appearance Urine Clear [facility] [facility] 7.0 5.0 - 9.0 [facility] Glucose Urine UA Negative Negative mg/dL [facility] Urine Blood Negative Negative [facility] Specific [place] - Urine 1.010 1.005 - 1.025 [facility] Urine Protein Negative Neg-Trace mg/dL [facility] Urine Ketones Negative Negative mg/dL [facility] Nitrite Urine Negative Negative [facility] Leukocyte Esterase Urine Negative Negative [facility] RBC Urine 0-2 0 - 2 /HPF [facility] Urine WBC 0-5 0 - 5 /HPF [facility] Urine Squamous Epithelial Cell 0-2 0 - 2 /HPF [facility] Urine Bacteria None Seen None Seen [facility] Hyaline Casts, Urine 0-2 0 - 2 /LPF [facility] Urine 10/05/2024 11:3 0 AM EDT 10/05/2024 5:59 PM EDT [facility] - 10/05/2024 6:50 PM EDT [id number], Clean Catch Balwinder Guajardo [facility] URINE ORDERABLES Manuela l Result Performing Organization Address City/State/[facility] Co de Phone Number [facility] [address] [place] [address] [phone] * Destruction of lesion (09/22/2024 12:30 PM EDT) Graeme Thompson MD - 09/22/2024 12:30 PM EDT Graeme Love MD ? 09/22/2024 12:34 PM Destruction of lesion Date/Time: 09/22/2024 12:30 PM Performed by: Graeme Love MD Authorized by: Graeme Love MD ?? Consent: ??Consent obtained: ??Written ??Consent given by: ??Patient ??Risks discussed: ??Pain, poor cosmetic result and bleeding ??Alternatives discussed: ??Observation [place] protocol: ??Procedure explained and questions answered to [...] MOP, MTD, OXY, PCP, TCA, THC. Lot# [id number] Exp: 02-24-26 us Trudi Reagan WORLDWIDE CHIEF CREATIVE OFFICER POINT OF CARE TEST ENTER/EDIT ORDERABLES Final Result * Albumin, Random Urine W/Creatinine (06/24/2024 10:09 AM EST) Creatinine, Urine 146.41 mg/dL [facility] Microalbumin Urine 7.0 mg/L [facility] Microalbum Creatinine Ratio Ur 4.7 <30 ug/mg cr [facility] Comment:Albumin/Creatinine R atio Reference Ranges: Normal: < 30 ug/mg creatinine Microalbuminuria: 30 - 300 ug/mg creatinineClinical Albuminuria: > 300 ug/mg creatinine Urine 06/24/2024 10:0 9 AM EST 06/24/2024 2:06 PM EST Tr[facility] URINE ORDERABLES Final Res ult [facility] [address] [place] [address] [phone] from Last 3 Months or Most Recently Relevant to Health Maintenance Insurance [place], [place] [employer] C3 Care Teams Yard General Car Supervisor Relationship Specialty Start Date End Date Trudi Reagan FNP [address] [place] [address] PCP - General Family Medicine 03/04/22 Joshua Anderson FNP [address] [place] [address] Nurse Practitioner Family Medicine 06/03/23
--- OUTSIDE RECORDS SUMMARY | 2024-10-27 16:34 | XMS_ITS | Encounter Summary ---
Author Organization [employer] Address [address] 7t [place] [address] Care Team Providers Care Custodial Maintenance Worker Name Role Phone Trudi Reagan Primary Care Provider [phone] Joshua Anderson Unavailable Unavailable Encounter Details Date Type Department Care Team ([facility] st Contact Info) Description 04/26/2023 Orders Only [facility] MEDICINE [address] [place], [place] [phone] Trudi Irvin FNP Social History Tobacco Use Types Packs/Day Years Used Date Smoking Tobacco: Former Cigarettes Q uit: 03/30/2021 Smokeless Tobacco: Never Depression Answer Date Recorded Patient Health Questionnaire-9 Score 16 04/02/2023 Housing Stability Answer Date Recorded What is your housing situation today? I have ojhan jo 04/22/[address] you [...] Description 01/04/2025 3:15 PM EDT Office Visit [facility] MED & PEDS [address] [place] [address] Trudi Reagan FNP [address] [place] [address] documented as of this encounter Visit Diagnoses Not on filedocumented in this encounter Additional Health Concerns Assessment Noted Time PHQ-9 Depression Total Score: 16 023 2:37 PM EDT documented as of this encounter Care Teams Custodial Maintenance Worker Relationship Specialty Start Date End Date Trudi Reagan FNP [address] [place] [address] PCP - General Family Medicine 03/04/22 Joshua Anderson FNP [address] [place] [address] Nurse Practitioner Family Medicine 06/03/23 documented as of this encounter
--- OUTSIDE RECORDS SUMMARY | 2024-10-27 16:34 | XMS_ITS | Encounter Summary ---
Author Organization [employer] Address [address] [facility] 7t [place] [address] Care Team Providers Care Eyeglass Inspector Name Role Phone Trudi Reagan Primary Care Provider [phone] Joshua Anderson Unavailable Unavailable Reason for Visit * Reason Onset Date Comments Med Refill 05/29/2023 Encounter Details Date Type Department Care Team ([facility] st Contact Info) Description 05/29/2023 Telephone [facility] MEDICINE [address] [place] [address] Trudi Reagan FNP [address] [place] [address] Med Refill Social History Tobacco Use Types [...] Description 01/04/2025 3:15 PM EDT Office Visit [facility] MED & PEDS [address] [place] [address] Trudi Reagan FNP [address] [place] [address] documented as of this encounter Visit Diagnoses Not on filedocumented in this encounter Additional Health Concerns Assessment Noted Time PHQ-9 Depression Total Score: 16 023 2:37 PM EDT documented as of this encounter Care Teams Eyeglass Inspector Relationship Specialty Start Date End Date Trudi Reagan FNP [address] [place] [address] PCP - General Family Medicine 03/04/22 Joshua Anderson FNP [address] [place] [address] Nurse Practitioner Family Medicine 06/03/23 documented as of this encounter
--- OUTSIDE RECORDS SUMMARY | 2024-10-27 16:34 | XMS_ITS | Encounter Summary ---
Author Organization [employer] Address [address] [facility] [address] 7t [place] [address] Care Team Providers Care Senior Electrical Engineer Name Role Phone Trudi Reagan Primary Care Provider [phone] Joshua Anderson Unavailable Unavailable Reason for Visit * Reason Comments Med Refill Encounter Details Date Type Department Care Team ([facility] st Contact Info) Description 12/07/2023 Refill [facility] MED & PEDS [address] [place] [address] Joshua Anderson FNP Major depressive disorder with [...] 12/09/2023 3:30 PM EDT TC to pt. TONGUE PRESSER initial NV scheduled for 12/10/23 @ 11am. * Telephone Encounter - Flaquita Mantilla - 12/09/2023 3:22 PM EDT Tc from pt requesting a call to schedule TONGUE PRESSER appointment. Please contact pt at [phone] documented in this encounter Plan of Treatment Upcoming Encounters Date Type Department Care Team ([facility] st Contact Info) Description 01/04/2025 3:15 PM EDT Office Visit [facility] MED & PEDS [address] [place] [address] Trudi Reagan FNP [address] [place] [address] documented as of this encounter Visit Diagnoses Diagnosis Major depressive disorder with psychotic features (CMS/HCC) documented in this encounter Additional Health Concerns Assessment Noted Time PHQ-9 Depression Total Score: 12 024 2:28 PM EDT documented as of this encounter Care Teams Senior Electrical Engineer Relationship Specialty Start Date End Date Trudi Reagan FNP [address] [place] [address] PCP - General Family Medicine 8/28/22 Joshua Anderson FNP [address] [place] [address] Nurse Practitioner Family Medicine 06/03/23 documented as of this encounter
--- OUTSIDE RECORDS SUMMARY | 2024-10-27 16:34 | XMS_ITS | Encounter Summary ---
Author Organization [employer] Address [address] 7[address] [place] [address] Care Team Providers Care Ore Smelter Name Role Phone Trudi Reagan Primary Care Provider [phone] Joshua Anderson Unavailable Unavailable Reason for Visit * Reason Onset Date Comments Referral 04/05/2023 Encounter Details Date Type Department Care Team ([facility] st Contact Info) Description 04/05/2023 Telephone [facility] MEDICINE [address] [place] [address] Trudi Reagan FNP [address] [place] [address] Referral Social History Tobacco Use Types Packs/Day [...] 01/04/2025 3:15 PM EDT Office Visit [facility] MED & PEDS [address] [place] [address] Trudi Reagan FNP [address] [place] [address] documented as of this encounter Visit Diagnoses Not on filedocumented in this encounter Additional Health Concerns Assessment Noted Time PHQ-9 Depression Total Score: 16 023 2:37 PM EDT documented as of this encounter Care Teams Ore Smelter Relationship Specialty Start Date End Date Trudi Reagan FNP [address] [place] [address] PCP - General Family Medicine 03/04/22 Joshua Anderson FNP [address] [place] [address] Nurse Practitioner Family Medicine 06/03/23 documented as of this encounter
--- OUTSIDE RECORDS SUMMARY | 2024-10-27 16:34 | XMS_ITS ---
Author Organization [facility] Address [address] [place] [address] Care Team Providers Care Axle Inspector Name Role Phone SKINNY CRAMER, CARMELO Primary Care Provider Berto Rojas [phone] REASON FOR VISIT screening,gerd Encounters Encounter Location Date Provider Diagnosis [facility] [address] [place] [phone] 07/29/2023 Berto Muñoz Plan Of Treatment No Information Progress Notes * ALIX MORALESDOB: [birth year] (39 yo M)Acc No.[id number]:07/29/2023 EGD and COL/MAC Patient:?ALIX MORALES Provider:?Berto Muñoz MD :1985???Age:38 Y???Sex:Male Todd e:07/29/2023 Address:[address], [facility] Pcp:CARMELO BABB MD Subjective: * Chief Complaints: [...] MD Date:? 024 Generated for Printi ng/Faxing/eTransmitting on:?10/27/2024 04:33 PM EDT
--- OUTSIDE RECORDS SUMMARY | 2024-10-27 16:34 | XMS_ITS | Clinical Summary ---
Author Organization [facility] Address [address] [place] [address] Care Team Providers Care Banana Grader Name Role Phone Provider, Unknown Primary Care [...] patient's age to complete this topic Insurance [facility] [employer] Care Teams Banana Grader Relationship Specialty Start Date End Date Provider, Unknown 1 DO NOT USE THIS RECORD PCP - General 03/14/16
--- OUTSIDE RECORDS SUMMARY | 2024-10-27 16:34 | XMS_ITS ---
Author Organization [facility] Address [address] [place] [address] Care Team Providers Care Credentialing Coordinator Name Role Phone CARMELO BABB MD Primary Care Provider Berto Rojas [phone] REASON FOR VISIT CX PROCEDURE ON 04-29-23 Encounters Encounter Location Date Provider Diagnosis [facility] [address] [place] [address] 05/06/2023 Berto Muñoz Plan Of Treatment No Information Progress Notes * ANDREW ALIXDOB: [birth year] (38 yo M)Acc No.[id number]:05/06/2023 Patient:?ALIX MORALES :1985???Age:38 Y???Sex:Male Address:[address], [place], [address] * true * Date:? Generated for Claudiai ladonna/Remi/eTransmitting on:?10/27/2024 04:33 PM EDT
--- OUTSIDE RECORDS SUMMARY | 2024-10-27 16:34 | XMS_ITS | Encounter Summary ---
Author Organization [employer] Address [address] [facility] 7t [place] [address] Care Team Providers Care Buckle And Button Maker Name Role Phone Trudi Reagan Primary Care Provider [phone] Josuha Anderson Unavailable Unavailable Reason for Visit * Reason Comments Med Change Request Encounter Details Date Type Department Care Team (Late st Contact Info) Description 04/01/2023 Refill [facility] MED & PEDS [address] [place] [address] Trudi Reagan FNP [address] [place] [address] Social History Tobacco Use Types Packs/Day Years [...] Office Visit [facility] MED & PEDS [address] [place] [address] Trudi Reagan FNP [address] [place] [address] documented as of this encounter Visit Diagnoses Not on filedocumented in this encounter Additional Health Concerns Assessment Noted Time PHQ-9 Depression Total Score: 13 023 2:50 PM EDT documented as of this encounter Care Teams Buckle And Button Maker Relationship Specialty Start Date End Date Trudi Reagan FNP [address] [place] [address] PCP - General Family Medicine 03/04/22 Joshua Anderson FNP [address] [place] [address] Nurse Practitioner Family Medicine 06/03/23 documented as of this encounter
--- OUTSIDE RECORDS SUMMARY | 2024-10-27 16:34 | XMS_ITS | Encounter Summary ---
Author Organization [employer] [facility] Address [address] [facility] 7t [place] [address] Care Team Providers Care Highway Construction Inspector Name Role Phone Trudi Reagan Primary Care Provider [phone] Joshua Anderson Unavailable Unavailable Encounter Details Date Type Department Care Team (Late st Contact Info) Description 03/22/2023 Abstract [facility] MEDICINE [address] [place], [place] [phone] Trudi Reagan FNP [address] [place] [address] Social History Tobacco Use Types Packs/Day Years [...] Description 01/04/2025 3:15 PM EDT Office Visit [facility] MED & PEDS [address] [place], [place] [phone] Trudi Reagan FNP [address] [place], [place] [phone] documented as of this encounter Visit Diagnoses Not on filedocumented in this encounter Additional Health Concerns Assessment Noted Time PHQ-9 Depression Total Score: 13 023 2:50 PM EDT documented as of this encounter Care Teams Highway Construction Inspector Relationship Specialty Start Date End Date Trudi Reagan FNP [address] [place] [address] PCP - General Family Medicine 03/04/22 Joshua Anderson FNP [address] [place] [address] Nurse Practitioner Family Medicine 06/03/23 documented as of this encounter
--- OUTSIDE RECORDS SUMMARY | 2024-10-27 16:34 | XMS_ITS | Encounter Summary ---
Author Organization [employer] Address [address] 7t [place] [address] Care Team Providers Care Runway Model Name Role Phone Trudi Reagan Primary Care Provider [phone] Joshua Anderson Unavailable Unavailable Reason for Visit * Reason Comments Med Refill Encounter Details Date Type Department Care Team ([facility] st Contact Info) Description 07/15/2023 Refill [facility] MEDICINE [address] [place], [place] [phone] Joshua Anderson FNP Major depressive disorder with [...] 01/04/2025 3:15 PM EDT Office Visit [facility] MED & PEDS [address] [place] [address] Trudi Reagan FNP [address] [place] [address] documented as of this encounter Visit Diagnoses Diagnosis Major depressive disorder with psychotic features (CMS/HCC) documented in this encounter Additional Health Concerns Assessment Noted Time PHQ-9 Depression Total Score: 16 023 3:17 PM EST documented as of this encounter Care Teams Runway Model Relationship Specialty Start Date End Date Trudi Reagan FNP [address] [place] [address] PCP - General Family Medicine 03/04/22 Joshua Anderson FNP [address] [place] [address] Nurse Practitioner Family Medicine 06/03/23 documented as of this encounter
[2024-10-27 20:43] LABS: Creatinine, 24Hr Urine 1.1 G/Day (1.0-2.0); Sodium 24 Hr Urine 109.9 mmol/Day (40-220); Total Volume 24 Hour Urine 700 mL; Uric Acid, 24 Hr Urine 296.8 mg/Day (250-750)
[2024-10-29 16:02] LABS: Calcium, 24 Hr Urine 133 mg/24 h; Calcium/Creatinine Ratio 119 mg/g creat (30-210); Creatinine 24Hr Urine 1.12 g/24 h (0.50-2.15)
[2024-11-04 00:32] LABS: 24hr Urine Total Volume 700 mL; Oxalic Acid 24 Urine 5.3 mg/24 h (3.6-38.0)
[2024-11-04 14:53] LABS: 24hr Urine Total Volume 700 mL; Citric Acid, 24hr Urine 223 mg/24 h (100-1300); Citric Acid/Creat Ratio 24U 189 mg/g creat (60-660); Creatinine, 24U 1.18 g/24 h (0.50-2.15)
== END 2024-10-27 13:52 | disposition home or self-care (01) ==
LOC: HO.LAB 13:51
PROVIDERS: Registered Nurse; PCP Registered Nurse; Visit Provider Internal Medicine Nephrology
DX: N20.0 Calculus of kidney (principal); F32.3 Major depressive disorder, single episode, severe with psychotic features
CPT/HCPCS: 36415; 80307; 82310; 82340; 82507; 83945; 83970; 84300; 84443; 84550; 84560

== ENCOUNTER 2024-11-20 14:19 | Outpatient (AMB) | payer MEDICAID, SELFPAY ==
--- OUTSIDE RECORDS SUMMARY | 2024-11-20 14:22 | XMS_ITS | Encounter Summary ---
Author Organization [employer] Address [address] [place] [address] 7 [place] [address] Care Team Providers Care Automotive Glazier Name Role Phone Trudi Reagan Primary Care Provider [phone] Joshua Anderson Unavailable Unavailable Reason for Visit * Reason Comments Med Refill Encounter Details Date Type Department Care Team (Late Contact Info) Description 01/18/2023 Refill [facility] MED & PEDS [address] [place] [address] Joshua Anderson FNP Social History Tobacco Use [...] Upcoming Encounters Date Type Department Care Team ([facility] Contact Info) Description 11/24/2024 9:40 AM EDT Office Visit [facility] [address] [place] [address] 01/04/2025 3:15 PM EDT Office Visit [facility] MED & PEDS [address] [place] [address] Trudi Reagan FNP [address] [place] [address] documented as of this encounter Visit Diagnoses Not on filedocumented in this encounter Additional Health Concerns Assessment Noted Time PHQ-9 Depression Total Score: 11 023 2:18 PM EDT documented as of this encounter Care Teams Automotive Glazier Relationship Specialty Start Date End Date Trudi Reagan FNP [address] [place] [address] PCP - General Family Medicine 03/04/22 Joshua Anderson FNP [address] [place] [address] Nurse Practitioner Family Medicine 06/03/23 documented as of this encounter
--- OUTSIDE RECORDS SUMMARY | 2024-11-20 14:22 | XMS_ITS | Encounter Summary ---
Author Organization [employer] Address [address] [facility] 7t [place] [address] Care Team Providers Care Fashion Marketer Name Role Phone Trudi Reagan Primary Care Provider [phone] Jsohua Anderson Unavailable Unavailable Reason for Visit * Reason Onset Date Comments Med Refill 08/17/2024 Encounter Details Date Type Department Care Team ([facility] st Contact Info) Description 08/17/2024 Refill [facility] MEDICINE [address] [place] [address] Trudi Reagan FNP [address] [place] [address] Major depressive disorder with psychotic features (CMS/HCC) [...] then has initial appt on 08/02/24 with program manager environmental planning. Will send in 1 week supply from 08/26/24 - 09/02/24 to get him to appt. Then PCP bridge will be complete and Dewey needs to follow up with psych prescriber. Thank you. * Telephone Encounter - Macho Miner - 08/17/2024 10:28 AM EST TC from pt requesting medication refill. Medications needing refill : clonazePAM (KlonoPIN) 0.5 MG tablet To be sent to: [facility]/pharmacy #[id number] documented in this encounter Plan of Treatment Upcoming Encounters Date Type Department Care Team (Late st Contact Info) Description 11/24/2024 9:40 AM EDT Office Visit [facility] OPTOMET[facility] [address] [place] [address] 01/04/2025 3:15 PM EDT Office Visit [facility] MED & PEDS [address] [place] [address] Trudi Reagan FNP [address] [place] [address] documented as of this encounter Visit Diagnoses Diagnosis Major depressive disorder with psychotic features (CMS/HCC) documented in this encounter Additional Health Concerns Assessment Noted Time PHQ-9 Depression Total Score: 8 01/21/20 24 11:16 AM EDT documented as of this encounter Care Teams Fashion Marketer Relationship Specialty Start Date End Date Trudi Reagan FNP [address] [place] [address] PCP - General Family Medicine 03/04/22 Joshua Anderson FNP [address] [place] [address] Nurse Practitioner Family Medicine 06/03/23 documented as of this encounter
--- OUTSIDE RECORDS SUMMARY | 2024-11-20 14:22 | XMS_ITS | Patient Health Record ---
Author Organization [facility] Address [address] [place] [address] Care Team Providers Care Kiln Stoker Name Role Phone CARMELO BABB MD Primary Care Provider Berto Rojas [phone] Allergies No Known Allergies Reason For Referral [...] Problem Status W/U Status Risk Notes Problem 516171287 Colon cancer screening (Z12.11) Active confirmed Problem 820559347 Family history o f colon cancer (Z80.0) Active confirmed Problem 991993584 Gastroesophageal reflux disease, unspecified whether esophagitis present (K21.9) Active confirmed Plan Of Treatment Future Test Test Name Order Date UPPER GI ENDOSCOPY 01/30/2023 COLONOSCOPY 01/30/2023 Insurance Providers Payer Name Payer Address Payer Phone Subscriber Number Group Number Insured Name Patient Relationship to Insured Coverage Start Date Coverage End Date [email or web address] [address] [place] [id number] ALIX FRANCIS Self - patient is the insured Medical (General) History Medical History History ICD Code Anxiety GERD Hypertension Allergic rhinitis Hypothyroidism NIDDM Elevated cholesterol Vitamin D deficiency Denies [place],CVA,Lung disease,renal disease Surgical History Surgery Date(Month/Year)
--- OUTSIDE RECORDS SUMMARY | 2024-11-20 14:22 | XMS_ITS | Encounter Summary ---
Author Organization [employer] Address [address] [place] [address] 7 [place] [address] Care Team Providers Care Desktop Administrator Name Role Phone Trudi Reagan Primary Care Provider [phone] Joshua Anderson Unavailable Unavailable Reason for Visit * Reason Comments Med Refill Encounter Details Date Type Department Care Team (Late st Contact Info) Description 02/21/2023 Refill [facility] MEDICINE [address] [place] [address] Joshua Anderson FNP Social History Tobacco Use [...] Description 11/24/2024 9:40 AM EDT Office Visit [facility] OPTOMETRY [address] [place] [address] 01/04/2025 3:15 PM EDT Office Visit [facility] MED & PEDS [address] [place], [place] [phone] Trudi Reagan FNP [address] [place] [address] documented as of this encounter Visit Diagnoses Not on filedocumented in this encounter Additional Health Concerns Assessment Noted Time PHQ-9 Depression Total Score: 13 023 2:50 PM EDT documented as of this encounter Care Teams Desktop Administrator Relationship Specialty Start Date End Date Trudi Reagan FNP [address] [place] [address] PCP - General Family Medicine 03/04/22 Joshua Anderson FNP [address] [place] [address] Nurse Practitioner Family Medicine 06/03/23 documented as of this encounter
--- OUTSIDE RECORDS SUMMARY | 2024-11-20 14:22 | XMS_ITS ---
Author Organization [facility] Address [address] [place] [address] Care Team Providers Care Research Librarian Name Role Phone SKINNY CRAMER, CARMELO Primary Care Provider Berto Rojas [phone] REASON FOR VISIT Colon N/S--needs to R/S letter mailed Encounters Encounter Location Date Provider Diagnosis [facility] [address] [place] [phone] 08/25/2023 Berto Muñoz Plan Of Treatment No Information Progress Notes * ANDREWALIXDOB: [birth year] (38 yo M)Acc No.[id number]:08/25/2023 Patient:?ALIX MORALES :1985???Age:38 Y???Sex:Male Address:[address] [place] [address] [address], [place], [address] * true * Date:? Generated for Yo dougherty/Remi/eTransmitting on:?11/20/2024 02:22 PM EDT
--- OUTSIDE RECORDS SUMMARY | 2024-11-20 14:22 | XMS_ITS | Encounter Summary ---
Author Organization [employer] Address [address] [place] [address] Care Team Providers Care Certified Rehabilitation Counselor Name Role Phone Trudi Reagan Primary Care Provider [phone] Joshua Anderson Unavailable Unavailable Reason for Visit * Reason Onset Date Comments Med Refill 10/23/2024 Encounter Details Date Type Department Care Team ([facility] st Contact Info) Description 10/23/2024 Telephone [facility] MEDICINE [address] [place] [address] Trudi Reagan FNP [address] [place] [address] Med Refill Social History Tobacco Use Types [...] 5-325 MG tablet To be sent to: [facility]/pharmacy #[id number] documented in this encounter Plan of Treatment Upcoming Encounters Date Type Department Care Team ([facility] Contact Info) Description 11/24/2024 9:40 AM EDT Office Visit [facility] OPTOMETRY [address] [place] [address] 01/04/2025 3:15 PM EDT Office Visit [facility] MED & PEDS [address] [place] [address] Trudi Reagan FNP [address] [place] [address] documented as of this encounter Visit Diagnoses Not on filedocumented in this encounter Additional Health Concerns Assessment Noted Time PHQ-9 Depression Total Score: 8 01/21/20 24 11:16 AM EDT documented as of this encounter Care Teams Certified Rehabilitation Counselor Relationship Specialty Start Date End Date Trudi Reagan FNP [address] [place] [id number] PCP - General Family Medicine 03/04/22 Joshua Anderson FNP [address] [place] [address] Nurse Practitioner Family Medicine 06/03/23 documented as of this encounter
--- OUTSIDE RECORDS SUMMARY | 2024-11-20 14:23 | XMS_ITS | Clinical Summary ---
Author Organization [facility] Address [address] [place] [address] Care Team Providers Care Joint Creaser Name Role Phone Provider, Unknown Primary Care [...] of 3 - 19+ 3-dose series) 2002 COVID-19 Vaccine ( - 2023-2 5 season) 2024 Influenza Vaccine 02/05/2025 HPV Vaccines Aged Out No longer eligi ble based on patient's age to complete this topic Pneumococcal Vaccine: Pediat monet (0-5 Years) and At-Risk Patients (6 to 49 Years) Aged Out No longer eligible b ased on patient's age to complete this topic Insurance [facility] [employer] Care Teams Joint Creaser Relationship Specialty Start Date End Date Provider, Unknown 1 DO NOT USE THIS RECORD PCP - General 03/14/16
--- OUTSIDE RECORDS SUMMARY | 2024-11-20 14:23 | XMS_ITS | Encounter Summary ---
Author Organization [employer] Address [address] [place] [address] Care Team Providers Care Ring Cutter Lathe Operator Name Role Phone Trudi Reagan Primary Care Provider [phone] Joshua Anderson Unavailable Unavailable Reason for Visit * Reason Onset Date Comments Referral 04/05/2023 Encounter Details Date Type Department Care Team ([facility] st Contact Info) Description 04/05/2023 Telephone [facility] MEDICINE [address] [place] [address] Trudi Reagan FNP [address] [place] [address] Referral Social History Tobacco Use Types Packs/Day [...] Description 11/24/2024 9:40 AM EDT Office Visit [facility] OPTOMETRY [address] [place] [address] 01/04/2025 3:15 PM EDT Office Visit [facility] MED & PEDS [address] [place] [address] Trudi Reagan FNP [address] [place] [address] documented as of this encounter Visit Diagnoses Not on filedocumented in this encounter Additional Health Concerns Assessment Noted Time PHQ-9 Depression Total Score: 16 023 2:37 PM EDT documented as of this encounter Care Teams Ring Cutter Lathe Operator Relationship Specialty Start Date End Date Trudi Reagan FNP [address] [place] [address] PCP - General Family Medicine 03/04/22 Joshua Anderson FNP [address] [place] [address] Nurse Practitioner Family Medicine 06/03/23 documented as of this encounter
--- OUTSIDE RECORDS SUMMARY | 2024-11-20 14:23 | XMS_ITS | Encounter Summary ---
Author Organization [employer] Address [address] [place] [address] [address] [place] [address] Care Team Providers Care Tool And Fixture Repairer Name Role Phone Trudi Reagan Primary Care Provider [phone] Joshua Anderson Unavailable Unavailable Encounter Details Date Type Department Care Team (Late Contact Info) Description 03/29/2023 [facility] Information Management [address] [place], [place] [phone] Trudi Reagan FNP [address] [place] [address] Social History Tobacco Use Types Packs/Day Years [...] Description 11/24/2024 9:40 AM EDT Office Visit [facility] OPTOMETRY [address] [place] [address] 01/04/2025 3:15 PM EDT Office Visit [facility] CHC MED & PEDS [address] [place], [place] [phone] Trudi Reagan FNP [address] [place] [address] documented as of this encounter Visit Diagnoses Not on filedocumented in this encounter Additional Health Concerns Assessment Noted Time PHQ-9 Depression Total Score: 13 023 2:50 PM EDT documented as of this encounter Care Teams Tool And Fixture Repairer Relationship Specialty Start Date End Date Trudi Reagan FNP [address] [place] [address] PCP - General Family Medicine 03/04/22 Joshua Anderson FNP [address] [place] [address] Nurse Practitioner Family Medicine 06/03/23 documented as of this encounter
--- OUTSIDE RECORDS SUMMARY | 2024-11-20 14:23 | XMS_ITS | Encounter Summary ---
Author Organization [employer] Address [address] [place] [address] Care Team Providers Care Cylinder Press Feeder Name Role Phone Trudi Reagan Primary Care Provider [phone] Joshua Anderson Unavailable Unavailable Reason for Visit * Reason Onset Date Comments Med Refill 05/29/2023 Encounter Details Date Type Department Care Team ([facility] st Contact Info) Description 05/29/2023 Telephone [facility] MEDICINE [address] [place] [address] Trudi Reagan FNP [address] [place], [place] [phone] Med Refill Social History Tobacco Use Types [...] Description 11/24/2024 9:40 AM EDT Office Visit [facility] OPTOMETRY [address] [place] [address] 01/04/2025 3:15 PM EDT Office Visit [facility] MED & PEDS [address] [place] [address] Trudi Reagan FNP [address] [place] [address] documented as of this encounter Visit Diagnoses Not on filedocumented in this encounter Additional Health Concerns Assessment Noted Time PHQ-9 Depression Total Score: 16 023 2:37 PM EDT documented as of this encounter Care Teams Cylinder Press Feeder Relationship Specialty Start Date End Date Trudi Reagan FNP [address] [place] [address] PCP - General Family Medicine 03/04/22 Joshua Anderson FNP [address] [place] [address] Nurse Practitioner Family Medicine 06/03/23 documented as of this encounter
--- OUTSIDE RECORDS SUMMARY | 2024-11-20 14:23 | XMS_ITS ---
Author Organization [facility] Address [address] [place] [id number] Care Team Providers Care Home Economist Name Role Phone SKINNY CRAMER, CARMELO Primary Care Provider Berto Rojas [phone] REASON FOR VISIT screening,gerd Encounters Encounter Location Date Provider Diagnosis [facility] Outpatient [address] [place] [phone] 07/29/2023 Berto Muñoz Plan Of Treatment No Information Progress Notes * ALIX MORALESDOB: [birth year] (39 yo M)Acc No.[id number]:07/29/2023 EGD and COL/MAC Patient:?ALIX MORALES Provider:?Berto Muñoz MD :1985???Age:38 Y???Sex:Male Todd e:07/29/2023 [address] [facility] Pcp:CARMELO BABB MD Subjective: * Chief Complaints: [...] MD Date:? 024 Generated for Printi ng/Faxing/eTransmitting on:?11/20/2024 02:22 PM EDT
--- OUTSIDE RECORDS SUMMARY | 2024-11-20 14:23 | XMS_ITS | Clinical Summary ---
Author Organization [employer] Address [address] [facility] [address] [place] [address] Care Team Providers Care Jewel Hole Driller Name Role Phone Trudi Reagan Primary Care Provider [phone] Joshua Anderson Unavailable Unavailable Allergies No known [...] breakfast. 90 tablet 1 025 2025 Active omeprazole (PriLOSEC) [address] capsule TAKE 1 TABLET BY ORAL ROUTE 2 TIMES EVERY DAY BEFORE MEALS (BREAKFAST & DINNER) 180 capsule 1 Active venlafaxine XR (Effexor XR) 150 MG 24 hr capsuleIndications :Major depressive disorder with psychotic features (CMS/HCC) Take 1 capsule (150 mg) by mouth in the morning. Do not crush or chew. 30 capsule 025 2024 Active hydrOXYzine HCl (Atarax) 50 MG tabletIndications: Major depressive disorder with psychotic features (CMS/HCC) Take 1 tablet (50 mg) by mouth if needed in the morning and at bedtime for anxiety. Take at first sign of panic attack. 60 tablet 025 2024 Active clonazePAM (KlonoPIN) 0.5 MG tabletIndications: Major depressive disorder with psychotic features (CMS/HCC) Take 1 tablet (0.5 mg) by mouth if needed in the morning and at bedtime for anxiety. 60 tablet 025 2024 Active prazosin (Minipress) 1 MG capsuleIndications :Major depressive disorder with psychotic features (CMS/HCC) Take 1 capsule (1 mg) by mouth at bedtime. Take every night without skipping doses 30 capsule 025 2024 Active QUEtiapine (SEROquel) 50 MG tabletIndications: Major depressive disorder with psychotic features (CMS/HCC) Take 1 tablet (50 mg) by mouth at bedtime. 30 tablet 025 2024 Active prazosin (Minipress) 2 MG capsuleIndications :Major depressive disorder with psychotic features (CMS/HCC) TAKE 1 CAPSULE (2 MG) BY MOUTH AT BEDTIME. TAKE EVERY NIGHT WITHOUT SKIPPING DOSES 30 capsule 2024 Discontinued(R eorder (will not trigger notification to Pharmacy)) venlafaxine XR (Effexor XR) 75 MG 24 hr capsuleIndications :Major depressive disorder with psychotic features (CMS/HCC) Take 2 capsules (150 mg) by mouth Once daily. Do not crush or chew. 60 capsule 1 2024 Discontinued(R eorder (will not trigger notification to Pharmacy)) hydrOXYzine HCl (Atarax) 25 MG tabletIndications: Major depressive disorder with psychotic features (CMS/HCC) Take 1 tablet (25 mg) by mouth if needed in the morning, at noon, and at bedtime for anxiety. Take at first sign of panic attack. 90 tablet 1 2024 Discontinued(R eorder (will not trigger notification to Pharmacy)) clonazePAM (KlonoPIN) 0.5 MG tabletIndications: Major depressive disorder with psychotic features (CMS/HCC) Take 1 tablet (0.5 mg) by mouth if needed in the morning and at bedtime for anxiety. 60 tablet 025 2024 Discontinued(R eorder (will not trigger notification to Pharmacy)) Active Problems Problem Noted Date Diagnosed Date Panic disorder 09/02/2024 Bilateral nephrolithiasis 04/01/2023 Overview (05/31/2024): Diagnosed 03/19/23, CT revealed bilateral nephrolithiasis with 5-6 mm mid right ureteral calculus resulting in mild right sided hydroureteronephrosis Following with [facility] 06/18/23: ureteroscopy with laser lithotripsy on the right 06/26/23: KUB demonstrated 3 small calcifications overlying left renal fossa May 2024: reports ED eval [id number] identified bilat kidney stones Assessment & Plan (05/31/2024 9:10 PM EST): - Discussed ED eval NOW vs outpatient management. Pt declines ED eval, will proceed with OP eval at this time with strict ED precautions - Plan: CT abd/pelvis w/o contrast ordered STAT Dewey to call [facility] for appt Hydration Flomax x 30 days Strict ED precautions Assessment & Plan (06/29/2023 10:33 AM EST): -Cont pyridoxine 100mg daily through Urology -Pain management through [facility] PRN -Repeat KUB ordered for further [...] and was apparently told erroneously by his [facility] pharmacy that he had no refills [...] again I encouraged him to switch to [facility] pharmacy where his medications could be packaged [...] BID. New Rx's were also sent to [facility] pharmacy for medboxes, for Risperidone 1 mg daily, Venlafaxine 150 mg daily, Prazosin 2 mg 2 at bedtime, and Hydroxyzine 25 mg q 6 h prn. Patient evidently has not yet started Medboxes, but says he has an appointment to bring in all his pills. He missed [facility] visit as well, but that has also [...] mg BID. New Rx's also sent to [facility] pharmacy for medboxes, for Risperidone 1 mg [...] Plan (04/01/2023 8:49 AM EDT): -Established with [facility] Psychopharm clinic - Joshua Anderson APRN. -Continue [...] car yesterday after picking up refills at [facility]. Later in the conversation asks me if [facility] will know which medications are available for refill. Rather than belaboring his symptom report and medication instructions again, we will defer that until next appointment, when I have explained that he will need to have the medication bottles available for review. Again suggested switching to [facility] or [facility] pharmacy for Medboxes and home [...] as directed. Strongly urged to utilize the [facility] Pharmacy with Medboxes and home delivery to [...] TID prn anxiety. He will F/U with [facility] in [place] for counseling intake. F/U 4-6 weeks. He agrees with the plan. Assessment & Plan (09/25/2022 3:52 PM EDT): Presented with tearfulness, auditory hallucinations, flashbacks and intrusive thoughts. Consider alternate diagnosis of PTSD. Seems to be doing a little better. Continue medicaitons without skipping doses. Recommend going in person to [facility] in [place]. F/U 4-6 weeks. He agrees with the [...] without skipping doses. Given information about [facility] in [place] and urged to go in person or [...] 281 Mar 2023 Eye exam: referral to [facility] Eye Care Dental: encouraged to establish dental [...] pt interested in starting med boxes with [facility] pharmacy - referral sent. Vitamin [...] DEPARTMENT Provider, Generic External Data 10/23/2024 Telephone [facility] MEDICINE [address] [place] [address] Trudi Reagan FNP Med Refill 10/12/2024 Orders Only [facility] MEDICINE [address] [place] [address] Balwinder Guajardo CNP 10/10/2024 Refill [facility] MED & PEDS [address] [place], [place] [phone] Trudi Reagan FNP 10/05/2024 11:15 AM EDT Office Visit [facility] MED & PEDS [address] [place] [address] Trudi Reagan FNP Bilateral nephrolithiasis (Primary Dx); Dysuria; Healthcare maintenance; Encounter for screening examination for sexually transmitted disease; Acquired hypothyroidism; Gastroesophageal reflux disease without esophagitis 10/05/2024 Travel 10/01/2024 Telephone [facility] MED & PEDS [address] [place] [address] Trudi Reagan FNP Chart Prep 09/22/2024 11:00 AM EDT Office Visit [facility] MED & PEDS [address] [place] [address] Graeme Love MD Skin tag (Primary Dx) 09/22/2024 Travel 09/18/2024 Population Health Risk Score [facility] () [address] [phone] Provider, Population Health Generic 09/16/2024 3:15 PM EDT Clinical Support [facility] MED & PEDS [address] [place] [address] Antonella Moon, RN Anxiety 09/16/2024 Telephone [facility] MED [facility] PEDS [address] [place] [address] Antonella Moon RN 09/16/2024 Travel 08/27/2024 Telephone [facility] MED & PEDS [address] [place] [address] Trudi Reagan FNP August recal from Last 3 Months Immunizations Immunization Administration Dates Next Due DTaP 03/14/1988, 6,1983,1983,1983 [...] Description 11/24/2024 9:40 AM EDT Office Visit [facility] OPTOMETRY [address] [place] [address] 01/04/2025 3:15 PM EDT Office Visit [facility] CHC MED & PEDS [address] [place] [address] Trudi Reagan, LOAD HAUL DUMP OPERATOR [address] [place] [address] Health Maintenance Due Date Last Done Comments Diabetes: Foot Exam 1993 Eye Exam 1993 Alcohol/Substance Use Screening 1995 Family Planning (PISQ) 1998 SDOH Screening 06/28/2024 06/28/2023 Depression Screening 01/20/2025 01/21/2024, 01/21/20 Diabetes: Hemoglobin A1C 04/13/2025 04/ 025, 05/25/2024, 02/17/2024, Additional history exists Diabetes: Urine Protein Screening 06/24/2025 06/24/2024, 04/04/2023, 11/28/2020 Lipid Panel 10/12/2025 10/12/2024, 06/07, 04/04/2023 Tobacco Screening 11/05/2025 11/05/2024 Zoster Vaccines (1 of 2) 2033 DTaP/Tdap/Td [...] patient's age to complete this topic Meningococcal B Vaccine Aged Out No l onger eligible based on patient's age to complete [...] Major depressive disorder with psychotic features (CMS/HCC) CITRIC ACID, 24-HOUR URINE WITH CREATININE Routine 10/27/2024 12:33 PM EDT OXALATE, URINE, 24 HOUR Routine 10/27/2024 12:33 PM EDT CALCIUM, 24 HOUR URINE (W/ CREATININE) Routine 10/27/2024 12:33 PM EDT URIC ACID, [...] SCREEN Routine 09/16/2024 3:08 PM EDT Anxiety ALBUMIN, RANDOM URINE W/CREATININE Routine 06/24/2024 10:09 AM EST Essential hypertension Type 2 diabetes mellitus without complication, without long-term current use of insulin ([facility]) from Last 3 Months or Most Recently Relevant to Health Maintenance Results * TSH with Reflex to Free T4 (10/27/2024 2:04 PM EDT) Only the most recent of2 resultswithin the time period is included. TSH reflex Free T4 1.72 0.32 - 4.0 uIU/mL [facility] 10/27/2024 2:04 PM EDT 10/27/2024 2:04 PM EDT us Generic External Data Provider LAB BLOOD ORDERAB LES Final Result Performing Organization Address [facility]/ZIP Co de Phone Number [facility] [address] [place] [phone] [phone] * Uric acid (10/27/2024 2:04 PM EDT) Uric Acid 7.0 3.4 - 7.0 mg/dL [facility] 10/27/2024 2:04 PM EDT 10/27/2024 2:04 PM EDT us Generic External Data Provider LAB BLOOD ORDERAB LES Final Result Performing Organization Address [facility] Co de Phone Number [facility] [address] [place] [phone] * PTH, Intact Without Calcium (10/27/2024 2:04 PM EDT) Parathyroid Hormone, Intact 72.8 8.7 - 77.1 pg/mL [facility] 10/27/2024 2:04 PM EDT 10/27/2024 2:04 PM EDT us Generic External Data Provider LAB BLOOD ORDERAB LES Final Result Performing Organization Address [facility] Co de Phone Number [facility] [address] [place] [phone] * Calcium (10/27/2024 2:04 PM EDT) Calcium 9.3 8.4 - 10.2 mg/dL [facility] 10/27/2024 2:04 PM EDT 10/27/2024 2:04 PM EDT us Generic External Data Provider LAB BLOOD ORDERAB LES Final Result Performing Organization Address [facility] Co de Phone Number [facility] [address] [place] [phone] * Drug Monitoring, Panel 1, Screen, Urine (10/27/2024 2:03 PM EDT) Pathologist [facility] Opiate Screen Urine Not Detected Not Detect [facility] Comment:Opiate cut-off is 30 0 ng/mL.Positive results are unconfirmed and should not be used fornon-medical purposes. Barbiturates, Urine Not Detected Not Detect [facility] Comment:Barbiturate cut-off is 200 ng/mL.Positive results are unconfirmed and should not be used fornon-medical purposes. Phencyclidine Screen Urine Not Detected Not Detect [facility] Comment:Phencyclidine cut-of f is 25 ng/mL.Positive results are unconfirmed and should not be used fornon-medical purposes. Amphetamine Screen Urine Not Detected Not Detect [facility] Comment:Amphetamine cut-off is 1000 ng/mL.Positive results are unconfirmed and should not be used fornon-medical purposes. Benzodiazepines Screen Urine Not Detected Not Detect [facility] Comment:Benzodiazepine cut-o ff is 200 ng/mL.Positive results are unconfirmed and should not be used fornon-medical purposes. Cocaine Screen Urine Not Detected Not Detect [facility] Comment:Cocaine cut-off is 3 00 ng/mL.Positive results are unconfirmed and should not be used fornon-medical purposes. Cannabinoid Screen Urine Not Detected Not Detect [facility] Comment:Cannabinoid cut-off is 50 ng/mL.Positive results are unconfirmed and should not be used fornon-medical purposes. Methadone Screen, Urine Not Detected Not Detect ng/mL [facility] Comment:Methadone cut-off is 300 ng/mL.Positive results are unconfirmed and should not be used fornon-medical purposes. FENTANYL URINE Not Detected Not Detect [facility] Comment:Fentanyl cut-off is 1 ng/mL.Positive results are unconfirmed and should not be used fornon-medical purposes. Oxycodone Urine Screen Not Detected Not Detect ng/mL [facility] Comment:Oxycodone cut-off is 100 ng/mL.Positive results are unconfirmed and should not be used fornon-medical purposes. Buprenorphine Screen Not Detected Not Detect ng/mL [facility] Comment:Buprenorphine cut-of f is 5 ng/mL.Positive results are unconfirmed and should not be used fornon-medical purposes. Urine (Urine, Random) 10/27/2024 2:03 PM EDT 10/27/2024 2:36 PM EDT Darrin Melendez PMHNP LAB URINE ORDERABLES Final Re sult Performing Organization Address [facility]/ZIP Co de Phone Number [facility] [address] [place] [phone] * Citric Acid, 24-Hour Urine with Creatinine (10/27/2024 12:33 PM EDT) Creatinine, 24 Hour Urine 1.18 0.50 - 2.15 g/24 h [facility] Comment:This test was develo ped and its analytical performancecharacteristics have been determined by [employer] [place], [place]. It hasnot been cleared or approved by the U.S. Food and DrugAdministration. This assay has been validated pursuantto the CLIA regulations and is used for clinicalpurposes.THIS TEST WAS PERFORMED AT:[employer]/[facility] [place] [address]ROWXKMBCAYLA LOZADA MD,PHD Citric Acid, 24 Hr Urine 223 100 - 1300 mg/24 h [facility] Citric Acid/Creatinine Ratio 189 60 - 660 mg/g creat [facility] Total Volume 700 mL [facility] 10/27/2024 12:3 3 PM EDT 10/27/2024 2:41 PM EDT Narrative [facility] - 11/04/2024 2:53 PM EDT [id number] us Generic External Data Provider LAB URINE ORDERAB LES Final Result Performing Organization Address [facility]/ZIP Co de Phone Number [facility] [address] [place] [phone] * Sodium, 24-Hour Urine with Creatinine (10/27/2024 12:33 PM EDT) Sodium, 24 Hour Urine 109.9 40 - 220 mmol/Day [facility] Creatinine, 24 Hour Urine 1.1 1.0 - 2.0 G/Day [facility] Creatinine, Urine 157.80 [facility] Urine Total Volume 24 Hour 700 mL [facility] 10/27/2024 12:3 3 PM EDT 10/27/2024 2:41 PM EDT [facility] - 10/27/2024 8:43 PM EDT [id number] us Generic External Data Provider LAB URINE ORDERAB LES Final Result Performing Organization Address [facility] Co de Phone Number [facility] [address] [place] [phone] * Calcium, 24 Hour Urine W/ Creatinine (10/27/2024 12:33 PM EDT) Calcium, 24 Hour Urine 133 mg/24 h [facility] Comment:Reference Range 55-3 00 Low calcium diet 55-200 Calcium/Creatini ne Ratio 119 30 - 210 mg/g creat [facility] Creatinine, 24 Hour Urine 1.12 0.50 - 2.15 g/24 h [facility] Comment:THIS TEST WAS PERFOR MED AT:[employer] [address] [id number] GARZON MD 10/27/2024 12:3 3 PM EDT 10/27/2024 2:41 PM EDT [facility] - 11/04/2024 12:32 AM EDT [id number] us Generic External Data Provider LAB URINE ORDERAB LES Final Result Performing Organization Address [facility]/ZIP Co de Phone Number [facility] [address] [place] [phone] * Uric acid, urine, 24 hour (10/27/2024 12:33 PM EDT) Uric Acid, 24 Hour Urine 296.8 250 - 750 mg/Day [facility] Creatinine, 24 Hour Urine 1.1 1.0 - 2.0 G/Day [facility] Creatinine, Urine 157.20 [facility] Urine Total Volume 24 Hour 700 mL [facility] 10/27/2024 12:3 3 PM EDT 10/27/2024 2:41 PM EDT Narrative [facility] - 10/27/2024 8:43 PM EDT [id number] Generic External Data Provider LAB URINE ORDERAB LES Final Result Performing Organization Address [facility] Phone Number [facility] [address] [place] [phone] * Oxalic Acid, 24-Hour Urine without Creatinine (10/27/2024 12:33 PM EDT) Oxalic Acid, 24-Hr Urine 5.3 3.6 - 38.0 mg/24 h [facility] Comment:THIS TEST WAS PERFOR MED AT:[employer] [id number] [facility] [place] [address]EEWIYXUAN CABRERA MD,PHD,WILMA Total Volume 700 mL [facility] 10/27/2024 12:3 3 PM EDT 10/27/2024 2:41 PM EDT Narrative [facility] - 11/04/2024 12:32 AM EDT [id number] us Generic External Data Provider LAB URINE ORDERAB LES Final Result Performing Organization Address [facility] Co de Phone Number [facility] [address] [place] [phone] * (ABNORMAL) CBC auto differential (10/12/2024 12:54 PM EDT) White Blood Count 5.0 4.8 - 10.8 X10*3/uL [facility] Red Blood Count 5.59 4.60 - 5.80 X10*6/uL [facility] Hemoglobin 15.8 14.0 - 18.0 g/dl [facility] Hematocrit 47.4 42.0 - 52.0 % [facility] Mean Corpuscular Volume 84.8 80.0 - 98.0 fL [facility] Mean Corpuscular Hemoglobin 28.3 27.0 - 33.0 pg [facility] Mean Corpuscular HGB Conc 33.3 31.0 - 36.0 g/dl [facility] Red Cell Distribution Width 13.1 11.0 - 16.0 % [facility] Platelet Count 152(L) 160 - 400 X10*3/uL [facility] Mean Platelet Volume 12.1 9.4 - 12.4 fL [facility] Neutrophils Percent Auto 53.7 45 - 73 % [facility] Imm Gran Pct Auto 0.2 0.0 - 0.4 % [facility] Lymphocytes Percent Auto 35.9 20 - 40 % [facility] Monocytes Percent Auto 8.6 2 - 11 % [facility] Eosinophils Percent Auto 1.0 0 - 4 % [facility] Basophils Percent Auto 0.6 0 - 2 % [facility] NRBC Pct Auto 0.0 0.0 - 0.2 /100WBC [facility] Neutrophils Absolute Auto 2.7 2.0 - 8.3 x10*3/uL [facility] Imm Gran Abs Auto 0.01 0.00 - 0.03 X10*3/uL [facility] Lymphocytes Absolute Auto 1.8 1.2 - 4.9 X10*3/uL [facility] Monocytes Absolute Auto 0.4 0.1 - 1.2 X10*3/uL [facility] Eosinophils Absolute Auto 0.1 0.0 - 0.4 X10*3/uL [facility] Basophils Absolute Auto 0.0 0.0 - 0.2 X10*3/uL [facility] NRBC Abs Auto 0.000 0.0 - 0.012 X10*3/uL [facility] Blood Venous blood specimen / Unknown 10/12/2024 12:54 PM EDT 10/12/2024 1:56 PM EDT [facility] LAB BLOOD ORDERABLES Manuela l Result Performing Organization Address City/[facility] Co de Phone Number [facility] [address] [place] [phone] * Hepatitis C Antibody with Reflex to HCV, RNA, Quantitative, Real-Time PCR (10/12/2024 12:54 PM EDT) Hepatitis C Antibody Nonreactive Nonreactive [facility] Comment:Antibodies to HCV no t detected; does not exclude early acuteHCV infection. Blood Venous blood specimen / Unknown 10/12/2024 12:54 PM EDT 10/12/2024 1:56 PM EDT Result [facility] LAB BLOOD ORDERABLES Manuela l Result Performing Organization Address City/[facility] Co de Phone Number [facility] [address] [place] [phone] * RPR (Monitor) with Reflex to??Titer (10/12/2024 12:54 PM EDT) RPR (Monitor) w/Refl Titer NON-REACTI VE NON-REACT [place] [facility] Comment:THIS TEST WAS PERFOR MED AT:[facility] [place] [id number] GARZON MD Rapid Plasma Reagin Ab Titer TNP [facility] Blood Venous blood specimen / Unknown 10/12/2024 12:54 PM EDT 10/12/2024 1:56 PM EDT [facility] LAB BLOOD ORDERABLES Manuela l Result Performing Organization Address [facility] Co de Phone Number [facility] [address] [place] [phone] * HIV-1/2 Antigen and Antibodies, Fourth Generation, with Reflexes (10/12/2024 12:54 PM EDT) HIV AB/AG Nonreactive Nonreactive [facility] Comment:HIV-1 p24 Ag and/or HIV-1/HIV-2 Ab not detected.A test result that is nonreactive does not exclude thepossibility of exposure to or infection with HIV-1 and/orHIV-2. Nonreactive results in this assay for individualswith prior exposure to HIV-1 and/or HIV-2 may be due toantigen and antibody levels that are below the limit ofdetection of this assay.The [employer] HIV Ag/Ab Combo assay result andsupplemental assay results should be interpreted inconjunction with the patient's clinical presentation,history and other laboratory results. If the results areinconsistent with clinical evidence, additional testing issuggested to confirm the result. Blood Venous blood specimen / Unknown 10/12/2024 12:54 PM EDT 10/12/2024 1:56 PM EDT [facility] LAB BLOOD ORDERABLES Manuela l Result Performing Organization Address [facility] Co de Phone Number [facility] [address] [place] [phone] * T4, Free (10/12/2024 12:54 PM EDT) Free T4 (Free Thyroxine) 1.03 0.71 - 1.85 ng/dL [facility] 10/12/2024 12:5 4 PM EDT 10/12/2024 1:56 PM EDT [facility] LAB BLOOD ORDERABLES Manuela l Result Performing Organization Address City/[facility] Co de Phone Number [facility] [address] [place] [phone] * Hemoglobin A1c (10/12/2024 12:54 PM EDT) Hemoglobin A1c 6.0 <6.0 % [facility] Comment:Hemoglobin A1C Refer ence Range Adults: 4.8 - 6.0 % Non diabetic: < 6.0 % Goal: < 7.0 %Additional Action Suggested: > 8.0 %Note: Hemoglobin A1c results are invalid for patients with abnormal amounts of HbF. Blood transfusions may impact the HbA1c concentration in the patient sample. Estimated Average Glucose 126 mg/dL [facility] Comment:eAG = Estimated ave rage glucose which is %A1C expressed asaverage glucose, using the formula of the [id number] Glucose study (ADAG), Diabetes Care, Vol.31,#8,Feb. 2007 Blood Venous blood specimen / Unknown 10/12/2024 12:54 PM EDT 10/12/2024 1:56 PM EDT [facility] LAB BLOOD ORDERABLES Manuela l Result Performing Organization Address [facility]/ZIP Co de Phone Number [facility] [address] [place] [phone] * (ABNORMAL) Lipid Panel, Standard (10/12/2024 12:54 PM EDT) Triglycerides 129 <150 mg/dL [facility] Comment:Desirable Triglyceri de: less than 150 mg/dLBorderline High Triglyceride 150-199 mg/dLHigh Triglyceride: 200-499 mg/dLVery High Triglyceride: greater than or equal to 5OO mg/dL Cholesterol 175 <200 mg/dL [facility] Comment:Desirable Cholestero l: less than 200 mg/dLBorderline High Cholesterol: 200-239 mg/dLHigh Cholesterol: greater than 239 mg/dL LDL Cholesterol Calculated 105(H) <100 mg/dL [facility] Comment:Desirable LDL: less than 100 mg/dLNear Optimal/Above Optimal LDL: 110- 129 mg/dLBorderline High LDL: 130-159 mg/dLHigh LDL: 160-189 mg/dLVery High LDL: greater than or equal to 190 mg/dL HDL Cholesterol 45 >40 mg/dL [facility] Comment:Desirable HDL: great er than 40 mg/dL Note: This HDL assay may give artificially low results in patients with liver disease. Blood Venous blood specimen / Unknown 10/12/2024 12:54 PM EDT 10/12/2024 1:56 PM EDT [facility] LAB BLOOD ORDERABLES Manuela l Result [facility] [address] [place] [address] [phone] * (ABNORMAL) Comprehensive Metabolic Panel (10/12/2024 12:54 PM EDT) Sodium 139 135 - 145 mmol/L [facility] Potassium 4.3 3.3 - 5.1 mmol/L [facility] Chloride 105 96 - 108 mmol/L [facility] Carbon Dioxide 28 22 - 29 mmol/L [facility] Anion Gap 10(L) 12 - 20 [facility] Urea Nitrogen (BUN) 16 9 - 16 mg/dL [facility] Creatinine, Serum 0.95 0.5 - 1.4 mg/dL [facility] Estimated Glomerular Filt Rate >60 [facility] Comment:Chronic Kidney Disea se: Estimated GFR < 60 mL/min/1.82d1Lxdjif Kidney Disease: Estimated GFR < 15 mL/min/1.73m2 Glucose 98 60 - 115 mg/dL [facility] Calcium 9.4 8.4 - 10.2 mg/dL [facility] Bilirubin, Total 0.6 0.0 - 1.0 mg/dL [facility] Aspartate Amino Transferase 32 5 - 37 U/L [facility] Alanine Aminotransferase 39 0 - 40 U/L [facility] Total Protein 7.4 6.5 - 8.0 g/dL [facility] Albumin Level 4.4 3.5 - 5.0 g/dL [facility] Alkaline Phosphatase 55 39 - 117 U/L [facility] Blood Venous blood specimen / Unknown 10/12/2024 12:54 PM EDT 10/12/2024 1:56 PM EDT us Balwinder Guajardo CLIP [employer]IVET[employer] LAB BLOOD ORDERABLES Manuela l Result [facility] [address] [place] [address] [phone] * CT abdomen w/o Contrast (10/06/2024 2:33 PM EDT) Anatomical Region Laterality Modality Body, Abdomen Computed Tomogra phy 10/06/2024 2:33 PM EDT Narrative 10/06/2024 3:21 PM EDT ? [facility] ?[address] ?[place] [address] ? CT Scan Report ? Signed ? Patient: Dewey Francisco ?MR#: [id number] ?? [id number] ? : 1985 ?Acct:[id number] ? Age/Sex: 39 / M ?ADM Date: 10/06/24 ? Loc: HO.CT ? Attending Dr: Balwinder Guajardo [employer] ? Ordering Physician: Balwinder Guajardo ?? Date of Service: 10/06/24 ?? Procedure(s): CT abdomen wo IV con ?? Accession Number(s): [id number] ? cc: Trudi Reagan LOAD HAUL DUMP OPERATOR; Balwinder Guajardo ? Report Number: ?? [id number]: Total DLP = ??323.00 mGy-cm ?? EXAMINATION: [...] DD/ 1433 ? TD/TT: 10/06/24 1505 ? Cable Tool Driller: ? Procedure Note Inocencio, Image - 10/06/[address] [place] [address] [address] Scan Report Signed Patient: Ayana FranciscoR#: [id number] : 1985Acct:[id number] Age/Sex: 39 / MADM Date: 10/06/24 Loc: HO.CT Attending Dr: Balwinder Guajardo [employer] Ordering Physician: Balwinder Guajardo Date of Service: 10/06/24 Procedure(s): CT abdomen wo IV con Accession Number(s): [id number] cc: Trudi Reagan; Balwinder Guajardo Report Number: [id number]: Total DLP = 323.00 mGy-cm EXAMINATION: CT [...] 10/06/24 1518 DD/ 1433 TD/TT: 10/06/24 1505 Cable Tool Driller: Balwinder Guajardo CLIP RIVETER IMG CT PROCEDURES Final R esult * [...] 10/05/2024 12:3 3 PM EDT Trudi Reagan LOAD HAUL DUMP OPERATOR POINT OF CARE TEST ENTER/EDIT ORDERABLES Final Result * Chlamydia/N. Gonorrhoeae RNA, TMA, Urogenitial (10/05/2024 12:27 PM EDT) CT PCR NOT DETECTED Not Detect. [facility] Comment:A not detected test result does [...] psychologicalconsequences. NG PCR NOT DETECTED Not Detect. [facility] Comment:A not detected test result does [...] PM EDT 10/05/2024 6:02 PM EDT Narrative [facility] - 10/06/2024 11:33 AM EDT Urine Balwinder Guajardo [facility] MICROBIOLOGY - GENERA L ORDERABLES Final Result [facility] [address] [place] [address] [phone] * Urinalysis, Complete, with Reflex to Culture (10/05/2024 11:30 AM EDT) Color Urine Yellow [facility] Appearance Urine Clear [facility] PH 7.0 5.0 - 9.0 [facility] Glucose Urine UA Negative Negative mg/dL [facility] Urine Blood Negative Negative [facility] Specific [place] - Urine 1.010 1.005 - 1.025 [facility] Urine Protein Negative Neg-Trace mg/dL [facility] Urine Ketones Negative Negative mg/dL [facility] Nitrite Urine Negative Negative [facility] Leukocyte Esterase Urine Negative Negative [facility] RBC Urine 0-2 0 - 2 /HPF [facility] Urine WBC 0-5 0 - 5 /HPF [facility] Urine Squamous Epithelial Cell 0-2 0 - 2 /HPF [facility] Urine Bacteria None Seen None Seen [facility] Hyaline Casts, Urine 0-2 0 - 2 /LPF [facility] Urine 10/05/2024 11:3 0 AM EDT 10/05/2024 5:59 PM EDT Narrative [facility] - 10/05/2024 6:50 PM EDT [id number], Clean Catch Kainlawrence Guajardo [facility] URINE ORDERABLES Manuela l Result [facility] [address] [place] [address] [phone] * Destruction of lesion (09/22/2024 12:30 PM EDT) Narrative Graeme Love MD - 09/22/2024 12:30 PM EDT Graeme Love MD ? 09/22/2024 12:34 PM Destruction of lesion Date/Time: 09/22/2024 12:30 PM Performed by: Graeme Love MD Authorized by: Graeme Love MD ?? Consent: ??Consent obtained: ??Written ??Consent given by: ??Patient ??Risks discussed: ??Pain, poor cosmetic result and bleeding ??Alternatives discussed: ??Observation Amity protocol: ??Procedure explained and questions answered to [...] Urine Drug Screen (09/16/2024 3:08 PM EDT) Urine Urine specimen obtained by clean catch procedure / Unknown 09/16/2024 3:08 PM EDT Narrative Antonella Moon RN - 09/16/2024 3:08 PM EDT . negative AMP, BAR, BUP, BZO, CARLOS, FTY, MDMA, MET, MOP, MTD, OXY, PCP, TCA, THC. Lot# [id number] Exp: 02-24-26 us Trudi Reagan LOAD HAUL DUMP OPERATOR POINT OF CARE TEST ENTER/EDIT ORDERABLES Final Result * Albumin, Random Urine W/Creatinine (06/24/2024 10:09 AM EST) Creatinine, Urine 146.41 mg/dL [facility] Microalbumin Urine 7.0 mg/L [facility] Microalbum Creatinine Ratio Ur 4.7 <30 ug/mg cr [facility] Comment:Albumin/Creatinine R atio Reference Ranges: Normal: < 30 ug/mg creatinine Microalbuminuria: 30 - 300 ug/mg creatinineClinical Albuminuria: > 300 ug/mg creatinine Urine 06/24/2024 10:0 9 AM EST 06/24/2024 2:06 PM EST us Trudi Reagan LOAD HAUL DUMP OPERATOR LAB URINE ORDERABLES Final Res ult [facility] [address] [place] [address] [phone] from Last 3 Months or Most Recently Relevant to Health Maintenance Insurance [place], [place] [employer] Care Teams Jewel Hole Driller Relationship Specialty Start Date End Date Trudi Reagan FNP [address] [place] [address] PCP - General Family Medicine 03/04/22 Joshua Anderson FNP [address] [place] [address] Nurse Practitioner Family Medicine 06/03/23
--- OUTSIDE RECORDS SUMMARY | 2024-11-20 14:23 | XMS_ITS | Encounter Summary ---
Author Organization [employer] Address [address] [facility] [address]t [place] [address] Care Team Providers Care Welder Metal Fab Name Role Phone Trudi Reagan Primary Care Provider [phone] Joshua Anderson Unavailable Unavailable Reason for Visit * Reason Comments Med Change Request Encounter Details Date Type Department Care Team ([facility] Contact Info) Description 04/01/2023 Refill [facility] CHC MED & PEDS [address] [place] [address] Trudi Reagan FNP [address] [place] [address] Social History Tobacco Use Types Packs/Day Years [...] AM EDT documented as of this encounter Functional Status * Over the past 2 weeks, how often have you been bothered by any of the following problems? Question Answer Date of Assessment Author Patient Health Questionnaire -2 Score 6 04/02/2023 2:37 PM EDT Eileen Smyth [place] * If you checked off any problems on this questionnaire so far, Question Answer Date of Assessment Author How difficult have these problems made it for you to do your work, take care of things at home, or get along with other people? Extremely difficult 04/02/2023 2:37 PM MICHELAT Eileen Smyth [place] * Over the past 2 weeks, how often have you been bothered by any of the following problems? Question Answer Date of Assessment Author Little interest or pleasure in doing things Nearly every day 04/02/2023 2:37 PM Kelsey Servin [place] Feeling down, depressed, or hopeless Nearly every day 04/02/2023 2:37 PM MICHELAT Eileen Smyth [place] Trouble falling or staying asleep, or sleeping too much Nearly every day 04/02/2023 2:37 PM Eileen Servin [place] Feeling tired or having little energy Nearly every day 04/02/2023 2:37 PM Eileen Servin [place] Poor appetite or overeating Several days 04/02/2023 2:37 PM Eileen Servin [place] Feeling bad about yourself - or that you are a failure or have let yourself or your family down Not at all 04/02/2023 2:37 PM Eileen Servin [place] Trouble concentrating on things, such as reading the newspaper or watching television Nearly every day 04/02/2023 2:37 PM Eileen Servin MA Moving or speaking so slowly that other people could have noticed? Or the opposite - being so fidgety or restless that you have been moving around a lot more than usual. Not at all 04/02/2023 2:37 PM Eileen Servin MA Thoughts that you would be better off or hurting yourself in some way Not at all 04/02/2023 2:37 PM Rei Servin MA Patient Health Questionnaire-9 Score 16 04/02/2023 2:37 PM Catie Servin MA documented as of this encounter Plan of Treatment Upcoming Encounters Date Type Department Care Team (Late st Contact Info) Description 11/24/2024 9:40 AM EDT Office Visit [facility] OPTOMETRY [address] [place], [place] [phone] 01/04/2025 3:15 PM EDT Office Visit [facility] CHC MED & PEDS [address] [place] [address] Trudi Reagan FNP [address] [place] [address] documented as of this encounter Visit Diagnoses Not on filedocumented in this encounter Additional Health Concerns Assessment Noted Time PHQ-9 Depression Total Score: 13 023 2:50 PM EDT documented as of this encounter Care Teams Welder Metal Fab Relationship Specialty Start Date End Date Trudi Reagan FNP [address] [place] [address] PCP - General Family Medicine 03/04/22 Joshua Anderson FNP [address] [place] [address] Nurse Practitioner Family Medicine 06/03/23 documented as of this encounter
--- OUTSIDE RECORDS SUMMARY | 2024-11-20 14:23 | XMS_ITS | Encounter Summary ---
Author Organization [employer] Address [address] [facility] 7t [place] [address] Care Team Providers Care Pourer Name Role Phone Trudi Reagan Primary Care Provider [phone] Joshua Anderson Unavailable Unavailable Encounter Details Date Type Department Care Team (Late st Contact Info) Description 03/22/2023 Abstract [facility] MEDICINE [address] [place], [place] [phone] Trudi Reagan FNP [address] [place] [address] Social History Tobacco Use Types Packs/Day Years [...] Description 11/24/2024 9:40 AM EDT Office Visit [facility] OPTOMETRY [address] [place] [address] 01/04/2025 3:15 PM EDT Office Visit [facility] CHC MED & PEDS [address] [place] [address] Trudi Reagan FNP [address] [place] [address] documented as of this encounter Visit Diagnoses Not on filedocumented in this encounter Additional Health Concerns Assessment Noted Time PHQ-9 Depression Total Score: 13 023 2:50 PM EDT documented as of this encounter Care Teams Pourer Relationship Specialty Start Date End Date Trudi Reagan FNP [address] [place] [address] PCP - General Family Medicine 03/04/22 Joshua Anderson FNP [address] [place] [address] Nurse Practitioner Family Medicine 06/03/23 documented as of this encounter
--- OUTSIDE RECORDS SUMMARY | 2024-11-20 14:23 | XMS_ITS | Encounter Summary ---
Author Organization [employer] Address [address] [facility] [address] [address] 7[address] [place] [address] Care Team Providers Care Patrol Captain Name Role Phone Trudi Reagan Primary Care Provider [phone] Joshua Anderson Unavailable Unavailable Encounter Details Date Type Department Care Team (Late st Contact Info) Description 04/26/2023 Orders Only [facility] MEDICINE [address] [place], [place] [phone] Trudi Irvin FNP Social History Tobacco Use [...] Description 11/24/2024 9:40 AM EDT Office Visit [facility] OPTOMETRY [address] [place] [address] 01/04/2025 3:15 PM EDT Office Visit [facility] CHC MED & PEDS [address] [place] [address] Trudi Reagan FNP [address] [place] [address] documented as of this encounter Visit Diagnoses Not on filedocumented in this encounter Additional Health Concerns Assessment Noted Time PHQ-9 Depression Total Score: 16 023 2:37 PM EDT documented as of this encounter Care Teams Patrol Captain Relationship Specialty Start Date End Date Trudi Reagan FNP [address] [place] [address] PCP - General Family Medicine 03/04/22 Joshua Anderson FNP [address] [place] [address] Nurse Practitioner Family Medicine 06/03/23 documented as of this encounter
--- OUTSIDE RECORDS SUMMARY | 2024-11-20 14:23 | XMS_ITS | Encounter Summary ---
Author Organization [facility] Address [address] [place] [address] Care Team Providers Care Group Home Worker Name Role Phone Provider, Unknown Primary Care Provider [phone] Encounter Details Date Type Department Care Team (Late st Contact Info) Description 07/16/2017 Scanned Document [facility] Emergency Department [address] [place] [address] Provider, Generic Social History Tobacco Use Types [...] on filedocumented in this encounter Care Teams Group Home Worker Relationship Specialty Start Date End Date Provider, Unknown 1 DO NOT USE THIS RECORD PCP - General 03/14/16 documented as of this encounter
--- OUTSIDE RECORDS SUMMARY | 2024-11-20 14:23 | XMS_ITS | Encounter Summary ---
Author Organization [employer] Address [address] [facility] 7t [place] [address] Care Team Providers Care Construction Operations Manager Name Role Phone Trudi Reagan Primary Care Provider [phone] Joshua Anderson Unavailable Unavailable Reason for Visit * Reason Comments Med Refill Encounter Details Date Type Department Care Team ([facility] st Contact Info) Description 07/15/2023 Refill [facility] MEDICINE [address] [place] [address] Joshua Anderson FNP Major depressive disorder with [...] Description 11/24/2024 9:40 AM EDT Office Visit [facility] OPTOMETRY [address] [place] [address] 01/04/2025 3:15 PM EDT Office Visit [facility] CHC MED & PEDS [address] [place] [address] Trudi Reagan FNP [address] [place] [address] documented as of this encounter Visit Diagnoses Diagnosis Major depressive disorder with psychotic features (CMS/HCC) documented in this encounter Additional Health Concerns Assessment Noted Time PHQ-9 Depression Total Score: 16 023 3:17 PM EST documented as of this encounter Care Teams Construction Operations Manager Relationship Specialty Start Date End Date Trudi Reagan FNP [address] [place] [address] PCP - General Family Medicine 03/04/22 Joshua Anderson FNP [address] [place] [address] Nurse Practitioner Family Medicine 06/03/23 documented as of this encounter
--- OUTSIDE RECORDS SUMMARY | 2024-11-20 14:23 | XMS_ITS | Encounter Summary ---
Author Organization [employer] Address [address] [facility] 7t [place] [address] Care Team Providers Care Electrical Power Station Technician Name Role Phone Trudi Reagan Primary Care Provider [phone] Joshua Anderson Unavailable Unavailable Reason for Visit * Reason Comments Med Refill Encounter Details Date Type Department Care Team ([facility] st Contact Info) Description 12/07/2023 Refill [facility] CHC MED & PEDS [address] [place] [address] Joshua Anderson FNP Major depressive disorder with [...] 12/09/2023 3:30 PM EDT TC to pt. GLUE BONE CRUSHER initial NV scheduled for 12/10/23 @ 11am. * Telephone Encounter - Flaquita Mantilla - 12/09/2023 3:22 PM EDT Tc from pt requesting a call to schedule GLUE BONE CRUSHER appointment. Please contact pt at [phone] documented in this encounter Plan of Treatment Upcoming Encounters Date Type Department Care Team (Late st Contact Info) Description 11/24/2024 9:40 AM EDT Office Visit [facility] OPTOMETRY [address] [place] [address] 01/04/2025 3:15 PM EDT Office Visit [facility] CHC MED & PEDS [address] [place] [address] Trudi Reagan FNP [address] [place] [address] documented as of this encounter Visit Diagnoses Diagnosis Major depressive disorder with psychotic features (CMS/HCC) documented in this encounter Additional Health Concerns Assessment Noted Time PHQ-9 Depression Total Score: 12 10/30/ 024 2:28 PM EDT documented as of this encounter Care Teams Electrical Power Station Technician Relationship Specialty Start Date End Date Trudi Reagan FNP [address] [place] [address] PCP - General Family Medicine 03/04/22 Joshua Anderson FNP [address] [place] [address] Nurse Practitioner Family Medicine 06/03/23 documented as of this encounter
--- NOTE | 2024-11-20 14:35 | HO.NEPHOV ---
Vital Signs 11/20/24 14:37 Height 5 ft 6 in Weight 190 lb BMI 30.7 BP 110/70 Blood Pressure Location Lt brachial Position Sitting Pulse 72 Pulse Source Pulse Oximeter Pulse Oximetry (%) 96 Oxygen Delivery Method Room Air Intake Visit Reasons: FU-Conf Furniture Sales Consultant Required: No Accompanied by: Self / Same As Patient Allergies No Known Allergies Allergy (Verified 11/20/24 14:37) HPI Comments Details: Mr Francisco was seen for F/U of nephrolithiasis. He is 39 years of age and has been found to have renal calculi bilaterally. He said he had flank pain( mostly on the right)with radiation to groin associated with dysuria as well as hematuria. He has had ER visits for this issue. He was also seen by PCP. He wants pain medications.( he is not tachycardic or hypertensive). He recently had imaging studies which showed B/L non obstructing calculi. He claims to be maintaining good hydration. He is hypertensive and is on ACEI. His renal functions are normal. He has family H/O renal calculi. He does not have any hodan hematuria now. He does not know what kind of stones he forms. He does not keep up with low sodium diet. He had a 24 hour urine collection for stone work up. [facility] Medical History (Updated 10/27/24 @ 21:42 by Oracio Cavazos MD) Vitamin D deficiency Hypothyroid Allergic rhinitis Anxiety GERD (gastroesophageal reflux disease) Diabetes Elevated cholesterol HTN (hypertension) Surgical History History of esophagogastroduodenoscopy (EGD) Hx of appendectomy Family History Father Diabetes Past heart attack HTN (hypertension) CVD (cardiovascular disease) Mother Diabetes HTN (hypertension) Daughter Asthma Maternal Grandmother Thyroid disease Cancer Paternal Uncle Prostate CA Colon cancer Liver cancer Brother No problems noted. Social History Patient Tobacco Use Status: Former Tobacco user Review of Systems Const All systems reviewed & are unremarkable except as noted in HPI and below Physical Exam Vital Signs: Last Vital Signs Pulse 72 11/20/24 14:37 BP 110/70 11/20/24 14:37 Pulse Ox 96 11/20/24 14:37 Oxygen Delivery Method Room Air 11/20/24 14:37 BMI result Body Mass Index 30.7 Const General: comfortable and no acute distress Orientation/consciousness: patient oriented x3 HEENT Head: Yes normocephalic Mouth: Normal oral and palatal mucosa present Eyes EOM: EOMs intact bilaterally Neck Neck: Yes supple Resp Auscultation: clear to auscultation bilaterally Cardio Jugular venous distension: no JVD Rate: regular rate GI Palpation (GI): Soft to palpation Auscultation: normal bowel sounds General: Yes no CVA tenderness Back/Spine/Pelvis Back: no CVA tenderness Skin General skin exam: no rashes or lesions noted Neuro General: patient oriented x3 and moves all extremities Extrem General: Yes no pedal edema Results Reviewed Nephrology Results: Hgb 15.8 g/dl (14.0-18.0) 10/12/24 WBC 5.0 X10*3/uL (4.8-10.8) 10/12/24 Plt Count 152 X10*3/uL (160-400) L 10/12/24 Sodium 139 mmol/L (135-145) 10/12/24 Potassium 4.3 mmol/L (3.3-5.1) 10/12/24 Chloride 105 mmol/L (96-108) 10/12/24 Carbon Dioxide 28 mmol/L (22-29) 10/12/24 BUN 16 mg/dL (9-16) 10/12/24 Creatinine 0.95 mg/dL (0.5-1.4) 10/12/24 Calcium 9.3 mg/dL (8.4-10.2) 10/27/24 PTH Intact 72.8 pg/mL (8.7-77.1) 10/27/24 Urine Protein Negative mg/dL (Neg-Trace) 10/05/24 Urine Creatinine 146.41 mg/dL 06/24/24 Assessment & Plan Assessment & Plan (1) HTN (hypertension): Code(s): I10 - Essential (primary) hypertension Category: Medical Qualifiers: Hypertension type: primary hypertension Qualified Code(s): I10 - Essential (primary) hypertension (2) Nephrolithiasis: Code(s): N20.0 - Calculus of kidney Category: Medical Plan 24 hour urine collection reviewed Serum uric acid and calcium reviewed Good hydration and low sodium diet encouraged Recent imaging studies reviewed-no obstruction Renal function normal; BP @ goal; Reduced lisinopril to 5 mg Started HCTZ 12.5 mg daily. May be a candidate for K citrate Less meat and more fruits/vegetables & low oxalate diet Had a Urology referral and has an appointment Follow up given Orders: Orders Creatinine 2 Months I10 - Essential (primary) hypertension, N20.0 - Calculus of kidney Blood Urea Nitrogen 2 Months I10 - Essential (primary) hypertension, N20.0 - Calculus of kidney Electrolytes 2 Months I10 - Essential (primary) hypertension, N20.0 - Calculus of kidney Medications: New hydrochlorothiazide 12.5 mg PO DAILY 30 days 30 tabs 8RF Coding Level of Care Code Est Pt Level 4 (43501) Diagnoses Primary hypertension I10 Hypertension type: primary hypertension Nephrolithiasis N20.0
[2024-11-20 14:37] VITALS: BP 110/70; PULSE 72; O2SAT 96; BMI 30.7
== END 2024-11-20 15:01 | disposition home or self-care (01) ==
LOC: HO.HKA 14:20
PROVIDERS: PCP Registered Nurse; Visit Provider Internal Medicine Nephrology
DX: I10 Essential (primary) hypertension (principal); N20.0 Calculus of kidney
CPT/HCPCS: 99214

== ENCOUNTER → 2024-11-20 14:19 | Outpatient (BNVA) | payer MEDICAID, SELFPAY | PROVIDERS: PCP Registered Nurse; Visit Provider Internal Medicine Nephrology | DX: I10 Essential (primary) hypertension (principal); N20.0 Calculus of kidney | CPT/HCPCS: 99212 ==

== ENCOUNTER 2024-12-04 09:58 | Outpatient (REF) | payer MEDICAID, SELFPAY ==
--- OUTSIDE RECORDS SUMMARY | 2024-12-04 10:28 | XMS_ITS | Patient Health Record ---
Author Organization [facility] Address [address] [place] [id number] Care Team Providers Care Eligibility Counselor Name Role Phone CARMELO BABB MD Primary Care Provider Berto Rojas [phone] Allergies No Known Allergies Reason For Referral [...] Problem Status W/U Status Risk Notes Problem [id number] Colon cancer screening (Z12.11) Active confirmed Problem [id number] Family history o f colon cancer (Z80.0) Active confirmed Problem [id number] Gastroesophageal reflux disease, unspecified whether esophagitis present (K21.9) Active confirmed Plan Of Treatment Future Test Test Name Order Date UPPER GI ENDOSCOPY 01/30/2023 COLONOSCOPY 01/30/2023 Insurance Providers Payer Name Payer Address Payer Phone Subscriber Number Group Number Insured Name Patient Relationship to Insured Coverage Start Date Coverage End Date [facility] [address] [place] [phone] [id number] ALIX FRANCIS Self - patient is the insured Medical (General) History Medical History History ICD Code Anxiety GERD Hypertension Allergic rhinitis Hypothyroidism NIDDM Elevated cholesterol Vitamin D deficiency Denies [place],CVA,Lung disease,renal disease Surgical History Surgery Date(Month/Year)
[2024-12-04 15:07] LABS: Amphetamine Screen Urine Not Detected (Not Detect); Barbiturates, Urine Not Detected (Not Detect); Benzodiazepines Screen Urine Not Detected (Not Detect); Buprenorphine Scr Not Detected (Not Detect); Cannabinoid Screen Urine Not Detected (Not Detect); Cocaine Screen Urine Not Detected (Not Detect); Fentanyl, urine Not Detected (Not Detect); Methadone Screen, Urine Not Detected (Not Detect); Opiate Screen Urine Not Detected (Not Detect); Oxycodone Screen Urine Not Detected (Not Detect); Phencyclidine Screen Urine Not Detected (Not Detect)
== END 2024-12-04 09:59 | disposition home or self-care (01) ==
LOC: HO.CHCLDS 09:58
PROVIDERS: Visit Provider Registered Nurse
DX: F41.0 Panic disorder [episodic paroxysmal anxiety] (principal)
CPT/HCPCS: 80307

== ENCOUNTER 2025-02-18 13:05 | Outpatient (REF) | payer MEDICAID, SELFPAY ==
--- OUTSIDE RECORDS SUMMARY | 2025-02-18 13:56 | XMS_ITS | Patient Health Record ---
Author Organization [facility] Address [address] [place] [id number] Care Team Providers Care Transportation Sales Consultant Name Role Phone CARMELO BABB MD Primary Care Provider Berto Rojas [phone] Allergies No Known Allergies Reason For Referral [...] Problem Status W/U Status Risk Notes Problem [id number] Colon cancer screening (Z12.11) Active confirmed Problem [id number] Family history o f colon cancer (Z80.0) Active confirmed Problem [id number] Gastroesophageal reflux disease, unspecified whether esophagitis present (K21.9) Active confirmed Plan Of Treatment Future Test Test Name Order Date UPPER GI ENDOSCOPY 01/30/2023 COLONOSCOPY 01/30/2023 Insurance Providers Payer Name Payer Address Payer Phone Subscriber Number Group Number Insured Name Patient Relationship to Insured Coverage Start Date Coverage End Date [facility] [address] [place] [phone] [id number] ALIX FRANCIS Self - patient is the insured Medical (General) History Medical History History ICD Code Anxiety GERD Hypertension Allergic rhinitis Hypothyroidism NIDDM Elevated cholesterol Vitamin D deficiency Denies [place],CVA,Lung disease,renal disease Surgical History Surgery Date(Month/Year)
--- OUTSIDE RECORDS SUMMARY | 2025-02-18 13:56 | XMS_ITS | Clinical Summary ---
Author Organization [facility] Address [address] [place] [address] Care Team Providers Care It Applications Developer Name Role Phone Unavailable Primary Care Provider Unavailabl e Source Comments PLEASE NOTE, if this patient is a minor, it may be UNLAWFUL to discuss sensitive information that is contained in these records (such as FAMILY PLANNING, MENTAL HEALTH or SUBSTANCE ABUSE) with the minor patient's parent or other person without the patient's specific authorization.[facility] Social History Tobacco Use Types Packs/Day Years Used Date Smoking Tobacco: Never Assessed Sex and Gender Information Value Date Recorded Sex Assigned at Male 12/25/2024 10:18 AM PDT Legal Sex Male 10:18 AM PDT Gender Identity Male 12/25/2024 10:18 AM PDT Sexual Orientation Not on file Plan of Treatment Upcoming Encounters Date Type Department Care Team (Late st Contact Info) Description 04/13/2025 10:00 AM EDT Behavioral Health Visit [facility] [address] [place] [address] [place] [phone] Soto Alves, [address] [place] [phone] Health Maintenance Due Date Last Done Comments Anxiety Screening 1983 Tobacco Screening 1983 Hypertension Screening (#1) 2001 Alcohol and Drug Screen 07/08/2024 Depression Annual Screen 07/08/2024 Imm-Influenza (#1) 2025 05/25/2024, 0 03/29/2023, 04/24/2022, Additional history exists Diabetes Screening 10/13/2027 10/12/2024, 0 10/12/2024, 10/12/2024 Lipid Screening 10/12/2029 10/12/2024 Imm-DTaP/Tdap/Td (8 - Td or Tdap) 06/28/2033 06/28/2023, 05/14/2012, 02/05/2008, Additional history exists Imm-Hepatitis B Completed 11/12/2002, 10/06, 03/23/1998 [id number] Completed 05/25/2024, 04/07, 05/02/2021, Additional history exists HIV Screening Completed 10/12/2024, 10/12/2024 Hepatitis C Screening Completed 10/12/2024 Insurance [facility]
--- OUTSIDE RECORDS SUMMARY | 2025-02-18 13:56 | XMS_ITS | Clinical Summary ---
Author Organization [facility] Address [address] [place] [address] Care Team Providers Care Etl Data Architect Name Role Phone Provider, Unknown Primary Care [...] 56 03/14/2016 10:57 AM EDT Temperature 36.6 C (97.9 F) 03/14/2016 10:57 AM EDT Respiratory Rate 16 03/14/2016 10:57 AM EDT [...] of 3 - 19+ 3-dose series) 2002 HPV Vaccines (1 - 3-dose SCD M series) 2010 COVID-19 Vaccine ( - 2023-2 5 season) 2024 Influenza Vaccine 02/05/2025 Pneumococcal Vaccine: Pediat monet (0-5 Years) and At-Risk Patients (6 to 49 Years) Aged Out No longer eligible b ased on patient's age to complete this topic Insurance [facility] [employer] Care Teams Etl Data Architect Relationship Specialty Start Date End Date Provider, Unknown 1 DO NOT USE THIS RECORD PCP - General 03/14/16
--- OUTSIDE RECORDS SUMMARY | 2025-02-18 13:56 | XMS_ITS | Encounter Summary ---
Author Organization [employer] Address [address] [facility] [address] [place] [address] Care Team Providers Care Pharmacist Hospital Name Role Phone Trudi Reagan Primary Care Provider [phone] Joshua Anderson Unavailable Unavailable Reason for Visit * Reason Onset Date Comments Med Refill 10/23/2024 Encounter Details Date Type Department Care Team ([facility] st Contact Info) Description 10/23/2024 Telephone [facility] [address] [place] [address] Trudi Reaagn FNP [address] [place] [address] Med Refill Social History Tobacco Use Types [...] 5-325 MG tablet To be sent to: [facility]/pharmacy #[id number] documented in this encounter Plan of Treatment Not on file documented as of this encounter Visit Diagnoses Not on filedocumented in this encounter Additional Health Concerns Assessment Noted Time PHQ-9 Depression Total Score: 8 01/21/20 24 11:16 AM EDT documented as of this encounter Care Teams Pharmacist Hospital Relationship Specialty Start Date End Date Trudi Reagan FNP [address] [place] [address] PCP - General Family Medicine 03/04/22 Joshua Anderson FNP [address] [place] [address] Nurse Practitioner Family Medicine 06/03/23 documented as of this encounter
[2025-02-18 14:52] LABS: Anion Gap 11 (12-20); Blood Urea Nitrogen 14 mg/dL (9-16); Carbon Dioxide 27 mmol/L (22-29); Chloride 107 mmol/L (96-108); Estimated Glomerular Filt Rate > 60; Potassium 4.3 mmol/L (3.3-5.1); Sodium 141 mmol/L (135-145)
== END 2025-02-18 13:06 | disposition home or self-care (01) ==
LOC: HO.LAB 13:05
PROVIDERS: Visit Provider Internal Medicine Nephrology
DX: N20.0 Calculus of kidney (principal); I10 Essential (primary) hypertension
CPT/HCPCS: 36415; 80051; 82565; 84520

== ENCOUNTER 2025-03-18 17:48 | Outpatient (REF) | payer SELFPAY ==
--- OUTSIDE RECORDS SUMMARY | 2025-03-18 13:00 | XMS_ITS | Encounter Summary ---
Author Organization [employer] Address [address] [facility] [address] [place] [address] Care Team Providers Care Community Worker Name Role Phone Mitzymustapha Trudi SUPERVISING BROKER Primary Care Provider [phone] Joshua Anderson Unavailable Unavailable Reason for Visit * Reason Comments [facility] CARE [facility]ANNER Encounter Details Date Type Department Care Team ([facility] st Contact Info) Description 03/18/2025 1:00 PM EDT Clinical Support [facility] [address] [place] [address] Antonella Moon, AARON [address] [place] [address] Anxiety Social History Tobacco Use Types Packs/Day Years Used Date Smoking Tobacco: Former Cigarettes Q uit: 03/30/2021 Passive Smoke Exposure: Past Smokeless Tobacco: Never Depression Answer Date Recorded [...] this encounter Functional Status * Over the last 2 weeks, how often have you been bothered by any of the following problems? Question Answer Date of Assessment Author Feeling nervous, anxious, or on edge 3 03/18/2025 1:19 PM EDT Antonella Moon RN Not being able to stop or co ntrol worrying 3 03/18/2025 1:19 PM EDT Antonella Moon RN Worrying too much about diff erent things 3 03/18/2025 1:19 PM EDT Antonella Moon RN Trouble relaxing 3 03/18/2025 1:19 PM EDT Antonella Burroughs RN Being so restless that it is hard to sit still 3 03/18/2025 1:19 PM EDT Antonella Moon RN Becoming easily annoyed or irritable 3 03/18/2025 1:19 PM EDT Antonella Moon RN Feeling afraid as if somethi ng awful might happen 3 03/18/2025 1:19 PM EDT Antonella Moon RN MELONIE-7 Total Score 21 03/18/2025 1:19 PM EDT Antonella Moon RN documented as of this encounter Progress Notes * Antonella Moon RN - 03/18/2025 1:00 PM EDT SUBJECTIVE: Dewey Francisco is a 40 y.o. year old male who presents for [facility] Preferred language for medical information: Luxembourger Interpreted needed: No Dewey Francisco does report adherence to Clonazepam (Klonopin) 0.5 mg, take 1 tablet every 12 hours PRN, last refilled 03/08/25. The patient last took Clonazepam (Klonopin) on: 03/18/25 Medication effective: Yes OBJECTIVE: PATIENT SERVICES COORDINATOR checked: 03/18/2025 Pill count completed for Clonazepam (Klonopin), count today is 6 , anticipated count should be 0, this is as expected. Last PCP visit: 01/04/25 MLEONIE-7 Total Score: 21 (03/18/2025 1:19 PM) Controlled substance agreement signed: Controlled Substance Agreement 03/18/2025 LIFE CARE PLANNER Tier: 1 Current Medications[1] Smoking status: Denies ETOH use: Denies Illicit substances: Denies Marijuana use: No Lab Results Component Value Date POCTHC Negative 03/18/2025 POCCOCAINEUR Negative 03/18/2025 POCOPIATEUR Negative 03/18/2025 DOAUR Negative 03/18/2025 POCAMPHETAMI Negative 03/18/2025 POCBENZODIUR Negative 03/18/2025 POCBARBSCRN Negative 03/18/2025 POCMETHADOUR Negative 03/18/2025 POCBUPSCRN Negative 03/18/2025 POCTCAUR Negative 03/18/2025 POCMDMAUR Negative 03/18/2025 POCOXYCODONE Negative 03/18/2025 POCPHENCYCUR Negative 03/18/2025 PROPOXUR Negative 03/18/2025 FENTANYLURIN Negative 03/18/2025 BZO neg. Sending out urine to the lab for BZO confirmation. ASSESSMENT: Encounter Diagnosis Name Primary? Anxiety PLAN: Information on acupuncture given: Previously discussed Dewey Coffeydonado will continue taking medication as prescribed and follow up at the next LIFE CARE PLANNER visit or sooner if needed. Dewey Nolan has verbalized understanding of care plan. Future Appointments Date Time Provider Department Center 04/14/2025 3:15 PM Antonella Moon RN [facility] Antonella Moon RN [1] Current Outpatient Medications: Acetaminophen Extra Strength 500 MG tablet, TAKE 1-2 TABLET BY ORAL ROUTE EVERY6 -8 HOURS NEEDEDNOT TO EXCEED 6 TABLETS PER 24HRS, Disp: 120 tablet, Rfl: 2 atorvastatin (Lipitor) 20 MG tablet, TAKE 1 TABLET BY ORAL ROUTE EVERY EVENING (CHOLESTEROL), Disp:90 tablet, Rfl: 3 cholecalciferol (D3-1000) 25 MCG (1000 UT) capsule, Take 1 capsule (25 mcg) by mouth Once per day.,Disp: 90 capsule, Rfl: 3 clonazePAM (KlonoPIN) 0.5 MG tablet, TAKE 1 TABLET (0.5 MG) BY MOUTH IF NEEDED IN THE MORNING AND AT BEDTIME FOR ANXIETY, Disp: 14 tablet, Rfl: 0 clotrimazole (Lotrimin) 1 % cream, apply by topical route 2 times every day to the affected and surrounding areas of skin in the morning and evening x 4 weeks, Disp: , Rfl: fluticasone (Flonase) 50 MCG/ACT nasal spray, SPRAY 1 - 2 SPRAY BY INTRANASAL ROUTE EVERY DAY IN EACH NOSTRIL NEEDED, Disp: 48 mL, Rfl: 1 glucose blood (FREESTYLE LITE) test strip, CHeck BS BID, Disp: , Rfl: hydrOXYzine HCl (Atarax) 50 MG tablet, Take 1 tablet (50 mg) by mouth if needed in the morning and at bedtime for anxiety. Take at first sign of panic attack., Disp: 60 tablet, Rfl: 1 levothyroxine (Synthroid, Levoxyl) 125 MCG tablet, TAKE 1 TABLET BY MOUTH BEFORE BREAKFAST, Disp: 90 tablet, Rfl: 0 lisinopril 10 MG tablet, Take 1 tablet (10 mg) by mouth Once per day., Disp: 90 tablet, Rfl: 3 loratadine (Claritin) 10 MG tablet, Take 1 tablet (10 mg) by mouth Once per day., Disp: 90 tablet, Rfl: 3 omeprazole (PriLOSEC) [address] capsule, TAKE 1 TABLET BY ORAL ROUTE 2 TIMES EVERY DAY BEFORE MEALS (BREAKFAST & DINNER), Disp: 180 capsule, Rfl: 1 ondansetron ODT (Zofran-ODT) 4 MG disintegrating tablet, Take 1 tablet (4 mg) by mouth every 8 (eight) hours if needed for nausea or vomiting., Disp: 21 tablet, Rfl: 0 prazosin (Minipress) 2 MG capsule, Take 1 capsule (2 mg) by mouth at bedtime. Take every night without skipping doses, Disp: 30 capsule, Rfl: 1 pyridoxine (Vitamin B-6) 100 MG tablet, Take 1 tablet (100 mg) by mouth in the morning., Disp: 90 tablet, Rfl: 1 QUEtiapine (SEROquel) 100 MG tablet, Take 1 tablet (100 mg) by mouth at bedtime., Disp: 30 tablet, Rfl: 1 senna (Senokot) 8.6 MG tablet, Take 1-2 tablets by mouth daily if needed for constipation, Disp: 180 tablet, Rfl: 1 tamsulosin (Flomax) 0.4 MG 24 hr capsule, Take 1 capsule (0.4 mg) by mouth Once per day. (Use to help pass kidney stones), Disp: 30 capsule, Rfl: 0 venlafaxine XR (Effexor XR) 150 MG 24 hr capsule, TAKE 1 CAPSULE BY MOUTH EVERY MORNING. DO NOT CRUSH OR CHEW., Disp: 30 capsule, Rfl: 1 documented in this encounter Plan of Treatment Upcoming Encounters Date Type Department Care Team (Late st Contact Info) Description 04/14/2025 3:15 PM EDT Clinical Support [facility] [address] [place] [address] Antonella Moon RN [address] [place] [address] Scheduled Orders Name Type Priority Associated Diagnoses Orde r Schedule Drug Monitoring, Benzodiazepines, Quantitative, Urine Lab Routine Anxiety Ordered: 03/18/2025 documented as of this encounter Procedures Procedure Name Priority Date/Time Associated Diagnosis Comments POCT TAMAR-14 URINE DRUG SCREEN Routine 03/18/2025 1:18 PM EDT Anxiety documented in this encounter Results * POCT TAMAR-14 Urine Drug Screen (03/18/2025 1:18 PM EDT) THC Negative Negative Cocaine Screen, Urine Negative Negative Opiate Screen, Urine Negative Negative Methamphetamine Screen Urine Negative Negative Amphetamine Screen, Urine Negative Negative Benzodiazepines Screen, Urine Negative Negative Barbiturate Screen, Urine Negative Negative Methadone Screen, Urine Negative Negative Buprenophine Screen, Urine Negative Negative TCA, Urine Negative Negative MDMA Urine Negative Negative ng/mL Oxycodone Screen, Urine Negative Negative Phencyclidine (PCP), Urine Negative Negative Propoxyphene, Urine Negative Negative Fentanyl, Urine Negative Negative Urine Urine specimen obtained by clean catch procedure / Unknown 03/18/2025 1:18 PM EDT Narrative Antonella Moon RN - 03/18/2025 1:18 PM EDT . Internal Pass Control Lot# [id number] Exp: 05-07-26 Trudi MERIDA POINT OF CARE TEST ENTER/EDIT ORDERABLES Final Result documented in this encounter Visit Diagnoses Diagnosis Anxiety Anxiety state, unspecified documented in this encounter Additional Health Concerns Assessment Noted Time PHQ-9 Depression Total Score: 8 01/21/20 24 11:16 AM EDT documented as of this encounter Care Teams Community Worker Relationship Specialty Start Date End Date Trudi Reagan FNP [address] [place] [address] PCP - General Family Medicine 03/04/22 Joshua Anderson FNP [address] [place] [address] Nurse Practitioner Family Medicine 06/03/23 documented as of this encounter
--- OUTSIDE RECORDS SUMMARY | 2025-03-18 19:01 | XMS_ITS | Encounter Summary ---
Author Organization [employer] [facility] Address [address] [place] [address] [address] [place] [address] Care Team Providers Care Riveter Pneumatic Name Role Phone Trudi Reagan Primary Care Provider [phone] Joshua Anderson Unavailable Unavailable Encounter Details Date Type Department Care Team (Late Contact Info) Description 03/22/2023 Abstract [facility] MED[facility] [address] [place], [place] [phone] Trudi Reagan FNP [address] [place] [address] Social History Tobacco Use Types Packs/Day Years [...] Description 04/14/2025 3:15 PM EDT Clinical Support [facility] [address] [place] [address] Antonella Moon, RN [address] [place], [place] [phone] documented as of this encounter Visit Diagnoses Not on filedocumented in this encounter Additional Health Concerns Assessment Noted Time PHQ-9 Depression Total Score: 13 023 2:50 PM EDT documented as of this encounter Care Teams Riveter Pneumatic Relationship Specialty Start Date End Date Trudi Reagan FNP [address] [place] [address] PCP - General Family Medicine 03/04/22 Joshua Anderson FNP [address] [place] [address] Nurse Practitioner Family Medicine 06/03/23 documented as of this encounter
--- OUTSIDE RECORDS SUMMARY | 2025-03-18 19:01 | XMS_ITS | Clinical Summary ---
Author Organization [employer] Address [address] [facility] 7[address] [place] [address] Care Team Providers Care Pick Up Man Name Role Phone Trudi Reagan Primary Care Provider [phone] Joshua Anderson Unavailable Unavailable Allergies No known [...] test strip CHeck BS BID 020 Active ondansetron ODT (Zofran-ODT) 4 MG disintegrating [...] per day. 90 tablet 3 024 Active cholecalciferol (D3-1000) [...] pass kidney stones) 30 capsule 024 Active omeprazole (PriLOSEC) [address] capsule TAKE 1 TABLET BY ORAL ROUTE 2 TIMES EVERY DAY BEFORE MEALS (BREAKFAST & DINNER) 180 capsule 1 Active Acetaminophen Extra Strength 500 MG tabletIndications: Pain TAKE 1-2 TABLET BY ORAL ROUTE EVERY6 -8 HOURS NEEDED NOT TO EXCEED 6 TABLETS PER 24HRS 120 tablet 2 Active QUEtiapine (SEROquel) 100 MG tabletIndications: Major depressive disorder with psychotic features (CMS/HCC) Take 1 tablet (100 mg) by mouth at bedtime. 30 tablet 1 025 2024 Active prazosin (Minipress) 2 MG capsuleIndications :Major depressive disorder with psychotic features (CMS/HCC) Take 1 capsule (2 mg) by mouth at bedtime. Take every night without skipping doses 30 capsule 1 025 2024 Active hydrOXYzine HCl (Atarax) 50 MG tabletIndications: Major depressive disorder with psychotic features (CMS/HCC) Take 1 tablet (50 mg) by mouth if needed in the morning and at bedtime for anxiety. Take at first sign of panic attack. 60 tablet 1 025 2024 Active levothyroxine (Synthroid, Levoxyl) 125 MCG tabletIndications: Acquired hypothyroidism TAKE 1 TABLET BY MOUTH BEFORE BREAKFAST 90 tablet 025 Active venlafaxine XR (Effexor XR) 150 MG 24 hr capsuleIndications :Major depressive disorder with psychotic features (CMS/HCC) TAKE 1 CAPSULE BY MOUTH EVERY MORNING. DO NOT CRUSH OR CHEW. 30 capsule 1 025 Active atorvastatin (Lipitor) 20 MG tabletIndications: Hypercholesterolem ia TAKE 1 TABLET BY ORAL ROUTE EVERY EVENING (CHOLESTEROL) 90 tablet 3 025 Active clonazePAM (KlonoPIN) 0.5 MG tabletIndications: Major depressive disorder with psychotic features (CMS/HCC) TAKE 1 TABLET (0.5 MG) BY MOUTH IF NEEDED IN THE MORNING AND AT BEDTIME FOR ANXIETY 14 tablet 025 Active atorvastatin (Lipitor) 20 MG tabletIndications: Hypercholesterolem ia Take 1 Tablet by Oral route every evening (cholesterol) 90 tablet 3 024 2024 Discontinued clonazePAM (KlonoPIN) 0.5 MG tabletIndications: Major depressive disorder with psychotic features (CMS/HCC) TAKE 1 TABLET (0.5 MG) BY MOUTH IF NEEDED IN THE MORNING AND AT BEDTIME FOR ANXIETY 60 tablet 025 2024 Discontinued(R eorder (will not trigger notification to Pharmacy)) Active Problems Problem Noted Date Diagnosed Date Panic disorder 09/02/2024 Bilateral nephrolithiasis 04/01/2023 Overview (01/05/2025): Diagnosed 03/19/23, CT revealed bilateral nephrolithiasis with 5-6 mm mid right ureteral calculus resulting in mild right sided hydroureteronephrosis Following with [facility] & [facility] - Dr. Cavazos 06/18/23: ureteroscopy with laser lithotripsy on the right 06/26/23: KUB demonstrated 3 small calcifications overlying left renal fossa May 2024: reports ED eval [id number] identified bilat kidney stones Consult November 2024: decreased lisinopril to 5mg daily, started hydrochlorothiazide 12.5mg daily Assessment & Plan (05/31/2024 9:10 PM EST): - Discussed ED eval NOW vs outpatient management. Pt declines ED eval, will proceed with OP eval at this time with strict ED precautions - Plan: CT abd/pelvis w/o contrast ordered STAT Dewey to call [facility] Urology for appt Hydration Flomax x 30 days Strict ED precautions Assessment & Plan (06/29/2023 10:33 AM EST): -Cont pyridoxine 100mg daily through Urology -Pain management through [facility] U[facility] PRN -Repeat KUB ordered for further [...] and was apparently told erroneously by his [facility] pharmacy that he had no refills available [...] to [facility] pharmacy where his medications could be packaged [...] to [facility] pharmacy for medboxes, for Risperidone 1 mg daily, Venlafaxine 150 mg daily, Prazosin 2 mg 2 at bedtime, and Hydroxyzine 25 mg q 6 h prn. Patient evidently has not yet started Medboxes, but says he has an appointment to bring in all his pills. He missed DESIGNER AND PATTERNMAKER visit as well, but that has also [...] to [facility] pharmacy for medboxes, for Risperidone 1 mg [...] with [facility] Psychopharm clinic - Joshua Anderson APRN. -Continue [...] car yesterday after picking up refills at [facility]. Later in the conversation asks me if [facility] will know which medications are available for refill. Rather than belaboring his symptom report and medication instructions again, we will defer that until next appointment, when I have explained that he will need to have the medication bottles available for review. Again suggested switching to [facility] or [facility] pharmacy for Medboxes and home delivery, [...] the [facility] Pharmacy with Medboxes and home delivery to [...] prn anxiety. He will F/U with [facility] in [place] for counseling intake. F/U 4-6 weeks. He agrees with the plan. Assessment & Plan (09/25/2022 3:52 PM EDT): Presented with tearfulness, auditory hallucinations, flashbacks and intrusive thoughts. Consider alternate diagnosis of PTSD. Seems to be doing a little better. Continue medicaitons without skipping doses. Recommend going in person to [facility] in [place]. F/U 4-6 weeks. He agrees with the [...] medicaitons without skipping doses. Given information about [facility] in [place] and urged to go in person or [...] Type 2 diabetes mellitus without complication Overview (01/05/2025): Lab Results Component Value Date HGBA1C 6.0 10/12/2024 Education provided re: therapeutic lifestyle changes. Encouraged [...] to [facility] Eye [facility] Dental: encouraged to establish dental [...] pt interested in starting med boxes with [facility] pharmacy - referral sent. Vitamin D deficiency 06/08/2022 Acquired hypothyroidism 05/26/2015 Assessment & Plan (01/05/2025 7:53 PM EDT): - Cont levothyroxine 125 mcg daily Lab Results Component Value Date TSH 1.72 10/27/2024 Assessment & Plan (05/31/2024 8:52 PM EST): [...] rhinitis 05/26/2015 Essential hypertension 05/26/2015 Overview (04/01/2023): Medication: lisinopril 10mg daily Encourage lifestyle interventions [...] organization. Date Type Department Care Team Description 03/18/2025 1:00 PM EDT Clinical Support [facility] [address] [place] [address] Antonella Moon RN Anxiety 03/18/2025 Telephone [facility] [address] [place] [address] Antonella Moon, AARON 03/18/2025 Travel 03/05/2025 Travel 03/05/2025 Telephone [facility] [address] [place] [address] Antonella Moon, AARON 03/05/2025 Telephone [facility] [address] [place] [address] Antonella Moon, AARON 03/05/2025 Telephone [facility] MEDICINE [address] [place] [address] Trudi Reagan FNP Nurse Triage 03/05/2025 Telephone [facility] MEDICINE [address] [place] [address] Trudi Reagan FNP Med Refill 03/01/2025 Refill [facility] [address] [place] [address] Trudi Reagan, SUPERVISOR [employer] Hypercholesterolemia 02/05/2025 Telephone [facility] P[facility]S [address] [place] [address] Trudi Reagan FNP med release 02/01/2025 Refill [facility] [address] [place] [address] Trudi Reagan, SUPERVISOR [employer] Essential hypertension; Acquired hypothyroidism; Major depressive disorder with psychotic features (CMS/HCC) 01/27/2025 Refill [facility] [address] [place] [address] Trudi Reagan, SUPERVISOR [employer] Major depressive disorder with psychotic features (CMS/HCC) 01/04/2025 3:15 PM EDT Office Visit [facility] [address] [place] [address] Trudi Reagan, SUPERVISOR [employer] Acquired hypothyroidism (Primary Dx); Type 2 diabetes mellitus without complication, without long-term current use of insulin (CMS/HCC); Pain; Bilateral nephrolithiasis 01/04/2025 Travel from Last 3 Months Immunizations Immunization Administration [...] Passive Smoke Exposure: Past Smokeless Tobacco: Never Tobacco Cessation:Counseling Given: Not [...] Sign Reading Time Taken Comments Blood Pressure 133/84 01/04/2025 3:13 PM EDT Pulse 60 01/04/2025 3:13 PM EDT Temperature 36.8 C (98.2 F) 01/04/2025 3:13 PM EDT Respiratory Rate 20 01/04/2025 3:13 PM EDT Oxygen Saturation 98% 01/04/2025 3:13 PM EDT Inhaled Oxygen Concentration - - Weight 85.7 kg (189 lb) 01/04/2025 3:13 PM EDT Height 165.1 cm (5' 5 ) 01/04/2025 3:13 PM EDT Body Mass Index 31.45 01/04/2025 3:13 PM EDT Plan of Treatment Upcoming Encounters Date Type Department Care Team (Late st Contact Info) Description 04/14/2025 3:15 PM EDT Clinical Support [facility] [address] [place] [address] Antonella Moon, RN [address] [place] [address] Health Maintenance Due Date Last Done Comments Disability Screening 1983 Diabetes: Foot Exam 1993 Eye Exam 1993 Alcohol/Substance Use Screening 1995 Family Planning (PISQ) 1998 HPV Vaccines (1 - Male 3-dose series) 1998 SDOH Screening 06/28/2024 06/28/2023 Depression Screening 01/20/2025 01/21/2024, 01/21/20 24 Influenza Vaccine (#1) 2025 , 03/29/2023, 04/24/2022, Additional history exists Diabetes: Hemoglobin A1C 04/13/2025 025, 05/25/2024, 02/17/2024, Additional history exists Diabetes: Urine Protein Screening 06/24/2025 06/24/2024, 04/04/2023, 11/28/2020 Lipid Panel 10/12/2025 10/12/2024, 06/07, 04/04/2023 Tobacco Screening 01/04/2026 01/04/2025 Zoster Vaccines (1 of 2) 2033 DTaP/Tdap/Td [...] Years) and At-Risk Patients (6 to 49) Years Completed 06/28/2023 COVID-19 Vaccine Completed 05/25/2024, , 05/02/2021, Additional history exists HIV Screening Completed [...] SCREEN Routine 03/18/2025 1:18 PM EDT Anxiety POCT GLUCOSE Routine 01/04/2025 3:15 PM EDT Type 2 diabetes mellitus without complication, without long-term current use of insulin ([facility]) HEPATITIS C AB W/REFL TO HCV RNA, QN, PCR Routine 10/12/2024 12:54 PM EDT Encounter for screening examination for sexually transmitted disease HIV 1/2 ANTIGEN/ANTIBODY, FOURTH GENERATION W/RFL Routine 10/12/2024 12:54 PM EDT Encounter for screening examination for sexually transmitted disease HEMOGLOBIN A1C Routine 10/12/2024 12:54 PM EDT Healthcare maintenance LIPID PANEL, STANDARD Routine 10/12/2024 12:54 PM EDT Healthcare maintenance ALBUMIN, RANDOM URINE W/CREATININE Routine 06/24/2024 10:09 AM EST Essential hypertension Type 2 diabetes mellitus without complication, without long-term current use of insulin ([facility]) from Last 3 Months or Most Recently Relevant to Health Maintenance Results * POCT TAMAR-14 Urine Drug Screen (03/18/2025 1:18 PM EDT) Pathologist [facility] THC Negative Negative Cocaine Screen, Urine Negative [...] PM EDT . Internal Pass Control Lot# [id number] Exp: 05-07-26 us Trudi Reagan [facility] POINT OF CARE TEST ENTER/EDIT ORDERABLES Final Result * POCT Glucose (01/04/2025 3:15 PM EDT) Pathologist [facility] Glucose Blood, POC 111 60 - 200 mg/dL Blood Capillary blood specimen / Unknown 01/04/2025 3:15 PM EDT Trudi Reagan [facility] POINT OF CARE TEST ENTER/EDIT ORDERABLES Final Result * Hepatitis C Antibody with Reflex to HCV, RNA, Quantitative, Real-Time PCR (10/12/2024 12:54 PM EDT) Pathologist [facility] Hepatitis C Antibody Nonreactive Nonreactive [facility] Comment:Antibodies to HCV no t detected; does not exclude early acuteHCV infection. Blood Venous blood specimen / Unknown 10/12/2024 12:54 PM EDT 10/12/2024 1:56 PM EDT [facility] LAB BLOOD ORDERABLES Manuela l Result Performing Organization Address City/[facility]/ZIP Co de Phone Number [facility] [address] [place] [address] [phone] * HIV-1/2 Antigen and Antibodies, Fourth Generation, with Reflexes (10/12/2024 12:54 PM EDT) Pathologist [facility] HIV AB/AG Nonreactive Nonreactive [facility] Comment:HIV-1 p24 Ag and/or HIV-1/HIV-2 Ab not detected.A test result that is nonreactive does not exclude thepossibility of exposure to or infection with HIV-1 and/orHIV-2. Nonreactive results in this assay for individualswith prior exposure to HIV-1 and/or HIV-2 may be due toantigen and antibody levels that are below the limit ofdetection of this assay.[employer] HIV Ag/Ab Combo assay result andsupplemental assay results should be interpreted inconjunction with the patient's clinical presentation,history and other laboratory results. If the results areinconsistent with clinical evidence, additional testing issuggested to confirm the result. Blood Venous blood specimen / Unknown 10/12/2024 12:54 PM EDT 10/12/2024 1:56 PM EDT [facility] LAB BLOOD ORDERABLES Manuela l Result Performing Organization Address City/[facility]/ZIP Co de Phone Number [facility] [address] [place] [address] [phone] * Hemoglobin A1c (10/12/2024 12:54 PM EDT) Pathologist [facility] Hemoglobin A1c 6.0 <6.0 % [facility] Comment:Hemoglobin A1C Refer ence Range Adults: 4.8 - 6.0 % Non diabetic: < 6.0 % Goal: < 7.0 %Additional Action Suggested: > 8.0 %Note: Hemoglobin A1c results are invalid for patients with abnormal amounts of HbF. Blood transfusions may impact the HbA1c concentration in the patient sample. Estimated Average Glucose 126 mg/dL [facility] Comment:eAG = Estimated ave rage glucose which is %A1C expressed asaverage glucose, using the formula of the H1K-VdtpsoiLroizge Glucose study (ADAG), Diabetes Care, Vol.31,#8,Feb. 2007 Blood Venous blood specimen / Unknown 10/12/2024 12:54 PM EDT 10/12/2024 1:56 PM EDT [facility] LAB BLOOD ORDERABLES Manuela l Result [facility] [address] [place] [address] [phone] * (ABNORMAL) Lipid Panel, Standard (10/12/2024 12:54 PM EDT) Triglycerides 129 <150 mg/dL [facility] Comment:Desirable Triglyceri de: less than 150 mg/dLBorderline High Triglyceride 150-199 mg/dLHigh Triglyceride: 200-499 mg/dLVery High Triglyceride: greater than or equal to 5OO mg/dL Cholesterol 175 <200 mg/dL [facility] Comment:Desirable Cholestero l: less than 200 mg/dLBorderline High Cholesterol: 200-239 mg/dLHigh Cholesterol: greater than 239 mg/dL LDL Cholesterol Calculated 105(H) <100 mg/dL [facility] Comment:Desirable LDL: less than 100 mg/dLNear Optimal/Above Optimal LDL: 110- 129 mg/dLBorderline High LDL: 130-159 mg/dLHigh LDL: 160-189 mg/dLVery High LDL: greater than or equal to 190 mg/dL HDL Cholesterol 45 >40 mg/dL [facility] Comment:Desirable HDL: great er than 40 mg/dL Note: This HDL assay may give artificially low results in patients with liver disease. Blood Venous blood specimen / Unknown 10/12/2024 12:54 PM EDT 10/12/2024 1:56 PM EDT Balwinder Guajardo MENTAL HEALTH NURSE PRACTITIONER LAB BLOOD ORDERABLES Manuela l Result Performing Organization Address [facility] Co de Phone Number [facility] [address] [place] [address] [phone] * Albumin, Random Urine W/Creatinine (06/24/2024 10:09 AM EST) Creatinine, Urine 146.41 mg/dL [facility] Microalbumin Urine 7.0 mg/L [facility] Microalbum Creatinine Ratio Ur 4.7 <30 ug/mg cr [facility] Comment:Albumin/Creatinine R atio Reference Ranges: Normal: < 30 ug/mg creatinine Microalbuminuria: 30 - 300 ug/mg creatinineClinical Albuminuria: > 300 ug/mg creatinine Urine 06/24/2024 10:0 9 AM EST 06/24/2024 2:06 PM EST Trudi Reagan [employer]PER[employer] LAB URINE ORDERABLES Final Res ult Performing Organization Address [facility] Co de Phone Number [facility] [address] [place] [phone] from Last 3 Months or Most Recently Relevant to Health Maintenance Insurance [employer] Care Teams Pick Up Man Relationship Specialty Start Date End Date Trudi Reagan FNP [address] [place] [address] PCP - General Family Medicine 03/04/22 Joshua Anderson FNP [address] [place] [address] Nurse Practitioner Family Medicine 06/03/23
--- OUTSIDE RECORDS SUMMARY | 2025-03-18 19:01 | XMS_ITS | Encounter Summary ---
Author Organization [employer] Address [address] [facility] [address]t [place] [address] Care Team Providers Care Marking Devices Assembler Name Role Phone Trudi Reagan Primary Care Provider [phone] Joshua Anderson Unavailable Unavailable Reason for Visit * Reason Onset Date Comments Med Refill 03/05/2025 Encounter Details Date Type Department Care Team ([facility] st Contact Info) Description 03/05/2025 Telephone [facility] MEDICINE [address] [place] [address] Trudi Reagan FNP [address] [place] [address] Med Refill Social History Tobacco Use Types [...] encounter Miscellaneous Notes * Telephone Encounter - Mckenna Humphrey LPN - 03/05/2025 10:22 AM EDT Medication pended to PCP for approval. * Telephone Encounter - Bisi Bey - 03/05/2025 10:17 AM EDT TC from pt requesting medication refill. Medications needing refill : - clonazePAM (KlonoPIN) 0.5 MG tablet To be sent to: - [facility]/pharmacy #[id number] - [place], [place] - [address] [place] [address] Pt is complete out and having panic attack. Triage was send documented in this encounter Plan of Treatment Upcoming Encounters Date Type Department Care Team (Late st Contact Info) Description 04/14/2025 3:15 PM EDT Clinical Support [facility] [address] [place] [address] Antonella Moon, AARON [address] [place] [address] documented as of this encounter Visit Diagnoses Not on filedocumented in this encounter Additional Health Concerns Assessment Noted Time PHQ-9 Depression Total Score: 8 01/21/20 24 11:16 AM EDT documented as of this encounter Care Teams Marking Devices Assembler Relationship Specialty Start Date End Date Trudi Reagan FNP [address] [place] [address] PCP - General Family Medicine 03/04/22 Joshua Anderson FNP [address] [place] [address] Nurse Practitioner Family Medicine 06/03/23 documented as of this encounter
--- OUTSIDE RECORDS SUMMARY | 2025-03-18 19:01 | XMS_ITS | Encounter Summary ---
Author Organization [employer] Address 75 [facility] 7t [place] [address] Care Team Providers Care Automotive Refinisher Name Role Phone Trudi Reagan Primary Care Provider [phone] Joshua Anderson Unavailable Unavailable Encounter Details Date Type Department Care Team ([facility] Contact Info) Description 03/18/2025 Telephone [facility] [address] [place], [place] [phone] Antonella Moon, AARNO [address] [place], [place] Social History Tobacco Use Types Packs/Day Years [...] Moon RN documented as of this encounter Miscellaneous Notes * Telephone Encounter - Antonella Moon RN - 03/18/2025 1:22 PM EDT Fyi. Pt came in today for [employer]. METALWORKER Agreement reviewed and signed. Utox BZO negative, sending outurine to the lab for BZO confirmation. Next METALWORKER appt in 1 mo, 04/14/25. documented in this encounter Plan of Treatment Upcoming Encounters Date Type Department Care Team (Late st Contact Info) Description 04/14/2025 3:15 PM EDT Clinical Support [facility] [address] [place] [address] Antonella Moon RN [address] [place] [address] documented as of this encounter Visit Diagnoses Not on filedocumented in this encounter Additional Health Concerns Assessment Noted Time PHQ-9 Depression Total Score: 8 01/21/20 24 11:16 AM EDT documented as of this encounter Care Teams Automotive Refinisher Relationship Specialty Start Date End Date Trudi Reagan FNP [address] [place] [address] PCP - General Family Medicine 03/04/22 Joshua Anderson FNP [address] [place] [address] Nurse Practitioner Family Medicine 06/03/23 documented as of this encounter
--- OUTSIDE RECORDS SUMMARY | 2025-03-18 19:01 | XMS_ITS | Encounter Summary ---
Author Organization [employer] Address [address] [facility] 7t [place] [address] Care Team Providers Care Steam Station Supervisor Name Role Phone Trudi Reagan Primary Care Provider [phone] Joshua Anderson Unavailable Unavailable Reason for Visit * Reason Comments Med Refill Encounter Details Date Type Department Care Team ([facility] st Contact Info) Description 07/15/2023 Refill [facility] MEDICINE [address] [place] [address] Joshua Anderson FNP Major depressive disorder with [...] 3:15 PM EDT Clinical Support [facility] [address] [place] [address] Antonella Moon, AARON [address] [place] [address] documented as of this encounter Visit Diagnoses Diagnosis Major depressive disorder with psychotic features (CMS/HCC) documented in this encounter Additional Health Concerns Assessment Noted Time PHQ-9 Depression Total Score: 16 023 3:17 PM EST documented as of this encounter Care Teams Steam Station Supervisor Relationship Specialty Start Date End Date Trudi Reagan FNP [address] [place] [phone] PCP - General Family Medicine 03/04/22 Joshua Anderson FNP [address] [place] [address] Nurse Practitioner Family Medicine 06/03/23 documented as of this encounter
--- OUTSIDE RECORDS SUMMARY | 2025-03-18 19:01 | XMS_ITS | Encounter Summary ---
Author Organization [employer] Address [address] [place] [address] 7t [place] [address] Care Team Providers Care Bilingual Interpreter Name Role Phone Trudi Reagan Primary Care Provider [phone] Joshua Anderson Unavailable Unavailable Reason for Visit * Reason Comments Med Change Request Encounter Details Date Type Department Care Team ([facility] Contact Info) Description 04/01/2023 Refill [facility] CHC MED & PEDS [address] [place] [address] Trudi Reagan FNP 505 [place] [address] Social History Tobacco Use Types Packs/Day Years [...] much Nearly every day 04/02/2023 2:37 PM MICHELAT Eileen Smyth [place] Feeling tired or having little energy [...] Not at all 04/02/2023 2:37 PM Rei eSrvin [place] Patient Health Questionnaire-9 Score 16 04/02/2023 2:37 PM Catie Servin MA documented as of this encounter Plan of Treatment Upcoming Encounters Date Type Department Care Team (Late st Contact Info) Description 04/14/2025 3:15 PM EDT Clinical Support [facility] MED & PEDS [address] [place] [address] Antonella Moon, RN [address] [place], [place] documented as of this encounter Visit Diagnoses Not on filedocumented in this encounter Additional Health Concerns Assessment Noted Time PHQ-9 Depression Total Score: 13 023 2:50 PM EDT documented as of this encounter Care Teams Bilingual Interpreter Relationship Specialty Start Date End Date Trudi Reagan FNP [address] [place] [address] PCP - General Family Medicine 03/04/22 Joshua Anderson FNP [address] [place] [address] Nurse Practitioner Family Medicine 06/03/23 documented as of this encounter
--- OUTSIDE RECORDS SUMMARY | 2025-03-18 19:01 | XMS_ITS | Encounter Summary ---
Author Organization [facility] Address [address] [place] [address] 7 [place] [address] Care Team Providers Care Butcher Scullion Name Role Phone Trudi Reagan Primary Care Provider [phone] Joshua Anderson Unavailable Unavailable Reason for Visit * Reason Comments Med Refill Encounter Details Date Type Department Care Team (Late Contact Info) Description 01/18/2023 Refill [facility] MED & PEDS [address] [place] [address] Joshua Anderson FNP Social History Tobacco Use [...] Department Care Team (Late Contact Info) Description 04/14/2025 3:15 PM EDT Clinical Support [facility] MED & PEDS [address] [place] [address] Antonella Moon, AARON 505 [place] [address] documented as of this encounter Visit Diagnoses Not on filedocumented in this encounter Additional Health Concerns Assessment Noted Time PHQ-9 Depression Total Score: 11 023 2:18 PM EDT documented as of this encounter Care Teams Butcher Scullion Relationship Specialty Start Date End Date Trudi Reagan FNP [address] [place] [address] PCP - General Family Medicine 03/04/22 Joshua Anderson FNP [address] [place] [address] Nurse Practitioner Family Medicine 06/03/23 documented as of this encounter
--- OUTSIDE RECORDS SUMMARY | 2025-03-18 19:01 | XMS_ITS | Encounter Summary ---
Author Organization [facility] Address [address] [place] [address] Care Team Providers Care Half Backer Name Role Phone Provider, Unknown Primary Care Provider [phone] Encounter Details Date Type Department Care Team (Late st Contact Info) Description 07/16/2017 Scanned Document [facility] Emergency Department [address] [place] [address] Provider, Generic Social History Tobacco Use Types [...] on filedocumented in this encounter Care Teams Half Backer Relationship Specialty Start Date End Date Provider, Unknown 1 DO NOT USE THIS RECORD PCP - General 03/14/16 documented as of this encounter
--- OUTSIDE RECORDS SUMMARY | 2025-03-18 19:01 | XMS_ITS | Encounter Summary ---
Author Organization [employer] Address [address] [facility] 7t [place] [address] Care Team Providers Care Pattern Attendant Name Role Phone Trudi Reagan Primary Care Provider [phone] Joshua Anderson Unavailable Unavailable Reason for Visit * Reason Comments Med Refill Encounter Details Date Type Department Care Team ([facility] st Contact Info) Description 12/07/2023 Refill [facility] CHC MED & PEDS [address] [place] [address] Joshua Anderson FNP Major depressive disorder with [...] 12/09/2023 3:30 PM EDT TC to pt. DIAMOND ASSORTER initial NV scheduled for 12/10/23 @ 11am. * Telephone Encounter - Flaquita Mantilla - 12/09/2023 3:22 PM EDT Tc from pt requesting a call to schedule DIAMOND ASSORTER appointment. Please contact pt at [phone] documented in this encounter Plan of Treatment Upcoming Encounters Date Type Department Care Team ([facility] st Contact Info) Description 04/14/2025 3:15 PM EDT Clinical Support [facility] MED & PEDS 505 [place] [address] Antonella Moon RN [address] [place] [address] documented as of this encounter Visit Diagnoses Diagnosis Major depressive disorder with psychotic features (CMS/HCC) documented in this encounter Additional Health Concerns Assessment Noted Time PHQ-9 Depression Total Score: 12 024 2:28 PM EDT documented as of this encounter Care Teams Pattern Attendant Relationship Specialty Start Date End Date Trudi Reagan FNP [address] [place] [address] PCP - General Family Medicine 03/04/22 Joshua Anderson FNP [address] [place] [address] Nurse Practitioner Family Medicine 06/03/23 documented as of this encounter
--- OUTSIDE RECORDS SUMMARY | 2025-03-18 19:01 | XMS_ITS | Encounter Summary ---
Author Organization [facility] Address [address] [place] [address] 7 [place] [address] Care Team Providers Care Vocational Technical Education Director Name Role Phone Trudi Reagan Primary Care Provider [phone] Joshua Anderson Unavailable Unavailable Reason for Visit * Reason Comments Med Refill Encounter Details Date Type Department Care Team (Late st Contact Info) Description 02/21/2023 Refill [facility] MEDICINE [address] [place] [address] Joshua Anderson FNP Social History Tobacco Use [...] Description 04/14/2025 3:15 PM EDT Clinical Support [facility] CHC MED & PEDS [address] [place] [address] Antonella Moon, AARON [address] [place] [address] documented as of this encounter Visit Diagnoses Not on filedocumented in this encounter Additional Health Concerns Assessment Noted Time PHQ-9 Depression Total Score: 13 023 2:50 PM EDT documented as of this encounter Care Teams Vocational Technical Education Director Relationship Specialty Start Date End Date Trudi Reagan FNP [address] [place] [address] PCP - General Family Medicine 03/04/22 Joshua Anderson FNP 230 [place] [address] Nurse Practitioner Family Medicine 06/03/23 documented as of this encounter
--- OUTSIDE RECORDS SUMMARY | 2025-03-18 19:01 | XMS_ITS | Encounter Summary ---
Author Organization [employer] Address [address] [facility] 7t [place] [address] Care Team Providers Care Vocational Psychologist Name Role Phone Trudi Reagan Primary Care Provider [phone] Joshua Anderson Unavailable Unavailable Encounter Details Date Type Department Care Team (Latest Contact Info) Description 03/18/2025 Travel Social History Tobacco Use Types Packs/Day [...] Moon RN documented as of this encounter Plan of Treatment Upcoming Encounters Date Type Department Care Team (Late st Contact Info) Description 04/14/2025 3:15 PM EDT Clinical Support [facility] MED & PEDS 505 [place] [address] Antonella Moon RN 505 [facility] [place] [address] documented as of this encounter Visit Diagnoses Not on filedocumented in this encounter Additional Health Concerns Assessment Noted Time PHQ-9 Depression Total Score: 8 01/21/20 24 11:16 AM EDT documented as of this encounter Care Teams Vocational Psychologist Relationship Specialty Start Date End Date Trudi Reagan FNP [address] [place] [address] PCP - General Family Medicine 03/04/22 Joshua Anderson FNP [address] [place] [address] Nurse Practitioner Family Medicine 06/03/23 documented as of this encounter
--- OUTSIDE RECORDS SUMMARY | 2025-03-18 19:01 | XMS_ITS | Patient Health Record ---
Author Organization [facility] Address [address] [place] [id number] Care Team Providers Care Day Worker Name Role Phone CARMELO BABB MD Primary Care Provider Berto Rojas [phone] Allergies No Known Allergies Reason For Referral [...] Problem Status W/U Status Risk Notes Problem [id number] Colon cancer screening (Z12.11) Active confirmed Problem [id number] Family history o f colon cancer (Z80.0) Active confirmed Problem [id number] Gastroesophageal reflux disease, unspecified whether esophagitis present (K21.9) Active confirmed Plan Of Treatment Future Test Test Name Order Date UPPER GI ENDOSCOPY 01/30/2023 COLONOSCOPY 01/30/2023 Insurance Providers Payer Name Payer Address Payer Phone Subscriber Number Group Number Insured Name Patient Relationship to Insured Coverage Start Date Coverage End Date [facility] [address] [place] [id number] ALIX FRANCIS Self - patient is the insured Medical (General) History Medical History History ICD Code Anxiety GERD Hypertension Allergic rhinitis Hypothyroidism NIDDM Elevated cholesterol Vitamin D deficiency Denies [place],CVA,Lung disease,renal disease Surgical History Surgery Date(Month/Year)
--- OUTSIDE RECORDS SUMMARY | 2025-03-18 19:01 | XMS_ITS | Encounter Summary ---
Author Organization [employer] Address [address] [facility] 7t [place] [address] Care Team Providers Care Corporate Manager Name Role Phone Trudi Reagan Primary Care Provider [phone] Joshua Anderson Unavailable Unavailable Reason for Visit * Reason Onset Date Comments Med Refill 08/17/2024 Encounter Details Date Type Department Care Team ([facility] st Contact Info) Description 08/17/2024 Refill [facility] MEDICINE [address] [place] [address] Trudi Reagan FNP [address] [place] [address] Major depressive disorder with psychotic features (CMS/HCC) [...] then has initial appt on 08/02/24 with radio time salesperson. Will send in 1 week supply from 08/26/24 - 09/02/24 to get him to appt. Then PCP bridge will be complete and Dewey needs to follow up with psych prescriber. Thank you. * Telephone Encounter - Macho Miner - 08/17/2024 10:28 AM EST TC from pt requesting medication refill. Medications needing refill : clonazePAM (KlonoPIN) 0.5 MG tablet To be sent to: [facility]/pharmacy #[id number] documented in this encounter Plan of Treatment Upcoming Encounters Date Type Department Care Team (Late st Contact Info) Description 04/14/2025 3:15 PM EDT Clinical Support [facility] MED & PEDS [address] [place] [address] Antonella Moon, AARON 505 [place] [address] documented as of this encounter Visit Diagnoses Diagnosis Major depressive disorder with psychotic features (CMS/HCC) documented in this encounter Additional Health Concerns Assessment Noted Time PHQ-9 Depression Total Score: 8 01/21/20 24 11:16 AM EDT documented as of this encounter Care Teams Corporate Manager Relationship Specialty Start Date End Date Trudi Reagan FNP [address] [place] [address] PCP - General Family Medicine 03/04/22 Joshua Anderson FNP [address] [place] [address] Nurse Practitioner Family Medicine 06/03/23 documented as of this encounter
--- OUTSIDE RECORDS SUMMARY | 2025-03-18 19:01 | XMS_ITS | Encounter Summary ---
Author Organization [employer] Address [address] [place] [address] Care Team Providers Care Coordinator Hotels Name Role Phone Trudi Reagan Primary Care Provider Joshua Anderson Unavailable Unavailable Encounter Details Date Type Department Care Team (Late st Contact Info) Description 03/29/2023 [facility] Information Management [address] [place], [place] [phone] Trudi Reagan FNP [address] [place], [place] [phone] Social History Tobacco Use Types Packs/Day Years [...] Description 04/14/2025 3:15 PM EDT Clinical Support [facility] CHC MED & PEDS [address] [place], [place] [phone] Antonella Moon, RN 505 [place], [place] [phone] documented as of this encounter Visit Diagnoses Not on filedocumented in this encounter Additional Health Concerns Assessment Noted Time PHQ-9 Depression Total Score: 13 023 2:50 PM EDT documented as of this encounter Care Teams Coordinator Hotels Relationship Specialty Start Date End Date Trudi Reagan FNP [address] [place] [address] PCP - General Family Medicine 03/04/22 Joshua Anderson FNP [address] [place] [address] Nurse Practitioner Family Medicine 06/03/23 documented as of this encounter
--- OUTSIDE RECORDS SUMMARY | 2025-03-18 19:01 | XMS_ITS | Encounter Summary ---
Author Organization [employer] Address [address] [facility] 7t [place] [address] Care Team Providers Care Railway Switchman Name Role Phone Trudi Reagan Primary Care Provider [phone] Joshua Anderson Unavailable Unavailable Reason for Visit * Reason Onset Date Comments Med Refill 05/29/2023 Encounter Details Date Type Department Care Team ([facility] st Contact Info) Description 05/29/2023 Telephone [facility] MEDICINE [address] [place] [address] Trudi Reagan FNP [address] [place] [address] Med Refill Social History Tobacco Use Types [...] Description 04/14/2025 3:15 PM EDT Clinical Support [facility] MED & PEDS 505 [place] [address] Antonella Moon, RN [address] [place] [address] documented as of this encounter Visit Diagnoses Not on filedocumented in this encounter Additional Health Concerns Assessment Noted Time PHQ-9 Depression Total Score: 16 023 2:37 PM EDT documented as of this encounter Care Teams Railway Switchman Relationship Specialty Start Date End Date Trudi Reagan FNP [address] [place] [address] PCP - General Family Medicine 03/04/22 Joshua Anderson FNP [address] [place] [address] Nurse Practitioner Family Medicine 06/03/23 documented as of this encounter
--- OUTSIDE RECORDS SUMMARY | 2025-03-18 19:01 | XMS_ITS | Clinical Summary ---
Author Organization [facility] Address [address] [place] [address] Care Team Providers Care Intermediate School Teacher Name Role Phone Unavailable Primary Care Provider [...] Care Team (Late st Contact Info) Description 05/18/2025 1:00 PM EST Behavioral Health Visit [facility] [address] [place] [address] [place] [phone] Soto Alves, HNP [address] [facility] [place] [phone] Health Maintenance Due Date Last Done Comments [...] exists Imm-Hepatitis B Completed 11/12/2002, 10/06, 03/23/1998 [id number] Completed 05/25/2024, 04/07, 05/02/2021, Additional history exists HIV Screening Completed 10/12/2024, 10/12/2024 Hepatitis C Screening Completed 10/12/2024 Insurance [facility]
--- OUTSIDE RECORDS SUMMARY | 2025-03-18 19:01 | XMS_ITS | Clinical Summary ---
Author Organization [facility] Address [address] [place] [address] Care Team Providers Care Silo Filler Name Role Phone Provider, Unknown Primary Care [...] (1 - 3-dose SCD M series) 2010 Influenza Vaccine 02/05/2025 COVID-19 Vaccine (2023-2 5 season) 2025 Pneumococcal Vaccine: Pediat monet (0-5 Years) and At-Risk Patients (6 to 49 Years) Aged Out No longer eligible b ased on patient's age to complete this topic Insurance [facility] [employer] Care Teams Silo Filler Relationship Specialty Start Date End Date Provider, Unknown 1 DO NOT USE THIS RECORD PCP - General 03/14/16
--- OUTSIDE RECORDS SUMMARY | 2025-03-18 19:01 | XMS_ITS | Encounter Summary ---
Author Organization [employer] Address [address] [facility] 7t [place] [address] Care Team Providers Care Paper Machine Tender Name Role Phone Trudi Reagan Primary Care Provider [phone] Joshua Anderson Unavailable Unavailable Reason for Visit * Reason Onset Date Comments Referral 04/05/2023 Encounter Details Date Type Department Care Team ([facility] st Contact Info) Description 04/05/2023 Telephone [facility] MEDICINE [address] [place] [address] Trudi Reagan FNP [address] [place] [address] Referral Social History Tobacco Use Types Packs/Day [...] Clinical Support [facility] MED & PEDS 505 [place] [address] Antonella Moon, RN [address] [place] [address] documented as of this encounter Visit Diagnoses Not on filedocumented in this encounter Additional Health Concerns Assessment Noted Time PHQ-9 Depression Total Score: 16 023 2:37 PM EDT documented as of this encounter Care Teams Paper Machine Tender Relationship Specialty Start Date End Date Trudi Reagan FNP [address] [place] [address] PCP - General Family Medicine 03/04/22 Joshua Anderson FNP [address] [place] [address] Nurse Practitioner Family Medicine 06/03/23 documented as of this encounter
--- OUTSIDE RECORDS SUMMARY | 2025-03-18 19:01 | XMS_ITS | Encounter Summary ---
Author Organization [employer] Address [address] [facility] 7t [place] [address] Care Team Providers Care Resource Management Planner Name Role Phone Trudi Reagan Primary Care Provider [phone] Joshua Anderson Unavailable Unavailable Encounter Details Date Type Department Care Team ([facility] st Contact Info) Description 04/26/2023 Orders Only [facility] MEDICINE [address] [place], [place] [phone] Trudi Irvin FNP Social History Tobacco Use [...] Description 04/14/2025 3:15 PM EDT Clinical Support [facility] MED & PEDS 505 [place] [address] Antonella Moon, RN [address] [place] [address] documented as of this encounter Visit Diagnoses Not on filedocumented in this encounter Additional Health Concerns Assessment Noted Time PHQ-9 Depression Total Score: 16 023 2:37 PM EDT documented as of this encounter Care Teams Resource Management Planner Relationship Specialty Start Date End Date Trudi Reagan FNP [address] [place] [address] PCP - General Family Medicine 03/04/22 Joshua Anderson FNP [address] [place] [address] Nurse Practitioner Family Medicine 06/03/23 documented as of this encounter
--- OUTSIDE RECORDS SUMMARY | 2025-03-18 19:01 | XMS_ITS | Encounter Summary ---
Author Organization [employer] Address [address] [facility] 7t [place] [address] Care Team Providers Care Aircraft Inspection Record Clerk Name Role Phone Trudi Reagan Primary Care Provider [phone] Joshua Anderson Unavailable Unavailable Reason for Visit * Reason Onset Date Comments Nurse Triage 03/05/2025 Encounter Details Date Type Department Care Team ([facility] st Contact Info) Description 03/05/2025 Telephone [facility] MEDICINE [address] [place] [address] Trudi Reagan FNP [address] [place] [address] Nurse Triage Social History Tobacco Use Types Packs/Day Years [...] * Telephone Encounter - FUAD Hobson - 03/05/2025 12:30 PM EDT Per PDMP review, pt picked up 30 day supply of clonazepam on 02/08/25. He should not need refill until 03/10/25, so I am surprised to hear that he ran out 2 days ago. Antonella - could you please call pt and ask about what happened with the medication and it running out ahead of time? Not sure we will be able to refill early. Thanks! Sending to triage team as FYBettye * Telephone Encounter - Helga Barraza RN - 03/05/2025 10:29 AM EDT Per chart review pt looking for refill on clonazepam. Call returned to Dewey [place] to triage below at [phone]. Reports increased anxiety and panic attacks due to being without clonazepam x 2 days. Pt reports that has been using atarax PRN with minimal relief. Pt advised that med queued toPCP for review. Wll forward triage note to PCP as well so that Rx can hopefull be sent prior to long weekend. Reviewed home care advise, ER precautions and reasons to call back. Protocol Used: Medication Refill and Renewal Call (Adult) Protocol-Based Disposition: Discuss with PCP and Callback by Nurse Today Positive Triage Question: * Caller requesting a CONTROLLED substance prescription refill (e.g., narcotics, ADHD medicines) * All higher-acuity triage questions were negative * Telephone Encounter - Bisi Mane Bey - 03/05/2025 10:20 AM EDT Symptom: Anxiety or Panic Attack Outcome: Schedule an urgent appointment (within 4 hours) or talk to a nurse or provider soon Reason: Anxiety keeps from normal daily activities (such as school or work) The caller accepted this outcome. Contact pt at [phone] documented in this encounter Plan of Treatment Upcoming Encounters Date Type Department Care Team ([facility] st Contact Info) Description 04/14/2025 3:15 PM EDT Clinical Support [facility] MED & PEDS [address] [place] [address] Antonella Moon, RN [address] [place] [address] documented as of this encounter Visit Diagnoses Not on filedocumented in this encounter Additional Health Concerns Assessment Noted Time PHQ-9 Depression Total Score: 8 01/21/20 24 11:16 AM EDT documented as of this encounter Care Teams Aircraft Inspection Record Clerk Relationship Specialty Start Date End Date Trudi Reagan FNP [address] [place] [address] PCP - General Family Medicine 03/04/22 Joshua Anderson FNP [address] [place] [address] Nurse Practitioner Family Medicine 06/03/23 documented as of this encounter
[2025-03-22 11:38] LABS: Alphahydroxymidazolam,GCMS Ur NEGATIVE; Alphahydroxytriazolam, GCMS Ur NEGATIVE; Alprazolam, GCMS Urine NEGATIVE; Aminoclonazepam, GCMS Urine 1012; Flurazepam Metabolite,GCMS Ur NEGATIVE; Lorazepam GCMS Urine NEGATIVE; Oxazepam, GCMS Urine NEGATIVE; Temazepam, GCMS Urine NEGATIVE
[2025-03-22 11:39] LABS: Nordiazepam, GCMS Urine NEGATIVE
== END 2025-03-18 17:49 | disposition home or self-care (01) ==
LOC: HO.HHCLNP 17:48
PROVIDERS: Visit Provider Registered Nurse
DX: F41.9 Anxiety disorder, unspecified (principal)
CPT/HCPCS: 80346